=== PATIENT | female | born 1995 | race Caucasian/White ===

== ENCOUNTER 2020-06-07 09:24 | Emergency (ER) | payer OTHER ==
[~2020-06-07] VITALS: Ht 147.3 cm; Wt 93.0 kg
[2020-06-07] MEDS ORDERED: TRAZ1TAB14 PO (09:42)
[2020-06-07] MEDS ORDERED: BUSP30TA PO (09:42)
[2020-06-07] MEDS ORDERED: PROZ10CA7 PO (09:42)
--- NOTE | 2020-06-07 10:17 | REP ---
INDICATION: seizures and head injury w loc. COMPARISON: None. TECHNIQUE: Helical scanning is acquired. 5 mm axial images were reformatted. Coronal MPR images were generated. FINDINGS: Bone window settings demonstrate an intact bony calvarium. There is no evidence of skull fracture or incidental bony calvarial lesion. The visualized paranasal sinuses appear clear. No intraorbital abnormality is seen. On soft tissue window setting images; the lateral, third, and fourth ventricles are normal in size and position. Neely-white differentiation pattern is normal above and below the tentorium. There are is no evidence of intracranial hemorrhage. No mass, edema, infarction, or midline shift is seen. No extra-axial fluid collection is appreciated. IMPRESSION: Negative noncontrast head CT. <Electronically signed by Jasbir Chua > 06/07/20 1017
--- NOTE | 2020-06-07 10:31 | REP ---
INDICATION: left knee pain post seizure COMPARISON: None. TECHNIQUE: Five views left knee. FINDINGS: There is no evidence of acute fracture, dislocation, or intrinsic bone disease.Joint spaces are unremarkable. I do not see evidence of a significant joint effusion. IMPRESSION: No fracture or dislocation. <Electronically signed by Philip Neely > 06/07/20 1029
[2020-06-07 10:56] LABS: BASO % 0.6 % (0.0-1.0); EOS # 0.1 10^3/uL (0.0-0.5); EOS % 1.2 % (0.0-3.0); HEMATOCRIT 39.8 % (36.0-47.0); HEMOGLOBIN 12.3 g/dl (12.0-15.5); LYMPH # 1.4 10^3/uL (1.5-5.0); LYMPH % 26.3 % (24.0-44.0); MEAN CORPUSCULAR HEMOGLOBIN 26.5 pg (27.0-33.0); MEAN CORPUSCULAR HGB CONC 30.9 g/dl (32.0-36.5); MEAN CORPUSCULAR VOLUME 85.8 fl (80.0-96.0); MONO # 0.3 10^3/uL (0.0-0.8); MONO % 5.8 % (2.0-8.0); NEUTROPHILS # 3.4 10^3/uL (1.5-8.5); NEUTROPHILS % 65.1 % (36.0-66.0); PLATELET COUNT, AUTOMATED 213 10^3/uL (150-450); RED BLOOD COUNT 4.64 10^6/uL (4.00-5.40); WHITE BLOOD COUNT 5.2 10^3/uL (4.0-10.0)
--- OUTSIDE RECORDS SUMMARY | 2020-06-07 11:01 | CCD | Continuity of Care Document ---
Author Author Elif BLAKE D.O. Organization Unknown Address [address] [facility] [address] [place] [address] Phone [phone] Problems Active Problems Provider Date Headache Russell Blake D.O., FAALEONEL Onset: 05/2014 Syncope Russell Blake D.O., FAAFP Onset: 04/17 Note: DIZZYNES /BECERRIL Kidney stone Russell Blake D.O., FAAFP Onset: 07/16 Note: july 2019 stent lithotripsy Social History Type Date Description Comments Sex Unknown ETOH Use Denies alcohol use Tobacco Use Start: Unknown End: Unknown Patient is a former smoker Cigarettes- Quit 10/2011 Recreational Drug Use Denies Drug Use Smoking Status Reviewed: 05/03/20 Patient is a former smoker Ci garettes-Quit 10/2011 Allergies, Adverse Reactions, Alerts Active Allergies Reaction Severity Comments Date Toradol Urticaria 05/27/2014 Tramadol Urticaria 05/27/2014 Demerol Urticaria 05/27/2014 Dilaudid 06/04/2014 Ibuprofen 06/04/2014 Naproxen hives 06/05/2014 Inactive Allergies NKDA 07/15/2001 Medications Active Medications SIG Qnty Indications Ordering Provide r Date Aspercreme W/Lidocaine 4% Cream apply three times a day as needed to left knee 1units Russell Blake D.O., FAAFP 08/29/2019 Proair HFA 108(90Base) mcg/Act Aer osol 2 puffs every 8 hours as needed cough 8.500gm Russell barr D.O., FAAFP 02/12/2017 Buspirone HCL 15mg Tablets take one tablet by mouth three times a day Unknown Fluoxetine HCL 20mg Capsules 1 by mouth every day Unknown Trazodone HCL 100mg Tablets take one tablet by mouth at bedtime Unknown History Medications Contrave 8-90mg Tablets ER 12HR 1 by mouth po qd am x 1 week, then bid x 1 week, then two po am and 1 po pm x 1 week and then 2 po bid. 120tabs Russell Blake D.O., FAAFP 06/2019 - 12/24/2019 Medications Administered in Office Medication SIG Qnty Indications Ordering Provider Date Injection (SC)/(Im) Injection Eva Patel ANESTHESIOLOGY PHYSICIAN ASSISTANT 07/21/1998 Immunizations Description No Information Available Vital Signs Date Vital Result Comment 05/03/2020 9:05am BP Systolic 128 mmHg BP Diastolic 82 mmHg Body Temperature 98.0 F Heart Rate 86 /min Respiratory Rate 16 /min Height 58 inches 4'10" Weight 199.00 lb [place] Body Weight 100 lb BMI (Body Mass Index) 41.6 kg/m2 O2 % BldC Oximetry 97 % 01/30/2020 3:25pm BP Systolic 136 mmHg BP Diastolic 84 mmHg Body Temperature 98.5 F Heart Rate 90 /min Respiratory Rate 16 /min Height 58 inches 4'10" Weight 201.00 lb [place] Body Weight 100 lb BMI (Body Mass Index) 42.0 kg/m2 O2 % BldC Oximetry 95 % Results Test Acquired Date Facility Test Result H/L Range Note CBC W/Automated Diff 01/12/2020 [place] [address] [phone] CBC W/Automated Diff (SEE NOTE) 1 WBC 6.7 10^3/uL 4.2 - 11.0 RBC 4.32 10^6/uL 4.20 - 5.40 Hemoglobin 11.7 g/dL Low 12.0 - 16.0 Hematocrit 35.4 % Low 37.0 - 47.0 MCV 81.9 fL 81.0 - 101 MCH 27.1 pg 27.0 - 34.0 MCHC 33.1 g/dL 31.0 - 36.0 RDW 15.9 % High 11.5 - 14.5 Platelets 212 10^3/uL 150 - 450 MPV 10.2 fL 7.4 - 10.4 Neut 72.1 % 37.0 - 80.0 Lymph 22.0 % Low 25.0 - 40.0 [place] 4.6 % 3.0 - 8.0 Eos 0.7 % 0.0 - 7.0 Baso 0.3 % 0.0 - 2.5 %Ig 0.3 % High 0.0 - 0.0 %NRBC 0.0 % 0.0 - 0.0 #Neut 4.82 10^3/uL 2.00 - 6.90 #Lymph 1.47 10^3/uL 0.60 - 3.40 #[place] 0.31 10^3/uL 0.00 - 0.90 #Eos 0.05 10^3/uL 0.00 - 0.70 #Baso 0.02 10^3/uL 0.00 - 0.20 #Ig 0.02 10^3/uL 0.00 - 0.10 #NRBC 0.00 10^3/uL 0.00 - 0.00 Manual Diff NOT INDICATED RBC Morph NOT INDICATED HCG Serum Qual 01/12/2020 [place] [address] [phone] HCG Serum Qual NEGATIVE Normal: Negative HCG Serum QL [place] NEGATIVE Normal: Negative 2 Comprehensive Metabolic Panel 01/12/2020 [place] [address] [phone] Comprehensive Metabo (SEE NOTE) 3 Sodium 138 mEq/L 134 - 153 Potassium 3.6 mEq/L 3.6 - 5.0 Chloride 102 mEq/L 98 - 107 Co2 24 mEq/L 22 - 30 Glucose 138 mg/dL High 65 - 110 BUN 12 mg/dL 7 - 21 Creatinine 0.7 mg/dL 0.7 - 1.5 BUN/Creat 17 8 - 27 Total Protein 7.0 g/dL 6.3 - 8.2 Albumin 4.0 g/dL 3.9 - 5.0 Globulin 3.0 GM/DL 2.4 - 3.2 A/G Ratio 1.3 0.8 - 2.0 Calcium 9.1 mg/dL 8.4 - 10.2 Total Bili <0.7 mg/dL 0.2 - 1.3 Alkaline Phos 56 U/L 38 - 126 Sgot/Ast 16 U/L 5 - 40 SGPT/Alt 20 U/L 7 - 56 Anion Gap 12.0 mmol/L 8.0 - 16.0 Age 24 yrs Non-Aa GFR >60 mL/min Afr Amer GFR >60 mL/min 4 CBC With Differential/Platelet 12/16/2019 [facility] E WBC 6.5 x10E3/uL 3.4-10.8 RBC 4.69 x10E6/uL 3.77-5.28 Hemoglobin 12.5 g/dL 11.1-15.9 Hematocrit 37.1 % 34.0-46.6 MCV 79 fL 79-97 MCH 26.7 pg 26.6-33.0 MCHC 33.7 g/dL 31.5-35.7 RDW 15.8 % High 11.7-15.4 Platelets 250 x10E3/uL 150-450 Neutrophils 69 % Not Estab. Lymphs 25 % Not Estab. Monocytes 5 % Not Estab. Eos 1 % Not Estab. Basos 0 % Not Estab. Immature Cells TNP Neutrophils (Absolute) 4.5 x10E3/uL 1.4-7.0 Lymphs (Absolute) 1.6 x10E3/uL 0.7-3.1 Monocytes(Absolute) 0.3 x10E3/uL 0.1-0.9 Eos (Absolute) 0.0 x10E3/uL 0.0-0.4 Baso (Absolute) 0.0 x10E3/uL 0.0-0.2 Immature Granulocytes 0 % Not Estab. Immature Grans (Abs) 0.0 x10E3/uL 0.0-0.1 NRBC TNP Hematology Comments: TNP Basic Metabolic Panel (8) 12/16/2019 [facility] [place] Glucose 85 mg/dL 65-99 BUN 13 mg/dL 6-20 Creatinine 0.64 mg/dL 0.57-1.00 eGFR If NonAfricn Am 124 mL/min/1.73 >59 eGFR If Africn Am 142 mL/min/1.73 >59 BUN/Creatinine Ratio 20 9-23 Sodium 139 mmol/L 134-144 Potassium 3.9 mmol/L 3.5-5.2 Chloride 101 mmol/L 96-106 Carbon Dioxide, Total 23 mmol/L 20-29 Calcium 8.8 mg/dL 8.7-10.2 Laboratory test finding 12/16/2019 [facility] [place] TSH 2.810 uIU/mL 0.450-4.500 1 COMPLETE BLOOD COUNT 2 { KIT LOT # [id number] ) { KIT EXP DATE 01.26.21 ) { PROCEDURAL CONTROL VALID ) 3 COMPREHENSIVE METABOLIC PANE L 4 Male GFR Interprentation 20-49 yrs >60 mL/min Normal 50-59 yrs >56 mL/min Normal 60-69 yrs >49 mL/min Normal 70-79yrs >42 mL/min Normal 80 and above >35 mL/min Normal Female GFR Interpretation 20-39 yrs >60 mL/min Normal 40-49 yrs >58 mL/min Normal 50-59 yrs >51 mL/min Normal 60-69 yrs >45 mL/min Normal 70-79 yrs >39 mL/min Normal 80 and above >32 mL/min Normal Procedures Description No Information Available Medical Devices Description No Information Available Encounters Type Date Location Provider Dx Diagnosis Office Visit 01/30/2020 3:00p [facility] Catalina Polk, FAAFP E66.9 Obesity, unspecified Z68.41 Body mass index [BMI]40.0-44 .9, adult Office Visit 12/16/2019 2:20p [facility] Catalina Polk, FAAFP R63.5 Abnormal weight gain R51 Headache D64.9 Anemia, unspecified Assessments Date Code Description Provider 01/30/2020 E66.9 Obesity, unspecified Russell Blake D.O., FAAFP 01/30/2020 Z68.41 Body mass index [BMI]40.0-44.9, adult Russell Blake D.O., FAAFP 12/16/2019 R63.5 Abnormal weight gain Rsusell Blake D.O., FAAFP 12/16/2019 R51 Headache Russell Blake D.O., FAAFP 12/16/2019 D64.9 Anemia, unspecified Russell barr D.O., FAAFP Plan of Treatment No Information Available Functional Status Description No Information Available Mental Status Description No Information Available Referrals Refer to Reason for Referral Status Appt Date Josafat Godfrey M.D. please eval for bariatric surgery obesi ty [facility] Shaniqua Brooks. [id number] [place] [address] [phone] [facility] Nutrition please eval weight gain 42 BMI [facility] [address] [place] [address] [phone]
--- OUTSIDE RECORDS SUMMARY | 2020-06-07 11:04 | CCD ---
Author Author [facility] Organization [facility] Address Unknown Phone Unavailable Care Team Providers Care Amphibian Crewmember Name Role Phone Asuncion ESTES MD Unavailable Unavailable Asuncion ESTES MD Unavailable Unavailable Asuncion ESTES MD Unavailable Unavailable Asuncion ESTES MD Unavailable Unavailable Asuncion ESTES MD Unavailable Unavailable Asuncion ESTES MD Unavailable Unavailable Asuncion ESTES MD Unavailable Unavailable Asuncion ESTES MD Unavailable Unavailable Asuncion ESTES MD Unavailable Unavailable Asuncion ESTES MD Unavailable Unavailable Asuncion ESTES MD Unavailable Unavailable Asuncion ESTES MD Unavailable Unavailable Asuncion ESTES MD Unavailable Unavailable Fish, J Russell Unavailable Unavailable Fish, J Russell Unavailable Unavailable Fish, J Russell Unavailable Unavailable Fish, J Russell Unavailable Unavailable Fish, J Russell Unavailable Unavailable Fish, J Russell Unavailable Unavailable Fish, J Russell Unavailable Unavailable Fish, J Russell Unavailable Unavailable Fish, J Russell Unavailable Unavailable Fish, J Russell Unavailable Unavailable Fish, J Russell Unavailable Unavailable Fish, J Russell Unavailable Unavailable Fish, J Russell Unavailable Unavailable Fish, J Russell Unavailable Unavailable Fish, J Russell Unavailable Unavailable Fish, J Russell Unavailable Unavailable Fish, J Russell Unavailable Unavailable Fish, J Russell Unavailable Unavailable Fish, J Russell Unavailable Unavailable Fish, J Russell Unavailable Unavailable Fish, J Russell Unavailable Unavailable Fish, J Russell Unavailable Unavailable Fish, J Russell Unavailable Unavailable Fish, J Russell Unavailable Unavailable Fish, J Russell Unavailable Unavailable Fish, J Russell Unavailable Unavailable Fish, J Russell Unavailable Unavailable Fish, J Russell Unavailable Unavailable Fish, J Russell Unavailable Unavailable Fish, J Russell Unavailable Unavailable Fish, J Russell Unavailable Unavailable Fish, J Russell Unavailable Unavailable Fish, J Russell Unavailable Unavailable Fish, J Russell Unavailable Unavailable Fish, J Russell Unavailable Unavailable Fish, J Russell Unavailable Unavailable Fish, J Russell Unavailable Unavailable Fish, J Russell Unavailable Unavailable Fish, J Russell Unavailable Unavailable Fish, J Russell Unavailable Unavailable Fish, J Russell Unavailable Unavailable Fish, J Russell Unavailable Unavailable Fish, J Russell Unavailable Unavailable Fish, J Russell Unavailable Unavailable Fish, J Russell Unavailable Unavailable Fish, J Russell Unavailable Unavailable Fish, J Russell Unavailable Unavailable Fish, J Russell Unavailable Unavailable Fish, J Russell Unavailable Unavailable Fish, J Russell Unavailable Unavailable Fish, J Russell Unavailable Unavailable Fish, J Russell Unavailable Unavailable Fish, J Russell Unavailable Unavailable Fish, J Russell Unavailable Unavailable Fish, J Russell Unavailable Unavailable Fish, J Russell Unavailable Unavailable Fish, J Russell Unavailable Unavailable Fish, J Russell Unavailable Unavailable Fish, J Russell Unavailable Unavailable Fish, J Russell Unavailable Unavailable Fish, J Russell Unavailable Unavailable Fish, J Russell Unavailable Unavailable Fish, J Russell Unavailable Unavailable Fish, J Russell Unavailable Unavailable Fish, J Russell Unavailable Unavailable Fish, J Russell Unavailable Unavailable Fish, J Russell Unavailable Unavailable Fish, J Russell Unavailable Unavailable Fish, J Russell Unavailable Unavailable Fish, J Russell Unavailable Unavailable Fish, J Russell Unavailable Unavailable Fish, J Russell Unavailable Unavailable Fish, J Russell Unavailable Unavailable Fish, J Russell Unavailable Unavailable Fish, J Russell Unavailable Unavailable Fish, J Russell Unavailable Unavailable Fish, J Russell Unavailable Unavailable Fish, J Russell Unavailable Unavailable Fish, J Russell Unavailable Unavailable Fish, J Russell Unavailable Unavailable Fish, J Russell Unavailable Unavailable Fish, J Russell Unavailable Unavailable Fish, J Russell Unavailable Unavailable Fish, J Russell Unavailable Unavailable Fish, J Russell Unavailable Unavailable Yuli PEDRAZA Unavailable Unavailable ACE, F MONAE MD Unavailable Unavailable ACE, F MONAE MD Unavailable Unavailable ACE, F MONAE MD Unavailable Unavailable ACE, F MONAE MD Unavailable Unavailable ACE, F MONAE MD Unavailable Unavailable ACE, F MONAE MD Unavailable Unavailable ACE, F MONAE MD Unavailable Unavailable ACE, F MONAE MD Unavailable Unavailable ACE, F MONAE MD Unavailable Unavailable ACE, F MONAE MD Unavailable Unavailable ACE, F MONAE MD Unavailable Unavailable ACE, F MONAE MD Unavailable Unavailable ACE, F MONAE MD Unavailable Unavailable ACE, F MONAE MD Unavailable Unavailable ACE, F MONAE MD Unavailable Unavailable ACE, F MONAE MD Unavailable Unavailable ACE, F MONAE MD Unavailable Unavailable ACE, F MONAE MD Unavailable Unavailable ACE, F MONAE MD Unavailable Unavailable ACE, F MONAE MD Unavailable Unavailable ACE, F MONAE MD Unavailable Unavailable ACE, F MONAE MD Unavailable Unavailable ACE, F MONAE MD Unavailable Unavailable ACE, F MONAE MD Unavailable Unavailable ACE, F MONAE MD Unavailable Unavailable ACE, F MONAE MD Unavailable Unavailable ACE, F MONAE MD Unavailable Unavailable ACE, F MONAE MD Unavailable Unavailable Aniya STATON MD Unavailable Unavailable Aniya STATON MD Unavailable Unavailable Aniya STATON MD Unavailable Unavailable Aniya STATON MD Unavailable Unavailable Aniya STATON MD Unavailable Unavailable OBEN, T DAVE MD Unavailable Unavailable OBEN, T DAVE MD Unavailable Unavailable OBEN, T DAVE MD Unavailable Unavailable OBEN, T DAVE MD Unavailable Unavailable OBEN, T DAVE MD Unavailable Unavailable OBEN, T DAVE MD Unavailable Unavailable OBEN, T DAVE MD Unavailable Unavailable OBEN, T DAVE MD Unavailable Unavailable OBEN, T DAVE MD Unavailable Unavailable OBEN, T DAVE MD Unavailable Unavailable OBEN, T DAEV MD Unavailable Unavailable OBEN, T DAVE MD Unavailable Unavailable OBEN, T DAVE MD Unavailable Unavailable OBEN, T DAVE MD Unavailable Unavailable OBEN, T DAVE MD Unavailable Unavailable OBEN, T DAVE MD Unavailable Unavailable OBEN, T DAVE MD Unavailable Unavailable OBEN, T DAVE MD Unavailable Unavailable OBEN, T DAVE MD Unavailable Unavailable OBEN, T DAVE MD Unavailable Unavailable OBEN, T DAVE MD Unavailable Unavailable OBEN, T DAVE MD Unavailable Unavailable OBEN, T DAVE MD Unavailable Unavailable OBEN, T DAVE MD Unavailable Unavailable OBEN, T DAVE MD Unavailable Unavailable OBEN, T DAVE MD Unavailable Unavailable OBEN, T DAVE MD Unavailable Unavailable OBEN, T DAVE MD Unavailable Unavailable OBEN, T DAVE MD Unavailable Unavailable OBEN, T DAVE MD Unavailable Unavailable OBEN, T ADVE MD Unavailable Unavailable OBEN, T DAVE MD Unavailable Unavailable OBEN, T DAVE MD Unavailable Unavailable OBEN, T DAVE MD Unavailable Unavailable OBEN, T DAVE MD Unavailable Unavailable OBEN, T DAEV MD Unavailable Unavailable OBEN, T DAVE MD Unavailable Unavailable OBEN, T DAVE MD Unavailable Unavailable OBEN, T DAVE MD Unavailable Unavailable OBEN, T DAVE MD Unavailable Unavailable OBEN, T DAVE MD Unavailable Unavailable OBEN, T DAVE MD Unavailable Unavailable OBEN, T DAVE MD Unavailable Unavailable OBEN, T DAVE MD Unavailable Unavailable OBEN, T DAVE MD Unavailable Unavailable OBEN, T DAVE MD Unavailable Unavailable OBEN, T DAVE MD Unavailable Unavailable OBEN, T DAVE MD Unavailable Unavailable Liv Mendes-C Unavailable Unavailable Liv Mendes-C Unavailable Unavailable Liv Mendes-C Unavailable Unavailable Liv Mendes-C Unavailable Unavailable Liv Mendes-C Unavailable Unavailable Liv Mendes-C Unavailable Unavailable Liv Mendes-C Unavailable Unavailable Cinthya, J Andrew PA-C Unavailable Unavailable Liv Mendes PA-C Unavailable Unavailable CinthyaLiv fleming PA-C Unavailable Unavailable CinthyaLiv PA-C Unavailable Unavailable TURRIN, RUBY Unavailable Unavailable TURRIN, RUBY Unavailable Unavailable TURRIN, RUBY Unavailable Unavailable TURRIN, RUBY Unavailable Unavailable OBEN, T DAVE MD Unavailable Unavailable OBEN, T DAVE MD Unavailable Unavailable OBEN, T DAVE MD Unavailable Unavailable OBEN, T DAVE MD Unavailable Unavailable OBEN, T DAVE MD Unavailable Unavailable OBEN, T DAVE MD Unavailable Unavailable OBEN, T DAVE MD Unavailable Unavailable OBEN, T DAVE MD Unavailable Unavailable OBEN, T DAVE MD Unavailable Unavailable OBEN, T DAVE MD Unavailable Unavailable OBEN, T DAVE MD Unavailable Unavailable OBEN, T DAVE MD Unavailable Unavailable OBEN, T DAVE MD Unavailable Unavailable OBEN, T DAVE MD Unavailable Unavailable OBEN, T DAVE MD Unavailable Unavailable OBEN, T DAVE MD Unavailable Unavailable OBEN, T DAVE MD Unavailable Unavailable OBEN, T DAVE MD Unavailable Unavailable OBEN, T DAVE MD Unavailable Unavailable OBEN, T DAVE MD Unavailable Unavailable OBEN, T DAVE MD Unavailable Unavailable OBEN, T DAVE MD Unavailable Unavailable OBEN, T DAVE MD Unavailable Unavailable OBEN, T DAVE MD Unavailable Unavailable OBEN, T DAVE MD Unavailable Unavailable OBEN, T DAVE MD Unavailable Unavailable OBEN, T DAVE MD Unavailable Unavailable OBEN, T DAVE MD Unavailable Unavailable OBEN, T DAVE MD Unavailable Unavailable OBEN, T DAVE MD Unavailable Unavailable OBEN, T DAVE MD Unavailable Unavailable OBEN, T DAVE MD Unavailable Unavailable OBEN, T DAVE MD Unavailable Unavailable OBEN, T DAVE MD Unavailable Unavailable OBEN, T DAVE MD Unavailable Unavailable OBEN, T DAVE MD Unavailable Unavailable OBEN, T DAVE MD Unavailable Unavailable OBEN, T DAVE MD Unavailable Unavailable OBEN, T DAVE MD Unavailable Unavailable OBEN, T DAVE MD Unavailable Unavailable OBEN, T DAVE MD Unavailable Unavailable OBEN, T DAVE MD Unavailable Unavailable OBEN, T DAVE MD Unavailable Unavailable OBEN, T DAVE MD Unavailable Unavailable OBEN, T DAVE MD Unavailable Unavailable OBEN, T DAVE MD Unavailable Unavailable OBEN, T DAVE MD Unavailable Unavailable OBEN, T DAVE MD Unavailable Unavailable OBEN, T DAVE MD Unavailable Unavailable OBEN, T DAVE MD Unavailable Unavailable OBEN, T DAVE MD Unavailable Unavailable OBEN, T DAVE MD Unavailable Unavailable OBEN, T DAVE MD Unavailable Unavailable Tab, L Gabe CNM Unavailable Unavailable Tab, L Gabe CNM Unavailable Unavailable Tab, L Gabe CNM Unavailable Unavailable Tab, L Gabe CNM Unavailable Unavailable Tab, L Gabe CNM Unavailable Unavailable Tab, L Gabe CNM Unavailable Unavailable Tab, L Gabe CNM Unavailable Unavailable Tab, L Gabe CNM Unavailable Unavailable Tab, L Gabe CNM Unavailable Unavailable Tab, L Gabe CNM Unavailable Unavailable Tab, L Gabe CNM Unavailable Unavailable Tab, L Gabe CNM Unavailable Unavailable Tab, L Gabe CNM Unavailable Unavailable Tab, L Gabe CNM Unavailable Unavailable Fish, J Russell Unavailable Unavailable Fish, J Russell Unavailable Unavailable Fish, J Russell Unavailable Unavailable Fish, J Russell Unavailable Unavailable Fish, J Russell Unavailable Unavailable Fish, J Russell Unavailable Unavailable Fish, J Russell Unavailable Unavailable Fish, J Russell Unavailable Unavailable Fish, J Russell Unavailable Unavailable Fish, J Russell Unavailable Unavailable Fish, J Russell Unavailable Unavailable Fish, J Russell Unavailable Unavailable Fish, J Russell Unavailable Unavailable Fish, J Russell Unavailable Unavailable Fish, J Russell Unavailable Unavailable Fish, J Russell Unavailable Unavailable Fish, J Russell Unavailable Unavailable Fish, J Russell Unavailable Unavailable Fish, J Russell Unavailable Unavailable Fish, J Russell Unavailable Unavailable Fish, J Russell Unavailable Unavailable Fish, J Russell Unavailable Unavailable Fish, J Russell Unavailable Unavailable Fish, J Russell Unavailable Unavailable Fish, J Russell Unavailable Unavailable Fish, J Russell Unavailable Unavailable Fish, J Russell Unavailable Unavailable Fish, J Russell Unavailable Unavailable Fish, J Russell Unavailable Unavailable Fish, J Russell Unavailable Unavailable Fish, J Russell Unavailable Unavailable Fish, J Russell Unavailable Unavailable Fish, J Russell Unavailable Unavailable Fish, J Russell Unavailable Unavailable Fish, J Russell Unavailable Unavailable Fish, J Russell Unavailable Unavailable Fish, J Russell Unavailable Unavailable Fish, J Russell Unavailable Unavailable Fish, J Russell Unavailable Unavailable Fish, J Russell Unavailable Unavailable Fish, J Russell Unavailable Unavailable Fish, J Russell Unavailable Unavailable Fish, J Russell Unavailable Unavailable Fish, J Russell Unavailable Unavailable Fish, J Russell Unavailable Unavailable Fish, J Russell Unavailable Unavailable Fish, J Russell Unavailable Unavailable Fish, J Russell Unavailable Unavailable Fish, J Russell Unavailable Unavailable Fish, J Russell Unavailable Unavailable Fish, J Russell Unavailable Unavailable Fish, J Russell Unavailable Unavailable Fish, J Russell Unavailable Unavailable Fish, J Russell Unavailable Unavailable Fish, J Russell Unavailable Unavailable Fish, J Russell Unavailable Unavailable Fish, J Russell Unavailable Unavailable Fish, J Russell Unavailable Unavailable Fish, J Russell Unavailable Unavailable Fish, J Russell Unavailable Unavailable Fish, J Russell Unavailable Unavailable Fish, J Russell Unavailable Unavailable Fish, J Russell Unavailable Unavailable Fish, J Russell Unavailable Unavailable Fish, J Rusesll Unavailable Unavailable Fish, J Russell Unavailable Unavailable Fish, J Russell Unavailable Unavailable Fish, J Russell Unavailable Unavailable Fish, J Russell Unavailable Unavailable Fish, J Russell Unavailable Unavailable Fish, J Russell Unavailable Unavailable Fish, J Russell Unavailable Unavailable Fish, J Russell Unavailable Unavailable Fish, J Russell Unavailable Unavailable Fish, J Russell Unavailable Unavailable Fish, J Russell Unavailable Unavailable Fish, J Russell Unavailable Unavailable Fish, J Russell Unavailable Unavailable Fish, J Russell Unavailable Unavailable Fish, J Russell Unavailable Unavailable Fish, J Russell Unavailable Unavailable Fish, J Russell Unavailable Unavailable Fish, J Russell Unavailable Unavailable Fish, J Russell Unavailable Unavailable Fish, J Russell Unavailable Unavailable Yuli OCHOA MD Unavailable Unavailable Yuli OCHOA MD Unavailable Unavailable STEPHENYuli ORNELAS MD Unavailable Unavailable STEPHENYuli ORNELAS MD Unavailable Unavailable STEPHENYuli ORNELAS MD Unavailable Unavailable STEPHENYuli ORNELAS MD Unavailable Unavailable STEPHENYuli ORNELAS MD Unavailable Unavailable STEPHENYuli ORNELAS MD Unavailable Unavailable STEPHENYuli ORNELAS MD Unavailable Unavailable STEPHENYuli ORNELAS MD Unavailable Unavailable STEPHENYuli ORNELAS JUDITH MD Unavailable Unavailable STEPHENYuli ORNELAS MD Unavailable Unavailable STEPHENYuli ORNELAS JUDITH MD Unavailable Unavailable STEPHENYuli ORNELAS MD Unavailable Unavailable STEPHENYuli ORNELAS MD Unavailable Unavailable STEPHENYuli ORNELAS MD Unavailable Unavailable STEPHEN, Yuli URBINA MD Unavailable Unavailable STEPHEN, Yuli URBINA MD Unavailable Unavailable STEPHEN, Yuli URBINA MD Unavailable Unavailable STEPHEN, Yuli URBINA MD Unavailable Unavailable STEPHEN, Yuli URBINA MD Unavailable Unavailable STEPHEN, Yuli URBINA MD Unavailable Unavailable STEPHEN, Yuli URBINA MD Unavailable Unavailable COURTNEY, F CHAVO DO Unavailable Unavailable COURTNEY, F CHAVO DO Unavailable Unavailable COURTNEY, F CHAVO DO Unavailable Unavailable COURTNEY, F CHAVO DO Unavailable Unavailable COURTNEY, F CHAVO DO Unavailable Unavailable COURTNEY, F CHAVO DO Unavailable Unavailable COURTNEY, F CHAVO DO Unavailable Unavailable COURTNEY, F CHAVO DO Unavailable Unavailable COURTNEY, F CHAVO DO Unavailable Unavailable COURTNEY, F CHAVO DO Unavailable Unavailable COURTNEY, F CHAVO DO Unavailable Unavailable COURTNEY, F CHAVO DO Unavailable Unavailable COURTNEY, F CHAVO DO Unavailable Unavailable COURTNEY, F CHAVO DO Unavailable Unavailable COURTNEY, F CHAVO DO Unavailable Unavailable COURTNEY, F CHAVO DO Unavailable Unavailable COURTNEY, F CHAVO DO Unavailable Unavailable COURTNEY, F CHAVO DO Unavailable Unavailable COURTNEY, F CHAVO DO Unavailable Unavailable COURTNEY, F HCAVO DO Unavailable Unavailable COURTNEY, F CHAVO DO Unavailable Unavailable COURTNEY, F CHAVO DO Unavailable Unavailable COURTNEY, F CHAVO DO Unavailable Unavailable COURTNEY, F CHAVO DO Unavailable Unavailable COURTNEY, F CHAVO DO Unavailable Unavailable COURTNEY, F CHAVO DO Unavailable Unavailable COURTNEY, F CHAVO DO Unavailable Unavailable COURTNEY, F CHAVO DO Unavailable Unavailable COURTNEY, F CHAVO DO Unavailable Unavailable COURTNEY, F CHAVO DO Unavailable Unavailable COURTNEY, F CHAVO DO Unavailable Unavailable COURTNEY, F CHAVO DO Unavailable Unavailable LIZETTE THORNTON MD Unavailable Unavailable LIZETTE THORNTON MD Unavailable Unavailable LIZETTE THORNTON MD Unavailable Unavailable LIZETTE THORNTON MD Unavailable Unavailable LIZETTE THORNTON MD Unavailable Unavailable LIZETTE THORNTON MD Unavailable Unavailable LIZETTE THORNTON MD Unavailable Unavailable LIZETTE THORNTON MD Unavailable Unavailable LIZETTE THORNTON MD Unavailable Unavailable LIZETTE THORNTON MD Unavailable Unavailable LIZETTE THORNTON MD Unavailable Unavailable LIZETTE THORNTON MD Unavailable Unavailable LIZETTE THORNTON MD Unavailable Unavailable LIZETTE THORNTON MD Unavailable Unavailable LIZETTE THORNTON MD Unavailable Unavailable LIZETTE THORNTON MD Unavailable Unavailable LIZETTE THORNTON MD Unavailable Unavailable LIZETTE THORNTON MD Unavailable Unavailable LIZETTE THORNTON MD Unavailable Unavailable MARKWITH, LIZETTE MD Unavailable Unavailable MARKWITH, LIZETTE MD Unavailable Unavailable MARKWITH, LIZETTE MD Unavailable Unavailable MARKWITH, LIZETTE MD Unavailable Unavailable MARKWITH, LIZETTE MD Unavailable Unavailable MARKWITH, LIZETTE MD Unavailable Unavailable MARKWITH, LIZETET MD Unavailable Unavailable MARKWITH, LIZETTE MD Unavailable Unavailable MARKWITH, LIZETTE MD Unavailable Unavailable MARKWITH, LIZETTE MD Unavailable Unavailable MARKWITH, LIZETTE MD Unavailable Unavailable MARKWITH, LIZETTE MD Unavailable Unavailable MARKWITH, LIZETTE MD Unavailable Unavailable MARKWITH, LIZETTE MD Unavailable Unavailable VENERUS, J ISRAEL MD Unavailable Unavailable VENERUS, J ISRAEL MD Unavailable Unavailable VENERUS, J ISRAEL MD Unavailable Unavailable VENERUS, J ISRAEL MD Unavailable Unavailable VENERUS, J ISRAEL MD Unavailable Unavailable VENERUS, J ISRAEL MD Unavailable Unavailable VENERUS, J ISRAEL MD Unavailable Unavailable VENERUS, J ISRAEL MD Unavailable Unavailable VENERUS, J ISRAEL MD Unavailable Unavailable Re-disclosure Warning The records that you are about to access may contain information from federally-assisted alcohol or drug abuse programs. If such information is present, then the following federally mandated warning applies: This information has been disclosed to you from records protected by federal confidentiality rules (42 CFR part 2). The federal rules prohibit you from making any further disclosure of this information unless further disclosure is expressly permitted by the written consent of the person to whom it pertains or as otherwise permitted by 42 CFR part 2. A general authorization for the release of medical or other information is NOT sufficient for this purpose. The Federal rules restrict any use of the information to criminally investigate or prosecute any alcohol or drug abuse patient.The records that you are about to access may contain highly sensitive health information, the redisclosure of which is protected by Article 27-F of the [facility] Public Health law. If you continue you may have access to information: Regarding HIV / AIDS; Provided by facilities licensed or operated by the [facility] Office of Mental Health; or Provided by the [facility] Office for People With Developmental Disabilities. If such information is present, then the following [facility] mandated warning applies: This information has been disclosed to you from confidential records which are protected by state law. State law prohibits you from making any further disclosure of this information without the specific written consent of the person to whom it pertains, or as otherwise permitted by law. Any unauthorized further disclosure in violation of state law may result in a fine or assisted sentence or both. A general authorization for the release of medical or other information is NOT sufficient authorization for further disc losure. Allergies and Adverse Reactions Type Description Substance Reaction Status Data Source(s ) Food allergy mushrooms mushrooms NAUSEA; SWELLING; RASH SWELL ING; RASH NAUSEA [facility] BRANDNAME TORADOL TORADOL [facility] BRANDNAME MOTRIN MOTRIN RASH [facility] BRANDNAME DILAUDID DILAUDID [facility] BRANDNAME DERMAL WOUND CLEANSER DERMAL WOUND CLEANSER [facility] ENVIRONMENTAL LAVENDER OIL LAVENDER OIL RASH [facility] Drug allergy TRAMADOL TRAMADOL [facility] Drug allergy NAPROXEN NAPROXEN RASH [facility] Family History Family Member Name Family Member Gender Family Member Status Date o f Status Description Data Source(s) Unknown Male Problem [facility] ([facility]) Encounters Encounter Providers Location Date Indications Data Source(s ) [facility] Emergency Attender: ISRAEL NELSON MDConsultant: Russell [facility] 01/28/2020 08:48:00 PM EDT - 01/28/2020 10:07:00 PM EDT [facility] Patient discharged. Emergency Attender: RUBY LUNDBERGConsultant: Russell Fis h 01/12/2020 04:46:00 PM EDT - 01/12/2020 07:11:00 PM EDT [facility] Patient discharged. Outpatient Attender: Russell L[facility] [place] [facility] 12/16/2019 02:20:0 0 PM EDT [facility] ([facility] Emergency Attender: Adnrew TORRESCConsultant: Russelllan Packer 11/18/2019 11:16:00 AM EDT - 11/18/2019 01:02:00 PM EDT [facility] Patient discharged. Emergency Attender: JUDITH OCHOA MDConsultant: Russell Fis h 10/02/2019 10:10:00 AM EDT - 10/02/2019 01:58:00 PM EDT [facility] Patient discharged. Outpatient Attender: ESTUARDO ESTES MDConsultant: Russell Valenzuela h 10/01/2019 03:05:00 PM EDT - 10/01/2019 03:05:00 PM EDT [facility] Outpatient Attender: ESTUARDO ESTES MDConsultant: Russell Valenzuela h 10/01/2019 02:54:00 PM EDT - 10/01/2019 03:54:00 PM EDT [facility] Emergency Attender: Andrew TORRESCConsultant: Russell Fish 09/30/2019 10:59:00 AM EDT - 09/30/2019 03:32:00 PM EDT [facility] Patient discharged. Emergency Attender: ISRAEL NELSON MDConsultant: Russelllan jj 09/12/2019 10:02:00 AM EDT - 09/12/2019 12:30:00 PM EDT [facility] Patient discharged. Outpatient Attender: Russell Packer [place] [facility] 08/29/2019 10:45:0 0 AM EDT [facility] ([facility] Outpatient Attender: LIZETTE THORNTON MD Physical Therapy 09:00:00 AM EDT [facility] ([facility] Outpatient Attender: Russell Packer [place] [facility] 08/15/2019 01:15:0 0 PM EDT [facility] ([facility] Outpatient Attender: Russell Packer [place] [facility] 08/11/2019 01:15:0 0 PM EDT [facility] ([facility] Outpatient Attender: DAVE STATON MDConsultant: Russell Packer 08/05/2019 10:36:00 AM EDT - 08/05/2019 10:36:00 AM EDT [facility] OFFICE OUTPATIENT NEW 30 MINUTES Attender: LIZETTE THORNTON MD Ph ysical Therapy 08/04/2019 03:00:00 PM EDT [facility] ([facility] Emergency Attender: CHAVO PITT DOConsultant: Russell Valenzuela h 08/02/2019 07:59:00 PM EDT - 08/02/2019 10:25:00 PM EDT [facility] Patient discharged. Outpatient Attender: DAVE STATON MDConsultant: Russell Packer 08/01/2019 07:00:00 AM EDT - 08/01/2019 11:50:00 AM EDT [facility] Patient discharged. Outpatient Attender: DAVE STATON MDConsultant: Russell Packer 07/30/2019 10:59:00 AM EDT - 07/30/2019 11:59:00 AM EDT [facility] Outpatient Attender: DAVE STATON MD Family Practice 07/29/2019 02:00:0 0 PM EDT [facility] ([facility]) Outpatient Attender: DAVE STATON MDConsultant: Russell Packer 07/29/2019 01:55:00 PM EDT - 07/29/2019 01:55:00 PM EDT [facility] Outpatient Attender: Russell PackerReferrer: Russell PackerConsultant: Russell Packer 07/28/2019 12:46:00 PM EDT - 07/28/2019 12:56:00 PM EDT [facility] Outpatient Attender: Russell Packer [place] [facility] 07/28/2019 10:00:0 0 AM EDT [facility] ([facility] Emergency Attender: ISRAEL NELSON MDConsultant: Russell jj 2019 10:15:00 AM EDT - 2019 01:48:00 PM EDT [facility] Patient discharged. Outpatient 07/18/2019 05:08:00 AM EDT [facility] Emergency Attender: RUBY LUNDBERGConsultant: Russell sorto 07/18/2019 04:56:00 AM EDT - 07/18/2019 02:31:00 PM EDT [facility] Patient discharged. Outpatient Attender: MONAE GARIBAY MDConsultant: Russell barr 06/20/2019 02:48:00 PM EST - 06/20/2019 02:48:00 PM EST [facility] Outpatient Attender: MONAE GARIBAY MD Family Practice 09/2019 01:45:00 PM EST [facility] Out[facility] Attender: MONAE GARIBAY MDConsultant: Russell Chepe [facility] 06/02/2019 10:45:00 AM EST - 06/02/2019 05:28:00 PM [facility] Patient discharged. Outpatient Attender: MONAE GARIBAY MDConsultant: Russell Mo [facility] 05/28/2019 07:28:00 AM EST - 05/28/2019 08:28:00 AM [facility] Outpatient Attender: MONAE GARIBAY MDConsultant: Russell Mo [facility] 05/06/2019 01:07:00 PM EST - 05/06/2019 01:07:00 PM [facility] Outpatient Attender: MONAE GARIBAY MD Family Practice 04/17 12:00:00 PM EST [facility] ([facility]) Outpatient Attender: MONAE GARIBAY MDConsultant: Russell Mo [facility] 04/04/2019 01:51:00 PM EST - 04/04/2019 01:51:00 PM [facility] Emergency Attender: ISRAEL NELSON MDConsultant: Russell Jarrett 03/30/2019 05:37:00 PM EST - 03/30/2019 09:58:00 PM [facility] Patient discharged. Inpatient Attender: MORGAN PEDRAZAConsultant: Russelllan Packer 03/24/2019 08:09:00 AM EST - 03/27/2019 01:45:00 PM [facility] Patient discharged. Outpatient Attender: MONAE GARIBAY MDA ttender: Gabe Barth CNonsultant: Russell Latrell 03/07/2019 01:02:00 PM EST - 03/07/2019 01:02:00 PM [facility] Discharge cancelled. Disregard status an d discharged date. Medications Medication Brand Name Start Date Product Form Dose Route Admi nistrative Instructions Pharmacy Instructions Status Indications Reaction Description Data Source(s) 40 mg 05/20/2020 12:00:00 AM EST capsule 30 TAKE ONE CAPSULE BY MOUTH EVERY MORNING TAKE ONE CAPSULE BY MOUTH EVERY MORNING SOLD: 05/22/2020 [facility] 30 mg 05/20/2020 12:00:00 AM EST tablet 60 TAKE ONE TABLET BY MOUTH TWICE A DAY TAKE ONE TABLET BY MOUTH TWICE A DAY SOLD: 05/22/2020 [facility] Trazodone Hydrochloride 100 MG Oral Tablet TRAZODONE HCL 05/10/2020 12:00:00 AM EST tablet 45 TAKE ONE AND ONE-HALF TABLET S BY MOUTH AT BEDTIME TAKE ONE AND ONE-HALF TABLETS BY MOUTH AT BEDTIME SOLD: 05/18/2020 [facility] Trazodone Hydrochloride 100 MG Oral Tablet TRAZODONE HCL 04/11/2020 12:00:00 AM EST tablet 5 TAKE ONE AND ONE-HALF TABLET S BY MOUTH AT BEDTIME TAKE ONE AND ONE-HALF TABLETS BY MOUTH AT BEDTIME SOLD: 04/11/2020 [facility] 40 mg 04/06/2020 12:00:00 AM EST capsule 30 TAKE ONE CAPSULE BY MOUTH EVERY MORNING TAKE ONE CAPSULE BY MOUTH EVERY MORNING SOLD: 04/10/2020 [facility] Trazodone Hydrochloride 100 MG Oral Tablet TRAZODONE HCL 03/19/2020 12:00:00 AM EST tablet 45 TAKE 1 & 1/2 TABLETS BY MOUT H AT BEDTIME TAKE 1 & 1/2 TABLETS BY MOUTH AT BEDTIME SOLD: 03/19/2020 [facility] Trazodone Hydrochloride 100 MG Oral Tablet TRAZODONE HCL 03/19/2020 12:00:00 AM EST tablet 45 TAKE 1 & 1/2 TABLETS BY MOUT H AT BEDTIME TAKE 1 & 1/2 TABLETS BY MOUTH AT BEDTIME SOLD: 04/18/2020 [facility] 30 mg 02/16/2020 12:00:00 AM EST tablet 60 TAKE ONE TABLET BY MOUTH TWICE A DAY TAKE ONE TABLET BY MOUTH TWICE A DAY SOLD: 02/19/2020 [facility] 30 mg 02/16/2020 12:00:00 AM EST tablet 60 TAKE ONE TABLET BY MOUTH TWICE A DAY TAKE ONE TABLET BY MOUTH TWICE A DAY SOLD: 04/10/2020 [facility] Trazodone Hydrochloride 100 MG Oral Tablet TRAZODONE HCL 02/13/2020 12:00:00 AM EDT tablet 45 TAKE 1 & 1/2 TABLETS BY MOUT H AT BEDTIME TAKE 1 & 1/2 TABLETS BY MOUTH AT BEDTIME SOLD: 02/15/2020 [facility] 40 mg 01/24/2020 12:00:00 AM EDT capsule 30 TAKE ONE CAPSULE BY MOUTH EVERY MORNING TAKE ONE CAPSULE BY MOUTH EVERY MORNING SOLD: 01/25/2020 [facility] 30 mg 01/19/2020 12:00:00 AM EDT tablet 60 TAKE ONE TABLET BY MOUTH TWICE A DAY TAKE ONE TABLET BY MOUTH TWICE A DAY SOLD: 01/25/2020 [facility] 30 mg 01/19/2020 12:00:00 AM EDT tablet 60 TAKE ONE TABLET BY MOUTH TWICE A DAY TAKE ONE TABLET BY MOUTH TWICE A DAY SOLD: 03/17/2020 [facility] 40 mg 12/29/2019 12:00:00 AM EDT capsule 30 TAKE ONE CAPSULE BY MOUTH EVERY MORNING TAKE ONE CAPSULE BY MOUTH EVERY MORNING SOLD: 01/04/2020 [facility] 12 HR Bupropion Hydrochloride 90 MG / Na ltrexone hydrochloride 8 MG Extended Release Oral Tablet [Contrave] Contrave 12/18/2019 12:00:00 AM EDT ORAL completed [facility] ([facility] buspirone hydrochloride 15 MG Oral Tablet BUSPIRONE HCL 12/16/2019 12:00:00 AM EDT tablet 90 TAKE ONE TABLET BY MOUTH THR EE TIMES A DAY TAKE ONE TABLET BY MOUTH THREE TIMES A DAY SOLD: 01/16/2020 [facility] buspirone hydrochloride 15 MG Oral Tablet BUSPIRONE HCL 12/16/2019 12:00:00 AM EDT tablet 90 TAKE ONE TABLET BY MOUTH THR EE TIMES A DAY TAKE ONE TABLET BY MOUTH THREE TIMES A DAY SOLD: 12/18/2019 [facility] Trazodone Hydrochloride 100 MG Oral Tablet TRAZODONE HCL 12/15/2019 12:00:00 AM EDT tablet 45 TAKE ONE AND ONE-HALF TABLET S BY MOUTH AT BEDTIME TAKE ONE AND ONE-HALF TABLETS BY MOUTH AT BEDTIME SOLD: 01/16/2020 [facility] Trazodone Hydrochloride 100 MG Oral Tablet TRAZODONE HCL 12/15/2019 12:00:00 AM EDT tablet 45 TAKE ONE AND ONE-HALF TABLET S BY MOUTH AT BEDTIME TAKE ONE AND ONE-HALF TABLETS BY MOUTH AT BEDTIME SOLD: 12/18/2019 [facility] 5-325 mg 11/18/2019 12:00:00 AM EDT tablet 12 TAKE ONE TABLET BY MOUTH THREE TIMES A DAY MAXIMUM DAILY DOSE = 3 TABLETS TAKE ONE TABLET BY MOUTH THREE TIMES A DAY MAXIMUM DAILY DOSE = 3 TABLETS SOLD: 11/18/2019 [facility] 100 mg 10/22/2019 12:00:00 AM EDT capsule 90 TAKE ONE CAPSULE BY MOUTH EVERY 8 HOURS NEEDED TAKE ONE CAPSULE BY MOUTH EVERY 8 HOURS NEEDED SOLD : 10/28/2019 [facility] 100 mg 10/22/2019 12:00:00 AM EDT capsule 90 TAKE ONE CAPSULE BY MOUTH EVERY 8 HOURS NEEDED TAKE ONE CAPSULE BY MOUTH EVERY 8 HOURS NEEDED SOLD : 11/27/2019 [facility] Trazodone Hydrochloride 100 MG Oral Tablet TRAZODONE HCL 10/15/2019 12:00:00 AM EDT tablet 45 TAKE 1 AND 1/2 TABLETS BY MO UTH DAILY AT BEDTIME TAKE 1 AND 1/2 TABLETS BY MOUTH DAILY AT BEDTIME SOLD: 10/21/2019 [facility] Trazodone Hydrochloride 100 MG Oral Tablet TRAZODONE HCL 10/15/2019 12:00:00 AM EDT tablet 45 TAKE 1 AND 1/2 TABLETS BY MO UTH DAILY AT BEDTIME TAKE 1 AND 1/2 TABLETS BY MOUTH DAILY AT BEDTIME SOLD: 11/18/2019 [facility] buspirone hydrochloride 15 MG Oral Tablet BUSPIRONE HCL 10/09/2019 12:00:00 AM EDT tablet 90 TAKE ONE TABLET BY MOUTH THR EE TIMES A DAY TAKE ONE TABLET BY MOUTH THREE TIMES A DAY SOLD: 11/22/2019 [facility] buspirone hydrochloride 15 MG Oral Tablet BUSPIRONE HCL 10/09/2019 12:00:00 AM EDT tablet 90 TAKE ONE TABLET BY MOUTH THR EE TIMES A DAY TAKE ONE TABLET BY MOUTH THREE TIMES A DAY SOLD: 10/21/2019 [facility] 875-125 mg 09/30/2019 12:00:00 AM EDT tablet 10 TAKE ONE TABLET BY MOUTH TWICE A DAY FOR 5 DAYS TAKE ONE TABLET BY MOUTH TWICE A DAY FOR 5 DAYS SOLD: 09/30/2019 [facility] 5-325 mg 09/30/2019 12:00:00 AM EDT tablet 12 TAKE ONE TABLET BY MOUTH FOUR TIMES A DAY MAXIMUM DAILY DOSE = 4 TABLETS TAKE ONE TABLET BY MOUTH FOUR TIMES A DAY MAXIMUM DAILY DOSE = 4 TABLETS SOLD: 09/30/2019 [facility] 20 mg 09/23/2019 12:00:00 AM EDT capsule 60 TAKE TWO CAPSULES BY MOUTH EVERY MORNING TAKE TWO CAPSULES BY MOUTH EVERY MORNING SOLD: 11/27/2019 [facility] 20 mg 09/23/2019 12:00:00 AM EDT capsule 60 TAKE TWO CAPSULES BY MOUTH EVERY MORNING TAKE TWO CAPSULES BY MOUTH EVERY MORNING SOLD: 09/30/2019 [facility] 90 mcg/actuation 09/12/2019 12:00:00 AM EDT HFA aerosol inha ler 18 USE 2 PUFFS BY MOUTH EVERY 12 HOURS NEEDED FOR COUGH , WHEEZE, FOR SHORTNESS OF BREATH USE 2 PUFFS BY MOUTH EVERY 12 HOURS N EEDED FOR COUGH , WHEEZE, FOR SHORTNESS OF BREATH SOLD: 10/21/2019 [facility] 500 mg 09/12/2019 12:00:00 AM EDT tablet 40 TAKE ONE TABLET BY MOUTH EVERY 6 HOURS NEEDED FOR PAIN OR FEVER TAKE ONE TABLET BY MOUTH EVERY 6 HOURS A S NEEDED FOR PAIN OR FEVER SOLD: 09/12/2019 [facility] 100 mg 09/12/2019 12:00:00 AM EDT capsule 14 TAKE ONE CAPSULE BY MOUTH TWICE A DAY FOR UTI TAKE ONE CAPSULE BY MOUTH TWICE A DAY FOR UTI SOLD: 09/12/2019 [facility] 90 mcg/actuation 09/12/2019 12:00:00 AM EDT HFA aerosol inha ler 18 USE 2 PUFFS BY MOUTH EVERY 12 HOURS NEEDED FOR COUGH , WHEEZE, FOR SHORTNESS OF BREATH USE 2 PUFFS BY MOUTH EVERY 12 HOURS N EEDED FOR COUGH , WHEEZE, FOR SHORTNESS OF BREATH SOLD: 11/18/2019 [facility] 90 mcg/actuation 09/12/2019 12:00:00 AM EDT HFA aerosol inha ler 18 USE 2 PUFFS BY MOUTH EVERY 12 HOURS NEEDED FOR COUGH , WHEEZE, FOR SHORTNESS OF BREATH USE 2 PUFFS BY MOUTH EVERY 12 HOURS N EEDED FOR COUGH , WHEEZE, FOR SHORTNESS OF BREATH SOLD: 09/12/2019 [facility] 10 mg 08/29/2019 12:00:00 AM EDT tablet 10 TAKE ONE TABLET BY MOUTH EVERY DAY TAKE ONE TABLET BY MOUTH EVERY DAY SOLD: 08/29/2019 [facility] Prednisone 10 MG Oral Tablet Prednisone 08/29/2019 12:00:00 AM EDT ORAL completed [facility] ([facility] Lidocaine Hydrochloride 40 MG/ML Topical Cream Aspercreme W/ Lidocaine 08/29/2019 12:00:00 AM EDT active [facility] ([facility] Acetaminophen 300 MG / Codeine Phosphate 30 MG Oral Tablet [Tylenol with Codeine] Tylenol With Codeine #3 08/18/2019 12:00:00 AM EDT ORAL active [facility] ([facility] gabapentin 100 MG Oral Capsule Gabapentin 08/18/2019 12:00:00 AM EDT ORAL active [facility] ([facility] 100 mg 08/18/2019 12:00:00 AM EDT capsule 90 TAKE ONE CAPSULE BY MOUTH EVERY 8 HOURS NEEDED TAKE ONE CAPSULE BY MOUTH EVERY 8 HOURS NEEDED SOLD : 08/18/2019 [facility] 300-30 mg 08/18/2019 12:00:00 AM EDT tablet 10 TAKE ONE TABLET BY MOUTH EVERY DAY NEEDED FOR PAIN MAXIMUM DAILY DOSE = 1 TAKE ONE TABLET BY MOUTH EVERY DAY NEEDED FOR PAIN MAXIMUM DAILY DOSE = 1 SOLD: 08/18/2019 [facility] 100 mg 08/18/2019 12:00:00 AM EDT capsule 90 TAKE ONE CAPSULE BY MOUTH EVERY 8 HOURS NEEDED TAKE ONE CAPSULE BY MOUTH EVERY 8 HOURS NEEDED SOLD : 09/23/2019 [facility] Cephalexin 500 MG Oral Capsule [Keflex] Keflex 08/15/2019 12:00:0 0 AM EDT ORAL completed [facility] ([facility] 500 mg 08/15/2019 12:00:00 AM EDT capsule 30 TAKE ONE CAPSULE BY MOUTH THREE TIMES A DAY TAKE ONE CAPSULE BY MOUTH THREE TIMES A DAY SOLD: 08/15/2019 [facility] 20 mg 08/13/2019 12:00:00 AM EDT capsule 60 TAKE TWO CAPSULES BY MOUTH EVERY MORNING TAKE TWO CAPSULES BY MOUTH EVERY MORNING SOLD: 08/15/2019 [facility] Trazodone Hydrochloride 100 MG Oral Tablet TRAZODONE HCL 08/13/2019 12:00:00 AM EDT tablet 30 TAKE ONE TABLET BY MOUTH DAR RY EVENING TAKE ONE TABLET BY MOUTH EVERY EVENING SOLD: 09/12/2019 [facility] 20 mg 08/13/2019 12:00:00 AM EDT capsule 60 TAKE TWO CAPSULES BY MOUTH EVERY MORNING TAKE TWO CAPSULES BY MOUTH EVERY MORNING SOLD: 09/12/2019 [facility] Trazodone Hydrochloride 100 MG Oral Tablet TRAZODONE HCL 08/13/2019 12:00:00 AM EDT tablet 30 TAKE ONE TABLET BY MOUTH DAR RY EVENING TAKE ONE TABLET BY MOUTH EVERY EVENING SOLD: 08/15/2019 [facility] buspirone hydrochloride 15 MG Oral Tablet BUSPIRONE HCL 08/13/2019 12:00:00 AM EDT tablet 90 TAKE ONE TABLET BY MOUTH THR EE TIMES A DAY TAKE ONE TABLET BY MOUTH THREE TIMES A DAY SOLD: 09/12/2019 [facility] buspirone hydrochloride 15 MG Oral Tablet BUSPIRONE HCL 08/13/2019 12:00:00 AM EDT tablet 90 TAKE ONE TABLET BY MOUTH THR EE TIMES A DAY TAKE ONE TABLET BY MOUTH THREE TIMES A DAY SOLD: 08/15/2019 [facility] Acetaminophen 325 MG / Oxycodone Hydrochloride 5 MG Or al Tablet [Percocet] Percocet 08/06/2019 12:00:00 AM EDT ORAL active [facility] ([facility]) 500 mg 08/01/2019 12:00:00 AM EDT tablet 8 TAKE ONE TABLET BY MOUTH TWICE A DAY FOR 4 DAYS TAKE ONE TABLET BY MOUTH TWICE A DAY FOR 4 DAYS SOLD: 2019 [facility] 5-325 mg 08/01/2019 12:00:00 AM EDT tablet 20 TAKE ONE TABLET BY MOUTH EVERY 4 TO 6 HOURS NEEDED FOR POST OP PAIN MAXIMUM DAILY DOSE = 6 TAKE ONE TABLET BY MOUTH EVERY 4 TO 6 HOURS NEEDED FOR POST OP PAIN MAXIMUM DAILY DOSE = 6 SOLD: 08/01/2019 [facility] Ondansetron 4 MG Oral Tablet [Zofran] Zofran 08/01/2019 12:00:00 AM EDT ORAL completed [facility] ([facility]) 50 mg 07/29/2019 12:00:00 AM EDT tablet 30 TAKE ONE TABLET BY MOUTH AT BEDTIME TAKE ONE TABLET BY MOUTH AT BEDTIME SOLD: 07/29/2019 [facility] buspirone hydrochloride 15 MG Oral Tablet BUSPIRONE HCL 07/29/2019 12:00:00 AM EDT tablet 90 TAKE ONE TABLET BY MOUTH THR EE TIMES A DAY TAKE ONE TABLET BY MOUTH THREE TIMES A DAY SOLD: 07/29/2019 [facility] buspirone hydrochloride 15 MG Oral Tablet BUSPIRONE HCL 07/29/2019 12:00:00 AM EDT tablet 90 TAKE ONE TABLET BY MOUTH THR EE TIMES A DAY TAKE ONE TABLET BY MOUTH THREE TIMES A DAY SOLD: 08/29/2019 [facility] 0.4 mg 07/28/2019 12:00:00 AM EDT capsule 10 TAKE ONE CAPSULE BY MOUTH EVERY DAY TAKE ONE CAPSULE BY MOUTH EVERY DAY SOLD: 07/28/2019 [facility] Tamsulosin hydrochloride 0.4 MG Oral Capsule Tamsulosin HCL 07/28/2019 12:00:00 AM EDT ORAL active [facility] ([facility] 800-160 mg 2019 12:00:00 AM EDT tablet 14 TAKE ONE TABLET BY MOUTH TWICE A DAY TAKE ONE TABLET BY MOUTH TWICE A DAY SOLD: 2019 [facility] 5-325 mg 2019 12:00:00 AM EDT tablet 16 TAKE ONE TABLET BY MOUTH FOUR TIMES A DAY MAXIMUM DAILY DOSE = 4 TAKE ONE TABLET BY MOUTH FOUR TIMES A DA Y MAXIMUM DAILY DOSE = 4 SOLD: 2019 [facility] 20 mg 07/22/2019 12:00:00 AM EDT capsule 30 TAKE ONE CAPSULE BY MOUTH IN THE MORNING TAKE ONE CAPSULE BY MOUTH IN THE MORNING SOLD: 2019 [facility] 20 mg 07/22/2019 12:00:00 AM EDT capsule 30 TAKE ONE CAPSULE BY MOUTH IN THE MORNING TAKE ONE CAPSULE BY MOUTH IN THE MORNING SOLD: 08/29/2019 [facility] 500 mg 07/18/2019 12:00:00 AM EDT capsule 21 TAKE ONE CAPSULE BY MOUTH THREE TIMES A DAY DIRECTED TAKE ONE CAPSULE BY MOUTH THREE TIMES A DAY DIRECTED SOLD: 07/18/2019 [facility] 5-325 mg 07/18/2019 12:00:00 AM EDT tablet 12 TAKE ONE TABLET BY MOUTH FOUR TIMES A DAY NEEDED FOR PAIN. MAXIMUM DAILY DOSE = 4 TABLETS/DAY TAKE ONE TABLET BY MOUTH FOUR TIMES A DAY NEEDED FOR PAIN. MAXIMUM DAILY DOSE = 4 TABLETS/DAY SOLD: 07/18/2019 [facility] 0.4 mg 07/18/2019 12:00:00 AM EDT capsule 10 TAKE ONE CAPSULE BY MOUTH EVERY DAY DIRECTED TAKE ONE CAPSULE BY MOUTH EVERY DAY DIRECTED SOLD: 07/18/2019 [facility] buspirone hydrochloride 15 MG Oral Tablet BUSPIRONE HCL 06/18/2019 12:00:00 AM EST tablet 60 TAKE ONE TABLET BY MOUTH TWI CE A DAY TAKE ONE TABLET BY MOUTH TWICE A DAY SOLD: 06/19/2019 [facility] buspirone hydrochloride 15 MG Oral Tablet BUSPIRONE HCL 06/18/2019 12:00:00 AM EST tablet 60 TAKE ONE TABLET BY MOUTH TWI CE A DAY TAKE ONE TABLET BY MOUTH TWICE A DAY SOLD: 07/18/2019 [facility] 325 mg 06/03/2019 12:00:00 AM EST tablet 30 TAKE 2 TABLETS EVERY 4 TO 6 HOURS NEEDED TAKE 2 TABLETS EVERY 4 TO 6 HOURS NEEDED SOLD: 06/04/2019 [facility] 20 mg 05/14/2019 12:00:00 AM EST capsule 30 TAKE ONE CAPSULE BY MOUTH EVERY MORNING TAKE ONE CAPSULE BY MOUTH EVERY MORNING SOLD: 05/20/2019 [facility] buspirone hydrochloride 15 MG Oral Tablet BUSPIRONE HCL 05/14/2019 12:00:00 AM EST tablet 60 TAKE ONE TABLET BY MOUTH TWI CE A DAY TAKE ONE TABLET BY MOUTH TWICE A DAY SOLD: 05/20/2019 [facility] 20 mg 05/14/2019 12:00:00 AM EST capsule 30 TAKE ONE CAPSULE BY MOUTH EVERY MORNING TAKE ONE CAPSULE BY MOUTH EVERY MORNING SOLD: 06/19/2019 [facility] 325 mg (65 mg iron) 05/06/2019 12:00:00 AM EST tablet, delayed release (DR/EC) 30 TAKE ONE TABLET BY MOUTH TWICE A DAY TAKE ONE TA BLET BY MOUTH TWICE A DAY SOLD: 05/09/2019 [facility] 325 mg (65 mg iron) 05/06/2019 12:00:00 AM EST tablet, delayed release (DR/EC) 30 TAKE ONE TABLET BY MOUTH TWICE A DAY TAKE ONE TA BLET BY MOUTH TWICE A DAY SOLD: 06/19/2019 [facility] 325 mg (65 mg iron) 05/06/2019 12:00:00 AM EST tablet, delayed release (DR/EC) 30 TAKE ONE TABLET BY MOUTH TWICE A DAY TAKE ONE TA BLET BY MOUTH TWICE A DAY SOLD: 05/29/2019 [facility] 10 mg 04/22/2019 12:00:00 AM EST capsule 30 TAKE ONE CAPSULE BY MOUTH EVERY MORNING TAKE ONE CAPSULE BY MOUTH EVERY MORNING SOLD: 04/24/2019 [facility] 7.5 mg 04/22/2019 12:00:00 AM EST tablet 60 TAKE ONE TABLET BY MOUTH TWICE A DAY TAKE ONE TABLET BY MOUTH TWICE A DAY SOLD: 04/24/2019 [facility] Amoxicillin 875 MG Oral Tablet Amoxicillin 03/10/2019 12:00:00 AM EST ORAL completed [facility] ([facility] 325 mg (65 mg iron) 01/07/2019 12:00:00 AM EDT tablet, delayed release (DR/EC) 30 TAKE ONE TABLET BY MOUTH TWICE A DAY TAKE ONE TA BLET BY MOUTH TWICE A DAY SOLD: 04/24/2019 [facility] Ascorbic Acid 500 MG Oral Tablet Vitamin C 01/06/2019 12:00:00 AM EDT ORAL completed [facility] ([facility]) Insurance Providers Payer name Policy type / Coverage type Policy ID Covered green party ID Covered green party's relationship to bueno Policy Bueno Plan Information [id number] SP [id number] [facility] COMMUNTY PLAN [id number] 18 [id number] [facility] COMMUNITY PLAN XIX [id number] 18 [id number] [facility] COMMUNITY PLAN XIX [id number] 18 [id number] [facility] COMMUNITY PLAN XIX . 18 . BLUE CROSS BLUE SHIELD-O/P [id number] [facility] AMERICHOICE XIX O [id number] 18 [id number] [employer] BLUE SHIELD-CLINIC [id number] 19 [id number] BL[employer]OSS BLUE SHIELD-PHYSICIAN [id number] 19 [id number] BLUE [employer]OSS BLUE SHIELD -O/P VYS 18 VYS MEDICAID -I/P [id number] 18 [id number] BLUE [employer]OSS BLUE SHIELD -PHYSICIAN [id number] 19 [id number] BL[employer]OSS BLUE SHIELD -I/P [id number] 19 [id number] [employer] BCBS P [id number] C [id number] MEDICAID S [id number] [employer] [id number] [employer] [id number] MEDICAID -O/P RAD ONLY [id number] 18 [id number] BLUE [employer]OSS BLUE SHIELD -RECURRING [id number] MEDICAID -RECURRING [id number] BLUE [employer]OSS BLUE SHIELD -CLINIC [id number] BLUE [employer]OSS BLUE SHIELD-O/P [id number] 19 [id number] MEDICAID - CLINIC [id number] MEDICAID -PHYSICIAN [id number] MEDICAID -O/P EMERGENCY ROOM [id number] 18 [id number] MEDICAID -O/P [id number] 18 [id number] [place] PPO [id number] [id number] [employer] COMMUNITY PLAN [id number] [id number] SP [id number] [facility] [place] [id number] 10 [id number] Un Community Plan Medicaid [id number] Self [id number] Un Community Plan Medicaid [id number] Self [id number] [facility] Community Plan Medicaid [id number] Self [id number] [facility] Community Plan Medicaid [id number] Self [id number] [facility] COMMUNITY PLAN MC [id number] 18 [id number] [facility] Community Plan Medicaid [id number] Self [id number] [facility] Communty Plan Medicaid [id number] Self [id number] Uh Communty Plan Medicaid [id number] Self 10 [id number] Uh Communty Plan Medicaid [id number] Self [id number] Uh Communty Plan Medicaid [id number] Self 10 [id number] Uh Communty Plan Medicaid [id number] Self 10 [id number] UN AMERICHOICE XIX -HMO [id number] 18 [id number] [facility](MCAID) O [id number] S [id number] Uh Communty Plan Medicaid [id number] Self [id number] Community Plan - [facility] Commercial [id number] Self [id number] [facility] Comm Plan Medicaid F [id number] SELF [id number] Uh Communty Plan Medicaid [id number] Self [id number] UN COMMUNITY PLAN XIX -RECURRING [id number] 18 [id number] Uh Communty Plan Medicaid [id number] Self [id number] Uh Communty Plan Medicaid [id number] Self 10 [id number] Uh Communty Plan Medicaid [id number] Self [id number] Uh Communty Plan Medicaid [id number] Self [id number] U[facility] I [id number] Self [id number] [facility] I [id number] Self [id number] [facility] COMMUNITY PLAN XIX -I/P [id number] 18 [id number] [facility] PLAN XIX [id number] 18 [id number] Problems, Conditions, and Diagnoses Code Display Name Description Problem Type Effective Dates Data Source(s) [id number] Kidney stone Kidney stone Problem 08/11/2019 12:00:00 A M EDT [facility] ([facility] Note: july 2019 stent lithotripsy Y9[address] or not applicable Unspecified place or not applicable Diagnosis 01/28/2020 08:48:00 PM EDT [facility] [id number] Unspecified fall, initial encounter Unspecified fall, initial encounter Diagnosis 01/28/2020 08:48:00 PM EDT [facility] [id number] Sprain of other ligament of left ankle, initial encounter Sprain of other ligament of left ankle, initial encounter Diagnosis 2019 08:48:00 PM EDT [facility] [id number] Nicotine dependence, cigarettes, uncompl icated Nicotine dependence, cigarettes, uncomplicated Diagnosis 01/28/2020 08:48:00 PM EDT [facility] [id number] Unspecified asthma, uncomplicated Unspecified as thma, uncomplicated Diagnosis 01/28/2020 08:48:00 PM EDT [facility] [id number] Sprain of calcaneofibular ligament of le ft ankle, initial encounter Sprain of calcaneofibular ligament of left ankle, initial encounter Diagnosis 01/28/2020 08:48:00 PM EDT [facility] [id number] Unspecified injury of left ankle, initia l encounter Unspecified injury of left ankle, initial encounter Diagnosis 01/28/2020 08:48:00 PM EDT [facility] F411 Generalized anxiety disorder Generalized anxiety disor jyoti Diagnosis 01/12/2020 04:46:00 PM EDT [facility] 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 Diagnosis 01/12/2020 04:46:00 PM EDT [facility] [id number] Unspecified place in unspeci fied non-institutional (private) residence as the place of occurrence of the external cause Unspecified place in unspecified non-institutional (private) residence as the place of occurrence of the external cause Diagnosis 11/18/2019 11:16:00 AM [facility] [id number] Striking against or struck by other obje cts, initial encounter Striking against or struck by other objects, initial encounter Diagnosis 11/18/2019 11:16:00 AM [facility] [id number] Unspecified open wound of ri ght index finger with damage to nail, initial encounter Unspecified open wound of right index fi nger with damage to nail, initial encounter Diagnosis 11/18/2019 11:16:00 AM [facility] [id number] Unspecified superficial injury of right index finger, initial encounter Unspecified superficial injury of right index finger, initial encounter Diagnosis 11/18/2019 11:16:00 AM [facility] K5900 Constipation, unspecified Constipation, unspecified Di agnosis 10/02/2019 10:10:00 AM [facility] N390 Urinary tract infection, site not specif ied Urinary tract infection, site not specified Diagnosis 10/02/2019 10:10:00 AM [facility] R1031 Right lower quadrant pain Right lower quadrant pain Di agnosis 10/01/2019 03:05:00 PM [facility] R1011 Right upper quadrant pain Right upper quadrant pain Di agnosis 10/01/2019 02:54:00 PM [facility] [id number] Personal history of urinary (tract) infe ctions Personal history of urinary (tract) infections Diagnosis 09/30/2019 10:59:00 AM [facility] R0600 Dyspnea, unspecified Dyspnea, unspecified Diagnosis 09/12/2019 10:02:00 AM [facility] [id number] Episodic tension-type headache, not intr actable Episodic tension-type headache, not intractable Diagnosis 09/12/2019 10:02:00 AM [facility] [id number] Personal history of nicotine dependence Personal history of nicotine dependence Diagnosis 09/12/2019 10:02:00 AM [facility] [id number] Pain in left knee Pain in left knee Diagnosis 08/02/2019 07:59:00 PM [facility] [id number] Fall on same level from slip ping, tripping and stumbling without subsequent striking against object, initial encounter Fall on same level from slipping, tripping and stumbling without subsequent striking against object, initial encounter Diagnosis 08/02/2019 07:59:00 PM EDT [facility] N201 Calculus of ureter Calculus of ureter Diagnosis [facility] Calculus of kidney Calculus of kidney Diagnosis 0 12:46:00 PM EDT [facility] J309 Allergic rhinitis, unspecified Allergic rhinitis, unsp ecified Diagnosis 07/28/2019 12[facility]46:[facility] Dorsalgia, unspecified Dorsalgia, unspecified Diagnosi s 2019 10:15:00 AM [facility] R109 Unspecified abdominal pain Unspecified abdominal pain Diagnosis 07/18/2019 04:56:00 AM [facility] N23 Unspecified renal colic Unspecified renal colic Diagno sis 07/18/2019 04:56:00 AM [facility] N1330 Unspecified hydronephrosis Unspecified hydronephrosis Diagnosis 07/18/2019 04:56:00 AM [facility] [id number] Encounter for surgical after care following surgery on the genitourinary system Encounter for surgical aftercare followi ng surgery on the genitourinary system Diagnosis 06/20/2019 02:48:00 PM [facility] Z302 Encounter for sterilization Encounter for sterilizatio n Diagnosis 06/02/2019 10:45:00 AM [facility] Z392 Encounter for routine follow- up Encounter for routine follow-up Diagnosis 05/06/2019 01:07:00 PM [facility] [id number] Encounter for other preprocedural examin ation Encounter for other preprocedural examination Diagnosis 05/06/2019 01:07:00 PM [facility] Surgeries/Procedures Procedure Description Date Indications Data Source(s) MRI Lower Extremity Any Joint 08/12/2019 12:00:00 AM E DT [facility] ([facility] ) RADIOLOGIC EXAM KNEE COMPLETE 4/MORE VIEWS 08/04/2019 12:00:00 AM EDT [facility] ([facility]) Apply Splint Long Leg 08/04/2019 12:00:00 AM EDT [facility] ([facility]) Results ID Date Data Source [id number] 05/13/2020 12:00:00 AM EST [facility] Name Value Range Interpretation Code Description Data Seema rce(s) Supporting Document(s) SARS coronavirus 2 Ag NEGATIVE [facility] This lab was ordered by RJ SCOTT and reported by RJ SCOTT. ID Date Data Source [id number] 01/30/2020 10:04:00 AM EDT [facility] [address] [place] [address] PHONE: [phone] FAX: [phone] Name .................. : [place] ELIF Peck Acct Number.................. : [id number] ROOM. ................. : TR01 Number ................... : [id number] Stay type ............. : E/R Discharge Date......... ... : Admit Date ......... : 01/28/20 Admit Phys .................... : LESLIE JOHNSON Date of ....... : 1995 Family Phys ................... : LATRELL BENOIT Phone .................. : [phone] Age ................................ : 24 Film# .................. .:[id number] Sex ................................. : F Unsigned transcriptions are preliminary reports and do not represent a medical or legal document [place]LE COMPLETE [place] [id number] COMPLETE:01/28/20 20:48 [id number] Reason(s): Ankle Injury LEFT ANKLE X-RAY: 3-VIEWS HISTORY: Ankle injury. COMPARISON: None. FINDINGS: No fracture. No malalignment. The ankle mortise is symmetric. No syndesmotic widening. Normal subtalar joints. IMPRESSION: No acute findings. Electronically Reviewed and Signed By Juan Carmen MD , 01/30/20 10:04, [place] Transcribe Initials: BRENDA , Transcribe Date: 01/28/20 21:22, Dictation Date: Copy for: HARPER SINGH via fax Copy for: LATRELL MEZA via fax Copy for: EMERGENCY DEPT via modem Copy for: 710 MED REC DISCHARGED Page 1 of 1 Name Value Range Interpretation Code Description Data Seema rce(s) Supporting Document(s) ID Date Data Source [id number] 01/28/2020 08:48:00 PM EDT [facility] 1 OrderSheet [facility] Emergency Department [address] [place] [address] Phone #: ext- [phone] 01/28/2020 20:18 Patient: ELIF WOOD Sex: F : 1995 Age: 24yWEIGHT:90.7 kg (S) HEIGHT:58 inches (S) BMI:41.8ALLERGIES: Demerol, Dilaudid, Ibuprofen, Naproxen, Toradol, traMADol HClCHIEF COMPLAINT: Lt, ankleDIAGNOSIS: Sprain of jointLAB ORDERSOrder Description Priority Entered Acknowledged InitialedDIAGNOSTIC STUDY ORDERSOrder Description Priority Entered Acknowledged InitialedAnkle Complete STAT 20:48 01/28/2020 21:08 Michael,Left (Oxygen?(No)) Marvel Rodriguez R.N.; Marvel Nicole Per protocol; Chepe Arevalo P.A.-C Reason for Study: Ankle InjuryMEDICATION/IV/DRIP/FLUID ORDERSOrder Description Priority Entered Acknowledged InitialedGENERAL ORDERSOrder Description Priority Entered Acknowledged InitialedAce Wrap 21:39 01/28/2020 21:55 Chepe Rodriguez R.N., P.A.-C;Splint (Aircast) L 21:39 01/28/2020 21:55 Damari Rodriguez R.N., P.A.-C;Crutches 21:39 01/28/2020 21:55 Chepe Rodriguez R.N., P.A.-C;[Electronically signed by Marvel Rodriguez R.N. (22:07 01/28/2020)][Electronically signed by Chepe Arevalo P.A.-C (23:46 01/28/2020)][Electronically locked by Marvel Rodriguez R.N. (22:07 01/28/2020)] Name Value Range Interpretation Code Description Data Seema rce(s) Supporting Document(s) ID Date Data Source [id number] 01/28/2020 08:48:00 PM EDT [facility] 1 Medication Reconciliation Report [facility] Emergency Department [address] [place] [address] Phone #: ext- [phone] 01/28/2020 20:18 Patient: ELIF WOOD Sex: F : 1995 Age: 24yWeight: 90.7 kgHeight/Length: 58 in.BMI: 41.8ALLERGIES: Demerol, Dilaudid, Ibuprofen, Naproxen, Toradol, traMADol HClThe patient's Home Medications are listed below:THE FOLLOWING MEDICATIONS NEED TO BE RECONCILED: busPIRone HCl Oral 30 mg, 2x a day PROzac Oral 30 mg, daily traZODone HCl Or al 150 mg, daily, at bedtimeThe source(s) of the original Home Medication information:patientThe following Medications were given to the patient in the Emergency Department:None.The following Medications were prescribed to the patient:None. Name Value Range Interpretation Code Description Data Seema e(s) Supporting Document(s) ID Date Data Source [id number] 01/28/2020 08:48:00 PM EDT [facility] 1 Medication Administration Record [facility] Emergency Department [address] [place] [address] Phone #: ext- [phone] 01/28/2020 20:18 Patient: ELIF WOOD Sex: F : 1995 Age: 24yWeight: 90.7 kgHeight/Length: 58 inBMI: 41.8ALLERGIES: Naproxen, Ibuprofen, Dilaudid, Demerol, traMADol HCl, ToradolDate/Time Medication Administered Medication Ordered Name Value Range Interpretation Code Description Data [facility](s) Supporting Document(s) ID Date Data Source [id number] 01/28/2020 08:48:00 PM EDT [facility] 1 General Instructions [facility] Emergency Department [address] [place] [address] Phone #: ext- [phone] 01/28/2020 20:18 Patient: ELIF WOOD Sex: F : 1995 Age: 24ySprain of the anterior talo-fibular and calcaneofibular ligament of the left ankle.INSTRUCTIONSApply ice for 10 minutes three times a day for one weeks followed by dry heat 10 minutes three times a dayfor one weeks as needed. Don't apply ice directly to skin, don't use while asleep and don't use high settingon heating pad. Use crutches for one weeks. Wear air splint for one weeks. Wear elastic wrap asdirected for one weeks. No weight bearing left leg for one weeks. Do not work for three days.No dietary restrictions.(Recommend to utilize OTC Tylenol and Benadryl to control inflammation and pain management.Recommend to follow the instructions on the bottle and not to exceed.).Warnings: GENERAL WARNINGS: Return or contact your physician immediately if your conditionworsens or changes unexpectedly, if not improving as expected, or if other problems arise.Follow-up:Return to the emergency department as needed. Follow up with your healthcare provider in about twodays if not better. Call for an appointment.Understanding of the discharge instructions verbalized by patient. ADDITIONAL INFORMATIONAnkle Sprain (Adult) 2 General Instructions [facility] Emergency Department [address] [place] [address] Phone #: ext- [phone] 01/28/2020 20:18 Patient: ELIF WOOD Sex: F : 1995 Age: 24yAn ankle sprain is a stretching or tearing of the ligaments that hold the ankle joint together. There areno broken bones.An ankle sprain is a common injury for both children and adults. It happens when the ankle turns,twists, or rolls in an awkward way. This can be caused by a sports injury. Or it can happen from doingsomething as simple as stepping on an uneven surface.Ligaments are made of tough connective tissue. Normally, ligaments stretch a certain amount andthen go back to their normal place. A sprain happens when a ligament is forced to stretch more thanthe normal amount. A severe sprain can actually tear the ligaments. If you have a severe sprain, youmay have felt or heard something like a pop when you were injured.Ankle sprains are given a grade depending on whether they are mild, moderate, or se gilbert: Grade 1 sprain. A mild sprain with minor stretching and damage to the ligament. Grade 2 sprain. A moderate sprain where the ligament is partly torn. Grade 3 sprain. The most severe kind of sprain. The ligament is completely torn.Most sprains take about 4 to 6 weeks to heal. A severe sprain can take several months to recover.Your healthcare provider may order X-rays to be sure you don't have a fracture, or broken bone.The injured area will feel sore. Swelling and pain may make it hard to walk. You may need crutches ifwalking is painful. Or your provider may have you use a cast boot or air splint. This will depend on thegrade of ankle sprain that you have.Home care For a Grade 1 sprain, use RICE (rest, ice, compression, and elevation): 3 General Instructions [facility] Emergency Department [address] [place] [address] Phone #: ext- [phone] 01/28/2020 20:18 Patient: ELIF WOOD Sex: F : 1995 Age: 24y Rest your ankle. Don't walk on it. Ice should be used right away to help control swelling. Place an ice pack over the injured area for 20 minutes. Do this every 3 to 6 hours for the first 24 to 48 hours. Keep using ice packs to ease pain and swelling as needed. To make an ice pack, put ice cubes in a plastic bag that seals at the top. Wrap the bag in a clean, thin towel or cloth. Never put ice or an ice pack directly on the skin. The ice pack can be put right on the cast, bandage, or splint. As the ice melts, be careful that the cast, bandage, or splint doesn't get wet. If you have a boot, open it to apply an ice pack, unless told otherwise by your provider. Compression devices help to control swelling. They also keep the ankle from moving and support your injured ankle. These devices include dressings, bandages, and wraps. Elevate or raise your ankle above the level of your heart when sitting or lying down. This is very important for the first 48 hours. Follow the RICE guidelines for a Grade 2 sprain. This type of sprain will take longer to heal. Your provider may have you wear a splint, cast, or brace to keep your ankle from moving. If you have a Grade 3 sprain, you are at risk for long- term ankle instability. In rare cases, surgery may be needed. Your provider may have you wear a short leg cast or a walking boot for 2 to 3 weeks. After 48 hours, it may be helpful to apply heat for 20 minutes several times a day. You can do this with a heating pad or warm compress. Or you may want to go back and forth between using ice and heat. Never apply heat directly to the skin. Always wrap the heating pad or warm compress in a clean, thin towel or cloth. You may use qicx-btk-lhattfy pain medicine (NSAIDS or nonsteroidal anti-inflammatory drugs) to control pain, unless another pain medicine was prescribed. Talk with your provider before using these medicines if you have chronic liver or kidney disease, or have ever had a stomach ulcer or gastrointestinal bleeding. Follow any rehabilitation exercises your provider gives you. These can help you be more flexible and improve your balance and coordination. This is helpful in preventing long-term ankle problems.PreventionTo help prevent ankle sprains, it's important to have good strength, balance, and flexibility. Be sureto: Always warm up before you exercise or do something very active Be careful when walking or running on uneven or cracked surfaces 4 General Instructions [facility] Emergency Department [address] [place] [address] Phone #: ext- [phone] 01/28/2020 20:18 [facility]OD [id number] Sex: F : 1995 Age: 24y Wear shoes that are in good condition and fit well Listen to your body's signals to slow down when you are in pain or tiredFollow-up careAny X-rays you had today don't show any broken bones, breaks, or fractures. Sometimes fracturesdon't show up on the first X-ray. Bruises and sprains can sometimes hurt as much as a fracture.These injuries can take time to heal completely. If your symptoms don't get better or they get worse,talk with your healthcare provider. You may need a repeat X-ray.Follow up with your healthcare provider, or as advised. Check for any warning signs listed below.When to seek medical adviceCall your healthcare provider right away if any of these occur: Fever of 100.4 F (38 C) or higher, or as directed by your healthcare provider Chills The injury doesn't seem to be healing The swelling comes back The cast or splint has a bad smell The plaster cast or splint gets wet or soft The fiberglass cast or splint gets wet and does not dry for 24 hours The pain or swelling increases, or redness appears Your toes become cold, blue, numb, or tingly The skin is discolored (looks blue, purple, or rodriguez), has blisters, or is irritated You re-injure your ankle [id number] The happ[employer]!. [address] [place] [address]. All rights reserved. This information is not intended as asubstitute for professional medical care. Always follow your healthcare professional's instructions. You have been given the following additional information: Ankle Sprain (Adult) No weight bearing left leg for one weeks. Do not work for three days. 5 General Instructions [facility] Emergency Department [address] [place] [address] Phone #: ext- [phone] 01/28/2020 20:18 Patient: ELIF WOOD Sex: F : 1995 Age: 24y(Electronically signed by Chepe Arevalo P.A.-C 01/28/2020 23:46) Name Value Range Interpretation Code Description Data Seema rce(s) Supporting Document(s) ID Date Data Source [id number] 01/28/2020 08:48:00 PM EDT [facility] 1 Clinical Report - Nurses [facility] Emergency Department [address] [place] [address] Phone #: ext- [phone] 01/28/2020 20:18 Patient: ELIF WOOD Sex: F : 1995 Age: 24yTRIAGEArrived by private vehicle. Historian: patient. Accompanied by (Dropped off by brother).Triage time: 20:37 01/28/2020. Acuity: LEVEL 4.Chief Complaint: LEFT LOWER EXTREMITY PAIN. Location of symptoms- left ankle.Alert. No acute distress.An injury may have occurred. Occurred at work. Onset. (1.5 weeks ago). 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 Sepsis Screen negative. No suspected or confirmed signs ofinfection present. (20:41 01/28/2020). --20:44 01/28/20 Dania Lee R.N.20:37 01/28/20. BP: 110/84. MAP: 92. HR: 81. RR: 18. O2 saturation: 98% on room air. Temp: 98.1 F.Pain level now: 01/23. --20:44 01/28/20 Dania Lee R.N.Weight: 90.7 kg stated. Height/Length: 58 inches Per Patient. BMI: 41.8. --20:37 01/28/20 Dania Lee R.N.MedicationsbusPIRone HCl Oral 30 mg, 2x a day. --20:38 01/28/20 Dania Lee R.N. PROzac Oral 30 mg, daily. --20:39 01/28/20 Dania Lee R.N. traZODone HCl Oral 150 mg, daily at bedtime. --20:39 01/28/20 Dania Lee R.N.AllergiesToradol. --20:39 01/28/20 Dania Lee R.N.traMADol HCl. --20 :39 01/28/20 Dania Lee R.N.Demerol. --20:39 01/28/20 Dania Lee R.N.Dilaudid. --20:39 01/28/20 Dania Lee R.N.Ibuprofen. --20:39 01/28/20 Dania Lee R.N.Naproxen. --20:39 01/28/20 Dania Lee R.N.Medication/allergy information source: the patient. --20:44 01/28/20 Dania Lee R.N.HistoryPAST MEDICAL HX: Tetanus status: up-to-date. Immunizations: up-to-date. Last normal menstrualperiod- 01/09/2020. 2 Clinical Report - Nurses [facility] Emergency Department [address] [place] [address] Phone #: ext- [phone] 01/28/2020 20:18 Patient: ELIF WOOD Sex: F : 1995 Age: 24y SOCIAL HX: Current some days smoker (cigarette). No alcohol use or drug use. The patient was offered HIV testing but declined. Patient education was provided. The patient was offered hepatitis C testing but declined. Patient education was provided. ( COVID screen negative). The patient has not traveled outside the [place] Infectious disease exposure: No infectious disease exposure. Patient is not a known carrier of tuberculosis, hepatitis, HIV, MRSA or VRE. Patient is not a known carrier of CRE. SELF HARM ASSESSMENT: Self harm assessment was performed. The patient answered "no" to the question(s) "Do you have thoughts of harming or killing yourself?" and "Do you have a plan for harming or killing yourself?". ABUSE ASSESSMENT: Abuse assessment. The patient had positive responses to the question(s) "Do you feel safe in your home?". Abuse denied. No suspicion of abuse. No report of abuse. NUTRITIONAL RISK ASSESSMENT: The nutritional risk assessment revealed no deficiencies. FUNCTIONAL ASSESSMENT: Functional assessment: no impairments noted. LEARNING NEEDS ASSESSMENT: The learning needs assessment revealed no barriers. FALL RISK ASSESSMENT: Fall risk assessment completed. No risk factors identified. SKIN INTEGRITY ASSESSMENT: Skin integrity risk assessment completed. No skin integrity risk identified. --20:44 01/28/20 Dania Lee R.N. Interventions Identification band on patient. --20:44 01/28/20 Dania Lee R.N.PHYSICAL ASSESSMENTGENERAL / NEURO / PSYCH: Oriented X 4. Alert. Appears in no acute distress.EXTREMITIES: Limited ROM present. Extremity pulses are within normal limits. Neuro-vascular statusintact to the extremity. No lower extremity edema. Left ankle: tenderness, swelling and erythema.Limited ROM secondary to pain and swelling (diminished plantar flexion, dorsiflexion and inversion). (slight swelling/pain in left ankle. pt states this started after she had a sei).SKIN: Skin intact. Skin is warm and dry. --21:06 01/28/20 Marvel Rodriguez R.N.NURSING PROGRESS NOTES20:55 01/28/20. Patient transported to radiology by wheelchair. --21:07 01/28/20 Marvel Rodriguez R.N. Reassessment acuity: LEVEL 4. The patient reports no complaints, she is calm and resting quietly and she has had no adverse reaction. GENERAL / NEURO / PSYCH: Alert. Oriented X 4. RESPIRATORY: No respiratory distress. CVS: Capillary refill less than 2 seconds. 3 Clinical Report - Nurses [facility] Emergency Department [address] [place] [address] Phone #: ext- [phone] 01/28/2020 20:18 Patient: ELIF WOOD Sex: F : 1995 Age: 24y EXTREMITIES: Neuro-vascular status intact to the extremities. SKIN: Skin is warm and dry. Two patient identifiers checked. Call light placed in reach. Side rails up x 2. Bed placed in lowest position. Brakes of bed on. --21:56 01/28/20 Marvel Rodriguez R.N.DISPOSITION / DISCHARGE Condition at departure: improved. No learning barriers present. Discharge instructions provided and reviewed with the patient. Reviewed warnings. Reviewed medication(s). Treatments reviewed. Reviewed referrals. Patient verbalized understanding. Written instructions provided in Senegalese. The patient was discharged by the physician legislative assistant. She was discharged home. She left ambulatory and via private vehicle. Patient aimee ernst. Patient has no belongings. --21:58 01/28/20 Marvel Rodriguez R.N. 21:57 01/28/20. BP: 118/80. MAP: 92. HR: 81. RR: 16. O2 saturation: 98%. Temp: 98.1 F. Pain level now: 10/23. --21:58 01/28/20 Marvel Rodriguez R.N. Departure time: 21:58 01/28/2020. --21:58 01/28/20 Marvel Rodriguez R.N. 22:01 01/28/20. BP: 111/82. HR: 85. RR: 16. O2 saturation: 95%. Temp: 97.2 F. --22:02 01/28/20 Sadia Elias.Locked/Released at 01/28/2020 22:07 by Marvel Rodriguez R.N. Name Value Range Interpretation Code Description Data Seema rce(s) Supporting Document(s) ID Date Data Source [id number] 01/28/2020 08:48:00 PM EDT [facility] 1 Clinical Report - Physicians/Mid Levels [facility] Emergency Department [address] [place] [address] Phone #: ext- [phone] 01/28/2020 20:18 Patient: ELIF WOOD Sex: F : 1995 Age: 24y Time Seen: 21:21 01/28/2020; initial patient contact, initial documentation. Arrived- By private vehicle. Historian- patient.HISTORY OF PRESENT ILLNESS Chief Complaint: Injury to the left ankle. The injury happened about 1 1/2 weeks ago. Fell: Occurred at work. Patient is experiencing moderate pain. No injury to the head or neck or other injury. (Pt sts that she had a stress/pseudo seizure at work about 1.5 wks ago and has ahd pain in the L ankle since then. Progressively gotten worse and ahs been working whOLED-T consists standing. No other compalints.).REVIEW OF SYSTEMSThe patient complains of pain on weight bearing. She has had swelling. No tingling, weakness,numbness, suspected foreign body or skin laceration. All other systems reviewed and are negative.PAST HISTORYSee nurses notes. Problems: Gastroesophageal Reflux Disease. Gallstone(s). Depression. Kidney stones. Headache. GI Disease. Constipation. Acute Pain. Abdominal Pain. Asthma. Anxiety related Seizures. Tubal ligation. Anxiety Reaction. Tension-Type Headache. Seizure. Vaginal Bleeding. UTI - Urinary Tract Infection. Urinary Calculi. Nephrolithiasis. 2 Clinical Report - Physicians/[facility] Emergency Department [address] [place] [address] Phone #: ext- [phone] 01/28/2020 20:18 [id number] Sex: F : 1995 Age: 24y N ail Avulsion. Scoliosis. Renal Colic. Other Disease. Additional Surgeries: Carpal Tunnel Surgery. Dental Surgery. Dilatation Curettage. Right wrist surgery. Stent. Tubal Ligation. Medications: traZODone HCl Oral 150 mg, daily at bedtime. PROzac Oral 30 mg, daily. busPIRone HCl Oral 30 mg, 2x a day. Allergies: Demerol. Dilaudid. Ibuprofen. Naproxen. Toradol. traMADol HCl.SOCIAL HISTORYCurrent some days smoker. No alcohol use or drug use.ADDITIONAL NOTESThe nursing notes have been reviewed.PHYSICAL EXAMVital Signs: 01/28/2020 20:37 BP: 110/84. MAP: 92. HR: 81. RR: 18. O2 saturation: 98% on room air.Temp: 98.1 F. Pain level now: 01/23. Have been reviewed. Oxygen saturation normal.Appearance: Alert. Oriented X3. No acute distress.ENT: Voice normal.CVS: Pulses normal. Capillary refill normal. Strong peripheral pulses. Pulses: right dorsalis pedis 2+;left dorsalis pedis 2+; right posterior tibial 2+; left posterior tibial 2+.Respiratory: No respiratory distress. Unlabored respirations. Good chest mo vement.Skin: Skin warm and dry.Extremities: Left ankle: moderate tenderness and mild swelling localized to the lateral malleolus. LimitedROM secondary to pain. Small joint effusion present. Neurovascular intact distally. No erythema,laceration, abrasion, puncture wound or foreign body. No deformity or open wound communicating withjoint space. No foot injury. Foot and ankle exam otherwise negative. Extremities otherwise negative. 3 Clinical Report - Physicians/Mid Levels [facility] Emergency Department [address] [place] [address] Phone #: ext- [phone] 01/28/2020 20:18 Patient: ELIF WOOD Sex: F : 1995 Age: 24y Neuro, Vascular and Tendons: Sensation intact. Gait: Normal gait. Neuro: Awake. Alert. Mood/affect normal. Speech normal. No motor deficit. No sensory deficit. Reflexes normal. Reflex exam: right patellar 2+, left patellar 2+, right Achilles 2+ and left Achilles 2+. No Babinski present on the right or left. Psych: Cognition normal. Thought process and content normal. Insight and judgement normal.PROGRESS AND PROCEDURESCourse of Care: VSS, NAD, AOx3, interacting well and appropriately, no use of accessory muscle, able tospeak full sentences, stable, non-toxic looking. Enter room and pt lying peacefully in bed in NAD. Patient stable. Denies any new issues, concerns, or complaints. PE demos NV intact b/l LE. Had witnessed have normal gait. Noted TTP of the LM. Triage has placed order for imaigng. WIll review. Reviewed resutls. Will tx. Enter room and patient lying peacefully in bed in NAD. Patient stable. Denies any new issues, concerns, or complaints. Discussed results with pt. Discussed tx plan with pt. Discussed and counseled on stable condition. Discussed importance of a f/u with PCP. Discussed return to ER criteria. Answered their questions. Indicates and verbalizes that they understand, agree, and will comply with above. Denies any new questions or concerns. Patient has capacity to understand. Discharge decision based on the following: patient's condition is stable; patient's exam is stable; social support is adequate; transportation is available; follow-up is available. Discussed of OTC Motrin and Tylenol to control inflammation and pain management. Informed to follow directions on bottle that are appropriate for age and/or weight. Disposition: Discharged home in good and improved condition. Condition: good and stable.CLINICAL IMPRESSION Sprain of the anterior talo-fibular and calcaneofi bular ligament of the left ankle.INSTRUCTIONS Apply ice for 10 minutes three times a day for one weeks followed by dry heat 10 minutes three times a day 4 Clinical Report - Physicians/Mid Levels [facility] Emergency Department [address] [place] [address] Phone #: ext- [phone] 01/28/2020 20:18 Patient: ELIF WOOD Sex: F : 1995 Age: 24y for one weeks as needed. Don't apply ice directly to skin, don't use while asleep and don't use high setting on heating pad. Use crutches for one weeks. Wear air splint for one weeks. Wear elastic wrap as directed for one weeks. No weight bearing left leg for one weeks. Do not work for three days. No dietary restrictions. (Recommend to utilize OTC Tylenol and Benadryl to control inflammation and pain management. Recommend to follow the instructions on the bottle and not to exceed.). Warnings: GENERAL WARNINGS: Return or contact your physician immediately if your condition worsens or changes unexpectedly, if not improving as expected, or if other problems arise. Follow-up: Return to the emergency department as needed. Follow up with your healthcare provider in about two days if not better. Call for an appointment. Understanding of the discharge instructions verbalized by patient.(Electronically signed by Chepe Arevalo P.A.-C 01/28/2020 23:46) Name Value Range Interpretation Code Description Data Seema rce(s) Supporting Document(s) ID Date Data Source [id number] 01/13/2020 10:05:00 [place] [address] PHONE: [phone] FAX: [phone] Name .................. : ISRAEL Peck Acct Number.................. : [id number] ROOM. ................. : TR MR Number ................... : [id number] Stay type ............. : E/R Discharge Date......... ... : 01/12/20 Admit Date ....... .. : 01/12/20 Admit Phys .................... : TOÑO REARDON Date of ....... : 1995 Family Phys ................... : LATRELL BENOIT Phone .................. : [phone] Age ................................ : 24 Film# .................. .:[id number] Sex ................................. : F Unsigned transcriptions are preliminary reports and do not represent a medical or legal document CT CERV SPINE W/O CONTRAS [id number] COMPLETE:01/12/20 19:06 [facility] [address] Reason(s): Trauma/Injury CT OF THE CERVICAL SPINE WITHOUT CONTRAST: HISTORY: Trauma. COMPARISON: None. FINDINGS: No somatic malalignment. No fracture. Alignment of the cervical spine is normal. Disc spaces are normal. Posterior elements are normal. IMPRESSION: No acute injury. While performing the above CT examination, radiation dose reduction was accomplished utilizing automated exposure control, adjusting of the mA and kV based on the patient's body size and/or the use of imperative reconstructive techniques. CT dose: 236.5 mGycm Electronically Reviewed and Signed By Juan Carmen MD , 01/13/20 10:05, APM Transcribe Initials: BRENDA , Transcribe Date: 01/13/20 00:29, Dictation Date: Copy for: [facility] R[facility]SELL via fax Copy for: EMERGENCY DEPT via modem Copy for: 710 MED REC DISCHARGED Page 1 of 1 Name Value Range Interpretation Code Description Data Seema rce(s) Supporting Document(s) ID Date Data Source [id number] 01/13/2020 10:03:00 AM EDT [facility] [address] [place] [address] PHONE: [phone] FAX: [phone] Name .................. : ISRAEL Peck Acct Number.................. : [id number] ROOM. ................. : TR-02 Number ................... : [id number] Stay type ............. : E/R Discharge Date......... ... : 01/12/20 Admit Date .... ..... : 01/12/20 Admit Phys .................... : TOÑO REARDON Date of ....... : 1995 Family Phys ................... : LATRELL [employer] Phone .................. : [phone] Age ................................ : 24 Film# .................. .:[id number] Sex ................................. : F Unsigned transcriptions are preliminary reports and do not represent a medical or legal document CT HEAD W/O CONTRAST [id number] COMPLETE:01/12/20 19:06 [facility] [id number] Re ason(s): Head Injury CT OF THE HEAD WITHOUT CONTRAST: HISTORY: Head injury. COMPARISON: None. FINDINGS: No acute intracranial hemorrhage, midline shift, mass effect or abnormal extraocular fluid. Normal rodriguez-white differentiation. Patent basal cisterns. No hydrocephalus. No skull fracture. IMPRESSION: No acute intracranial abnormality. While performing the above CT examination, radiation dose reduction was accomplished utilizing automated exposure control, adjusting of the mA and kV based on the patient's body size and/or the use of imperative reconstructive techniques. CT dose: 767.1 mGycm Electronically Reviewed and Signed By Juan Carmen MD , 01/13/20 10:03, APMaikol Transcribe Initials: BRENDA , Transcribe Date: 01/13/20 00:27, Dictation Date: Copy for: LATRELL MEZA via fax Copy for: EMERGENCY DEPT via modem Copy for: 710 MED REC DISCHARGED Page 1 of 1 Name Value Range Interpretation Code Description Data Seema rce(s) Supporting Document(s) ID Date Data Source [id number] 01/12/2020 04:46:00 PM EDT [facility] 1 OrderSheet [facility] Emergency Department [address] [place] [address] Phone #: ext- [phone] 01/12/2020 16:46 Patient: ELIF WOOD Sex: F : 1995 Age: 24yWEIGHT:90.7 kg (S) HEIGHT:58 inches (S) BMI:41.8ALLERGIES: Demerol, Dilaudid, lavender, Mushroms, NSAIDs, Toradol, TramadolCHIEF COMPLAINT: seizure, [id number]: AnxietyLAB ORDERSOrder Description Priority Entered Acknowledged InitialedCB w Diff STAT 17:04 01/12/2020 17:09 Toño Jackson Riccardo Frank R.N. M.D.;CMP STAT 17:04 01/12/2020 17:09 Toño Jackson Riccardo Frank R.N. M.D.;HCG Serum Qual STAT 17:04 01/12/2020 17:09 Toño Jackson Riccardo Frank R.N. M.D.;DIAGNOSTIC STUDY ORDERSOrder Description Priority Entered Acknowledged InitialedCT Head W/O Cont STAT 17:04 01/12/2020 17:09 Manuel,(Oxygen?(No)) Ruby Lundberg R.N., M.D.; Reason for Study: Head InjuryCT Spine Cervical STAT 17:04 01/12/2020 17:09 Manuel,W/O Cont Ruby Lundberg R.N.(Oxygen?(No)) Gina; Reason for Study: Trauma/InjuryMEDICATION/IV/DRIP/FLUID ORDERSOrder Description Priority Entered Acknowledged InitialedAtivan IVP 2 mg 17:04 01/12/2020 17:32 Manuel(HIGH ALERT Ruby Lundberg R.N.MEDICATION) Gina;Ofirmev IV 1000 mg 18:00 01/12/2020 18:24 Manuel(NOW x1, Infuse Kam Jackson R.N.over 15 minutes) RSashaNSasha; Verbal order per; Ruby Lundberg M.D. 2 OrderSheet [facility] Emergency Department [address] [place] [address] Phone #: ext- [phone] 01/12/2020 16:46 Patient: ELIF WOOD Sex: F : 1995 Age: 24yGENERAL ORDERSOrder Description Priority Entered Acknowledged InitialedSaline Lock 17:04 020 17:09 Toño Jackson Riccardo Frank R.N. M.D.;[Electronically signed by Ruby Lundberg M.D. (19:23 01/12/2020)][Electronically signed by Kam Jackson R.N. (:01/12/2020)][Electronically locked by Kam Jackson R.N. (01/12/2020)] Name Value Range Interpretation Code Description Data Seema rce(s) Supporting Document(s) ID Date Data Source [id number] 01/12/2020 04:46:00 PM EDT [facility] 1 Medication Reconciliation Report [facility] Emergency Department [address] [place] [address] Phone #: ext- [phone] 01/12/2020 16:46 Patient: ELIF WOOD Sex: F : 1995 Age: 24yWeight: 90.7 kgHeight/Length: 58 in.BMI: 41.8ALLERGIES: Demerol, Dilaudid, lavender, Mushroms, NSAIDs, Toradol, TramadolThe patient's Home Medications are listed below:CONTINUE TAKING THE FOLLOWING MEDICATIONS: busPIRone HCl Oral 15 mg, 2x a day PROzac Oral 50, daily traZODone HCl Oral 50 mg, prn,at bedtimeThe source(s) of the original Home Medication information:Not obtained.The following Medications were given to the patient in the Emergency Department:Ativan [IVP] IVP 2 mg, administered: 01/12/2020 5:32:00 PMOFIRMEV IVPB bolus 0, then 1000 MG, administered: 01/12/2020 6:24:00 PMThe following Medications were prescribed to the patient:None. Name Value Range Interpretation Code Description Data Seema rce(s) Supporting Document(s) ID Date Data Source [id number] 01/12/2020 04:46:00 PM EDT [facility] 1 Medication Administration Record [facility] Emergency Department [address] [place] [address] Phone #: ext- [phone] 01/12/2020 16:46 Patient: ELIF WOOD Sex: F : 1995 Age: 24yWeight: 90.7 kgHeight/Length: 58 inBMI: 41.8ALLERGIES: Demerol, Dilaudid, lavender, Mushroms, NSAIDs, Toradol, Tramadol Date/Time Medication Administered Medication OrderedGiven ATIVAN [IVP] (LORAZEPAM) Ativan IVP 2 mg (HIGH ALERT17:32 01/12/2020 Dose: 2 mg IVP MEDICATION)Kam Jackson R.N. Site: #1 left handStart OFIRMEV * Ofirmev IV 1000 mg (NOW x1,18:24 01/12/2020 Dose: 1000 MG * IVPB Infuse over 15 minutes)Kam Jackson R.N.----Stop18:54 01/12/2020SoKam arnold R.N. Name Value Range Interpretation Code Description Data Seema rce(s) Supporting Document(s) ID Date Data Source [id number] 01/12/2020 04:46:00 PM EDT [facility] 1 General Instructions [facility] Emergency Department [address] [place] [address] Phone #: ext- [phone] 01/12/2020 16:46 Patient: ELIF WOOD Sex: F : 1995 Age: 24yAnxiety reaction with hyperventilation.Pseudo- seizure (stress related).INSTRUCTIONSReturn to work in two days.Do not smoke. No alcohol.Warnings: Further evaluation is necessary. It is very important to follow up with a healthcare provider.GENERAL WARNINGS: Return or contact your physician immediately if your condition worsens orchanges unexpectedly, if not improving as expected, or if other problems arise. Specifically return if pain,vomiting, bleeding, breathing difficulty or fever greater than 102 degrees F and not controlled byacetaminophen or ibuprofen worsens.Your Current Medications: Your current home medications have been reviewed.CONTINUE TAKING THE FOLLOWING MEDICATIONS:busPIRone HCl Oral : 15 mg 2x a day.PROzac Oral : 50 daily.traZODone HCl Oral : 50 mg, prn, at bedtime.Follow-up:Return to the emergency department as needed. Follow up with your healthcare provider in three dayseven if well. Call for an appointment. Reason for referral: evaluation and treatment. Summary of careprovided to patient and family via paper.Understanding of the discharge instructions verbalized by patient and family. Expected course of illness,discharge instructions, activity level, diet, follow-up appointment and risks and benefits of treatmentreviewed with patient and spouse and understanding verbalized. Agrees to plan of care. ADDITIONAL INFORMATIONAnxiety ReactionAnxiety is the feeling we all get when we think something bad might happen. It is a normal responseto stress and usually causes only a mild reaction. When anxiety becomes more severe, itcan interfere with daily life. In some cases, you may not even be aware of what it is you're anxiousabout. There may also be a genetic link or it may be a learned behavior in the home. 2 General Instructions [facility] Emergency Department [address] [place] [address] Phone #: ext- [phone] 01/12/2020 16:46 Patient: ELIF WOOD Sex: F : 1995 Age: 24yBoth psychological and physical triggers cause stress reaction. It's often a response to fear oremotional stress, real or imagined. This stress may come from home, family, work, or socialrelationships.During an anxiety reaction, you may feel: Helpless Nervous Depressed IrritableYour body may show signs of anxiety in many ways. You may experience: Dry mouth Shakiness Dizziness Weakness Trouble breathing Breathing fast (hyperventilating) Chest pressure Sweating Headache Nausea Diarrhea Tiredness Inability to sleep Sexual problemsHome care Try to locate the sources of stress in your life. They may not be obvious. These may include: o Daily hassles of life (such as traffic jams, missed appointments, or car troubles) o Major life changes, both good (new baby or job promotion) and bad (loss of job or loss 3 General Instructions [facility] Emergency Department [address] [place] [address] Phone #: ext- [phone] 01/12/2020 16:46 Patient: ELIF WOOD Sex: F : 1995 Age: 24y of loved one) o Overload: feeling that you have too many responsibilities and can't take care of all of them at once o Feeling helpless or feeling that your problems are beyond what you're able to solve Notice how your body reacts to stress. Learn to listen to your body signals. This will help you take action before the stress becomes severe. When you can, do something about the source of your stress. (Avoid hassles, limit the amount of change that happens in your life at one time and take a break when you feel overloaded). Unfortunately, many stressful situations can't be avoided. It is necessary to learn how to better manage stress. There are many proven methods that will reduce your anxiety. These include simple things like exercise, good nutrition, and adequate rest. Also, there are certain techniques that are helpful: o Relaxation o Breathing exercises o Visualization o Biofeedback o MeditationFor more information about this, consult your healthcare provider or go to a local bookstore jaymie the many books and tapes available on this subject.Follow-up careIf you feel that your anxiety is not responding to self-help measures, contact your healthcare provideror make an appointment with a counselor. You may need short-term psychological counseling andtemporary medicine to help you manage stress.Call [phone] if any of these happen: Trouble breathing Confusion Drowsiness or trouble wakening 4 General Instructions [facility] Emergency Department [address] [place] [address] Phone #: ext- [phone] 01/12/2020 16:46 Patient: ELIF WOOD Sex: F : 1995 Age: 24y Fainting or loss of consciousness Rapid heart rate Seizure New chest pain that becomes more severe, lasts longer, or spreads into your shoulder, arm, neck, jaw, or backWhen to seek medical adviceCall your healthcare provider right away if any of these happen: Your symptoms get worse Severe headache not relieved by rest and mild pain reliever [id number] [place] [address]. All rights reserved. This information is not intended as asubstitute for professional medical care. Always follow your healthcare darrell noguera's instructions.Panic AttackA panic attack is an extreme fear reaction that comes on for no clear reason. There is often a fearthat something terrible will happen or that you may . The attack may last a few minutes up to a fewhours. Between attacks, things will seem quite normal. This condition has a psychological cause andcan be treated with the help of a therapist or psychiatrist. Medicine can be very helpful for thisproblem.Panic attacks usually come on suddenly, reaches a peak within minutes, and includes at least 4 ofthese symptoms: Palpitations, pounding heart, or accelerated heart rate Sweating Chills or heat sensations Trembling or shaking Sensations of shortness of breath or smothering Feelings of choking Chest pain or discomfort Nausea or abdominal distress Feeling dizzy, unsteady, light-headed, or faint 5 General Instructions [facility] Emergency Department [address] [place] [address] Phone #: ext- [phone] 01/12/2020 16:46 Patient: ELIF WOOD Sex: F : 1995 Age: 24y Numbness or tingling sensations Fear of dying Fear of going crazy or of losing control Feelings of unreality, strangeness, or detachment from the environmentMany of these symptoms can be linked to physical problems, so it is sometimes necessary to rule outconditions like thyroid disorders, heart disease, gastrointestinal problems, and others. They can alsostart as physical symptoms, but psychologically we may react to them in a fearful way, worsening theway we react and feel.Home care Try to find the sources of stress in your life. They may not be obvious. These may include: o Daily hassles of life which pile up (traffic jams, missed appointments, car troubles). o Major life changes, both good (new baby, job promotion) and bad (loss of job, loss of loved one). o Feeling that you have too many responsibilities and can't take care of everything at once. o Helplessness: feeling like your problems are too much for you to handle. Notice how your body reacts to stress. Learn to listen to your body signals so that you can take action before the stress becomes severe. Try to be aware of what you were doing before the reaction started; this may give you clues to things that can trigger a reaction. It may be situations in your life, or what you were doing at the time. When possible, avoid or reduce the cause of stress. Avoid hassles, limit the amount of change that is happening in your life at one time or take a break when you feel overloaded. Unfortunately, you can't stay away from many stressful situations. So you need to learn how to manage stress better. Many proven methods will reduce your anxiety. These include simple things like exercise, good nutrition, and adequate rest. Also, there are certain techniques that are helpful: relaxation and breathing exercises, visualization, biofeedback, meditation, or simply taking time-out to clear your mind. For more information about this, ask your doctor or go to a local bookstore and review the many books and tapes available on this subject.Follow- up careFollow-up with your healthcare provider, or as advised. 6 General Instructions [facility] Emergency Department [address] [place] [address] Phone #: [phone] deh- [phone] 01/12/2020 16:46 Patient: ELIF WOOD Sex: F : 1995 Age: 24yCall 911Call 911 if you: Have suicidal thoughts, a suicide plan, and the means to carry out the plan Have serious thoughts of hurting someone else Have trouble breathing Are very confused Feel very drowsy or have trouble awakening Faint or lose consciousness Have new chest pain that becomes more severe, lasts longer, or spreads into your shoulder, arm, neck, jaw, or back Have a very rapid or irregular heartbeat Have a seizureWhen to seek medical adviceCall your healthcare provider right away if any of these occur: Worsening of your symptoms to the point of feeling [id number] Feeling that you may try to harm yourself or another Can't sleep or eat for 3 days in a row Increased pain with breathing Increasing feeling of weakness or dizziness Cough with dark colored sputum (phlegm) or blood Fever of 100.4F (38C) or higher, or as directed by your healthcare provider Swelling, pain, or redness in one leg Requests by family or friends for you to seek help for your symptoms [id number] [employer] [address] [place] [address], [place] [address]. All rights reserved. This information is not intended as asubstitute for professional medical care. Always follow your healthcare professional's instructions. You have been given the following additional information: Anxiety Reaction 7 General Instructions [facility] Emergency Department [address] [place] [address] Phone #: ext- [phone] 01/12/2020 16:46 Patient: ELIF WOOD Sex: F : 1995 Age: 24yPanic AttackReturn to work in two days.(Electronically signed by Richi Lundberg M.D. 01/12/2020 19:23) Name Value Range Interpretation Code Description Data Seema rce(s) Supporting Document(s) ID Date Data Source [id number] 01/12/2020 04:46:00 PM EDT [facility] 1 Clinical Report - Nurses [facility] Emergency Department [address] [place] [address] Phone #: ext- [phone] 01/12/2020 16:46 Patient: ELIF WOOD Sex: F : 1995 Age: 24yTRIAGEArrived by EMS. Historian: patient. Unaccompanied. ( coworkers told ems that pt was seizing for 2minutes described as tonic clonic, pt complains of left sided head pain).Acuity: LEVEL 3.Chief Complaint: SEIZURE (single episode).Alert. No acute distress.Location of injuries: head. This occurred today. Patient was last known well (16:00 01/12/2020). ( ptstates she has been under alot of stress lately).Treatment DECAL MAKER:None.SEPSIS SCREEN: SIRS Screen negative. Sepsis Screen negative. No suspected or confirmed signs ofinfection present. --16:52 01/12/20 Marnie Sabillon R.N.16:47 01/12/20. BP: 133/119. MAP: 123. HR: 83. RR: 18. O2 saturation: 95% on room air. Temp: 98.3 F(oral). Pain level now: 01/23. --16:52 01/12/20 Marnie Sabillon R.N.Weight: 90.7 kg stated. Height/Length: 58 inches Per Patient. BMI: 41.8. --16:47 01/12/20 Marnie Sabillon R.N.MedicationsbusPIRone HCl Oral 15 mg, 2x a day. PROzac Oral 50, daily. traZODone HCl Oral 50 mg, as needed, at bedtime. --16:49 01/12/20 Marnie Sabillon R.N.AllergiesDemerol.Dilaudid.lavender.Mushroms.NSAIDs.Toradol.Tramadol. --16:49 01/12/20 Marnie Sabillon R.N.PROBLEMS:Gastroesophageal Reflux Disease.Kidney stones.Headache.GI Disease. 2 Clinical Report - Nurses [facility] Emergency Department [address] [place] [address] Phone #: ext- [phone] 01/12/2020 16:46 [id number] Sex: F : 1995 Age: 24yAnxiety related Seizures.Anxiety Reaction.Tension-Type Headache.Seizure.Vaginal Bleeding.UTI - Urinary Tract Infection.Urinary Calculi.Nephrolithiasis.Nail Avulsion.Renal Colic. --16:50 01/12/20 Marnie Sabillon R.N.Gallstone(s).Constipation.Acute Pain.Abdominal Pain.Asthma.Depression.Tubal ligation. --18:36 01/12/20 Kam Jackson R.N.The following entry was modified by Marnie Sabillon R.N., 16:50 01/12/20coliosis. --1 6:49 01/12/20 Marnie Sabillon R.N.The following entry was modified by Kam Jackson R.N., 18:33 01/12/20coliosis. --18:33 9/28/20 Kam Jackson R.N..ADDITIONAL SURGERIES:Carpal Tunnel Surgery (Right).Dental Surgery.Dilatation Curettage.Right wrist surgery.Stent (Kidney).Tubal Ligation. --16:50 01/12/20 Marnie Sabillon R.N.HistoryPAST MEDICAL HX: Immunizations: up-to-date. Last normal menstrual period- now.SOCIAL HX: Light tobacco smoker- less than 1/2 a pack per day. Occasional alcohol use. History ofoccasional drug use: marijuana. She was offered HIV testing but declined and hepatitis C testing butdeclined. She has not traveled outside the [place]Infectious disease exposure: No infectious disease exposure. Patient is not a known carrier of tuberculosis,hepatitis, HIV, MRSA or VRE. Patient is not a known carrier of CRE.SELF HARM ASSESSMENT: Self harm assessment was performed. The patient answered "no" to thequestion(s) "Have you recently felt down, depressed, or hopeless?", "Do you have thoughts of harming orkilling yourself?", "Do you have a plan for harming or killing yourself?", "Have you recently had thoughtsabout harming or killing others?", "Do you have any dangerous items in your possession?", "Have younoticed less interest or pleasure in doing things?", "Are you here because you tried to hurt yourself?" and 3 Clinical Report - Nurses [facility] Emergency Department [address] [place] [address] Phone #: ext- [phone] 01/12/2020 16:46 [id number] Sex: F : 1995 Age: 24y "Have you ever tried to hurt yourself before today?". ABUSE ASSESSMENT: Abuse assessment. Abuse denied. No suspicion of abuse. No report of abuse. NUTRITIONAL RISK ASSESSMENT: The nutritional risk assessment revealed no deficiencies. FUNCTIONAL ASSESSMENT: Functional assessment: no impairments noted. LEARNING NEEDS ASSESSMENT: The learning needs assessment revealed no barriers. FALL RISK ASSESSMENT: Fall risk assessment completed. No risk factors identified. SKIN INTEGRITY ASSESSMENT: Skin integrity risk assessment completed. No skin integrity risk identified. --16:52 01/12/20 Marnie Sabillon R.N. Interventions Identification band on patient. To treatment room. --16:52 01/12/20 Marnie Sabillon R.N.PHYSICAL [id number]:[id number] 01/12/20. To room via stretcher.GENERAL / NEURO / PSYCH: Alert. Oriented X 4. Appears in no acute distress. Speech within normallimits. Patient appears well-nourished.HEENT: No facial asymmetry noted. Mucous membranes are pink.RESPIRATORY: Respirations not labored. Breath sounds within normal limits.CVS: Capillary refill less than 2 seconds.GI / : Abdomen soft and nontender. Bowel sounds within normal limits.SKIN: Skin intact. Skin is warm and dry. Normal skin turgor. --17:26 01/12/20 Kam Jackson R.N.NURSING PROGRESS NOTESPatient gowned. Patient identifiers checked. Call light placed in reach. Side rails up x 2. Bed placed inlowest position. Brakes of bed on. Patient ready for evaluation- ED physician and PA notified. --16: Marnie Sabillon R.N. 17:02 01/12/20. BP: 101/72. MAP: 81. HR: 102. RR: 16. O2 saturation: 96%. --17:02 01/12/20 Sherrill manager pharmaceuticalCorazon ER Tech1 17:27 01/12/2020 Three (3) unsuccessful IV access attempts including the right antecubital space and forearm and left forearm. Applied bandaid and bandage. --17:27 01/12/20 Kam Jackson R.N. 17:30 01/12/2020 Site #1 started via IV in the left hand with an 20g angiocath, with aseptic technique and good blood return; one attempt. --17:30 01/12/20 Marnie Sabillon R.N. 17:32 01/12/2020 Ativan (LORazepam) IVP 2 mg given over 2 minute(s) via site #1. Allergies verified and confirmed 5 rights. IV patency established. IV site checked: no pain, redness, or swelling. IV flushed 4 Clinical Report - Nurses [facility] Emergency Department [address] [place] [address] Phone #: ext- [phone] 01/12/2020 16:46 Patient: ELIF WOOD Sex: F : 1995 Age: 24y thoroughly pre- and post-medication administration. IVP given by RN. Information reviewed with patient including reason for taking this medication, signs of allergic reaction, precautions and sedative warning. Verbalizes understanding. --17:32 01/12/20 Kam Jackson R.N. 17:49 01/12/20. GENERAL / NEURO / PSYCH: No apparent seizure activity. --17:49 01/12/20 Kam Jackson R.N. 18:01 01/12/20. BP: 112/75. MAP: 87. HR: 91. RR: 16. O2 saturation: 95%. --18:01 01/12/20 [facility] 18:24 01/12/2020 OFIRMEV * IVPB 1000 MG --18:24 01/12/20 Kam Jackson R.N. 18:51 01/12/20. Reassurance given. Reassessment acuity: LEVEL 3. Reassessment after medication administered. No adverse reaction. Pain still present. Nausea gone now. She is calm and resting quietly and has had no adverse reaction. Overall patient status is the same- she states feels the same. GENERAL / NEURO / PSYCH: Alert. Oriented X 4. Patient appears calm and cooperative. No weakness or numbness. RESPIRATORY: No respiratory distress. SKIN: Skin is warm and dry. Two patient identifiers checked. Call light placed in reach. Side rails up x 2. Bed placed in lowest position. Brakes of bed on. --18:52 9/28/20 Kam Jackson R.N. 18:54 01/12/2020 OFIRMEV IVPB Discontinued: bag #1 completed. Total amount infused: 100 mL. --18:59 01/12/20 Kam Jackson R.N.DISPOSITION / DISCHARGE 19:05 01/12/2020 Site #1 removed upon discharge. Catheter intact. Bandage applied. --19:10 01/12/20 Kam Jackson R.N. 19:10 01/12/20. Departure time: 19:11 01/12/2020. Condition at departure: improved and stable. The goals identified in the patient's plan of care were met. Fall risk assessment completed. No risk factors identified. No learning barriers present. Reviewed warnings. Reviewed medication(s). Treatments reviewed. Reviewed referral to a primary care physician. Patient verbalized understanding. Written instructions provided in Senegalese. The patient was discharged by the physician. She was discharged home and accompanied by spouse. She left ambulatory and via private vehicle. Spouse driving. --19:11 01/12/20 Kam Jackson R.N. 19:03 01/12/20. BP: 98/54. MAP: 68. HR: 74. RR: 16. O2 saturation: 96%. Temp: 98.4 F. Pain level now: 0/10. --19:11 01/12/20 Kam Jackson R.N.Locked/Released at 01/12/2020 19:30 by Kam Jackson R.N. 5 Clinical Report - Nurses [facility] Emergency Department [address] [place] [address] Phone #: ext- [phone] 01/12/2020 16:46 Patient: ELIF WOOD Sex: F : 1995 Age: 24y Name Value Range Interpretation Code Description Data Seema rce(s) Supporting Document(s) ID Date Data Source [id number] 01/12/2020 04:46:00 PM EDT [facility] 1 Clinical Report - Physicians/Mid Levels [facility] Emergency Department [address] [place] [address] Phone #: ext- [phone] 01/12/2020 16:46 Patient: ELIF WOOD Sex: F : 1995 Age: 24y Time Seen: 16:54 01/12/2020; initial patient contact. Arrived- By ambulance. Historian- patient. Disposition decision: 19:00 01/12/2020.HISTORY OF PRESENT ILLNESS Chief Complaint: SINGLE SEIZURE. This occurred just prior to arrival. The patient has recovered. Seizure was witnessed. Had a single isolated seizure. Seizure activity was brief. Seizure activity lasted (2 minutes). The patient lost consciousness. Generalized motor activity observed. No focal motor activity, incontinence, apnea noted, confusion post-ictally or weakness post- ictally. No numbness post-ictally. Not obtunded post-ictally. Did not lose pulse. Post-ictally has had mild headache. No injuries noted. Did not recently change anticonvulsant medication or miss recent dose of anticonvulsant. Has not recently been ill. No recent sleep deprivation or alcohol recently. 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 Similar symptoms previously. Patient has had similar symptoms many times, frequently. Recent medical care: Not recently seen/assessed.REVIEW OF SYSTEMSNo fever, chest pain, palpitations, cough or difficulty breathing. No eye irritation, sore throat, abdominalpain, nausea or diarrhea. No black stools, difficulty with urination, skin rash, enlarged lymph nodes orbloody stools. No joint pain. All other systems reviewed and are negative.PAST HISTORYSee nurses notes. Problems: Depression. Gastroesophageal Reflux Disease. Kidney stones. Headache. GI Disease. Anxiety related Seizures. Anxiety Reaction. Tension-Type Headache. Seizure. Vaginal Bleeding. 2 Clinical Report - Physicians/Mid Levels [facility] Emergency Department [address] [place] [address] Phone #: ext- [phone] 01/12/2020 16:46 Patient: ELIF WOOD Sex: F : 1995 Age: 24y UTI - Urinary Tract Infection. Urinary Calculi. Nephrolithiasis. Nail Avulsion. Renal Colic. Additional Surgeries: Carpal Tunnel Surgery. Dental Surgery. Dilatation Curettage. Right wrist surgery. Stent. Tubal Ligation. Medications: busPIRone HCl Oral 15 mg, 2x a day. PROzac Oral 50, daily. traZODone HCl Oral 50 mg, as needed, at bedtime. Allergies: Demerol. Dilaudid. lavender. Mushroms. NSAIDs. Toradol. Tramadol.SOCIAL HISTORYLight tobacco smoker- less than 1/2 a pack per day. Occasional alcohol use. History of occasional druguse: marijuana.ADDITIONAL NOTESThe nursing notes have been reviewed with agreement regarding the chief complaint, HPI, ROS, PMH andpatient medications and allergies.PHYSICAL EXAMVital Signs: 01/12/2020 17:02 BP: 101/72. MAP: 81. HR: 102. RR: 16. O2 saturation: 96%.01/12/2020 16:47 BP: 133/119. MAP: 123. HR: 83. RR: 18. O2 saturation: 95% on room air. Temp: 98.3 F.Pain level now: 01/23. Have been reviewed. Oxygen saturation normal.Appearance: Alert. No acute distress. Anxious.Eyes: Pupils equal, round and reactive to light. No nystagmus. Extraocular movements normal.ENT: Normal ENT inspection. TM's normal. Moist mucous membranes. Pharynx normal.Neck: Normal inspection. Neck supple. (mild b/l paracervical pain, ROM nml).CVS: Normal heart rate and rhythm. Heart sounds normal. Pulses normal. 3 Clinical Report - Physicians/Mid Levels [facility] Emergency Department [address] [place] [address] Phone #: ext- [phone] 01/12/2020 16:46 Patient: ELIF WOOD Sex: F : 1995 Age: 24y Respiratory: No respiratory distress. Painless inspiration. Breath sounds normal. Abdomen: Soft and nontender. No organomegaly. Back: Normal inspection. Skin: Skin warm and dry. Normal skin color. No rash. Normal skin turgor. Extremities: Extremities exhibit normal ROM. No lower extremity edema. Neuro: Alert. Oriented X 3. Mood/affect normal. Speech normal. Cranial nerves normal (as tested). No cerebellar findings. No motor deficit. No sensory deficit. Reflexes normal.LABS, X-RAYS, AND EKGCT C-Spine: No acute findings. No fracture. The study was interpreted by the radiologist. Interpretationtime: 18:58 01/12/2020.CT Head: Normal study. No acute changes. Head CT performed without contrast. The study wasinterpreted by the radiologist. Interpretation time: 18:58 01/12/2020.Laboratory Tests: Laboratory tests have been ordered, with results reviewed and considered in themedical decision making process. CBC w Diff: (CHRIS: 01/12/2020 16:59) ( MsgRcvd 01/12/2020 17:14) Final results Test Result Flag Units (Reference) CBC W/AUTOMATED DIFF COMPLETE BLOOD COUNT WBC 6.7 10/uL (4.2 - 11.0) RBC 4.32 10/uL (4.20 - 5.40) HEMOGLOBIN 11.7 L g/dL (12.0 - 16.0) HEMATOCRIT 35.4 L % (37.0 - 47.0) MCV 81.9 fL (81.0 - 101) MCH 27.1 pg (27.0 - 34.0) MCHC 33.1 g/dL (31.0 - 36.0) RDW 15.9 H % (11.5 - 14.5) PLATELETS 212 10/uL (150 - 450) MPV 10.2 fL (7.4 - 10.4) NEUT 72.1 % (37.0 - 80.0) LYMPH 22.0 L % (25.0 - 40.0) MONO 4.6 % (3.0 - 8.0) EOS 0.7 % (0.0 - 7.0) BASO 0.3 % (0.0 - 2 .5) %IG 0.3 H % (0.0 - 0.0) %NRBC 0.0 % (0.0 - 0.0) #NEUT 4.82 10/uL (2.00 - 6.90) #LYMPH 1.47 10/uL (0.60 - 3.40) #MONO 0.31 10/uL (0.00 - 0.90) #EOS 0.05 10/uL (0.00 - 0.70) #BASO 0.02 10/uL (0.00 - 0.20) #IG 0.02 10/uL (0.00 - 0.10) #NRBC 0.00 10/uL (0.00 - 0.00) MANUAL DIFF NOT INDICATED RBC MORPH NOT INDICATED CMP: (CHRIS: 01/12/2020 16:59) ( MsgRcvd 01/12/2020 17:33) Final results Test Result Flag Units (Reference) COMPREHENSIVE METABOLIC PANEL COMPREHENSIVE METABOLIC PANEL SODIUM 138 mEq/L (134 - 153) POTASSIUM 3.6 mEq/L (3.6 - 5.0) 4 Clinical Report - Physicians/Mid Levels [facility] Emergency Department [address] [place] [address] Phone #: ext- [phone] 01/12/2020 16:46 Patient: ELIF WOOD MRN: [id number] Sex: F : 1995 Age: 24y CHLORIDE 102 mEq/L (98 - 107) CO2 24 MEQ/L (22 - 30) GLUCOSE 138 H MG/DL (65 - 110) BUN 12 MG/DL (7 - 21) CREATININE 0.7 MG/DL (0.7 - 1.5) BUN/CREAT 17 (8 - 27) TOTAL PROTEIN 7.0 G/DL (6.3 - 8.2) ALBUMIN 4.0 G/DL (3.9 - 5.0) GLOBULIN 3.0 GM/DL (2.4 - 3.2) A/G RATIO 1.3 (0.8 - 2.0) CALCIUM 9.1 MG/DL (8.4 - 10.2) TOTAL BILI <0.7 MG/DL (0.2 - 1.3) ALKALINE PHOS 56 U/L (38 - 126) SGOT/AST 16 U/L (5 - 40) SGPT/ALT 20 U/L (7 - 56) ANION GAP 12.0 mmol/L (8.0 - 16.0) AGE 24 yrs NON-AA GFR >60 mL/min AFR AMER GFR >60 mL/min Male GFR Interprentation 20-49 yrs >60 mL/min Normal 50-59 yrs >56 mL/min Normal 60-69 yrs >49 mL/min Normal 70-79yrs >42 mL/min Normal 80 and above >35 mL/min Normal Female GFR Interpretation 20-39 yrs >60 mL/min Normal 40-49 yrs >58 mL/min Normal 50-59 yrs >51 mL/min Normal 60-69 yrs >45 mL/min Normal 70-79 yrs >39 mL/min Normal 80 and above >32 mL/min Normal Beta-HCG, Qual Serum: (CHRIS: 01/12/2020 16:59) ( MsgRcvd 01/12/2020 17:25) Final results Test Result Flag Units (Reference) HCG SERUM QUAL NEGATIVE (NORMAL: NEGAT HCG SERUM QL REENTER NEGATIVE (NORMAL: NEGAT { KIT LOT # [id number] ){ KIT EXP DATE 01.26.21 ){ PROCEDURAL CONTROL VALID ).PROGRESS AND PROCEDURESCourse of Care: 18:59 09/28/20. workup all in and reviewed and nml; CT head w/o and CT C-spine w/oresults in and nml; pt sleeping comfortably; will d/c home w instructions, in ER and agrees. Patient counseled in person regarding the patient's stable condition, test results, diagnosis and need for follow-up. Patient agrees with plan of care. Disposition: Condition: good and stable. Discharge decision based on the following: patient's condition is stable; patient's condition is improved; patient is ambulatory; patient is active; patient's pain is controlled; patient's exam is improved; no abnormal test results; improving condition on multiple repeat evaluations; social support is good; transportation is available; follow-up is available; clinical impression is consistent with outpatient treatment.CLINICAL IMPRESSION Anxiety reaction with hyperventilation. 5 Clinical Report - Physicians/Mid Levels [facility] Emergency Department [address] [place] [address] Phone #: ext- [phone] 01/12/2020 16:46 Patient: ELIF WOOD Sex: F : 1995 Age: 24y Pseudo-seizure (stress related).INSTRUCTIONS Return to work in two days. Do not smoke. No alcohol. Warnings: Further evaluation is necessary. It is very important to follow up with a healthcare provider. GENERAL WARNINGS: Return or contact your physician immediately if your condition worsens or changes unexpectedly, if not improving as expected, or if other problems arise. Specifically return if pain, vomiting, bleeding, breathing difficulty or fever greater than 102 degrees F and not controlled by acetaminophen or ibuprofen worsens. Your Current Medications: Your current home medications have been reviewed. CONTINUE TAKING THE FOLLOWING MEDICATIONS: busPIRone HCl Oral : 15 mg 2x a day. PROzac Oral : 50 daily. traZODone HCl Oral : 50 mg, prn, at bedtime. Follow-up: Return to the emergency department as needed. Follow up with your healthcare provider in three days even if well. Call for an appointment. Reason for referral: evaluation and treatment. Summary of care provided to patient and family via paper. Understanding of the discharge instructions verbalized by patient and family. Expected course of illness, discharge instructions, activity level, diet, follow-up appointment and risks and benefits of treatment reviewed with patient and spouse and understanding verbalized. Agrees to plan of care.(Electronically signed by Ruby Lundberg M.D. 01/12/2020 19:23) Name Value Range Interpretation Code Description Data Seema rce(s) Supporting Document(s) ID Date Data Source [id number] 01/12/2020 04:59:00 PM EDT [facility] ([facility] Name Value Range Interpretation Code Description Data Seema rce(s) Supporting Document(s) Potassium 3.6 meq/L 3.6-5.0 [facility] Comprehensive Metabo Laboratory test result [facility] [place] [facility] COMPREHENSIVE METABOLIC PANEL Sodium 138 meq/L 134-153 [facility] Chloride 102 meq/L 98-107 [facility] Glucose 138 mg/dL 65-110 Above high normal [facility] [place] [place] [facility] Co2 24 meq/L 22-30 [facility] ([facility] BUN/Creat 17 8-27 [facility] Creatinine 0.7 mg/dL 0.7-1.5 [facility] ([facility] BUN 12 mg/dL 7-21 [facility] Albumin 4.0 g/dL 3.9-5.0 [facility] ([facility] Total Protein 7.0 g/dL 6.3-8.2 [facility] Globulin 3.0 GM/DL 2.4-3.2 [facility] ([facility] A/G Ratio 1.3 0.8-2.0 [facility] Calcium 9.1 mg/dL 8.4-10.2 [facility] ([facility] Total Bili Laboratory test result 0.2-1.3 ME [facility] ([facility] SGPT/Alt 20 U/L 7-56 [facility] ([facility] Sgot/Ast 16 U/L 5-40 [facility] ([facility] Alkaline Phos 56 U/L 38-126 [facility] ([facility] Anion Gap 12.0 mmol/L 8.0-16.0 [facility] Age 24 yrs [facility] ([facility] Non-Aa GFR Laboratory test result [facility] ([facility] Afr Amer GFR Laboratory test result [facility] ([facility] Male GFR Interprentation 20-49 yrs >60 mL/min Normal 50-59 yrs >56 mL/min Normal 60-69 yrs >49 mL/min Normal 70-79yrs >42 mL/min Normal 80 and above >35 mL/min Normal Female GFR Interpretation 20-39 yrs >60 mL/min Normal 40-49 yrs >58 mL/min Normal 50-59 yrs >51 mL/min Normal 60-69 yrs >45 mL/min Normal 70-79 yrs >39 mL/min Normal 80 and above >32 mL/min Normal ID Date Data Source [id number] 01/12/2020 04:59:00 PM EDT [facility] ([facility] Name Value Range Interpretation Code Description Data Seema rce(s) Supporting Document(s) HCG Serum QL Reenter Laboratory test result [facility] ([facility] { KIT LOT # [id number] ) { KIT EXP DATE 01.26.21 ) { PROCEDURAL CONTROL VALID ) HCG Serum Qual Laboratory test result [facility] ([facility] ID Date Data Source [id number] 01/12/2020 04:59:00 PM EDT [facility] ([facility] Name Value Range Interpretation Code Description Data Seema rce(s) Supporting Document(s) CBC W/Automated Diff Laboratory test result [facility] ([facility] COMPLETE BLOOD COUNT WBC 6.7 10^3/uL 4.2-11.0 [facility] RBC 4.32 10^6/uL 4.20-5.40 [facility] MCV 81.9 fL 81.0-101 [facility] Hemoglobin 11.7 g/dL 12.0-16.0 Below low normal [facility] ( [facility] Hematocrit 35.4 % 37.0-47.0 Below low normal [facility] ( [facility] MCHC 33.1 g/dL 31.0-36.0 [facility] RDW 15.9 % 11.5-14.5 Above high normal [facility] ([facility] MCH 27.1 pg 27.0-34.0 [facility] Platelets 212 10^3/uL 150-450 [facility] MPV 10.2 fL 7.4-10.4 [facility] Neut 72.1 % 37.0-80.0 [facility] Lymph 22.0 % 25.0-40.0 Below low normal [facility] ( [facility] Eos 0.7 % 0.0-7.0 [facility] Trinity 4.6 % 3.0-8.0 [facility] %NRBC 0.0 % 0.0-0.0 [facility] Baso 0.3 % 0.0-2.5 [facility] %Ig 0.3 % 0.0-0.0 Above high normal [facility] #Neut 4.82 10^3/uL 2.00-6.90 [facility] #Lymph 1.47 10^3/uL 0.60-3.40 [facility] ([facility] #Trinity 0.31 10^3/uL 0.00-0.90 [facility] ([facility] #Ig 0.02 10^3/uL 0.00-0.10 [facility] ([facility] #Baso 0.02 10^3/uL 0.00-0.20 [facility] ([facility] #Eos 0.05 10^3/uL 0.00-0.70 [facility] ([facility] Manual Diff Laboratory test result M LUISA ([facility] RBC Morph Laboratory test result ME [facility] ([facility] #NRBC 0.00 10^3/uL 0.00-0.00 [facility] ([facility] ID Date Data Source [id number] 01/12/2020 05:33:00 PM EDT [facility] Name Value Range Interpretation Code Description Data Seema rce(s) Supporting Document(s) COMPREHENSIVE METABOLIC PANEL [facility] COMPREHENSIVE METABOLIC PANEL Sodium [Moles/volume] in Serum or Plasma 138 mEq/L 134 - 153 [facility] Potassium [Moles/volume] in Serum or Plasma 3.6 mEq/L 3.6 - 5.0 [facility] Chloride [Moles/volume] in Serum or Plasma 102 mEq/L 98 - 107 [facility] Carbon dioxide, total [Moles/volume] in Serum or Plasma 24 MEQ/L 22 - 30 [facility] Glucose [Mass/volume] in Serum or Plasma 138 MG/DL 65 - 110 H [facility] BUN 12 MG/DL 7 - 21 [facility] Creatinine [Mass/volume] in Serum or Plasma 0.7 MG/DL 0.7 - 1.5 [facility] BUN/CREAT 17 8 - 27 [facility] Protein [Mass/volume] in Serum or Plasma 7.0 G/DL 6.3 - 8.2 [facility] Albumin [Mass/volume] in Serum or Plasma 4.0 G/DL 3.9 - 5.0 [facility] Globulin [Mass/volume] in Serum by calculation 3.0 GM/DL 2.4 - 3.2 [facility] A/G RATIO 1.3 0.8 - 2.0 [facility] Calcium [Mass/volume] in Serum or Plasma 9.1 MG/DL 8.4 - 10.2 [facility] Bilirubin.total [Mass/volume] in Serum or Plasma <0.7 MG/DL 0.2 - 1.3 [facility] Alkaline phosphatase [Enzymatic activity/volume] in Serum or Plasma 56 U/L 38 - 126 [facility] Aspartate aminotransferase [Enzymatic activity/volume] in Serum or Plasma 16 U/L 5 - 40 [facility] Alanine aminotransferase [Enzymatic activity/volume] in Seru m or Plasma 20 U/L 7 - 56 [facility] Anion gap 3 in Serum or Plasma 12.0 mmol/L 8.0 - 16.0 [facility] AGE 24 yrs [facility] al NON-AA GFR >60 mL/min [facility] ital AFR AMER GFR >60 mL/min [facility] spital Male GFR In terprentation 20-49 yrs >60 mL/min Normal 50-59 yrs >56 mL/min Normal 60-69 yrs >49 mL/min Normal 70-79yrs >42 mL/min Normal 80 and above >35 mL/min Normal Female GFR Interpretation 20-39 yrs >60 mL/min Normal 40-49 yrs >58 mL/min Normal 50-59 yrs >51 mL/min Normal 60-69 yrs >45 mL/min Normal 70-79 yrs >39 mL/min Normal 80 and above >32 mL/min Normal ID Date Data Source [id number] 01/12/2020 05:25:00 PM EDT [facility] Name Value Range Interpretation Code Description Data Seema rce(s) Supporting Document(s) HCG SERUM QUAL NEGATIVE NORMAL: NEGATIVE [facility] HCG SERUM QL REENTER NEGATIVE NORMAL: NEGATIVE [facility] { KIT LOT # [id number] ){ KIT EXP DATE 01.26.21 ){ PROCEDURAL CONTROL VALID ) ID Date Data Source [id number] 01/12/2020 05:14:00 PM EDT [facility] Name Value Range Interpretation Code Description Data Seema rce(s) Supporting Document(s) CBC W/AUTOMATED DIFF [facility] COMPLETE BLOOD COUNT Leukocytes [#/volume] in Blood by Automated count 6.7 10^3/uL 4.2 - 1 1.0 [facility] Erythrocytes [#/volume] in Blood by Automated count 4.32 10^6/uL 4. 20 - 5.40 [facility] Hemoglobin [Mass/volume] in Blood 11.7 g/dL 12.0 - 16.0 L [facility] Hematocrit [Volume Fraction] of Blood by Automated count 35.4 % 3 7.0 - 47.0 L [facility] Erythrocyte mean corpuscular volume [Entitic volume] by Auto mated count 81.9 fL 81.0 - 101 [facility] Erythrocyte mean corpuscular hemoglobin [Entitic mass] by Automated count 27.1 pg 27.0 - 34.0 [facility] Erythrocyte mean corpuscular hemoglobin concentration [Mass/volume] by Automated count 33.1 g/dL 31.0 - 36.0 [facility] Erythrocyte distribution width [Ratio] by Automated count 15.9 % 11.5 - 14.5 H [facility] Platelets [#/volume] in Blood by Automated count 212 10^3/uL 150 - 45 0 [facility] Platelet mean volume [Entitic volume] in Blood by Automated count 10.2 fL 7.4 - 10.4 [facility] Neutrophils/100 leukocytes in Blood by Automated count 72.1 % 37. 0 - 80.0 [facility] Lymphocytes/100 leukocytes in Blood by Manual count 22.0 % 25.0 - 40.0 L [facility] Monocytes/100 leukocytes in Blood by Automated count 4.6 % 3.0 - 8.0 [facility] Eosinophils/100 leukocytes in Blood by Automated count 0.7 % 0.0 - 7.0 [facility] Basophils/100 leukocytes in Blood by Automated count 0.3 % 0.0 - 2.5 [facility] %IG 0.3 % 0.0 - 0.0 H [facility] %NRBC 0.0 % 0.0 - 0.0 [facility] Neutrophils [#/volume] in Blood by Automated count 4.82 10^3/uL 2.00 - 6.90 [facility] Lymphocytes [#/volume] in Blood by Automated count 1.47 10^3/uL 0.60 - 3.40 [facility] Monocytes [#/volume] in Blood by Automated count 0.31 10^3/uL 0.00 - 0.90 [facility] Eosinophils [#/volume] in Blood by Automated count 0.05 10^3/uL 0.00 - 0.70 [facility] Basophils [#/volume] in Blood by Automated count 0.02 10^3/uL 0.00 - 0.20 [facility] #IG 0.02 10^3/uL 0.00 - 0.10 [facility] #NRBC 0.00 10^3/uL 0.00 - 0.00 [facility] MANUAL DIFF NOT INDICATED [facility] RBC MORPH NOT INDICATED [facility] ID Date Data Source [id number] 12/16/2019 03:13:00 PM EDT [facility] ([facility] Name Value Range Interpretation Code Description Data Seema rce(s) Supporting Document(s) Thyrotropin [Units/volume] in Serum or Plasma 2.810 uIU/mL 0.450-4.50 0 [facility] ([facility] ID Date Data Source [id number] 12/16/2019 03:13:00 PM EDT [facility] ([facility] Name Value Range Interpretation Code Description Data Seema rce(s) Supporting Document(s) Glucose [Mass/volume] in Serum or Plasma 85 mg/dL 65-99 [facility] BUN 13 mg/dL 6-20 [facility] ([facility] Creatinine [Mass/volume] in Serum or Plasma 0.64 mg/dL 0.57-1.00 [facility] ([facility] eGFR If NonAfricn Am 124 mL/min/1.73 [facility] ([facility] eGFR If Africn Am 142 mL/min/1.73 [facility] ([facility] Potassium [Moles/volume] in Serum or Plasma 3.9 mmol/L 3.5-5.2 [facility] ([facility] Sodium [Moles/volume] in Serum or Plasma 139 mmol/L 134-144 [facility] ([facility] Urea nitrogen/Creatinine [Mass Ratio] in Serum or Plasma 20 9 -23 [facility] ([facility] Calcium [Mass/volume] in Serum or Plasma 8.8 mg/dL 8.7-10.2 [facility] ([facility] Chloride [Moles/volume] in Serum or Plasma 101 mmol/L 96-106 [facility] ([facility] Carbon dioxide, total [Moles/volume] in Serum or Plasma 23 mmol/L 20 -29 [facility] ([facility] ID Date Data Source [id number] 12/16/2019 03:13:00 PM EDT [facility] ([facility] Name Value Range Interpretation Code Description Data Seema rce(s) Supporting Document(s) Leukocytes [#/volume] in Blood by Automated count 6.5 x10E3/uL 3.4-10 .8 [facility] ([facility] Erythrocytes [#/volume] in Blood by Automated count 4.69 x10E6/uL 3.7 7-5.28 [facility] ([facility] Erythrocyte mean corpuscular volume [Entitic volume] by Auto mated count 79 fL 79-97 [facility] Hematocrit [Volume Fraction] of Blood by Automated count 37.1 % 3 4.0-46.6 [facility] ([facility] Hemoglobin [Mass/volume] in Blood 12.5 g/dL 11.1-15.9 [facility] ([facility] Erythrocyte mean corpuscular hemoglobin [Entitic mass] by Automated count 26.7 pg 26.6-33.0 [facility] Erythrocyte mean corpuscular hemoglobin concentration [Mass/volume] by Automated count 33.7 g/dL 31.5-35.7 [facility] Erythrocyte distribution width [Ratio] by Automated count 15.8 % 11.7-15.4 Above high normal [facility] ([facility] ) Platelets [#/volume] in Blood by Automated count 250 x10E3/uL 150-450 [facility] Neutrophils 69 % [facility] Lymphs 25 % [facility] Monocytes/100 leukocytes in Blood by Automated count 5 % [facility] Eosinophils/100 leukocytes in Blood by Automated count 1 % [facility] ([facility] Basophils/100 leukocytes in Blood by Automated count 0 % [facility] ([facility] Immature cells [#/volume] in Blood Laboratory test result [facility] ([facility] Neutrophils [#/volume] in Blood by Automated count 4.5 x10E3/uL 1.4-7 .0 [facility] ([facility] Monocytes [#/volume] in Blood 0.3 x10E3/uL 0.1-0.9 [facility] ([facility] Lymphocytes [#/volume] in Blood 1.6 x10E3/uL 0.7-3.1 [facility] ([facility] Eosinophils [#/volume] in Blood by Automated count 0.0 x10E3/uL 0.0-0 .4 [facility] ([facility] Immature granulocytes/100 leukocytes in Blood by Automated count 0 % [facility] ([facility] Basophils [#/volume] in Blood by Automated count 0.0 x10E3/uL 0.0-0.2 [facility] ([facility] Immature granulocytes [#/volume] in Blood by Automated count 0.0 x10E3/uL 0.0-0.1 [facility] Nucleated erythrocytes/100 leukocytes [Ratio] in Blood by Automated count Laboratory test result [facility] ([facility] Morphology [Interpretation] in Blood Narrative Laboratory test result [facility] ID Date Data Source [id number] 11/19/2019 09:55:00 AM EDT [facility] [address] [place] [address] PHONE: [phone] FAX: [phone] Name .................. : ISRAEL Peck Acct Number.................. : [id number] ROOM. ................. : TR-06 MR Number ................... : [id number] Stay type ............. : E/R Discharge Date......... ... : 11/18/19 Admit Date ......... : 11/18/19 Admit Phys .................... : CINTHYA SPEEYD Date of ....... : 1995 Family Phys ................... : LATRELL BENOIT Phone .................. : [phone] Age ................................ : 24 Film# .................. .:[id number] Sex ................................. : F Unsigned transcriptions are preliminary reports and do not represent a medical or legal document [place] [id number] COMPLETE:11/18/19 12:20 KBO [id number] Reason(s): Pain RIGHT WRIST X-RAY: INDICATION: Pain. FINDINGS: No evidence for fractures, subluxation or adjacent soft tissue swelling is noted. IMPRESSION: Unremarkable right wrist. Examination dictated by JESSE Quintero. Examination was reviewed with Lizette Marte MD, radiologist at the time of this dictation. Electronically Reviewed and Signed By Lizette Marte MD , 11/19/19 09:55, AML Transcribe Initials: DZ , Transcribe Date: 11/19/19 04:42, Dictation Date: Copy for: HARPER SINGH via fax Copy for: CINTHYA Pekc via fax Copy for: LATRELL MEZA via fax Copy for: EMERGENCY DEPT via modem Copy for: 710 MED REC DISCHARGED Page 1 of 1 Name Value Range Interpretation Code Description Data Seema rce(s) Supporting Document(s) ID Date Data Source [id number] 11/19/2019 09:55:00 [place] [address] PHONE: [phone] FAX: [phone] Name .................. : ISRAEL Peck Acct Number.................. : [id number] ROOM. ................. : TR-06 MR Number ................... : [id number] Stay type ............. : E/R Discharge Date......... ... : 11/18/19 Admit Date ......... : 11/18/19 Admit Phys .................... : CINTHYA RUFF Date of ....... : 1995 Family Phys ................... : LATRELL BENOIT Phone .................. : [phone] Age ................................ : 24 Film# .................. .[id number] Sex ................................. : F Unsigned transcriptions are preliminary reports and do not represent a medical or legal document HAND COMPLETE-3 OR MORE VWS R [id number] COMPLETE:11/18/19 12:20 KBO [id number] Reason(s): Pain RIGHT HAND X-RAY: INDICATION: Pain. FINDINGS: No evidence of an acute fracture or dislocation is identified. Joint spaces are preserved and soft tissues appear unremarkable. IMPRESSION: Unremarkable right hand. Examination dictated by JESSE Quintero. Examination was reviewed with Lizette Marte MD, radiologist at the time of this dictation. Electronically Reviewed a nd Signed By Lizette Marte MD , 11/19/19 09:55, AML Transcribe Initials: DZ , Transcribe Date: 11/19/19 04:40, Dictation Date: Copy for: HARPER SINGH via fax Copy for: CINTHYA Peck via fax Copy for: LATRELL MEZA via fax Copy for: EMERGENCY DEPT via [facility] Copy for: 710 MED REC DISCHARGED Page 1 of 1 Name Value Range Interpretation Code Description Data Seema rce(s) Supporting Document(s) ID Date Data Source [id number] 11/18/2019 11:16:00 AM EDT [facility] 1 OrderSheet [facility] Emergency Department [address] [place] [address] Phone #: [phone]- [phone] 11/18/2019 11:00 Patient: ELIF WOOD Sex: F : 1995 Age: 24yWEIGHT:90.7 kg (S) HEIGHT:57 inches (S) BMI:43.3ALLERGIES: Demerol, Dilaudid, lavender, Mushroms, NSAIDs, Toradol, TramadolCHIEF COMPLAINT: Rt, index fingerDIAGNOSIS: Avulsion injury of fingernailLAB ORDERSOrder Description Priority Entered Acknowledged InitialedDIAGNOSTIC STUDY ORDERSOrder Description Priority Entered Acknowledged InitialedHand Complete STAT 11:52 11/18/2019 12:09 Emily Foreman RN(Oxygen?(No)) P.A.-C; Reason for Study: Pain, Trauma/Injur yWrist Complete STAT 11:52 11/18/2019 12:09 Emily Foreman RN(Oxygen?(No)) P.A.-C; Reason for Study: PainMEDICATION/IV/DRIP/FLUID ORDERSOrder Description Priority Entered Acknowledged InitialedTdap IM 0.5 mL 11:25 11/18/2019 11:30 Stephan Foreman RN; Ahsan RN Per protocol; Chepe Stearns-CNorco (7.5-325mg) 12:32 11/18/2019 12:43 TerryPO 1 tab (HIGH Chepe Foreman RNALERT P.A.-C;MEDICATION)GENERAL ORDERSOrder Description Priority Entered Acknowledged InitialedDress Wounds 12:32 11/18/2019 12:43 Stephan Foreman RN P.A.-C;[Electronically signed by Tayler Camacho R.N. (13:02 11/18/2019)] 2 OrderSheet [facility] Emergency Department [address] [place] [address] Phone #: ext- [phone] 11/18/2019 11:00 Patient: ELIF WOOD Sex: F : 1995 Age: 24y[Electronically signed by Chepe Arevalo P.A.-C (20:58 11/18/2019)][Electronically locked by Tayler Camacho R.N. (13:02 11/18/2019)] Name Value Range Interpretation Code Description Data Seema rce(s) Supporting Document(s) ID Date Data Source [id number] 11/18/2019 11:16:00 AM EDT [facility] 1 Medication Reconciliation Report [facility] Emergency Department [address] [place] [address] Phone #: ext- [phone] 11/18/2019 11:00 Patient: ELIF WOOD Sex: F : 1995 Age: 24yWeight: 90.7 kgHeight/Length: 57 in.BMI: 43.3ALLERGIES: Demerol, Dilaudid, lavender, Mushroms, NSAIDs, Toradol, TramadolThe patient's Home Medications are listed below:CONTINUE TAKING THE FOLLOWING MEDICATIONS: busPIRone HCl Oral 15 mg, 2x a day PROzac Oral 50, daily traZODone HCl Oral 50 mg, prn,at bedtimeThe source(s) of the original Home Medication information:patientThe following Medications were given to the patient in the Emergency Department:TDAP [IM] IM 0.5 mL, administered: 11/18/2019 11:30:00 AMNORCO (7.5-325MG) [PO] PO 1 tab, administered: 11/18/2019 12:38:00 PMThe following Medications were prescribed to the patient:Nehawka 5 mg-325 mg tablet Take 1 tablet three times a day for 4 days -- Dispense 12 tablet. Refills: 0.Substitution permitted.Pharmacy - [id number] [address] [place], [place] [id number]. . -- Chepe Arevalo P.A.-C Name Value Range Interpretation Code Description Data Seema rce(s) Supporting Document(s) ID Date Data Source [id number] 11/18/2019 11:16:00 AM EDT [facility] 1 Medication Administration Record [facility] Emergency Department [address] [place] [address] Phone #: ext- [phone] 11/18/2019 11:00 Patient: ELIF WOOD Sex: F : 1995 Age: 24yWeight: 90.7 kgHeight/Length: 57 inBMI: 43.3ALLERGIES: Mushroms, lavender, NSAIDs, Dilaudid, Demerol, Tramadol, Toradol Date/Time Medication Administered Medication OrderedGiven TDAP [IM] Tdap IM 0.5 mL11:30 11/18/2019 Dose: 0.5 mL Diamond Foreman RNGiven NORCO (7.5-325MG) [PO] Nehawka (7.5-325mg) PO 1 tab (HI GH12:38 11/18/2019 (ACETAMINOPHEN-HYDROCODONE) ALERT MEDICATION)Stephan Foreman RN Dose: 1 tab 5/325 mg Tablets PO Name Value Range Interpretation Code Description Data Seema rce(s) Supporting Document(s) ID Date Data Source [id number] 11/18/2019 11:16:00 AM EDT [facility] 1 General Instructions [facility] Emergency Department [address] [place] [address] Phone #: ext- [phone] 11/18/2019 11:00 Patient: ELIF WOOD Sex: F : 1995 Age: 24yComplete nail avulsion to right index finger.INSTRUCTIONSApply ice. Elevate affected areas above chest level. Protect wound and keep wound area clean. Limituse of your right hand for one weeks. Do not work for three days until better.No dietary restrictions.(Recommend to utilize OTC Motrin and Tylenol to control inflammation and pain management.Recommend to follow the instructions on the bottle and not to exceed.).Warnings: COMPLICATIONS: Complications from this condition are possible.INFECTION: Watch for signs of infection (increasing heat and redness, pus-like drainage, swelling, orincreased pain). Return or see your doctor if these signs occur.SEDATIVE MEDICATION: You were given sedative medication during your visit. Do not drive or operatedangerous machinery.CONTROLLED SUBSTANCE WARNINGS.GENERAL WARNINGS: Return or contact your physician immediately if your condition worsens orchanges unexpectedly, if not improving as expected, or if other problems arise.Your Current Medications: Your current home medications have been reviewed.CONTINUE TAKING THE FOLLOWING MEDICATIONS:busPIRone HCl Oral : 15 mg 2x a day.PROzac Oral : 50 daily.traZODone HCl Oral : 50 mg, prn, at bedtime.Prescription Medications:Nehawka 5 mg-325 mg tablet Take 1 tablet three times a day for 4 days -- Dispense 12 tablet. Refills: 0.Substitution permitted.Pharmacy - [facility] - [address] [facility] ; [place], [place] [phone]. .Follow-up:Return to the emergency department as needed. Follow up with your healthcare provider in about twodays if not better. Call for an appointment.Understanding of the discharge instructions verbalized by patient. 2 General Instructions [facility] Emergency Department [address] [place] [address] Phone #: ext- [phone] 11/18/2019 11:00 [id number] Sex: F : 1995 Age: 24y ADDITIONAL INFORMATIONDetached Fingernail or ToenailA detached nail is when the nail becomes from the area underneath it (the nail bed). Thisoften means losing all or part of the nail. An injury to your finger or toe is often the cause. It can alsobe caused by an infection around or under the nail.Sometimes there is a cut in the nail bed or a bone fracture under the nail. In most cases, the nail willgrow back from the area under the cuticle (the matrix). A fingernail takes about 4 to 6 months to growback. A toenail takes about 12 months to grow back. If the nail bed or matrix was damaged, the nailmay grow back with a rough or abnormal shape. In some cases the nail may not grow back at all.There may be damage or a cut to the nail bed. This may need to be repaired. Often this is done withstitches. If the nail is still in good condition, it might be cleaned and trimmed, then put back in place.This is done to help and protect the new nail as it grows back. It also prevents the nail bed fromdrying out.Home care Keep the injured part raised to reduce pain and swelling. This is important, especially in the first 48 hours. Apply an ice pack for up to 20 minutes. Do this every 3 to 6 hours during the first 24 to 48 hours. Keep using ice packs to ease pain and swelling as needed. To make an ice pack, put ice cubes in a plastic bag that seals at the top. Wrap the bag in a clean, thin towel or cloth. Never put ice or an ice pack directly on the skin. The ice pack can be put right on a wrap, cast, or splint. As the ice melts, be careful not to get any wrap, cast, or splint wet. 3 General Instructions [facility] Emergency Department [address] [place] [address] Phone #: ext- [phone] 11/18/2019 11:00 Patient: ELIF WOOD Sex: F : 1995 Age: 24y The nail bed is moist, soft, and sensitive. It needs to be protected from injury for the first 7 to 10 days until it dries out and becomes hard. Keep it covered with a nonstick dressing or a bandage without adhesive. When a dressing is placed on an exposed nail bed, it may stick and be hard to remove if left in place more than 24 hours. Unless you were told otherwise, change dressings every 24 hours. If needed, soak the dressing off while holding it under warm running water. Then lightly pat the wound dry. Apply a layer of antibiotic ointment before putting on the new dressing or bandage. This will help keep it from sticking. Use a nonstick dressing with the antibiotic ointment under the outer dressing. If an X-ray showed that you have a fracture, it will take about 4 weeks for this to heal. The injured part should be protected with a splint or tape while it is healing. If you were given antibiotics to prevent infection, take them as directed until they are all gone.Medicine You can take bhia-awr-shwvqks medicine for pain, unless you were given a different pain medicine to use. Talk with your provider before using these medicines if you have chronic liver or kidney disease. Also talk with your provider if you ever had a stomach ulcer or GI bleeding, or are taking blood thinner medicines. If you were given antibiotics, take them until they are done. It is important to finish the antibiotics even if the wound looks better. This is to make sure the infection has cleared.Follow-up careFollow up with your healthcare provider, or as advised. If X-rays were taken, you will be told of anynew findings that may affect your care.When to seek medical adviceCall your healthcare provider right away if any of these occur: Pain or swelling increases Redness around the nail Pus (creamy white or yellow fluid) draining from the nail Fever of 100.4F (38C) or higher, or as directed by your provider [phone] [employer] [address] [place] [address], [place] [address]. All rights reserved. This information is not intended as asubstitute for professional medical care. Always follow your healthcare professional's instructions. 4 General Instructions [facility] Emergency Department [address] [place] [address] Phone #: ext- [phone] 11/18/2019 11:00 Patient: ELIF WOOD Sex: F : 1995 Age: 24yNail Removal (Finger/Toe Nail Plate)Sometimes a toenail or fingernail must be removed because of injury or infection. Your nail has beenremoved. It will take a few weeks for the nail to start to grow back. It will take about 3 months for afingernail to fully grow back. A toenail will take about 6 months.Home careThe following guidelines will help you care for yourself at home: Keep the injured part raised to help with pain and swelling. This is very important during the first 48 hours. Apply an ice pack for 20 minutes every 3 to 6 hours during the first 24 to 48 hours. Keep using ice packs for swelling and pain relief as needed. To make an ice pack, put ice cubes in a plastic bag that seals at the top. Wrap the bag in a clean, thin towel or cloth. Never put ice or an ice pack directly on the skin. As the ice melts, be careful not to get any wrap, splint, or cast wet. You can use uilc-ocf-mmssahn medicine to control pain, unless another medicine was prescribed. Note: If you have chronic liver or kidney disease or ever had a stomach ulcer or GI bleeding, talk with your provider before using these medicines. Don't use ibuprofen in children under 6 months of age. The nail bed (the tissue under the nail) is moist, soft, and sensitive. Protect the nail bed for the first 7 to 10 days until it dries out and becomes hard. Keep it covered with a dressing or adhesive bandage until that time. Bandages tend to stick to a newly exposed nail bed. They can be hard to remove if left in 5 General Instructions [facility] Emergency Department [address] [place] [address] Phone #: ext- [phone] 11/18/2019 11:00 Patient: ELIF WOOD Sex: F : 1995 Age: 24y place more than 24 hours. So change dressings every 24 hours, unless you were told otherwise. If needed, soak the dressing off while holding your finger or toe under warm running water. If you were given antibiotics to treat or prevent infection, take them as directed until they are all gone.Follow-up careFollow up with your healthcare provider, or as advised. If X-rays were taken, you will be told of anynew findings that may affect your care.When to seek medical adviceCall your healthcare provider right away if any of the following occur: Pain or swelling gets worse after 24 hours Redness around the nail, or fluid draining from your finger or toe Any red streaking develops Fever of 100.4F (38C) or higher, or as directed by your provider [phone] [employer] [address] [place] [address]. All rights reserved. This information is not intended as asubstitute for professional medical care. Always follow your healthcare professional's instructions. You have been given the following additional information: Detached Fingernail or Toenail Nail Removal (Finger/Toe Nail Plate) Limit use of your right hand for one weeks. Do not work for three days until better.(Electronically signed by Chepe Arevalo P.A.-C 11/18/2019 20:58) Name Value Range Interpretation Code Description Data Seema rce(s) Supporting Document(s) ID Date Data Source [id number] 11/18/2019 11:16:00 AM EDT [facility] 1 Clinical Report - Nurses [facility] Emergency Department [address] [place] [address] Phone #: ext- [phone] 11/18/2019 11:00 Patient: ELIF WOOD Sex: F : 1995 Age: 24yTRIAGEArrived by private vehicle. Historian not patient.Acuity: LEVEL 5.Chief Complaint: INJURY TO RIGHT HAND.Alert. No acute distress.Occurred at home. Occurred 10:45 11/18/2019. ( patient had her right pointer finger caught in herkitchen chair, resulting in distal aspect of finger nail to be torn off. small amt of bleeding on arrival. painshooting up her finger into her right hand.). The patient has had numbness. No neck pain or weakness.Treatment DECAL MAKER:Ap plied bandage. --11:11/18/19 Tayler Camacho R.N.11:03 11/18/19. BP: 140/80. MAP: 100. HR: 77. RR: 16. O2 saturation: 99%. Temp: 97.5 F. Pain levelnow: 01/23. --11:11/18/19 Tayler Camacho R.N.Weight: 90.7 kg stated. Height/Length: 57 inches Per Patient. BMI: 43.3. --11:11/18/19 Tayler Camacho R.N.MedicationsbusPIRone HCl Oral 15 mg, 2x a day. --11:11/18/19 Tayler Camacho R.N. PROzac Oral 50, daily. --11:11/18/19 Tayler Camacho R.N. traZODone HCl Oral 50 mg, as needed, at bedtime. --11:11/18/19 Tayler Camacho R.N.AllergiesToradol. --11:11/18/19 Tayler Camacho R.N.Tramadol. --11:11/18/19 Tayler Camacho R.N.Demerol. --11:11/18/19 Tayler Camacho R.N.Dilaudid. --11:11/18/19 Tayler Camacho R.N.NSAIDs. --11:11/18/19 Tayler Camacho R.N.lavender. --11:11/18/19 Tayler Camacho R.N.Mushroms. --11:11/18/19 Tayler Camacho R.N.PROBLEMS:Tubal ligation.Scoliosis.Nephrolithiasis. --11:11/18/19 Tayler Camacho R.N.Medication/allergy information source: the patient. --11:11/18/19 Tayler Camacho R.N. 2 Clinical Report - Nurses [facility] Emergency Department [address] [place] [address] Phone #: ext- [phone] 11/18/2019 11:00 Patient: ELIF WOOD Sex: F : 1995 Age: 24y ADDITIONAL SURGERIES: Dilatation Curettage. Right wrist surgery. --11:11/18/19 Tayler Camacho R.N. History SOCIAL HX: Current some days smoker. No alcohol use or drug use. The patient was offered HIV testing but declined and hepatitis C testing but declined. The patient has not traveled outside the [place] Infectious disease exposure: No infectious disease exposure. The patient was not exposed to C-diff, MRSA, VRE or CRE. SELF HARM ASSESSMENT: Self harm assessment was performed. The patient answered "no" to the question(s) "Have you recently felt down, depressed, or hopeless?", "Do you have thoughts of harming or killing yo urself?", "Do you have a plan for harming or killing yourself?", "Have you recently had thoughts about harming or killing others?", "Do you have any dangerous items in your possession?", "Have you noticed less interest or pleasure in doing things?", "Are you here because you tried to hurt yourself?" and "Have you ever tried to hurt yourself before today?". ABUSE ASSESSMENT: No report of abuse. NUTRITIONAL RISK ASSESSMENT: The nutritional risk assessment revealed no deficiencies. FUNCTIONAL ASSESSMENT: Functional assessment: no impairments noted. LEARNING NEEDS ASSESSMENT: The learning needs assessment revealed no barriers. FALL RISK ASSESSMENT: Fall risk assessment completed. No risk factors identified. SKIN INTEGRITY ASSESSMENT: Skin integrity risk assessment completed. No skin integrity risk identified. --11:11/18/19 Tayler Camacho R.N. PAST MEDICAL HX: Tetanus status: unknown. --11:11/18/19 Stephan Foreman RN.PHYSICAL XDYGTWBNIE12:11/18/19. Ambulatory to room.GENERAL / NEURO / PSYCH: Oriented X 4. Alert. Appears in no acute distress. Appears in pain.EXTREMITIES: Extremity pulses are within normal limits. Extremities exhibit normal ROM. Left hand:(avulsion lateral finger nail right index).SKIN: Skin is warm and dry. --11:11/18/19 Stephan Foreman RN.NURSING PROGRESS NOTESTwo patient identifiers checked. Call light placed in reach. Bed placed in lowest position. Brakes of bedon. Patient ready for evaluation- PA notified. --11:11/18/19 Stephan Foreman RN Wound cleansed with sterile saline and Betadine (1800). --11:11/18/19 Stephan Foreman RN 3 Clinical Report - Nurses [facility] Emergency Department [address] [place] [address] Phone #: ext- [phone] 11/18/2019 11:00 Patient: ELIF WOOD Sex: F : 1995 Age: 24y 11:30 11/18/2019 TDAP IM 0.5 mL given(Lot#: [id number], expiration date: 10/11/2021, Handkerchief Folder: [employer]). Given in the right deltoid. Allergies verified and confirmed 5 rights. Information reviewed with patient. --11:30 11/18/19 Stephan Foreman RN Patient transported to radiology by wheelchair with donor technician. (1205). --12:10 11/18/19 Stephan Foreman RN Correction --12:11 11/18/19 Stephan Foreman RN Patient walked to radiology with donor technician. (1205). Patient walked back from radiology with donor technician. (1212). --12:12 11/18/19 Stephan Foreman RN 12:38 11/18/2019 NORCO (7.5-325MG) (Acetaminophen-HYDROcodone) PO 5/325 mg Tablets 1 tab given. Allergies verified and confirmed 5 rights. Information reviewed with patient including sedative warning. --12:43 11/18/19 Stephan Foreman RN Left hand: applied bulky dressing consisting of xeroform and 4x4 gauze, following the application of antibiotic ointment (bacitracin). Secured with zaki. (7663). --12:44 11/18/19 Stephan Foreman RN.DISPOSITION / DISCHARGE 12:44 11/18/19. BP: 132/79. MAP: 96. HR: 75. RR: 18. O2 saturation: 99%. Pain level now: 11/23. --12:44 11/18/19 Stephan Foreman RN No learning barriers present. Discharge instructions provided and reviewed with the patient. Reviewed medication(s). Prescription(s) sent electronically to pharmacy. Reviewed wound care, skin care, ice and elevation instructions. Reviewed referral to a primary care physician. Activity restrictions (minimal use of injured extremity) reviewed. Work note given (x 3 days out of work). Patient verbalized understanding. Written instructions provided in Senegalese. --13:11/18/19 Tayler Camacho R.N. Departure time: 13:01 11/18/2019. --13:11/18/19 Tayler Camacho R.N.Locked/Released at 11/18/2019 13:02 by Tayler Camacho R.N. Name Value Range Interpretation Code Description Data Seema e(s) Supporting Document(s) ID Date Data Source [id number] 11/18/2019 11:16:00 AM EDT [facility] 1 Clinical Report - Physicians/Mid Levels [facility] Emergency Department [address] [place] [address] Phone #: ext- [phone] 11/18/2019 11:00 Patient: ELIF WOOD Sex: F : 1995 Age: 24y Time Seen: 11:50 11/18/2019; initial patient contact, initial documentation. Arrived- By private vehicle. Historian- patient.HISTORY OF PRESENT ILLNESS Chief Complaint: Injury to the right index finger. The injury happened just prior to arrival. Occurred at home. The patient sustained a direct blow and crush injury. Patient is experiencing moderate pain. No injury to the head or neck or other injury. ( patient had her right pointer finger caught in her kitchen chair, resulting in distal aspect of finger nail to be torn off. small amt of bleeding on arrival. pain shooting up her finger into her right hand.). The patient has had numbness. No neck pain or weakness.).REVIEW OF SYSTEMSThe patient has had weakness. No swelling, tingling, numbness or foreign body. All other systemsreviewed and are negative.PAST HISTORYSee nurses notes. The patient's dominant hand is the right. Tetanus immunization status is up-to-date.SOCIAL HISTORYCurrent every day smoker. No alcohol use or drug use.ADDITIONAL NOTESThe nursing notes have been reviewed.PHYSICAL EXAMVital Signs: Have been reviewed. Oxygen saturation normal.Appearance: Alert. Oriented X3. No acute distress.CVS: Normal heart rate and rhythm. No JVD present. Pulses normal. Capillary refill normal. Strongperipheral pulses. Heart sounds normal. Pulses: right radial 2+; left radial 2+.Respiratory: Chest normal on inspection. No respiratory distress. Unlabored respirations. Lungs clear.Good chest movement. Breath sounds normal and equal.Skin: Skin warm and dry.Extremities: Tip of right index finger: moderate tenderness and laceration, which involves the nail bed; nailcompletely avulsed. No erythema or swelling. No tip amputation of the right index finger or exposed boneon the right index finger. Extremities otherwise negative.Neuro, Vascular and Tendons: Sensation intact.Neuro: Awake. Alert. Mood/affect normal. Speech normal. No motor deficit. No sensory deficit.Psych: Cognition normal. Thought process and content normal. Insight and judgement normal. 2 Clinical Report - Physicians/Mid Levels [facility] Emergency Department [address] [place] [address] Phone #: ext- [phone] 11/18/2019 11:00 Patient: ELFI WOOD Sex: F : 1995 Age: 24yLABS, X-RAYS, AND EKGRt Wrist X-ray: (Kristie sauceda Mike - 11/18/2019 12:17:26 Madi combs). The X-rays were interpreted by the radiologist.Rt Hand X-ray: (Kristie sauceda Mike - 11/18/2019 12:17:16 Madi combs). The X-rays were interpreted by the radiologist.PROGRESS AND PROCEDURESDigital Nerve Block - Finger: Time-out completed immediately before the procedure. Digital nerve blockperformed on the right index finger. Web space approach utilized. Landmarks identified. Skin prepped.Total volume of 2 mL 1% Lidocaine infiltrated via multiple punctures using a 27-gauge needle. Patientcooperative during procedure. No complications encountered. Excellent anesthesia achieved. Course of Care: VSS, NAD, AOx3, interacting well and appropriately, no use of accessory muscle, able to speak full sentences, stable, non-toxic looking. Enter room and pt lying peacefully in bed in NAD. Patient stable. Denies any new issues, concerns, or complaints. IVANNA BOCANEGRA intact b/l UE. Noted injury to nail. partial nail missing; no active bleeding. Will digit block to provide immediate relieve. WIll image for furhter eval. Pending results. Reviewed imaging. Discussed results with pt. Discussed tx plan with pt. Discussed and counseled on stable condition. Discussed importance of a f/u with PCP. Discussed return to ER criteria. Answered their questions. Indicates and verbalizes that they understand, agree, and will comply with above. Denies any new questions or concerns. Patient has capacity to understand. Discharge decision based on the following: patient's condition is stable; patient's exam is stable; social support is adequate; transportation is available; follow-up is available. Discussed of OTC Motrin and Tylenol to control inflammation and pain management. Informed to follow directions on bottle that are appropriate for age and/or weight. Disposition: Discharged home in good and improved condition. Condition: good and stable.CLINICAL IMPRESSION Complete nail avulsion to right index finger. 3 Clinical Report - Physicians/Mid Levels [facility] Emergency Department [address] [place] [address] Phone #: ext- [phone] 11/18/2019 11:00 Patient: ELIF WOOD Sex: F : 1995 Age: 24yINSTRUCTIONS Apply ice. Elevate affected areas above chest level. Protect wound and keep wound area clean. Limit use of your right hand for one weeks. Do not work for three days until better. No dietary restrictions. (Recommend to utilize OTC Motrin and Tylenol to control inflammation and pain management. Recommend to follow the instructions on the b ottle and not to exceed.). Warnings: COMPLICATIONS: Complications from this condition are possible. INFECTION: Watch for signs of infection (increasing heat and redness, pus-like drainage, swelling, or increased pain). Return or see your doctor if these signs occur. SEDATIVE MEDICATION: You were given sedative medication during your visit. Do not drive or operate dangerous machinery. CONTROLLED SUBSTANCE WARNINGS. GENERAL WARNINGS: Return or contact your physician immediately if your condition worsens or changes unexpectedly, if not improving as expected, or if other problems arise. Your Current Medications: Your current home medications have been reviewed. CONTINUE TAKING THE FOLLOWING MEDICATIONS: busPIRone HCl Oral : 15 mg 2x a day. PROzac Oral : 50 daily. traZODone HCl Oral : 50 mg, prn, at bedtime. Prescription Medications: [place] 5 mg-325 mg tablet Take 1 tablet three times a day for 4 days -- Dispense 12 tablet. Refills: 0. Substitution permitted. Pharmacy - [facility] - [address] [facility] ; [place], [place] [id number]. . Follow-up: Return to the emergency department as needed. Follow up with your healthcare provider in about two days if not better. Call for an appointment. Understanding of the discharge instructions verbalized by patient.(Electronically signed by Chepe Arevalo P.A.-C 11/18/2019 20:58) Name Value Range Interpretation Code Description Data Seema rce(s) Supporting Document(s) ID Date Data Source [id number] 10/06/2019 01:38:00 PM EDT [facility] [address] [place] [id number] PHONE: [phone] FAX: [phone] Name .................. : ROSALINA Peck Acct Number.................. : [id number] ROOM. ................. : TR-06 Number ................... : [id number] Stay type ............. : E/R Discharge Date......... ... : 10/02/19 Admit Date ......... : 10/02/19 Admit Phys .................... : STEPHENNORM Date of ....... : 1995 Family Phys ................... : LATRELL BENOIT Phone .................. : [phone] Age ................................ : 24 Film# .................. .:[id number] Sex ................................. : F Unsigned transcriptions are preliminary reports and do not represent a medical or legal document CT ABD & PELV W/ORAL/IV CONTR [id number] COMPLETE:10/02/19 12:21 [place] [id number] Reason(s): Abdominal Pain CT SCAN OF THE ABDOMEN & PELVIS WITH CONTRAST, 10/02/19: FINDINGS: Imaging was performed following intravenous contrast administration. A small amount of oral contrast was also ingested prior to imaging. There is mild fatty infiltration of the liver. Hepatic mass or biliary dilatation is not seen. The spleen, pancreas, gallbladder, adrenal glands, and kidneys are unremarkable. Uterus, adnexa, and urinary bladder are also unremarkable. There is no acute bowel pathology, abscess formation, ascites, pneumoperitoneum, or adenopathy. There is no acute osseous abnormality. IMPRESSION: Mild fatty infiltration of the liver. Hepatic mass or biliary dilatation is not appreciated. Otherwise, unremarkable CT abdomen and pelvis. The appendix was not visualized, however direct or indirect evidence of appendicitis is not appreciated. While performing the above CT examination, radiation dose reduction was accomplished utilizing automated exposure control, adjusting of the mA and kV based on the patient's body size and/or the use of imperative reconstructive techniques. CT dose 1202.4 mGycm. Contrast agent in mL: 75 mL Isovue 370 Method of administration: Intravenous Page 1 of [address] [place] [address] PHONE: [phone] FAX: [phone] Name .................. : ROSALINA Peck Acct Number.................. : [id number] ROOM. ................. : TR- 06 MR Number ................... : [id number] Stay type ............. : E/R Discharge Date......... ... : 10/02/19 Admit Date ......... : 10/02/19 Admit Phys .................... : COONEYNORM Date of ....... : 1995 Family Phys ................... : LATRELL BENOIT Phone .................. : [phone] Age ................................ : 24 Film# .................. .:[id number] Sex ................................. : F Unsigned transcriptions are preliminary reports and do not represent a medical or legal document CT ABD & PELV W/ORAL/IV CONTR [id number] COMPLETE:10/02/19 12:21 [place] [id number] Reason(s): Abdominal Pain Electronically Reviewed and Signed By Servando Khalil MD , 10/06/19 13:38, KGG Transcribe Initials: SSR, Transcribe Date: 10/02/19 14:17, Dictation Date: Copy for: LATRELL MEZA via fax Copy for: EMERGENCY DEPT via modem Copy for: 710 MED REC DISCHARGED Page 2 of 2 Name Value Range Interpretation Code Description Data Seema e(s) Supporting Document(s) ID Date Data Source [id number] 10/02/2019 10:10:00 AM EDT [facility] 1 OrderSheet [facility] Emergency Department [address] [place] [address] Phone #: ext- [phone] 10/02/2019 10:02 Patient: ELIF ROMANO Sex: F : 1995 Age: 24yWEIGHT:85.7 kg HEIGHT:58 inches BMI:39.5ALLERGIES: Demerol, Dilaudid, Ibuprofen, Lavendar, Mushrooms, Naproxen, Toradol, TramadolCHIEF COMPLAINT: abdominal painDIAGNOSIS: Acute pain, Constipation, Urinary tract infectious diseaseLAB ORDERSOrder Description Priority Entered Acknowledged InitialedCBC w Diff STAT 10:10/02/2019 10:15 Judith Amador MD; Ahsan RNCMP STAT 10:10/02/2019 10:15 Judith Amador MD; Ahsan FISHERUrinalysis (Clean STAT 10:10/02/2019 11:25 Judith Thrasher MD; Ahsan RNLactic Acid STAT 10:10/02/2019 10:15 Judith Amador MD; Ahsan FISHERLipase STAT 10:10/02/2019 10:15 Judith Amador MD; Ahsan FISHERHCG Serum Qual STAT 10:10/02/2019 10:15 Judith Amador MD; Ahsan FISHERDIAGNOSTIC STUDY ORDERSOrder Description Priority Entered Acknowledged InitialedCT ABD PEL STAT 10:10/02/2019 10:15 StephanW/Oral/IV Contrast Judith Ochoa MD; Ahsan RN(Oxygen?(No))(IV?(Yes)) Reason for Study: Abdominal PainMEDICATION/IV/DRIP/FLUID ORDERSOrder Description Priority Entered Acknowledged InitialedIV NS 1000 mL 10:10 10/02/2019 10:47 TerryBolus : Bolus 1000 Judith Ochoa MD; Ahsan FISHERmL (X1)Acetaminophen IV 10:10 10/02/2019 10:48 [id number] mg (NOW x1, Judith Ochoa MD; Ahsan RNInfuse over 15minutes)Zofran IVP 4 mg 10:48 10/02/2019 10:52 Stephan 2 OrderSheet [facility] Emergency Department [address] [place] [address] Phone #: ext- [phone] 10/02/2019 10:02 Patient: ELIF ROMANO Sex: F : 1995 Age: 24y Stephan Foreman RN; Ahsan RN Verbal order per; Judith Ochoa MDZofran IVP 4 mg 11:06 10/02/2019 11:09 Judith Amador MD; Ahsan IFSHERKeflex PO 500 mg 13:33 10/02/2019 13:47 Stephan(NOW x1) Judith Ochoa MD; Ahsan RNMagnesium Citrate 13:33 10/02/2019 13:48 TerryPO 300 mL (NOW Judith Ochoa MD; Ahsan RNx1)GENERAL ORDERSOrder Description Priority Entered Acknowledged Initialed[Electronically signed by Stephan Foreman RN (16:10 10/02/2019)][Electronically signed by Judith Ochoa MD (21:35 10/04/2019)][Electronically locked by Stephan Foreman RN (16:10 10/02/19)] Name Value Range Interpretation Code Description Data Seema rce(s) Supporting Document(s) ID Date Data Source [id number] 10/02/2019 10:10:00 AM EDT [facility] 1 Medication Reconciliation Report [facility] Emergency Department [address] [place] [address] Phone #: ext- [phone] 10/02/2019 10:02 Patient: ELIF ROMANO Sex: F : 1995 Age: 24yWeight: 85.7 kgHeight/Length: 58 in.BMI: 39.5ALLERGIES: Demerol, Dilaudid, Ibuprofen, Lavendar, Mushrooms, Naproxen, Toradol, TramadolThe patient's Home Medications are listed below:CONTINUE TAKING THE FOLLOWING MEDICATIONS: Acetaminophen Oral (325 mg) 2 capsules, last dose: 0800, prn busPIRone HCl Oral (10 mg) 1 tablet, 2x a day PROzac Oral (20 mg) 1 capsule, daily traZODone HCl Oral (150 mg) 1 tablet, dailyThe source(s) of the original Home Medication information:Not obtained.The following Medications were given to the patient in the Emergency Department:normal saline IV Fluids bolus 0, then 1000 cc bolus, administered: 10/02/2019 10:42:00 AMtylenol IVPB bolus 0, then 1000 mg, administered: 10/02/2019 10:43:00 AMZofran [IVP] IVP 4 mg, administered: 10/02/2019 10:52:00 AMZofran [IVP] IVP 4 mg, administered: 10/02/2019 11:09:00 AMKeflex [PO] PO 500 mg, administered: 10/02/2019 1:47:00 PMMagnesium Citrate [PO] PO 300 mL, administered: 10/02/2019 1:48:00 PMThe following Medications were prescribed to the patient:Keflex 500 mg: take 1 capsule orally every 8 hours for 7 days. No refill. Substitution is permissible. --Judith Ochoa MD 2 Medication Reconciliation Report [facility] Emergency Department [address] [place] [address] Phone #: ext- [phone] 10/02/2019 10:02 Patient: ELIF ROMANO Sex: F : 1995 Age: 24yZofran (orally disintegrating tablets) 4 mg: take 1-2 orally every 8 hours. Dispense twenty (20). No refill.Substitution is permissible. -- Judith Ochoa MD Name Value Range Interpretation Code Description Data Seema rce(s) Supporting Document(s) ID Date Data Source [id number] 10/02/2019 10:10:00 AM EDT [facility] 1 Medication Administration Record [facility] Emergency Department [address] [place] [address] Phone #: ext- [phone] 10/02/2019 10:02 Patient: ELIF ROMANO Sex: F : 1995 Age: 24yWeight: 85.7 kgHeight/Length: 58 inBMI: 39.5ALLERGIES: Demerol, Dilaudid, Ibuprofen, Lavendar, Mushrooms, Naproxen, Toradol, Tramadol Date/Time Medication Administered Medication OrderedStart normal saline * IV NS 1000 mL Bolus : Bolus 563515:42 10/02/2019 Dose: 1000 cc bolus * IV Fluids mL (X1)Stephan Foreman RN----Stop12:03 10/02/2019TerAbdulkadir Abbasi tylenol * Acetaminophen IV 1000 mg (NOW10:43 10/02/2019 Dose: 1000 mg * IVPB x1, Infuse over 15 minutes)Stephan garcia RN----Stop11:00 10/02/2019Terdee Foreman RNGiven ZOFRAN [IVP] (ONDANSETRON HCL) Zofran IVP 4 mg10:52 10/02/2019 Dose: 4 mg See Foreman RN Site: #1 left upper armGiven ZOFRAN [IVP] (ONDANSETRON HCL) Zofran IVP 4 mg11:09 10/02/2019 Dose: 4 mg IVMaximiliano Foreman RN Site: #1 left upper armGiven KEFLEX [PO] (CEPHALEXIN Keflex PO 500 mg (NOW x1)13:47 10/02/2019 MONOHYDRATE)Stephan Foreman RN Dose: 500 mg Capsules POGiven MAGNESIUM CITRATE [PO] Magnesium Citrate PO 300 mL13:48 10/02/2019 Dose: 300 mL Solution/Elixir PO (NOW x1)Stephan Foreman RN Name Value Range Interpretation Code Description Data Seema rce(s) Supporting Document(s) ID Date Data Source [id number] 10/02/2019 10:10:00 AM EDT [facility] 1 General Instructions [facility] Emergency Department [address] [place] [address] Phone #: ext- [phone] 10/02/2019 10:02 Patient: ELIF ROMANO Sex: F : 1995 Age: 24yAcute nontraumatic pain.ConstipationAcute urinary tract infection.INSTRUCTIONSNo strenuous activity.Drink plenty of fluids.(eat plenty of fruits and vegetables. Please follow up with your doctor tomorrow. You may need anoutpatient endoscopy and/or colonoscopy if your pain persists. you will need a referral to a GI doctor fromyour primary care physician. Take the keflex for your bladder infection. take tylenol or motrin for pain.take the zofran for nausea.).Warnings: Further evaluation is necessary.GENERAL WARNINGS: Return or contact your physician immediately if your condition worsens orchanges unexpectedly, if not improving as expected, or if other problems arise.Your Current Medications: Your current home medications have been reviewed.CONTINUE TAKING THE FOLLOWING MEDICATIONS:Acetaminophen Oral : Capsule 325 mg, 2 capsules, Last: 0800, prn.busPIRone HCl Oral : Tablet 10 mg, 1 tablet 2x a day.PROzac Oral : Capsule 20 mg, 1 capsule daily.traZODone HCl Oral : Tablet 150 mg, 1 tablet daily.Prescription Medications:Keflex 500 mg: take 1 capsule orally every 8 hours for 7 days. No refill. Substitution is permissible.Zofran (orally disintegrating tablets) 4 mg: take 1-2 orally every 8 hours. Dispense twenty (20). No refill.Substitution is permissible.Follow-up:Follow up with your healthcare provider tomorrow even if well. Call for an appointment. Reason for referral:evaluation. Summary of care provided to patient via paper.Understanding of the discharge instructions verbalized by patient. 2 General Instructions [facility] Emergency Department [address] [place] [address] Phone #: ext- [phone] 10/02/2019 10:02 Patient: ELIF ROMANO Sex: F : 1995 Age: 24y ADDITIONAL INFORMATIONAcute Pain, Uncertain CausePain can be caused by many conditions that range from very minor to very serious. In some cases,though, pain comes and goes with no apparent cause.We were not able to find the exact cause for your pain. At this time there is no sign of any seriousillness causing your pain. More tests may be needed to determine the cause. In many cases, pain likethis goes away by itself.Home careTake any medicines as prescribed. If another medicine was not prescribed for pain, you can take uhdvsx-nsi-ardcltj pain medicine such as ibuprofen or acetaminophen. Use these as directed on thelabel.Follow-up careFollow up with your healthcare provider or our staff as directed.When to seek medical adviceCall your healthcare provider for any of the following: Pain changes in pattern Pain doesn't lessen or gets worse New symptoms appear Fever of 100.4F (38C) or higher, or as directed by your healthcare provider [id number] [employer] [address] [place] [address], [place] [address]. All rights reserved. This information is not intended as asubstitute for professional medical care. Always follow your healthcare professional's instructions.Constipation (Adult)Constipation means that you have bowel movements that are less frequent than usual. Stools oftenbecome very hard and difficult to pass.Constipation is very common. At some point in life, it affects almost everyone. Since everyone'sbowel habits are different, what is constipation to one person may not be to another. Your healthcareprovider may do tests to diagnose constipation. It depends on what he or she finds when evaluatingyou. 3 General Instructions [facility] Emergency Department [address] [place] [address] Phone #: ext- [phone] 10/02/2019 10:02 Patient: ELIF ROMANO Sex: F : 1995 Age: 24ySymptoms of constipation include: Abdominal pain Bloating Vomiting Painful bowel movements Itching, swelling, bleeding, or pain around the anusCausesConstipation can have many causes. These include: Diet low in fiber Too much dairy Not drinking enough liquids Lack of exercise or physical activity (especially true for older adults) Changes in lifestyle or daily routine, including , aging, work, and travel Frequent use or misuse of laxatives Ignoring the urge to have a bowel movement or delaying it until later Medicines, such as certain prescription pain medicines, iron supplements, antacids, certain antidepressants, and calcium supplements Di seases like irritable bowel syndrome, bowel obstructions, stroke, diabetes, thyroid disease, Parkinson disease, hemorrhoids, and colon cancerComplications 4 General Instructions [facility] Emergency Department [address] [place] [address] Phone #: ext- [phone] 10/02/2019 10:02 [facility]: [id number] Sex: F : 1995 Age: 24yPotential complications of constipation can include: Hemorrhoids Rectal bleeding from hemorrhoids or anal fissures (skin tears) Hernias Dependency on laxatives Chronic constipation Fecal impaction, a severe form of constipation in which a large amount of hard stool is in your rectum that you can't pass Bowel obstruction or perforationHome careAll treatment should be done after talking with your healthcare provider. This is especially true if youhave another medical problems, are taking prescription medicines, or are an older adult. Treatmentmost often involves lifestyle changes. You may also need medicines. Your healthcare provider will tellyou which will work best for you. Follow the advice below to help avoid this problem in the future.Lifestyle changesThese lifestyle changes can help prevent constipation: Diet. Eat a high-fiber diet, with fresh fruit and vegetables, and reduce dairy intake, meats, and processed foods Fluids. It's important to get enough fluids each day. Drink plenty of water when you eat more fiber. If you are on diet that limits the amount of fluid you can have, talk about this with your healthcare provider. Regular exercise. Check with your healthcare provider first.MedicinesTake any medicines as directed. Some laxatives are safe to use only every now and then. Others canbe taken on a regular basis. While laxatives don't cause bowel dependence, they are treating thesymptoms. So your constipation may return if you don't make other changes. Talk with yourhealthcare provider or pharmacist if you have questions.Prescription pain medicines can cause constipation. If you are taking this kind of medicine, ask yourhealthcare provider if you should also take a stool softener. 5 General Instructions [facility] Emergency Department [address] [place] [address] Phone #: ext- [phone] 10/02/2019 10:02 Patient: ELIF ROMANO Sex: F : 1995 Age: 24yMedicines you may take to treat constipation include: Fiber supplements Stool softeners Laxatives Enemas Rectal suppositoriesFollow-up careFollow up with your healthcare provider if symptoms don't get better in the next few days. You mayneed to have more tests or see a specialist.Call [phone] if any of these occur: Trouble breathing Stiff, rigid abdomen that is severely painful to touch Confusion Fainting or loss of consciousness Rapid heart rate Chest painWhen to seek medical adviceCall your healthcare provider right away if any of these occur: Fever of 100.4F (38C) or higher, or as directed by your healthcare provider Failure to resume normal bowel movements Pain in your abdomen or back gets worse Nausea or vomiting Swelling in your abdomen Blood in the stool Black, tarry stool 6 General Instructions [facility] Emergency Department [address] [place] [address] Phone #: ext- [phone] 10/02/2019 10:02 Patient: ELIF ROMANO Sex: F : 1995 Age: 24y Involuntary weight loss Weakness [phone] The [employer]!. [address] [place] [id number]. All rights reserved. This information is not intended as asubstitute for professional medical care. Always follow your healthcare professional's instructions.Bladder Infection, Female (Adult)Urine is normally doesn't have any bacteria in it. But bacteria can get into the urinary tract from theskin around the rectum. Or they can travel in the blood from elsewhere in the body. Once they are inyour urinary tract, they can cause infection in the urethra (urethritis), the bladder (cystitis), or thekidneys (pyelonephritis).The most common place for an infection is in the bladder. This is called a bladder infection. This isone of the most common infections in women. Most bladder infections are easily treated. They arenot serious unless the infection spreads to the kidney.The phrases "bladder infection," "UTI," and "cystitis" are often used to describe the same thing. Butthey are not always the same. Cystitis is an inflammation of the bladder. The most common cause ofcystitis is an infection.SymptomsThe infection causes inflammation in the urethra and bladder. This causes many of the symptoms.The most common symptoms of a bladder infection are: 7 General Instructions [facility] Emergency Department [address] [place] [address] Phone #: ext- [phone] 10/02/2019 10:02 Patient: ELIF ROMANO Sex: F : 1995 Age: 24y Pain or burning when urinating Having to urinate more often than usual Urgent need to urinate Only a small amount of urine comes out Blood in urine Abdominal discomfort. This is usually in the lower abdomen above the pubic bone. Cloudy urine Strong- or bad-smelling urine Unable to urinate (urinary retention) Unable to hold urine in (urinary incontinence) Fever Loss of appetite Confusion (in older adults)CausesBladder infections are not contagious. You can't get one from someone else, from a toilet seat, orfrom sharing a bath.The most common cause of bladder infections is bacteria from the bowels. The bacteria get onto theskin around the opening of the urethra. From there, they can get into the urine and travel up to thebladder, causing inflammation and infection. This usually happens because of: Wiping improperly after urinating. Always wipe from front to back. Bowel incontinence Procedures such as having a catheter inserted Older age Not emptying your bladder. This can allow bacteria a chance to grow in your urine. Dehydration Constipation 8 General Instructions [facility] Emergency Department [address] [place] [address] Phone #: ext- [phone] 10/02/2019 10:02 Patient: [id number] Sex: F : 1995 Age: 24y Sex Use of a diaphragm for controlTreatmentBladder infections are diagnosed by a urine test. They are treated with antibiotics and usually clear u pquickly without complications. Treatment helps prevent a more serious kidney infection.MedicinesMedicines can help in the treatment of a bladder infection: Take antibiotics until they are used up, even if you feel better. It is important to finish them to make sure the infection has cleared. You can use acetaminophen or ibuprofen for pain, fever, or discomfort, unless another medicine was prescribed. If you have chronic liver or kidney disease, talk with your healthcare provider before using these medicines. Also talk with your provider if you've ever had a stomach ulcer or gastrointestinal bleeding, or are taking blood-thinner medicines. If you are given phenazopydridine to reduce burning with urination, it will cause your urine to become a bright orange color. This can stain clothing.Care and preventionThese self-care steps can help prevent future infections: Drink plenty of fluids to prevent dehydration and flush out your bladder. Do this unless you must restrict fluids for other health reasons, or your doctor told you not to. Proper cleaning after going to the bathroom is important. Wipe from front to back after using the toilet to prevent the spread of bacteria. Urinate more often. Don't try to hold urine in for a long time. Wear loose-fitting clothes and cotton underwear. Avoid tight-fitting pants. Improve your diet and prevent constipation. Eat more fresh fruit and vegetables, and fiber, and less junk and fatty foods. Avoid sex until your symptoms are gone. Avoid caffeine, alcohol, and spicy foods. These can irritate your bladder. Urinate right after intercourse to flush out your bladder. If you use control pills and have frequent bladder infections, discuss it with your doctor. 9 General Instructions [facility] Emergency Department [address] [place] [address] Phone #: [phone]- [phone] 10/02/2019 10:02 Patient: ELIF ROMANO Sex: F : 1995 Age: 24yFollow-up careCall your healthcare provider if all symptoms are not gone after 3 days of treatment. This is especiallyimportant if you have repeat infections.If a culture was done, you will be told if your treatment needs to be changed. If directed, you cancall to find out the results.If X-rays were done, you will be told if the results will affect your treatment.Call 911Call 911 if any of the following occur: Trouble breathing Hard to wake up or confusion Fainting or loss of consciousness Rapid heart rateWhen to seek medical adviceCall your healthcare provider right away if any of these occur: Fever of 100.4F (38.0C) or higher, or as directed by your healthcare provider Symptoms are not better by the third day of treatment Back or belly (abdominal) pain that gets worse Repeated vomiting, or unable to keep medicine down Weakness or dizziness Vaginal discharge Pain, redness, or swelling in the outer vaginal area (labia) [id number] [employer]!. [address] [place] [address]. All rights reserved. This information is not intended as asubstitute for professional medical care. Always follow your healthcare professional's instructions.Cephalexin tablets or capsulesWhat is this medicine?CEPHALEXIN (sef a DINORAH in) is a cephalosporin antibiotic. It is used to treat certain kinds of bacterialinfections It will not work for colds, flu, or other viral infections. 10 General Instructions [facility] Emergency Department [address] [place] [address] Phone #: ext- [phone] 10/02/2019 10:02 Patient: ELIF ROMANO Sex: F : 1995 Age: 24yHow should I use this medicine?Take this medicine by mouth with a full glass of water. Follow the directions on the prescription label.This medicine can be taken with or without food. Take your medicine at regular intervals. Do not takeyour medicine more often than directed. Take all of your medicine as directed even if you think youare better. Do not skip doses or stop your medicine early.Talk to your county surveyor regarding the use of this medicine in children. While this drug may beprescribed for selected conditions, precautions do apply.What side effects may I notice from receiving this medicine?Side effects that you should report to your doctor or health critical care educator as soon as possible: allergic reactions like skin rash, itching or hives, swelling of the face, lips, or tongue breathing problems pain or trouble passing urine redness, blistering, peeling or loosening of the skin, including inside the mouth severe or watery diarrhea unusually weak or tired yellowing of the eyes, skinSide effects that usually do not require medical attention (report to your doctor or health careprofessional if they continue or are bothersome): gas or heartburn genital or anal irritation headache joint or muscle pain nausea, vomitingWhat may interact with this medicine? probenecid some other antibioticsWhat if I miss a dose? 11 General Instructions [facility] Emergency Department [address] [place] [address] Phone #: ext- [phone] 10/02/2019 10:02 Patient: ELIF ROMANO Sex: Chepe : 1995 Age: 24yIf you miss a dose, take it as soon as you can. If it is almost time for your next dose, take only thatdose. Do not take double or extra doses. There should be at least 4 to 6 hours between doses.Where should I keep my medicine?Keep out of the reach of children.Store at room temperature between 59 and 86 degrees F (15 and 30 degrees C). Throw away anyunused medicine after the expiration date.What should I tell my health care provider before I take this medicine?They need to know if you have any of these conditions: kidney disease stomach or intestine problems, especially colitis an unusual or allergic reaction to cephalexin, other cephalosporins, penicillins, other antibiotics, medicines, foods, dyes or preservatives or trying to get breast-feedingWhat should I watch for while using this medicine?Tell your doctor or health critical care educator if your symptoms do not begin to improve in a few days.Do not treat diarrhea with over the counter products. Contact your doctor if you have diarrhea thatlasts more than 2 days or if it is severe and watery.If you have diabetes, you may get a false-positive result for sugar in your urine. Check with yourdoctor or health critical care educator.NOTE:This sheet is a summary. It may not cover all possible information. If you have questions about this medicine, talk to your doctor, pharmacist, orhealth care provider. Copyright 2019 ElsevierOndansetron oral dissolving tabletWhat is this medicine?ONDANSETRON (on ALETA se divya) is used to treat nausea and vomiting caused by chemotherapy. Itis also used to prevent or treat nausea and vomiting after surgery. 12 General Instructions [facility] Emergency Department [address] [place] [address] Phone #: ext- [phone] 10/02/2019 10:02 Patient: ELIF ROMANO Sex: F : 1995 Age: 24yHow should I use this medicine?These tablets are made to dissolve in the mouth. Do not try to push the tablet through the foilbacking. With dry hands, peel away the foil backing and gently remove the tablet. Place the tablet inthe mouth and allow it to dissolve, then swallow. While you may take these tablets with water, it is notnecessary to do so.Talk to your county surveyor regarding the use of this medicine in children. Special care may be needed.What side effects may I notice from receiving this medicine?Side effects that you should report to your doctor or health critical care educator as soon as possible: allergic reactions like skin rash, itching or hives, swelling of the face, lips, or tongue breathing problems confusion dizziness fast or irregular heartbeat feeling faint or lightheaded, falls fever and chills loss of balance or coordination seizures sweating swelling of the hands and feet tightness in the chest tremors unusually weak or tiredSide effects that usually do not require medical attention (report to your doctor or health careprofessional if they continue or are bothersome): constipation or diarrhea headacheWhat may interact with this medicine? 13 General Instructions [facility] Emergency Department [address] [place] [address] Phone #: ext- [phone] 10/02/2019 10:02 Patient: ELIF ROMANO Sex: F : 1995 Age: 24yDo not take this medicine with any of the following medications: apomorphine certain medicines for fungal infections like fluconazole, itraconazole, ketoconazole, posaconazole, voriconazole cisapride dofetilide dronedarone pimozide thioridazine ziprasidoneThis medicine may also interact with the following medications: carbamazepine certain medicines for depression, anxiety, or psychotic disturbances fentanyl linezolid MAOIs like Carbex, Eldepryl, Marplan, Nardil, and Parnate methylene blue (injected into a vein) other medicines that prolong the QT interval (cause an abnormal heart rhythm) phenytoin rifampicin tramadolWhat if I miss a dose?If you miss a dose, take it as soon as you can. If it is almost time for your next dose, take only thatdose. Do not take double or extra doses.Where should I keep my medicine?Keep out of the reach of children. 14 General Instructions [facility] Emergency Department [address] [place] [address] Phone #: ext- [phone] 10/02/2019 10:02 Patient: ELIF ROMANO Sex: F : 1995 Age: 24yStore between 2 and 30 degrees C (36 and 86 degrees F). Throw away any unused medicine afterthe expiration date.What should I tell my health care provider before I take this medicine?They need to know if you have any of these conditions: heart disease history of irregular heartbeat liver disease low levels of magnesium or potassium in the blood an unusual or allergic reaction to ondansetron, granisetron, other medicines, foods, dyes, or preservatives or trying to get breast-feedingWhat should I watch for while using this medicine?Check with your doctor or health critical care educator as soon as you can if you have any sign of anallergic reaction.NOTE:This sheet is a summary. It may not cover all possible information. If you have questions about this medicine, talk to your doctor, pharmacist, orhealth care provider. Copyright 2019 Elsevier You have been given the following additional information: Pain, Acute, Uncertain Cause Constipation (Adult) Bladder Infection, Female (Adult) Cephalexin tablets or capsules Ondansetron oral dissolving tablet No strenuous activity. 15 General Instructions [facility] Emergency Department [address] [place] [address] Phone #: ext- [phone] 10/02/2019 10:02 Patient: ELIF ROMANO Sex: F : 1995 Age: 24y(Electronically signed by Judith Ochoa MD 10/04/2019 21:35) Name Value Range Interpretation Code Description Data Seema rce(s) Supporting Document(s) ID Date Data Source [id number] 10/02/2019 10:10:00 AM EDT [facility] 1 Clinical Report - Nurses [facility] Emergency Department [address] [place] [address] Phone #: ext- [phone] 10/02/2019 10:02 Patient: ELIF ROMANO Sex: F : 1995 Age: 24yTRIAGEArrived by private vehicle. Historian: patient. ( pt has been having RLQ pain since sunday, n/v sincesatday constipation present starting today, LBM yesterday. pt has been seen r/t this pain. pt here forrepaeat scans and pain control. pt took oxycodone this am 0400 with no relief.).Triage time: 10:05 10/02/2019. Acuity: LEVEL 3.Chief Complaint: ABDOMINAL PAIN, NAUSEA and VOMITING.Alert.Onset. (1 weeks). 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 --10:11 10/02/19 Corazon Cochran R.N.10:05 10/02/19. BP: 110/68. HR: 85. RR: 18. O2 saturation: 99%. Temp: 98.8 F. Pain level now 01/23.--10:11 10/02/19 Corazon Cochran R.N.Weight: 85.7 kg. Height/Length: 58 inches. BMI: 39.5. --10:10/02/19 Corazon Cochran R.N.MedicationsAcetaminophen Oral (Capsule 325 mg) 2 capsules, as needed, last dose 0800. busPIRone HCl Oral (Tablet 10 mg) 1 tablet, 2x a day. PROzac Oral (Capsule 20 mg) 1 capsule, daily. traZODone HCl Oral (Tablet 150 mg) 1 tablet, daily. --10:11 10/02/19 Corazon Cochran R.N.AllergiesDemerol.(hives)Dilaudid.(hives)Ibuprofen.(hives)Lavendar.Mushrooms. Naproxen.(hives)Toradol.(hives)Tramadol.(hives) --10:11 10/02/19 Corazon Cochran R.N.HistoryPAST MEDICAL HX: Immunizations: up-to-date. Denies current .SURGERY HX: Dental surgery. Tubal ligation.SOCIAL HX: Never smoker. History of occasional drug use: marijuana. (recently, yesterday). No alcoholuse. No recent travel. No known contact with a sick individual. She was offered HIV testing but 2 Clinical Report - Nurses [facility] Emergency Department [address] [place] [address] Phone #: ext- [phone] 10/02/2019 10:02 Patient: ELIF ROMANO Sex: F : 1995 Age: 24y declined (recently). She has not traveled outside the [place] Infectious disease exposure: No infectious disease exposure. The patient was not exposed to Coronavirus. Patient is not a known carrier of tuberculosis, hepatitis, HIV, MRSA or VRE. Patient is not a known carrier of CRE. SELF HARM ASSESSMENT: Self harm assessment was performed. The patient answered "no" to the question(s) "Have you recently felt down, depressed, or hopeless?", "Do you have thoughts of harming or killing yourself?", "Do you have a plan for harming or killing yourself?&q uot;, "Have you recently had thoughts about harming or killing others?", "Do you have any dangerous items in your possession?", "Have you noticed less interest or pleasure in doing things?", "Are you here because you tried to hurt yourself?" and "Have you ever tried to hurt yourself before today?". ABUSE ASSESSMENT: Abuse assessment. Abuse denied. No suspicion of abuse. No report of abuse. NUTRITIONAL RISK ASSESSMENT: The nutritional risk assessment revealed no deficiencies. FUNCTIONAL ASSESSMENT: Functional assessment: no impairments noted. LEARNING NEEDS ASSESSMENT: The learning needs assessment revealed no barriers. FALL RISK ASSESSMENT: Fall risk assessment completed. No risk factors identified. SKIN INTEGRITY ASSESSMENT: Skin integrity risk assessment completed. No skin integrity risk identified. --10:11 10/02/19 Corazon Cochran R.N. Interventions Identification band on patient. To treatment room. --10:11 10/02/19 Corazon Cochran R.N.PHYSICAL [id number] 10/02/19. Ambulatory to room.GENERAL / NEURO / PSYCH: Alert. Oriented X 4.RESPIRATORY: Respirations not labored. Breath sounds within normal limits.CVS: Capillary refill less than 2 seconds.GI / : Abdomen soft and nontender. Bowel sounds within normal limits.SKIN: Skin is warm and dry. --10:32 10/02/19 Stephan Foreman RN.NURSING PROGRESS NOTESThree patient identifiers checked. Bed placed in lowest position. Brakes of bed on. --10:11 10/02/19Corazon Cochran R.N. 10:22 10/02/2019 One (1) unsuccessful IV access attempt including the left antecubital space. --10:32 10/02/19 Stephan Foreman RN 10:22 10/02/19. Patient gowned. Two patient identifiers checked. Call light placed in reach. Bed 3 Clinical Report - Nurses [facility] Emergency Department [address] [place] [address] Phone #: ext- [phone] 10/02/2019 10:02 Patient: ELIF ROMANO Sex: F : 1995 Age: 24yplaced in lowest position. Brakes of bed on. Patient ready for evaluation- ED physician notified. --10: Stephan Foreman, RN10:42 10/02/2019 normal saline * IV Fluids 1000 cc bolus --10:47 10/02/19 Stephan Foreman RN10:43 10/02/2019 tylenol * IVPB 1000 mg --10:48 10/02/19 Stephan Foreman, RN10:43 10/02/2019 Site #1 started via IV in the left upper arm with an 20g angiocath; one attempt. [place] flushed with 10 mL saline. --10:48 10/02/19 Stephan Foreman, RN10:52 10/02/2019 Zofran (Ondansetron HCl) IVP 4 mg given over 30 second(s) via site #1. Allergiesverified and confirmed 5 rights. IV patency established. IV site checked: no pain, redness, or swelling. IVflushed thoroughly pre- and post- medication administration. IVP given by RN. Information reviewed withpatient. - -10:52 10/02/19 Stephan Foreman RNChecked patient name and birthdate. Blood samples drawn by tech. (1030). Warming measures: blanketapplied (1045). --10:52 10/02/19 Stephan Foreman RN11:00 10/02/2019 Tylenol IVPB Discontinued: bag #1 infused. Total amount infused: 100 mL. IV patencyestablished. IV site checked: no pain, redness, or swelling. IV flushed thoroughly. --11:26 10/02/19 PHILLIP Martinez11:04 10/02/2019 Zofran IVP Response: symptoms have gotten worse. The patient feels worse. EDphysician notified. --11:10/02/19 Stephan Foreman RN11:09 10/02/2019 Zofran (Ondansetron HCl) IVP 4 mg given over 30 second(s) via site #1. Allergiesverified and confirmed 5 rights. IV patency established. IV site checked: no pain, redness, or swelling. IVflushed thoroughly pre- and post-medication administration. IVP given by RN. Information reviewed withpatient. --11:10/02/19 Stephan Foreman RN11:10 10/02/19. ( 1100 pt vomited about 400 cc gastrographin M D notified). --11:10/02/19 PHILLIP MartinezChecked patient name and birthdate: patient confirmed. Clean catch urine collected; sample sent to lab forurinalysis. Specimen labeled in the presence of the patient ([id number]). --11:26 10/02/19 [address]atient transported to CT by wheelchair with donor technician. ([id number]). --12:10/02/19 Stephan Foreman RN12:10/02/2019 Normal saline IV Fluids Discontinued: bag #1 infused. Total amount infused: 990 mL. IVpatency established. IV site checked: no pain, redness, or swelling. IV flushed thoroughly. --12:10/02/19Stephan Foreman RN11:10/02/19. BP: 102/63. MAP: 76. HR: 80. O2 saturation: 100% on room air. --12:10/02/19 PHILLIP Martinez 4 Clinical Report - Nurses [facility] Emergency Department [address] [place] [address] Phone #: ext- [phone] 10/02/2019 10:02 Patient: ELIF ROMANO Sex: F : 1995 Age: 24y 12:00 10/02/19. BP: 99/64. MAP: 75. HR: 67. O2 saturation: 94% on room air. --12:10/02/19 Stephan Foreman RN Patient returned from CT by wheelchair with donor technician. (1225). ( 1230 pt c/o abd pain getting worse M D notified). --12:35 10/02/19 Stephan Foreman RN ( Pt OOB amb to bathroom to void with no difficulty). --13:02 10/02/19 Stephan Foreman RN Correction --13:03 10/02/19 Stephan Foreman RN ( 1252 pt OOB ambulated to BR to void with no difficulty). --13:03 10/02/19 Stephan Foreman RN 13:16 10/02/19. BP: 110/74. HR: 64. RR: 18. O2 saturation: 96%. --13:17 10/02/19 [place] manager [employer], [facility] Tech1 13:47 10/02/2019 Keflex (Cephalexin Monohydrate) PO Capsules 500 mg given. Allergies verified and confirmed 5 rights. Information reviewed with patient. --13:47 10/02/19 Stephan Foreman RN 13:48 10/02/2019 Magnesium Citrate PO Solution/Elixir 300 mL given. Allergies verified and confirmed 5 rights. Information reviewed with patient. --13:48 10/02/19 Stephan Foreman RN. Intake Output Emesis output: 400 mL. --11:09 10/02/19 Stephan Foreman RN.DISPOSITION / DISCHARGE 13:27 10/02/19. BP: 110/74. MAP: 86. HR: 64. RR: 18. O2 saturation: 94% on room air. Pain level now: 09/23. --13:28 10/02/19 Stephan Foreman RN 11:35 10/02/2019 Zofran IVP Response: symptoms have improved the patient feels better. ED physician notified. --16:10 10/02/19 Stephan Foreman RN 13:48 10/02/2019 Site #1 removed upon discharge. Catheter intact. Bandaid applied. --13:58 10/02/19 Stephan Foreman RN 13:58 10/02/19. Departure time: 13:58 10/02/2019. Condition at departure: improved. No learning barriers present. Discharge instructions provided and reviewed with the patient. Reviewed medication(s) side effects, precautions, dosing and course information. Prescription(s) given to the patient. Treatments reviewed (increase fluids and fiber). Reviewed referrals. Provided to follow-up provider. Patient verbalized understanding. Written instructions provided in Senegalese. The patient was discharged by the physician. She was discharged home. She left ambulatory and via private vehicle. --13:58 10/02/19 Stephan Foreman RN. 5 Clinical Report - Nurses [facility] Emergency Department [address] [place] [address] Phone #: [phone]- [phone] 10/02/2019 10:02 Patient: ELIF ROMANO Sex: F : 1995 Age: 24yLocked/Released at 10/02/2019 16:10 by Stephan Foreman RN Name Value Range Interpretation Code Description Data Seema rce(s) Supporting Document(s) ID Date Data Source [id number] 10/02/2019 10:10:00 AM EDT [facility] 1 Clinical Report - Physicians/Mid Levels [facility] Emergency Department [address] [place] [address] Phone #: ext- [phone] 10/02/2019 10:02 Patient: ELIF ROMANO Sex: F : 1995 Age: 24y Arrived- By private vehicle. Historian- patient. Disposition decision: 13:38 10/02/2019.HISTORY OF PRESENT ILLNESS Chief Complaint: ABDOMINAL PAIN. This started just prior to arrival and is still present. It is described as "pain" and it is described as located in the right lower quadrant. The patient has had nausea. No loss of appetite, vomiting or diarrhea. (Pt presents to the ED for evaluation of her lower abdominal pain. she was seen in the ED 2 days ago for the same pain. She had a pelvic US and CT abd/pelvis which showed no acute findings as per pt. pt states she also had a pelvic exam. Prior to pt arriving, Dr. Garcia called. He states he saw pt. she is persistently complaining of decreased po intake and nausea. he would like for pt to come to the ED for re- evaluation and a repeat CT abd/pelvis with po and iv contrast.). Similar symptom s previously. Patient has had similar symptoms several times. Recent medical care: The patient was seen recently at this facility.REVIEW OF SYSTEMSNo constipation, black stools, hematemesis, difficulty with urination or pain with urination. No urinaryfrequency, bloody stools, fever, headache or sore throat. No blurred vision, chest pain, difficulty breathing,cough or joint pain. No skin rash or back pain.PAST HISTORYSee nurses notes. Problems: Asthma. Depression. Gastroesophageal Reflux Disease. Headache. Tension-Type Headache. Seizure. Scoliosis. Additional Surgeries: Carpal Tunnel Surgery. Dental Surgery. Stent. Tubal Ligation. 2 Clinical Report - Physicians/Mid Levels [facility] Emergency Department [address] [place] [address] Phone #: ext- [phone] 10/02/2019 10:02 Patient: ELIF ROMANO Sex: F : 1995 Age: 24y Medications: Acetaminophen Oral (Capsule 325 mg) 2 capsules, as needed, last dose 0800. busPIRone HCl Oral (Tablet 10 mg) 1 tablet, 2x a day. PROzac Oral (Capsule 20 mg) 1 capsule, daily. traZODone HCl Oral (Tablet 150 mg) 1 tablet, daily. Allergies: Demerol.(hives) Dilaudid.(hives) Ibuprofen.(hives) Lavendar. Mushrooms. Naproxen.(hives) Toradol.(hives) Tramadol.(hives).SOCIAL HISTORYNo drug use.ADDITIONAL NOTESThe nursing notes have been reviewed.PHYSICAL EXAMVital Signs: 10/02/2019 13:27 BP: 110/74. MAP: 86. HR: 64. RR: 18. O2 saturation: 94% on room air.Pain level now: 610.10/02/2019 13:16 BP: 110/74. MAP: 86. HR: 64. RR: 18. O2 saturation: 9 6%.10/02/2019 12:00 BP: 99/64. MAP: 75. HR: 67. O2 saturation: 94% on room air.10/02/2019 11:00 BP: 102/63. MAP: 76. HR: 80. O2 saturation: 100% on room air.10/02/2019 10:05 BP: 110/68. MAP: 82. HR: 85. RR: 18. O2 saturation: 99%. Temp: 98.8 F. Have beenreviewed and appear to be correct. Blood pressure normal. Mean arterial pressure- normal.Respiratory rate normal. Temperature normal. Oxygen saturation normal.Appearance: Alert. Oriented X3. No acute distress.Eyes: Pupils equal, round and reactive to light. Eyes normal inspection.ENT: Ears normal. Nose normal. Pharynx normal.Neck: Normal inspection. Neck supple.CVS: Normal heart rate and rhythm. Heart sounds normal. Pulses normal.Respiratory: No respiratory distress. Painless inspiration. Breath sounds normal. Chest nontender.Abdomen: Soft. Moderate tenderness in the right lower quadrant. Bowel sounds normal.Back: Normal inspection. No CVA tenderness.Skin: Skin warm and dry. Normal skin color. Normal skin turgor.Extremities: Extremities exhibit n ormal ROM. No lower extremity edema.Neuro: Oriented X 3. No motor deficit. No sensory deficit.LABS, X-RAYS, AND EKGLaboratory Tests: 3 Clinical Report - Physicians/Mid Levels [facility] Emergency Department [address] [place] [address] Phone #: ext- [phone] 10/02/2019 10:02 [id number] Sex: F : 1995 Age: 24yCBC w Diff: (CHRIS: 10/02/2019 10:21) ( [facility] 10/02/2019 10:33) Final results Test Result Flag Units (Reference) CBC W/AUTOMATED DIFF COMPLETE BLOOD COUNT WBC 4.4 10/uL (4.2 - 11.0) RBC 4.53 10/uL (4.20 - 5.40) HEMOGLOBIN 11.2 L g/dL (12.0 - 16.0) HEMATOCRIT 36.3 L % (37.0 - 47.0) MCV 80.1 L fL (81.0 - 101) MCH 24.7 L pg (27.0 - 34.0) MCHC 30.9 L g/dL (31.0 - 36.0) RDW 17.8 H % (11.5 - 14.5) PLATELETS 220 10/uL (150 - 450) MPV 10.0 fL (7.4 - 10.4) NEUT 57.4 % (37.0 - 80.0) LYMPH 34.0 % (25.0 - 40.0) MONO 6.8 % (3.0 - 8.0) EOS 1.1 % (0.0 - 7.0) BASO 0.5 % (0.0 - 2.5) %IG 0.2 H % (0.0 - 0.0) %NRBC 0.0 % (0.0 - 0.0) #NEUT 2.53 10/uL (2.00 - 6.90) #LYMPH 1.50 10/uL (0.60 - 3.40) #MONO 0.30 10/uL (0.00 - 0.90) #EOS 0.05 10/uL (0.00 - 0.70) #BASO 0.02 10/uL (0.00 - 0.20) #IG 0.01 10/uL (0.00 - 0.10) #NRBC 0.00 10/uL (0.00 - 0.00) MANUAL DIFF NOT INDICATED RBC MORPH NOT INDICATEDCMP: (CHRIS: 10/02/2019 10:21) ( MsgRcvd 10/02/2019 10:52) Final results Test Result Flag Units (Reference) COMPREHENSIVE METABOLIC PANEL COMPREHENSIVE METABOLIC PANEL SODIUM 138 mEq/L (134 - 153) POTASSIUM 4.0 mEq/L (3.6 - 5.0) CHLORIDE 105 mEq/L (98 - 107) CO2 22 MEQ/L (22 - 30) GLUCOSE 106 MG/DL (65 - 110) BUN 14 MG/DL (7 - 21) CREATININE 0.8 MG/DL (0.7 - 1.5) BUN/CREAT 18 (8 - 27) TOTAL PROTEIN 6.9 G/DL (6.3 - 8.2) ALBUMIN 4.1 G/DL (3.9 - 5.0) GLOBULIN 2.8 GM/DL (2.4 - 3.2) A/G RATIO 1.5 (0.8 - 2.0) CALCIUM 8.5 MG/DL (8.4 - 10.2) TOTAL BILI <0.7 MG/DL (0.2 - 1.3) ALKALINE PHOS 58 U/L (38 - 126) SGOT/AST 15 U/L (5 - 40) SGPT/ALT 20 U/L (7 - 56) ANION GAP 11.0 mmol/L (8.0 - 16.0) AGE 24 yrs NON-AA GFR >60 mL/min AFR AMER GFR >60 mL/min Male GFR Interprentation 20-49 yrs >60 mL/min Cuxnvn61-84 yrs >56 mL/min Normal 60-69 yrs >49 mL/min Normal 70-79yrs 4 Clinical Report - Physicians/Mid Levels [facility] Emergency Department [address] [place] [address] Phone #: ext- [phone] 10/02/2019 10:02 Patient: ELIF ROMANO Sex: F : 1995 Age: 24y >42 mL/min Normal 80 and above >35 mL/min Normal Female GFR Interpretation 20-39 yrs >60 mL/min Normal 40-49 yrs >58 mL/min Normal 50-59 yrs >51 mL/min Normal 60-69 yrs >45 mL/min Normal 70-79 yrs >39 mL/min Normal 80 and above >32 mL/min Normal Urinalysis: (CHRIS: 10/02/2019 11:23) ( [facility] 10/02/2019 12:02) Final results Test Result Flag Units (Reference) URINALYSIS URINALYSIS SOURCE R COLOR yellow (NORMAL: Yello CLARITY clear (NORMAL: Clear SPEC GRAVITY 1.005 (1.001 - 1.030 pH 6.5 (5 - 9) GLUCOSE NORM (NORMAL: Negat BILIRUBIN NEG (NORMAL: Negat KETONE NEG (NORMAL: Negat PROTEIN NEG (NORMAL: Negat NITRITE NEG (NORMAL: Negat BLOOD NEG (NORMAL: Negat LEUK EST 500 A (NORMAL: Negat UROBILINOGEN NOR (less than 1.0 MICROSCOPIC See Below WBC 3 - 5 (NORMAL: NONE EPITHELIAL FEW (NORMAL: NONE BACTERIA Trace (NORMAL: NONE Lactic Acid: (CHRIS: 10/02/2019 10:21) ( [facility] 10/02/2019 10:51) Final results Test Result Flag Units (Reference) LACTIC ACID 1.3 MMOL/L (0.2 - 2.2) Lipase: (CHRIS: 10/02/2019 10:21) ( [facility] 10/02/2019 10:53) Final results Test Result Flag Units (Reference) LIPASE 19 U/L (13 - 60) Beta-HCG, Qual Serum: (CHRIS: 10/02/2019 10:21) ( [facility] 10/02/2019 11:02) Final results Test Result Flag Units (Reference) HCG SERUM QUAL NEGATIVE (NORMAL: NEGAT HCG SERUM QL REENTER NEGATIVE (NORMAL: NEGAT { KIT LOT # [id number] ){ KIT EXP DATE [id number] ){ PROCEDURAL CONTROL VALID ) CT ABD PEL W/Oral/IV Contrast: (CHRIS: 10/02/2019 10:10) ( MsgRcvd 10/02/2019 12:21) In Progress CT ABD Reason(s): Abdominal Pain TRANSPORTATION: WC IV? IV?(Yes) O2? Oxygen?(No) Ro.PROGRESS AND PROCEDURES 5 Clinical Report - Physicians/Mid Levels [facility] Emergency Department [address] [place] [address] Phone #: ext- [phone] 10/02/2019 10:02 Patient: ELIF ROMANO Sex: F : 1995 Age: 24y Course of Care: pt is a 24 year old female who presents for evaluation of her abdominal pain. she was seen in the ED. Had labs and a CT of her abd/pelvis which showed no acute findings but it did not show the appendix. Pt was seen in Dr. Garcia's office. he did not feel she had a surgical abdomen, however, pt kept saying she cannot keep anything down and she is having persistent pain. Dr. Abdul requested we reCT her abd/pelvis with po and iv contrast. the ct done 2 days ago was done without po contrast. labs reviewed no significant findings. CT did not show any acute findings. Dr. Garcia evaluated pt. he felt that there were no acute surgical issues. I discharged pt encouraging her to f/u with pcp and GI. pt voiced understanding of discharge instructions. Patient/family counseled. Disposition: Discharged. Condition: good and stable.CLINICAL IMPRESSION Acute nontraumatic pain. Constipation Acute urinary tract infection.INSTRUCTIONS No strenuous activity. Drink plenty of fluids. (eat plenty of fruits and vegetables. Please follow up with your doctor tomorrow. You may need an outpatient endoscopy and/or colonoscopy if your pain persists. you will need a referral to a GI doctor from your primary care physician. Take the keflex for your bladder infection. take tylenol or motrin for pain. take the zofran for nausea.). Warnings: Further evaluation is necessary. GENERAL WARNINGS: Return or contact your physician immediately if your condition worsens or changes unexpectedly, if not improving as expected, or if other problems arise. Your Current Medications: Your current home medications have been reviewed. CONTINUE TAKING THE FOLLOWING MEDICATIONS: Acetaminophen Oral : Capsule 325 mg, 2 capsules, Last: 0800, prn. busPIRone HCl Oral : Tablet 10 mg, 1 tablet 2x a day. PROzac Oral : Capsule 20 mg, 1 capsule daily. traZODone HCl Oral : Tablet 150 mg, 1 tablet daily. Prescription Medications: Keflex 500 mg: take 1 capsule orally every 8 hours for 7 days. No refill. Substitution is permissible. 6 Clinical Report - Physicians/Mid Levels [facility] Emergency Department [address] [place] [address] Phone #: ext- [phone] 10/02/2019 10:02 Patient: ELIF ROMANO Sex: F : 1995 Age: 24y Zofran (orally disintegrating tablets) 4 mg: take 1-2 orally every 8 hours. Dispense twenty (20). No refill. Substitution is permissible. Follow-up: Follow up with your healthcare provider tomorrow even if well. Call for an appointment. Reason for referral: evaluation. Summary of care provided to patient via paper. Understanding of the discharge instructions verbalized by patient.(Electronically signed by Judith Ochoa MD 10/04/2019 21:35) Name Value Range Interpretation Code Description Data Seema e(s) Supporting Document(s) ID Date Data Source [id number] 10/02/2019 11:23:00 AM EDT [facility] ([facility] Name Value Range Interpretation Code Description Data Seema [facility](s) Supporting Document(s) Source Laboratory test result [facility] ([facility] SOURCE: Clean Catch Urinalysis Laboratory test result ME D[facility] ([facility] SOURCE: Clean Catch Color Laboratory test result [facility] ([facility] SOURCE: Clean Catch Clarity Laboratory test result [facility] ([facility] SOURCE: Clean Catch Spec Trona 1.005 1.001-1.030 [facility] ([facility] SOURCE: Clean Catch pH 6.5 5-9 [facility] ([facility] SOURCE: Clean Catch Glucose Laboratory test result [facility] ([facility] SOURCE: Clean Catch Bilirubin Laboratory test result ME DENT ([facility] SOURCE: Clean Catch Protein Laboratory test result [facility] ([facility] SOURCE: Clean Catch Nitrite Laboratory test result [facility] ([facility] SOURCE: Clean Catch Ketone Laboratory test result [facility] ([facility] SOURCE: Clean Catch Leuk Est 500 Abnormal (applies to non-numeric res ults) [facility] ([facility] SOURCE: Clean Catch Blood Laboratory test result [facility] ([facility] SOURCE: Clean Catch Urobilinogen Laboratory test result [facility] ([facility] SOURCE: Clean Catch WBC Laboratory test result [facility] ([facility] SOURCE: Clean Catch Microscopic Laboratory test result M EDENT ([facility] SOURCE: Clean Catch Bacteria Laboratory test result [facility] ([facility] SOURCE: Clean Catch Epithelial Laboratory test result ME D[facility] ([facility] SOURCE: Clean Catch ID Date Data Source [id number] 10/02/2019 11:23:00 AM EDT [facility] ([facility] Name Value Range Interpretation Code Description Data Seema rce(s) Supporting Document(s) Culture Urine Laboratory test result [facility] ([facility] SOURCE: Clean Catch ID Date Data Source [id number] 10/06/2019 06:26:00 AM EDT [facility] Name Value Range Interpretation Code Description Data Seema rce(s) Supporting Document(s) CULTURE URINE [facility] _CULTURE URINE_$$[id number]$$[id number]$$[id number]$$[id number]$$[id number]$$[id number]$$[id number]$$[id number]$$[id number]$$ [id number]$$[id number]$$[id number]$$[id number]$$[id number]$$[id number]$$[id number]$$[id number]$$[id number]$$[id number]$$ [id number]$$[id number]$$[id number]$$[id number]$$[id number]$$[id number]$$[id number]$$[id number] -- Continued on next page --Patient: ROSALINA Peck Order: [id number] Page 2Culture: CULTURE URINE Status: Final ==== -- Continued on next page --Patient: ROSALINA Peck Order: [id number] Page 2Culture: CULTURE URINE Status: Prelim =====$$[id number]$$[id number] DATE/TIME: 10/05/2019 11:05Culture: CULTURE URINE Status: FinalUrine Culture,Comprehensive: P1No growth in 36 - 48 hours. Previous result entered on 10/04/2019 05:06 ET Specimen has been received and testing has been initiated.P1 Test performed by: [facility] Matt DE LA CRUZ #: [id number] [address] [place] [address] [id number] [facility] [id number] Director : Carlitos Velazquez MD NPI #:Skull Grinder : 10/04/19.0641.XMT.SENT REF 10/06/19.0626.XMT.SENT REF 10/06/19.0626. .to LATRELL BENOIT via fax ID Date Data Source [id number] 10/02/2019 12:02:00 PM EDT [facility] Name Value Range Interpretation Code Description Data Seema rce(s) Supporting Document(s) [facility] SOURCE R [facility] COLOR yellow NORMAL: Yellow [facility] CLARITY clear NORMAL: Clear [facility] Specific gravity of Urine by Test strip 1.005 1.001 - 1.030 [facility] pH 6.5 5 - 9 [facility] Glucose [Mass/volume] in Urine by Test strip NORM NORMAL: Negat [facility] Bilirubin.total [Presence] in Urine by Test strip NEG NORMAL: Negative [facility] Ketones [Presence] in Urine by Test strip NEG NORMAL: Negative [facility] Protein [Mass/volume] in Urine by Test strip NEG NORMAL: Negat [facility] Nitrite [Presence] in Urine by Test strip NEG NORMAL: Negative [facility] BLOOD NEG NORMAL: Negative [facility] Leukocyte esterase [Presence] in Urine by Test strip 500 JUDITH L: Negative A [facility] Urobilinogen [Mass/volume] in Urine by Test strip NOR less diane n 1.0 mg/dL [facility] MICROSCOPIC See Below [facility] ital WBC 3 - 5 NORMAL: NONE SEEN [facility] EPITHELIAL FEW NORMAL: NONE SEEN [facility] Bacteria [Presence] in Urine sediment by Light microscopy Tr amber NORMAL: NONE SEEN [facility] ID Date Data Source [id number] 10/02/2019 10:21:00 AM EDT [facility] ([facility] Name Value Range Interpretation Code Description Data Seema rce(s) Supporting Document(s) CBC W/Automated Diff Laboratory test result [facility] ([facility] COMPLETE BLOOD COUNT WBC 4.4 10^3/uL 4.2-11.0 [facility] Hematocrit 36.3 % 37.0-47.0 Below low normal [facility] ( [facility] Hemoglobin 11.2 g/dL 12.0-16.0 Below low normal [facility] ( [facility] RBC 4.53 10^6/uL 4.20-5.40 [facility] ([facility] RDW 17.8 % 11.5-14.5 Above high normal [facility] ([facility] MCV 80.1 fL 81.0-101 Below low normal [facility] ( [facility] MCHC 30.9 g/dL 31.0-36.0 Below low normal [facility] ( [facility] MCH 24.7 pg 27.0-34.0 Below low normal [facility] ( [facility] Platelets 220 10^3/uL 150-450 [facility] Neut 57.4 % 37.0-80.0 [facility] ([facility] MPV 10.0 fL 7.4-10.4 [facility] ([facility] Lymph 34.0 % 25.0-40.0 [facility] Trinity 6.8 % 3.0-8.0 [facility] ([facility] Eos 1.1 % 0.0-7.0 [facility] ([facility] %Ig 0.2 % 0.0-0.0 Above high normal [facility] ([facility] Baso 0.5 % 0.0-2.5 [facility] %NRBC 0.0 % 0.0-0.0 [facility] #Neut 2.53 10^3/uL 2.00-6.90 [facility] #Trinity 0.30 10^3/uL 0.00-0.90 [facility] #Lymph 1.50 10^3/uL 0.60-3.40 [facility] #Baso 0.02 10^3/uL 0.00-0.20 [facility] #Eos 0.05 10^3/uL 0.00-0.70 [facility] #Ig 0.01 10^3/uL 0.00-0.10 [facility] #NRBC 0.00 10^3/uL 0.00-0.00 [facility] Manual Diff Laboratory test result M [facility] ([facility] RBC Morph Laboratory test result [facility] [place] [place] [facility] ID Date Data Source [id number] 10/02/2019 10:21:00 AM EDT [facility] Name Value Range Interpretation Code Description Data Seema rce(s) Supporting Document(s) Lactate [Mass/volume] in Serum or Plasma 1.3 mmol/L 0.2-2.2 [facility] ([facility] ID Date Data Source [id number] 10/02/2019 10:21:00 AM EDT [facility] ([facility] Name Value Range Interpretation Code Description Data Seema rce(s) Supporting Document(s) Comprehensive [employer] Laboratory test result [facility] ([facility] COMPREHENSIVE METABOLIC PANEL Potassium 4.0 meq/L 3.6-5.0 [facility] Sodium 138 meq/L 134-153 [facility] Glucose 106 mg/dL 65-110 [facility] Co2 22 meq/L 22-30 [facility] Chloride 105 meq/L 98-107 [facility] Creatinine 0.8 mg/dL 0.7-1.5 [facility] ([facility] BUN 14 mg/dL 7-21 [facility] BUN/Creat 18 8-27 [facility] Albumin 4.1 g/dL 3.9-5.0 [facility] ([facility] Total Protein 6.9 g/dL 6.3-8.2 [facility] Globulin 2.8 GM/DL 2.4-3.2 [facility] ([facility] Calcium 8.5 mg/dL 8.4-10.2 [facility] ([facility] Alkaline Phos 58 U/L 38-126 [facility] Total Bili Laboratory test result 0.2-1.3 DC [facility] ([facility] A/G Ratio 1.5 0.8-2.0 [facility] SGPT/Alt 20 U/L 7-56 [facility] Anion Gap 11.0 mmol/L 8.0-16.0 [facility] Sgot/Ast 15 U/L 5-40 [facility] Age 24 yrs [facility] Non-Aa GFR Laboratory test result [facility] ([facility] Afr Amer GFR Laboratory test result [facility] ([facility] [place] [place] [facility] Male GFR Interprentation 20-49 yrs >60 mL/min Normal 50-59 yrs >56 mL/min Normal 60-69 yrs >49 mL/min Normal 70-79yrs >42 mL/min Normal 80 and above >35 mL/min Normal Female GFR Interpretation 20-39 yrs >60 mL/min Normal 40-49 yrs >58 mL/min Normal 50-59 yrs >51 mL/min Normal 60-69 yrs >45 mL/min Normal 70-79 yrs >39 mL/min Normal 80 and above >32 mL/min Normal ID Date Data Source [id number] 10/02/2019 10:21:00 AM EDT [facility] ([facility] Name Value Range Interpretation Code Description Data Seema rce(s) Supporting Document(s) Lipoprotein lipase [Enzymatic activity/volume] in Serum or Plasm a 19 U/L 13-60 [facility] ([facility] ) ID Date Data Source [id number] 10/02/2019 10:21:00 AM EDT [facility] ([facility] Name Value Range Interpretation Code Description Data Seema rce(s) Supporting Document(s) HCG Serum Qual Laboratory test result [facility] ([facility] HCG Serum QL [facility]enter Laboratory test result [facility] ([facility] { KIT LOT # [id number] ) { KIT EXP DATE 198026 ) { PROCEDURAL CONTROL VALID ) ID Date Data Source [id number] 10/02/2019 10:33:00 AM EDT [facility] Name Value Range Interpretation Code Description Data Seema rce(s) Supporting Document(s) CBC W/AUTOMATED DIFF [facility] COMPLETE BLOOD COUNT Leukocytes [#/volume] in Blood by Automated count 4.4 10^3/uL 4.2 - 1 1.0 [facility] Erythrocytes [#/volume] in Blood by Automated count 4.53 10^6/uL 4. 20 - 5.40 [facility] Hemoglobin [Mass/volume] in Blood 11.2 g/dL 12.0 - 16.0 L [facility] Hematocrit [Volume Fraction] of Blood by Automated count 36.3 % 3 7.0 - 47.0 L [facility] Erythrocyte mean corpuscular volume [Entitic volume] by Auto mated count 80.1 fL 81.0 - 101 L [facility] Erythrocyte mean corpuscular hemoglobin [Entitic mass] by Automated count 24.7 pg 27.0 - 34.0 L [facility] Erythrocyte mean corpuscular hemoglobin concentration [Mass/volume] by Automated count 30.9 g/dL 31.0 - 36.0 L [facility] Erythrocyte distribution width [Ratio] by Automated count 17.8 % 11.5 - 14.5 H [facility] Platelets [#/volume] in Blood by Automated count 220 10^3/uL 150 - 45 0 [facility] Platelet mean volume [Entitic volume] in Blood by Automated count 10.0 fL 7.4 - 10.4 [facility] Neutrophils/100 leukocytes in Blood by Automated count 57.4 % 37. 0 - 80.0 [facility] Lymphocytes/100 leukocytes in Blood by Manual count 34.0 % 25.0 - 40.0 [facility] Monocytes/100 leukocytes in Blood by Automated count 6.8 % 3.0 - 8.0 [facility] Eosinophils/100 leukocytes in Blood by Automated count 1.1 % 0.0 - 7.0 [facility] Basophils/100 leukocytes in Blood by Automated count 0.5 % 0.0 - 2.5 [facility] %IG 0.2 % 0.0 - 0.0 H [facility] %NRBC 0.0 % 0.0 - 0.0 [facility] al Neutrophils [#/volume] in Blood by Automated count 2.53 10^3/uL 2.00 - 6.90 [facility] Lymphocytes [#/volume] in Blood by Automated count 1.50 10^3/uL 0.60 - 3.40 [facility] Monocytes [#/volume] in Blood by Automated count 0.30 10^3/uL 0.00 - 0.90 [facility] Eosinophils [#/volume] in Blood by Automated count 0.05 10^3/uL 0.00 - 0.70 [facility] Basophils [#/volume] in Blood by Automated count 0.02 10^3/uL 0.00 - 0.20 [facility] #IG 0.01 10^3/uL 0.00 - 0.10 [facility] #NRBC 0.00 10^3/uL 0.00 - 0.00 [facility] MANUAL DIFF NOT INDICATED [facility] RBC MORPH NOT INDICATED [facility] ID Date Data Source [id number] 10/02/2019 10:50:00 AM EDT [facility] Name Value Range Interpretation Code Description Data Seema rce(s) Supporting Document(s) Lactate [Moles/volume] in Serum or Plasma 1.3 MMOL/L 0.2 - 2.2 [facility] ID Date Data Source [id number] 10/02/2019 10:52:00 AM EDT [facility] Name Value Range Interpretation Code Description Data Seema rce(s) Supporting Document(s) COMPREHENSIVE METABOLIC PANEL [facility] COMPREHENSIVE METABOLIC PANEL Sodium [Moles/volume] in Serum or Plasma 138 mEq/L 134 - 153 [facility] Potassium [Moles/volume] in Serum or Plasma 4.0 mEq/L 3.6 - 5.0 [facility] Chloride [Moles/volume] in Serum or Plasma 105 mEq/L 98 - 107 [facility] Carbon dioxide, total [Moles/volume] in Serum or Plasma 22 MEQ/L 22 - 30 [facility] Glucose [Mass/volume] in Serum or Plasma 106 MG/DL 65 - 110 [facility] BUN 14 MG/DL 7 - 21 [facility] Creatinine [Mass/volume] in Serum or Plasma 0.8 MG/DL 0.7 - 1.5 [facility] BUN/CREAT 18 8 - 27 [facility] al Protein [Mass/volume] in Serum or Plasma 6.9 G/DL 6.3 - 8.2 [facility] Albumin [Mass/volume] in Serum or Plasma 4.1 G/DL 3.9 - 5.0 [facility] Globulin [Mass/volume] in Serum by calculation 2.8 GM/DL 2.4 - 3.2 [facility] A/G RATIO 1.5 0.8 - 2.0 [facility] Calcium [Mass/volume] in Serum or Plasma 8.5 MG/DL 8.4 - 10.2 [facility] Bilirubin.total [Mass/volume] in Serum or Plasma <0.7 MG/DL 0.2 - 1.3 [facility] Alkaline phosphatase [Enzymatic activity/volume] in Serum or Plasma 58 U/L 38 - 126 [facility] Aspartate aminotransferase [Enzymatic activity/volume] in Serum or Plasma 15 U/L 5 - 40 [facility] Alanine aminotransferase [Enzymatic activity/volume] in Seru m or Plasma 20 U/L 7 - 56 [facility] Anion gap 3 in Serum or Plasma 11.0 mmol/L 8.0 - 16.0 [facility] AGE 24 yrs [facility] NON-AA GFR >60 mL/min [facility] ital AFR AMER GFR >60 mL/min [facility] Male GFR In terprentation 20-49 yrs >60 mL/min Normal 50-59 yrs >56 mL/min Normal 60-69 yrs >49 mL/min Normal 70-79yrs >42 mL/min Normal 80 and above >35 mL/min Normal Female GFR Interpretation 20-39 yrs >60 mL/min Normal 40-49 yrs >58 mL/min Normal 50-59 yrs >51 mL/min Normal 60-69 yrs >45 mL/min Normal 70-79 yrs >39 mL/min Normal 80 and above >32 mL/min Normal ID Date Data Source [id number] 10/02/2019 10:52:00 AM EDT [facility] Name Value Range Interpretation Code Description Data Seema rce(s) Supporting Document(s) Lipase [Enzymatic activity/volume] in Serum or Plasma 19 U/L 13 - 60 [facility] ID Date Data Source [id number] 10/02/2019 11:00:00 AM EDT [facility] Name Value Range Interpretation Code Description Data Seema rce(s) Supporting Document(s) HCG SERUM QUAL NEGATIVE NORMAL: NEGATIVE [facility] HCG SERUM QL REENTER NEGATIVE NORMAL: NEGATIVE [facility] { KIT LOT # [id number] ){ KIT EXP DATE 695984 ){ PROCEDURAL CONTROL VALID ) ID Date Data Source [id number] 09/30/2019 10:59:00 AM [facility] 1 OrderSheet [facility] Emergency Department [address] [place] [address] Phone #: ext- [phone] 09/30/2019 10:56 Patient: ELIF ROMANO Sex: F : 1995 Age: 24yWEIGHT:87.3 kg (S) HEIGHT:58 inches (S) BMI:40.2ALLERGIES: Demerol, Dilaudid, Ibuprofen, Lavendar, Mushrooms, Naproxen, Toradol, TramadolCHIEF COMPLAINT: abdominal painDIAGNOSIS: Abdominal painLAB ORDERSOrder Description Priority Entered Acknowledged InitialedCBC w Diff STAT 11:42 09/30/2019 11:44 Magdaleno Ronquillo RN P.A.-C;CMP STAT 11:42 09/30/2019 11:44 Magdaleno Ronquillo RN P.A.-C;Lipase STAT 11:42 09/30/2019 11:44 Magdaleno Ronquillo RN P.A.-C;Urinalysis (Clean STAT 11:42 09/30/2019 12:35 MagdalenoCatch) Chepe Ronquillo RN P.A.-C;HCG Serum Qual STAT 11:42 09/30/2019 11:44 Magdaleno Ronquillo RN P.A.-C;Lactic Acid STAT 13:04 09/30/2019 13:31 Magdaleno Ronquillo RN P.A.-C;DIAGNOSTIC STUDY ORDERSOrder Description Priority Entered Acknowledged InitialedUS Liver STAT 11:42 09/30/2019 11:44 Magdaleno(Oxygen?(No)) Chepe Ronquillo RN P.A.-C; Reason for Study: RUQ PainCT Abd PEL W/ IV STAT 12:41 09/30/2019 12:42 MagdalenoContrast Only Chepe Ronquillo RN(Oxygen?(No)) P.A.-C;(IV?(Yes)) Reason for Study: abd pain; RUQ/RLQ painUS Pelvis STAT 13:31 09/30/2019 13:33 Magdaleno 2 OrderSheet [facility] Emergency Department [address] [place] [address] Phone #: ext- [phone] 09/30/2019 10:56 Patient: ELIF ROMANO Sex: F : 1995 Age: 24y(Oxygen?(No)) Chepe Ronquillo RN P.A.-C; Reason for Study: Trace fluid noted on CT. ? ovarian cyst. Dr. Lassiter discussedMEDICATION/IV/DRIP/FLUID ORDERSOrder Description Priority Entered Acknowledged InitialedNS IV : Bolus 500 11:42 09/30/2019 12:37 Evelin, then 100 mL/hr Chepe Ronquillo RN P.A.-C;Zofran IVP 4 mg 11:42 09/30/2019 12:38 Magdaleno Ronquillo RN P.A.-C;Benadryl IVP 25 mg 11:42 09/30/2019 12:38 Magdaleno Ronquillo RN P.A.-C;Morphine IVP 4 mg 12:42 09/30/2019 12:44 Magdaleno(HIGH ALERT Chepe Ronquillo RNMEDICATION) P.A.-C;GENERAL ORDERSOrder Description Priority Entered Acknowledged InitialedNPO 11:42 09/30/2019 11:44 Magdaleno Ronquillo RN P.A.-C;Saline Lock 11:09/30/2019 12:35 Magdaleno Ronquillo RN P.A.- C;[Electronically signed by Magdaleno Ronquillo RN (15:32 09/30/2019)][Electronically s igned by Chepe Arevalo P.A.-C (15:48 10/01/2019)][Electronically locked by Magdaleno Ronquillo RN (15:32 09/30/2019)] Name Value Range Interpretation Code Description Data Seema rce(s) Supporting Document(s) ID Date Data Source [id number] 09/30/2019 10:59:00 AM EDT [facility] 1 Medication Reconciliation Report [facility] Emergency Department [address] [place] [address] Phone #: ext- [phone] 09/30/2019 10:56 Patient: ELIF ROMANO Sex: F : 1995 Age: 24yWeight: 87.3 kgHeight/Length: 58 in.BMI: 40.2ALLERGIES: Demerol, Dilaudid, Ibuprofen, Lavendar, Mushrooms, Naproxen, Toradol, TramadolThe patient's Home Medications are listed below:THE FOLLOWING MEDICATIONS NEED TO BE RECONCILED: Acetaminophen Oral (325 mg) 2 capsules, la st dose: 0800, prn busPIRone HCl Oral (10 mg) 1 tablet, 2x a day PROzac Oral (20 mg) 1 capsule, daily traZODone HCl Oral (150 mg) 1 tablet, dailyThe source(s) of the original Home Medication information:Not obtained.The following Medications were given to the patient in the Emergency Department:NS [IV] IV Fluids bolus 500 mL over 20 minute(s), then 100 mL/hr, administered: 09/30/2019 12:37:00 PMZofran [IVP] IVP 4 mg, administered: 09/30/2019 12:38:00 PMBenadryl [IVP] IVP 25 mg, administered: 09/30/2019 12:38:00 PMMorphine [IVP] IVP 4 mg, administered: 09/30/2019 12:44:00 PMThe following Medications were prescribed to the patient:Percocet 5 mg-325 mg tablet Take 1 tablet four times a day for 3 days -- Dispense 12 tablet. Refills: 0.Substitution permitted.Pharmacy - [facility] [address] [place] [address] [id number]. .Augmentin 875 mg-125 mg tablet Take 1 tablet twice a day for 5 days -- Dispense 10 tablet. Refills: 0. 2 Medication Reconciliation Report [facility] Emergency Department [address] [place] [address] Phone #: ext- [phone] 09/30/2019 10:56 [id number] Sex: F : 1995 Age: 24ySubstitution permitted.Pharmacy - [facility] [address] [place], [place] [id number]. . -- Chepe Arevalo P.A.-C Name Value Range Interpretation Code Description Data Seema rce(s) Supporting Document(s) ID Date Data Source [id number] 09/30/2019 10:59:00 AM EDT [facility] 1 Medication Administration Record [facility] Emergency Department [address] [place] [address] Phone #: ext- [phone] 09/30/2019 10:56 Patient: ELIF ROMANO Sex: F : 1995 Age: 24yWeight: 87.3 kgHeight/Length: 58 inBMI: 40.2ALLERGIES: Demerol, Dilaudid, Ibuprofen, Lavendar, Mushrooms, Naproxen, Toradol, Tramadol Date/Time Medication Administered Medication OrderedStart NS [IV] NS IV : Bolus 500 mL, then [id number] 09/30/2019 Dose: IV Fluids mL/hrPeter PHILLIP Ronquillo Rate: 100 mL/hr over 5 hour(s)---- Bolus: 500 mL over 20 minute(s)Stop Dispensed: 1000 mL bag15:26 09/30/2019 Site: #1 right upper Giancarlo Ronquillo RNGiven ZOFRAN [IVP] (ONDA NSETRON HCL) Zofran IVP 4 mg12:38 09/30/2019 Dose: 4 mg IVPPdomingo Ronquillo RN Site: #1 right upper armGiven BENADRYL [IVP] (DIPHENHYDRAMINE Benadryl IVP 25 mg12:38 09/30/2019 HCL)Magdaleno Ronquillo RN Dose: 25 mg IVP Site: #1 right upper armGiven MORPHINE [IVP] Morphine IVP 4 mg (HIGH ALERT12:44 09/30/2019 Dose: 4 mg IVP MEDICATION)Magdaleno Ronquillo RN Site: #1 right upper arm Name Value Range Interpretation Code Description Data Seema rce(s) Supporting Document(s) ID Date Data Source [id number] 09/30/2019 10:59:00 AM EDT [facility] 1 General Instructions [facility] Emergency Department [address] [place] [address] Phone #: ext- [phone] 09/30/2019 10:56 Patient: ELIF ROMANO Sex: F : 1995 Age: 24yAcute right upper quadrant and right lower quadrant abdominal pain of unknown cause.INSTRUCTIONSTake Tylenol (Acetaminophen) or Motrin (Ibuprofen) as needed for fever control. Take medicationaccording to label instructions.Drink plenty of fluids. No dietary restrictions.Warnings: Further evaluation is necessary.SEDATIVE MEDICATION: You were given sedative medication during your visit. Do not drive or operatedangerous machinery.CONTROLLED SUBSTANCE WARNINGS.GENERAL WARNINGS: Return or contact your physician immediately if your condition worsens orchanges unexpectedly, if not improving as expected, or if other problems arise.Prescription monitor program consulted by me. Prescription does not exceed state maximum supply ofmedicationsPrescription Medications:Percocet 5 mg-325 mg tablet Take 1 tablet four times a day for 3 days -- Dispense 12 tablet. Refills: 0.Substitution permitted.[facility] - [facility] [address] [phone]. .Augmentin 875 mg-125 mg tablet Take 1 tablet twice a day for 5 days -- Dispense 10 tablet. Refills: 0.Substitution permitted.[facility] [address] [place], [place] [phone]. .Follow-up:Return to the emergency department as needed. Follow up with your healthcare provider in about twodays if not better. Call for an appointment.Understanding of the discharge instructions verbalized by patient. ADDITIONAL INFORMATION 2 General Instructions [facility] Emergency Department [address] [place] [address] Phone #: ext- [phone] 09/30/2019 10:56 Patient: ELIF ROMANO Sex: F : 1995 Age: 24yUnknown Causes of Abdominal Pain (Female)The exact cause of your belly (abdominal) pain is not clear. This does not mean that this is somethingto worry about. Everyone likes to know the exact cause of the problem. But sometimes with bellypain, there is no clear-cut cause, and this could be a good thing. The good news is that yoursymptoms can be treated, and you will feel better.Your condition does not seem serious now. But sometimes the signs of a serious proble m may takemore time to appear. For this reason, it is important for you to watch for any new symptoms,problems, or worsening of your condition.Over the next few days, the abdominal pain may come and go. Or it may be constant. Other commonsymptoms can include nausea and vomiting. Sometimes it can be difficult to tell if you feel nauseous.You may just feel bad and not connect that feeling to nausea. Constipation, diarrhea, and a fever maygo along with the pain.The pain may continue even if treated correctly over the following days. Depending on how things go,sometimes the cause can become clear and may need more or different treatment. Additionalevaluations, medicines, or tests may also be needed.Home care 3 General Instructions [facility] Emergency Department [address] [place], [place] [address] Phone #: ext- [phone] 09/30/2019 10:56 Patient: ELIF ROMANO Sex: Chepe : 1995 Age: 24yYour healthcare provider may prescribe medicine for pain, symptoms, or an infection. Follow thehealthcare provider's instructions for taking these medicines.General care Rest as much as you can until your next exam. No strenuous activities. Try to find positions that ease discomfort. A small pillow placed on the abdomen may help relieve pain. Something warm on your abdomen (such as a heating pad) may help, but be careful not to burn yourself.Diet Don't force yourself to eat, especially if having cramps, vomiting, or diarrhea. Water is important so you don't get dehydrated. Soup may also be good. Sports drinks may also help, especially if they are not too acidic. Don't drink sugary drinks as this can make things worse. Take liquids in small amounts. Don't guzzle them. Caffeine sometimes makes the pain and cramping worse. Don't take dairy products if you have vomiting or diarrhea. Don't eat large amounts at a time. Wait a few minutes between bites. Eat a diet low in fiber (called a low-residue diet). Foods allowed include refined breads, white rice, fruit and vegetable juices without pulp, tender meats. These foods will pass more easily through the intestine. Don't have whole-grain foods, whole fruits and vegetables, meats, seeds and nuts, fried or fatty foods, dairy, alcohol and spicy foods until your symptoms go away.Follow-up careFollow up with your healthcare provider, or as advised, if your pain does not begin to improve in thenext 24 hours.Call [phone] if any of these occur: Trouble breathing Confusion Fainting or loss of consciousness 4 General Instructions [facility] Emergency Department [address] [place] [address] Phone #: ext- [phone] 09/30/2019 10:56 Patient: ELIF ROMANO Sex: Chepe : 1995 Age: 24y Rapid heart rate SeizureWhen to seek medical adviceCall your healthcare provider right away if any of these occur: Pain gets worse or moves to the right lower abdomen New or worsening vomiting or diarrhea Swelling of the abdomen Unable to pass stool for more than 3 days Fever of 100.4F (38C) or higher, or as directed by your healthcare provider. Blood in vomit or bowel movements (dark red or black color) Yellow color of eyes and skin (jaundice) Weakness, dizziness Chest, arm, back, neck, or jaw pain Unexpected vaginal bleeding or missed period Can't keep down liquids or water and you are getting dehydrated [id number] [employer] [address] [place] [address]. All rights reserved. This information is not intended as asubstitute for professional medical care. Always follow your healthcare professional's instructions. You have been given the following additional information: Abdominal Pain, Unknown Cause, (Female)(Electronically signed by Chepe Arevalo P.A.-C 10/01/2019 15:48) Name Value Range Interpretation Code Description Data Seema rce(s) Supporting Document(s) ID Date Data Source [id number] 09/30/2019 10:59:00 AM EDT [facility] 1 Clinical Report - Nurses [facility] Emergency Department [address] [place] [address] Phone #: [phone] [phone]- [phone] 09/30/2019 10:56 Patient: ELIF ROMANO Sex: F : 1995 Age: 24yTRIAGEArrived by private vehicle. Historian: patient.Triage time: 10:57 09/30/2019. Acuity: LEVEL 3.Chief Complaint: ABDOMINAL PAIN, NAUSEA and VOMITING.10:57 09/30/19. Alert. No acute distress.Onset. (began 10/05 intermittent, last night became constant). She has had vomiting (after eating 1 hourago). The vomiting has occurred twice and has been blood-tinged.Treatment DECAL MAKER:Took Tylenol. (last dose 2 tabs 0800).SEPSIS SCREEN: SIRS Screen negative. Sepsis Screen negative. No suspected or confirmed signs ofinfection present. --11:03 09/30/19 Gala Ruiz RN10:57 09/30/19. BP: 107/69. MAP: 81. HR: 69. RR: 18. O2 saturation: 100%. Temp: 98.5 F. Pain levelnow: 10/10. Describes the quality as throbbing. It has been constant. Pain level at maximum: 10/10. It isdescribed as radiating to the right upper abdomen. It is worsened by activities and eating. --11:03 09/30/19Gala Ruiz RN( CORRECTION: Pain started Sunday). --11:08 09/30/19 Gala Ruiz RN.Weight: 87.3 kg stated. Height/Length: 58 inches Per Patient. BMI: 40.2. --10:57 09/30/19 PHILLIP Larkin.MedicationsAcetaminophen Oral (Capsule 325 mg) 2 capsules, as needed, last dose 0800. --10:58 09/30/19 PHILLIP Larkin busPIRone HCl Oral (Tablet 10 mg) 1 tablet, 2x a day. PROzac Oral (Capsule 20 mg) 1 capsule, daily. traZODone HCl Oral (Tablet 150 mg) 1 tablet, daily. --11:04 09/30/19 Gala Ruiz RN.AllergiesDemerol.(hives)Dilaudid.(hives)Ibuprofen.(hives)Lavendar.Mushrooms.N aproxen.(hives)Toradol.(hives) 2 Clinical Report - Nurses [facility] Emergency Department [address] [place] [address], [place] [address] Phone #: ext- [phone] 09/30/2019 10:56 Patient: ELIF ROMANO [facility]#: [id number] Sex: F : 1995 Age: 24yTramadol.(hives) --11:04 09/30/19 Gala Ruiz RN.PROBLEMS:Anxiety related Seizures.Gallstone(s).Depression.Gastroesophageal Reflux Disease.Asthma.Tension-Type Headache.Seizure.Nephrolithiasis.Scoliosis.Renal Colic. --11:09/30/19 Gala Ruiz RNThe following entry was modified by Gala Ruiz RN, 11:06 09/30/19Anxiety Reaction. --11:05 09/30/19 Gala Ruiz RN.ADDITIONAL SURGERIES:Carpal Tunnel Surgery (Right).Dental Surgery.Dilatation Curettage.Stent (Kidney).Tubal Ligation. --11:06 09/30/19 Jesús Ruiz RN.Cqtzuod58:57 09/30/19.PAST MEDICAL HX: Last normal menstrual period- September 02. Has had a tubal ligation.SOCIAL HX: Never smoker. History of occasional drug use: marijuana. No alcohol use. No recenttravel. No known contact with a sick individual. She was offered HIV testing but declined and hepatitis Ctesting but declined. She has not traveled outside the [place]Infectious disease exposure: No infectious disease exposure. (Denies travel, denies contact with PUI, onquarantine or symptoms of COVID-19). Patient is not a known carrier of tuberculosis, hepatitis, HIV, MRSAor VRE. Patient is not a known carrier of CRE.SELF HARM ASSESSMENT: Self harm assessment was performed. The patient answered "no" to thequestion(s) "Do you have thoughts of harming or killing yourself?" and "Have you recently had thoughtsabout harming or killing others?".ABUSE ASSESSMENT: Abuse assessment. The patient had positive responses to the question(s) "Do youfeel safe in your home?" (yes). No report of abuse.NUTRITIONAL RISK ASSESSMENT: The nutritional risk assessment revealed no deficiencies. 3 Clinical Report - Nurses [facility] Emergency Department [address] [place] [address] Phone #: ext- [phone] 09/30/2019 10:56 Patient: ELIF ROMANO Sex: F : 1995 Age: 24y FUNCTIONAL ASSESSMENT: Functional assessment: no impairments noted. LEARNING NEEDS ASSESSMENT: The learning needs assessment revealed no barriers. FALL RISK ASSESSMENT: Fall risk assessment completed. No risk factors identified. SKIN INTEGRITY ASSESSMENT: Skin integrity risk assessment completed. No skin integrity risk identified. --11:03 09/30/19 Gala Ruiz RN.PHYSICAL ASSESSMENTAmbulatory to room.GENERAL / NEURO / PSYCH: Alert. Oriented X 4. Appears in pain.HEENT: Mucous membranes are pink.RESPIRATORY: Respirations not labored. Breath sounds within normal limits.CVS: Normal sinus rhythm noted. Capillary refill less than 2 seconds.GI / : The patient has had nausea. Emesis noted. Abdomen soft. Abdominal tenderness in the rightupper quadrant and periumbilical area. Bowel sounds within normal limits.SKIN: Skin is warm and dry. --11:11 09/30/19 Magdaleno Ronquillo RN.NURSING PROGRESS NOTES11:03 09/30/19. Patient gowned. Two patient identifiers checked. Call light placed in reach. Side railsup. Bed placed in lowest position. Brakes of bed on. Patient ready for evaluation- PA notified. --11: Gala Ruiz RN ( IV attempt unsuccessful a 2). --11:23 09/30/19 Magdaleno Ronquillo RN 12:30 09/30/2019 Site #1 started via IV in the right upper arm with an 22g angiocath, with aseptic technique and good blood return; two attempts. Saline lock flushed with 10 mL saline. --12:34 09/30/19 Dania Lee R.N. 12:37 09/30/2019 Started bag #1 1000 mL IV Fluids NS; bolus of 500 mL over 20 minute(s) then at 100 mL/hr over 5 hour(s) via site #1 via IV pump. Allergies verified and confirmed 5 rights. IV patency established. IV site checked: no pain, redness, or swelling. IV flushed thoroughly pre- and post-medication administration. Information reviewed with patient including reason for taking this medication. Verbalizes understanding. --12:37 09/30/19 Magdaleno Ronquillo RN 12:38 09/30/2019 Zofran (Ondansetron HCl) IVP 4 mg given over 2 minute(s) via site #1. Allergies verified and confirmed 5 rights. IV patency established. IV site checked: no pain, redness, or swelling. IV flushed thoroughly pre- and post-medication administration. IVP given by RN. Information reviewed with patient including reason for taking this medication. Verbalizes understanding. --12:38 09/30/19 Magdaleno Ronquillo RN 12:38 09/30/2019 Benadryl (diphenhydrAMINE HCl) IVP 25 mg given over 1 minute(s) via site #1. Allergies verified and confirmed 5 rights. IV patency established. IV site checked: no pain, redness, or swelling. IV flushed thoroughly pre- and post- medication administration. IVP given by RN. Information reviewed with 4 Clinical Report - Nurses [facility] Emergency Department [address] [place] [address] Phone #: ext- [phone] 09/30/2019 10:56 Patient: ELIF ROMANO Sex: F : 1995 Age: 24y patient including reason for taking this medication and sedative warning. Verbalizes understanding. --12:38 09/30/19 Magdaleno Ronquillo RN 12:44 09/30/2019 Morphine IVP 4 mg given over 3 minute(s) via site #1. Allergies verified and confirmed 5 rights. IV patency established. IV site checked: no pain, redness, or swelling. IV flushed thoroughly pre- and post-medication administration. IVP given by RN. Information reviewed with patient including reason for taking this medication and sedative warning. Verbalizes understanding. --12:44 09/30/19 Magdaleno Ronquillo RN Patient transported to [place] by wheelchair with donor technician. --12:47 09/30/19 Magdaleno Ronquillo RN Patient returned from CT by wheelchair with donor technician. --12:59 09/30/19 Magdaleno Ronuqillo RN 13:29 09/30/19. BP: 114/72. MAP: 86. HR: 60. RR: 16. O2 saturation: 100%. Pain level now: 11/23. --13:29 09/30/19 Magdaleno Ronquillo RN ( pt awake and texting on her phone, continues to voice abdominal pain along with nausea). --13:29 09/30/19 Magdaleno Ronquillo RN 15:26 09/30/2019 IV Fluids NS via IV site #1 Discontinued: STOPPED upon discharge. Total amount infused: 900 mL. IV patency established. IV site checked: no pain, redness, or swelling. IV flushed thoroughly. --15:31 09/30/19 Magdaleno Ronquillo RN 15:31 09/30/2019 Site #1 removed upon discharge. Catheter intact. Manual pressure and bandage applied. --15:31 09/30/19 Magdaleno Ronquillo RN.DISPOSITION / DISCHARGE Condition at departure: improved and stable. Discharge instructions provided and reviewed with the patient. Reviewed medication(s). Prescription(s) sent electronically to pharmacy. Patient verbalized understanding. Written instructions provided in Senegalese. The patient was discharged by the physician legislative assistant. She was discharged home and accompanied by social work instructor. She left ambulatory and via private vehicle. Loading Rack Supervisor driving. --15:32 09/30/19 Magdaleno Ronquillo RN 15:31 09/30/19. BP: 104/68. MAP: 80. HR: 67. RR: 16. O2 saturation: 100%. Pain level now: 11/23. --15:32 09/30/19 Magdaleno Ronquillo RN.Locked/Released at 09/30/2019 15:32 by Magdaleno Ronquillo RN Name Value Range Interpretation Code Description Data Seema rce(s) Supporting Document(s) ID Date Data Source [id number] 09/30/2019 10:59:00 AM EDT [facility] 1 Clinical Report - Physicians/Mid Levels [facility] Emergency Department [address] [place] [address] Phone #: ext- [phone] 09/30/2019 10:56 Patient: ELIF ROMANO Sex: F : 1995 Age: 24y Time Seen: 11:29 09/30/2019; initial patient contact, initial documentation. Arrived- By private vehicle. Historian- patient.HISTORY OF PRESENT ILLNESS Chief Complaint: ABDOMINAL PAIN. This started 4 day ago and is still present and worsening. It is described as sharp and stabbing and it is described as located in the right upper quadrant, right abdomen and right lower quadrant and radiating (periumbilicus). Not located in right flank. Modifying factors. Not relieved by anything. The patient has had nausea and loss of appetite. She has had vomiting (has been vomiting onset 4 days ago). No diarrhea. (24 y/o female presents today for RUQ abdominal pain onset 4 days ago. Pt reports pain also includes RLQ and has been worsening to involve periumbilical area. Pt describes pain began as intermittent, but since yesterday has worsened to be constant, and states the pain began as "sharp" but is now throbbing. Associated sx include nausea , emesis (sts single blood tinged emesis today none since) and constipation, but BM today.). Recent medical care: Not recently seen/assessed.REVIEW OF SYSTEMSHas had a tubal ligation. She has had constipation but not had weight loss. No black stools, difficultywith urination, pain with urination, urinary frequency or bloody stools. No fever, sore throat, blurred vision,chest pain or difficulty breathing. No cough, joint pain, skin rash, chills or back pain. She has hadhematemesis (today). It has occurred only once and has contained blood flecks. Last bowel movement-today. She has had a mild frontal headache (yesterday).PAST HISTORYSee nurses notes. Has had multiple episodes of urinary calculi. See old chart. Gallstones. Problems: GI Disease. Acute Pain. Anxiety Reaction. Headache. Urinary Calculi. Vaginal Bleeding. UTI - Urinary Tract Infection. Kidney stones. Other Disease. Anxiety related Seizures. Gallstone(s). Depression. 2 Clinical Report - Physicians/Mid Levels [facility] Emergency Department [address] [place] [address] Phone #: ext- [phone] 09/30/2019 10:56 [facility]: [id number] Sex: F : 1995 Age: 24y Gastroesophageal Reflux Disease. Asthma. Tension-Type Headache. Seizure. Nephrolithiasis. Scoliosis. Renal Colic. Additional Surgeries: Carpal Tunnel Surgery. Dental Surgery. Dilatation Curettage. Stent. Tubal Ligation. Medications: busPIRone HCl Oral (Tablet 10 mg) 1 tablet, 2x a day. PROzac Oral (Capsule 20 mg) 1 capsule, daily. traZODone HCl Oral (Tablet 150 mg) 1 tablet, daily. Acetaminophen Oral (Capsule 325 mg) 2 capsules, as needed, last dose 0800. Allergies: Demerol.(hives) Dilaudid.(hives) Ibuprofen.(hives) Lavendar. Mushrooms. Naproxen.(hives) Toradol.(hives) Tramadol.(hives).SOCIAL HISTORYNever smoker. Occasional alcohol use. (wedding over the past weekend). History of drug use:marijuana.ADDITIONAL NOTESThe nursing notes have been reviewed.PHYSICAL EXAMVital Signs: 09/30/2019 10:57 BP: 107/69. MAP: 81. HR: 69. RR: 18. O2 saturation: 100%. Temp: 98.5 F.Pain level now: 10/10. Have been reviewed. Oxygen saturation normal.Appearance: Alert. Oriented X3. No acute distress.Eyes: Eyelids everted for examination. Conjunctivae and sclerae appear normal to inspection. Corneasappear normal to inspection. Pupils equal, round and reactive to light. EOMs intact. Periorbital areasappear normal to inspection. Anterior chambers clear. 3 Clinical Report - Physicians/Mid Levels [facility] Emergency Department [address] [place] [address] Phone #: ext- [phone] 09/30/2019 10:56 Patient: ELIF ROMANO Sex: F : 1995 Age: 24y ENT: Airway intact. TM's normal. Ears normal. Nose normal. Nares normal. Pharynx normal. Moist mucous membranes. Uvula midline. Voice normal. Neck: Normal inspection. Neck supple. CVS: Normal heart rate and rhythm. No JVD present. Pulses normal. Capillary refill normal. Strong peripheral pulses. Heart sounds normal. Pulses: right radial 2+; left radial 2+; right dorsalis pedis 2+; left dorsalis pedis 2+; right posterior tibial 2+; left posterior tibial 2+. Respiratory: Chest normal on inspection. No respiratory distress. Unlabored respirations. Lungs clear. Good chest movement. Breath sounds normal and equal. Chest nontender. Abdomen: Soft. Mild tenderness in the right upper quadrant, right side of the abdomen and right lower quadrant. Positive Ruiz's sign. No obturator sign present. Bowel sounds normal. No organomegaly. No mass. Mildly obese. No rebound tenderness or guarding. Back: Normal inspection. No CVA tenderness. Skin: Skin warm and dry. Normal skin color. Normal skin turgor. Extremities: Extremities exhibit normal ROM. No lower extremity edema. Neuro: Awake. Alert. Mood/affect normal. Speech normal. No motor deficit. No sensory deficit. Psych: Cognition normal. Thought process and content normal. Insight and judgement normal.LABS, X-RAYS, AND EKGCT Abdomen - Pelvis: Stephanie bennett Michael - 09/30/2019 1:26:00 PMTrace free fluid in the cul-de-sac with some trace free fluid also noted in the right lower quadrant. Theappendix is not visualized. No focal inflammatory process seen. Consider pelvic ultrasound to see if theremay be a recently ruptured ovarian cyst. The study was interpreted by the radiologist and discussed withthe radiologist.Abdominal Sonogram: (Ismael robertson Terence - 09/30/2019 12:37:45 PMFatty infiltration of liver. Otherwise unremarkable right upper quadrant ultrasound. Gallbladderunremarkable. CBD within normal limits =4 mm.).Pelvic Sonogram: Ismael robertson Terence - 09/30/2019 2:08:09 PMTrace amount of free fluid in cul-de-sac likely physiologic. Otherwise unremarkable transabdominal pelvicultrasound. The study was interpreted by the radiologist.Laboratory Tests: CBC w Diff: (CHRIS: 09/30/2019 11:48) ( MsgRcvd 09/30/2019 11:58) Final results Test Result Flag Units (Reference) CBC W/AUTOMATED DIFF COMPLETE BLOOD COUNT WBC 4.3 10/uL (4.2 - 11.0) RBC 4.49 10/uL (4.20 - 5.40) HEMOGLOBIN 11.3 L g/dL (12.0 - 16.0) HEMATOCRIT 36.0 L % (37.0 - 47.0) MCV 80.2 L fL (81.0 - 101) MCH 25.2 L pg (27.0 - 34.0) MCHC 31.4 g/dL (31.0 - 36.0) RDW 17.9 H % (11.5 - 14.5) PLATELETS 198 10/uL (150 - 450) MPV 10.0 fL (7.4 - 10.4) NEUT 58.1 % (37.0 - 80.0) LYMPH 34.4 % (25.0 - 40.0) MONO 6.1 % (3.0 - 8.0) EOS 0.7 % (0.0 - 7.0) 4 Clinical Report - Physicians/Mid Levels [facility] Emergency Department [address] [place] [address] Phone #: ext- [phone] 09/30/2019 10:56 Patient: [id number] Sex: F : 1995 Age: 24y BASO 0.5 % (0.0 - 2.5) %IG 0.2 H % (0.0 - 0.0) %NRBC 0.0 % (0.0 - 0.0) #NEUT 2.48 10/uL (2.00 - 6.90) #LYMPH 1.47 10/uL (0.60 - 3.40) #MONO 0.26 10/uL (0.00 - 0.90) #EOS 0.03 10/uL (0.00 - 0.70) #BASO 0.02 10/uL (0.00 - 0.20) #IG 0.01 10/uL (0.00 - 0.10) #NRBC 0.00 10/uL (0.00 - 0.00) MANUAL DIFF NOT INDICATED RBC MORPH NOT INDICATEDCMP: (CHRIS: 09/30/2019 11:48) ( MsgRcvd 09/30/2019 12:18) Final results Test Result Flag Units (Reference) COMPREHENSIVE METABOLIC PANEL COMPREHENSIVE METABOLIC PANEL SODIUM 137 mEq/L (134 - 153) POTASSIUM 3.9 mEq/L (3.6 - 5.0) CHLORIDE 103 mEq/L (98 - 107) CO2 24 MEQ/L (22 - 30) GLUCOSE 102 MG/DL (65 - 110) BUN 13 MG/DL (7 - 21) CREATININE 0.7 MG/DL (0.7 - 1.5) BUN/CREAT 19 (8 - 27) TOTAL PROTEIN 7.0 G/DL (6.3 - 8.2) ALBUMIN 4.1 G/DL (3.9 - 5.0) GLOBULIN 2.9 GM/DL (2.4 - 3.2) A/G RATIO 1.4 (0.8 - 2.0) CALCIUM 8.9 MG/DL (8.4 - 10.2) TOTAL BILI <0.7 MG/DL (0.2 - 1.3) ALKALINE PHOS 59 U/L (38 - 126) SGOT/AST 16 U/L (5 - 40) SGPT/ALT 18 U/L (7 - 56) ANION GAP 10.0 mmol/L (8.0 - 16.0) AGE 24 yrs NON-AA GFR >60 mL/min AFR AMER GFR >60 mL/min Male GFR Interprentation 20-49 yrs >60 mL/min [id number] yrs >56 mL/min Normal 60-69 yrs >49 mL/min Normal 70-79yrs>42 mL/min Normal 80 and above >35 mL/min Normal Female GFRInterpretation 20-39 yrs >60 mL/min Normal 40-49 yrs >58 mL/minNormal 50-59 yrs >51 mL/min Normal 60-69 yrs >45 mL/min Isuusb70-59 yrs >39 mL/min Normal 80 and above >32 mL/min NormalLipase: (CHRIS: 09/30/2019 11:48) ( [facility] 09/30/2019 12:18) Final results Test Result Flag Units (Reference) LIPASE 19 U/L (13 - 60)Urinalysis: (CHRIS: 09/30/2019 12:35) ( [facility] 09/30/2019 12:44) Final results Test Result Flag Units (Reference) URINALYSIS URINALYSIS SOURCE R COLOR yellow (NORMAL: Yello CLARITY clear (NORMAL: Clear 5 Clinical Report - Physicians/Mid Levels [facility] Emergency Department [address] [place] [address] Phone #: ext- [phone] 09/30/2019 10:56 Patient: ELIF ROMANO Sex: F : 1995 Age: 24y SPEC GRAVITY 1.005 (1.001 - 1.030 pH 7 (5 - 9) GLUCOSE NORM (NORMAL: Negat BILIRUBIN NEG (NORMAL: Negat KETONE NEG (NORMAL: Negat PROTEIN NEG (NORMAL: Negat NITRITE NEG (NORMAL: Negat BLOOD NEG (NORMAL: Negat LEUK EST NEG (NORMAL: Negat UROBILINOGEN NOR (less than 1.0 MICROSCOPIC Not Indicate Beta-HCG, Qual Serum: (CHRIS: 09/30/2019 11:48) ( [facility] 09/30/2019 12:17) Final results Test Result Flag Units (Reference) HCG SERUM QUAL NEGATIVE (NORMAL: NEGAT HCG SERUM QL REENTER NEGATIVE (NORMAL: NEGAT { KIT LOT # [id number] ){ KIT EXP DATE 01.26.21 ){ PROCEDURAL CONTROL VALID ) US Liver: (CHRIS: 09/30/2019 11:42) ( [facility] 09/30/2019 12:25) In Progress US HEPATIC Reason(s): RUQ Pain TRANSPORTATION: WC IV? O2? Oxygen?(No) Room: ED : Will sign waiver.PROGRESS AND PROCEDURESCourse of Care: VSS, NAD, AOx3, interacting well and appropriately, no use of accessory muscle, able tospeak full sentences, stable, non-toxic looking. Enter room and pt lying peacefully in bed in NAD. Patient stable. Denies any new issues, concerns, or complaints. PE demos NV intact b/l UE and LE. Pt c/o N/V since Sunday with TTP of the RUQ. Pt has hx of GB stones. Noted TTP of hte RUQ; (+) [place]. Also noted TTP of the R and RLQ. Will obtina labs and imaging for furhte reval. May need further eval 13:01 09/30/19. Reviewed labs and reviewed US result; no identifed patho. Will order futher imaging. Pendig results. Pt lying peacefully in bed in NAD. Pt infomred of requested imaging and indicated she understood and agreed. Orders placed. Reviewed results and discussed with radiologsits. Recommends pelvic US for further eval. Enter room and patient lying peacefully in bed in NAD. Patient stable. Denies any new issues, concerns, or complaints. Pt sts she understands, agrees, and will comply. 15:13 09/30/19. Reviewed resutls. Discussed with surgeon (dr. estes). he enters and evals pt. Does 6 Clinical Report - Physicians/Mid Levels [facility] Emergency Department [address] [place] [address] Phone #: ext- [phone] 09/30/2019 10:56 Patient: ELIF ROMANO Sex: F : 1995 Age: 24y not feel, appy, but does recommend pain meds and abx (percocet and augmentin x 5days) and close f/u with return to ER if worsens. WIll comply. REviewed results. Enter room and patient lying peacefully in bed in NAD. Patient stable. Denies any new issues, concerns, or complaints. Discussed results with pt. Discussed tx plan with pt. Discussed and counseled on stable condition. Discussed importance of a f/u with PCP. Discussed return to ER criteria. Answered their questions. Indicates and verbalizes that they understand, agree, and will comply with above. Denies any new questions or concerns. Patient has capacity to understand. Discharge decision based on the following: patient's condition is stable; patient's exam is stable; social support is adequate; transportation is available; follow-up is available. Discussed of OTC Motrin and Tylenol to control inflammation and pain management. Informed to follow directions on bottle that are appropriate for age and/or weight. General surgery called for consult. Disposition: Discharged. Condition: good and stable.CLINICAL IMPRESSION Acute right upper quadrant and right lower quadrant abdominal pain of unknown cause.INSTRUCTIONS Take Tylenol (Acetaminophen) or Motrin (Ibuprofen) as needed for fever control. Take medication according to label instructions. Drink plenty of fluids. No dietary restrictions. Warnings: Further evaluation is necessary. SEDATIVE MEDICATION: You were given sedative medication during your visit. Do not drive or operate dangerous machinery. CONTROLLED SUBSTANCE WARNINGS. GENERAL WARNINGS: Return or contact your physician immediately if your condition worsens or changes unexpectedly, if not improving as expected, or if other problems arise. Prescription monitor program consulted by me. Prescription does not exceed state maximum supply of 7 Clinical Report - Physicians/Mid Levels [facility] Emergency Department [address] [place] [address] Phone #: ext- [phone] 09/30/2019 10:56 Patient: ELIF ROMANO Sex: F : 1995 Age: 24y medications Prescription Medications: Percocet 5 mg-325 mg tablet Take 1 tablet four times a day for 3 days -- Dispense 12 tablet. Refills: 0. Substitution permitted. [facility] [address] [id number]. . Augmentin 875 mg-125 mg tablet Take 1 tablet twice a day for 5 days -- Dispense 10 tablet. Refills: 0. Substitution permitted. [facility] [address] [id number]. . Follow-up: Return to the emergency department as needed. Follow up with your healthcare provider in about two days if not better. Call for an appointment. Understanding of the discharge instructions verbalized by patient.(Electronically signed by Chepe Arevalo P.A.-C 10/01/2019 15:48) Name Value Range Interpretation Code Description Data [facility] Districte(s) Supporting Document(s) ID Date Data Source [id number] 10/01/2019 02:58:00 PM EDT [facility] ([facility] Name Value Range Interpretation Code Description Data Seema e(s) Supporting Document(s) CBC W/Automated Diff Laboratory test result [facility] COMPLETE BLOOD COUNT WBC 6.5 10^3/uL 4.2-11.0 [facility] ([facility] RBC 4.55 10^6/uL 4.20-5.40 [facility] ([facility] Hemoglobin 11.5 g/dL 12.0-16.0 Below low normal [facility] ( [facility] Hematocrit 36.8 % 37.0-47.0 Below low normal [facility] ( [facility] MCH 25.3 pg 27.0-34.0 Below low normal [facility] ( [facility] MCV 80.9 fL 81.0-101 Below low normal [facility] ( [facility] MCHC 31.3 g/dL 31.0-36.0 [facility] RDW 18.2 % 11.5-14.5 Above high normal [facility] ([facility] Platelets 229 10^3/uL 150-450 [facility] MPV 10.1 fL 7.4-10.4 [facility] Lymph 34.5 % 25.0-40.0 [facility] Trinity 6.3 % 3.0-8.0 [facility] ([facility] Neut 57.9 % 37.0-80.0 [facility] ([facility] %Ig 0.2 % 0.0-0.0 Above high normal [facility] Baso 0.3 % 0.0-2.5 [facility] ([facility] Eos 0.8 % 0.0-7.0 [facility] ([facility] %NRBC 0.0 % 0.0-0.0 [facility] ([facility] #Trinity 0.41 10^3/uL 0.00-0.90 [facility] #Lymph 2.24 10^3/uL 0.60-3.40 [facility] ([facility] #Neut 3.77 10^3/uL 2.00-6.90 [facility] ([facility] #Eos 0.05 10^3/uL 0.00-0.70 [facility] ([facility] #Baso 0.02 10^3/uL 0.00-0.20 [facility] ([facility] Manual Diff Laboratory test result [facility] ([facility] #NRBC 0.00 10^3/uL 0.00-0.00 [facility] ([facility] RBC Morph Laboratory test result [facility] ([facility] #Ig 0.01 10^3/uL 0.00-0.10 [facility] ([facility] ID Date Data Source [id number] 10/01/2019 03:27:00 PM EDT [facility] Name Value Range Interpretation Code Description Data Seema rce(s) Supporting Document(s) CBC W/AUTOMATED DIFF [facility] COMPLETE BLOOD COUNT Leukocytes [#/volume] in Blood by Automated count 6.5 10^3/uL 4.2 - 1 1.0 [facility] Erythrocytes [#/volume] in Blood by Automated count 4.55 10^6/uL 4. 20 - 5.40 [facility] Hemoglobin [Mass/volume] in Blood 11.5 g/dL 12.0 - 16.0 L [facility] Hematocrit [Volume Fraction] of Blood by Automated count 36.8 % 3 7.0 - 47.0 L [facility] Erythrocyte mean corpuscular volume [Entitic volume] by Auto mated count 80.9 fL 81.0 - 101 L [facility] Erythrocyte mean corpuscular hemoglobin [Entitic mass] by Automated count 25.3 pg 27.0 - 34.0 L [facility] Erythrocyte mean corpuscular hemoglobin concentration [Mass/volume] by Automated count 31.3 g/dL 31.0 - 36.0 [facility] Erythrocyte distribution width [Ratio] by Automated count 18.2 % 11.5 - 14.5 H [facility] Platelets [#/volume] in Blood by Automated count 229 10^3/uL 150 - 45 0 [facility] Platelet mean volume [Entitic volume] in Blood by Automated count 10.1 fL 7.4 - 10.4 [facility] Neutrophils/100 leukocytes in Blood by Automated count 57.9 % 37. 0 - 80.0 [facility] Lymphocytes/100 leukocytes in Blood by Manual count 34.5 % 25.0 - 40.0 [facility] Monocytes/100 leukocytes in Blood by Automated count 6.3 % 3.0 - 8.0 [facility] Eosinophils/100 leukocytes in Blood by Automated count 0.8 % 0.0 - 7.0 [facility] Basophils/100 leukocytes in Blood by Automated count 0.3 % 0.0 - 2.5 [facility] %IG 0.2 % 0.0 - 0.0 [facility] %NRBC 0.0 % 0.0 - 0.0 [facility] al Neutrophils [#/volume] in Blood by Automated count 3.77 10^3/uL 2.00 - 6.90 [facility] Lymphocytes [#/volume] in Blood by Automated count 2.24 10^3/uL 0.60 - 3.40 [facility] Monocytes [#/volume] in Blood by Automated count 0.41 10^3/uL 0.00 - 0.90 [facility] Eosinophils [#/volume] in Blood by Automated count 0.05 10^3/uL 0.00 - 0.70 [facility] Basophils [#/volume] in Blood by Automated count 0.02 10^3/uL 0.00 - 0.20 [facility] #IG 0.01 10^3/uL 0.00 - 0.10 [facility] #NRBC 0.00 10^3/uL 0.00 - 0.00 [facility] MANUAL DIFF NOT INDICATED [facility] RBC MORPH NOT INDICATED [facility] sp[facility] ID Date Data Source [id number] 10/01/2019 10:47:00 AM EDT [facility] [address] [place] [address] PHONE: [phone] FAX: [phone] Name .................. : ROSALINA Peck Acct Number.................. : [id number] ROOM. ................. : [address] Number ................... : [id number] Stay type ............. : E/R Discharge Date......... ... : 09/30/19 Admit Date ......... : 09/30/19 Admit Phys .................... : CINTHYA SPEEDY Date of ....... : 1995 Family Phys ................... : LATRELL BENOIT Phone .................. : [phone] Age ................................ : 24 Film# .................. .:[id number] Sex ................................. : F Unsigned transcriptions are preliminary reports and do not represent a medical or legal document PELVIC [id number] COMPLETE:09/30/19 14:05 KNB [id number] Reason(s): Trace fluid noted on CT. ? ovarian cyst. Dr. Lassiter discussed PELVIC ULTRASOUND: COMPARISON: Ultrasound from 03/30/[address] scan from 09/30/19. FINDINGS: Transabdominal imaging of the pelvis was performed. The uterus measures 9.5 cm x 3.4 cm x 5.8 cm. The uterus has a normal-appearing echotexture without focal lesion. The endometrial thickness is within normal limits, measuring 0.8 cm without focal defect. The visualized portion of the urinary bladder appears unremarkable. A small amount of free fluid is seen in the cul-de- sac that corresponds with the CT. There was no free fluid seen at the cul-de-sac on the prior ultrasound. The left ovary measures 2.4 cm x 2.1 cm x 2.8 cm and the right ovary measures 3.6 cm x 2.5 cm x 2.4 cm. Normal arterial blood flow is demonstrated at bilateral ovaries without torsion. IMPRESSION: Trace amount of free fluid in the cul-de-sac, likely physiologic. Otherwise, unremarkable transabdominal pelvic ultrasound. Electronically Reviewed and Signed By Mejia Guevara MD , 10/01/19 10:47, TDS Transcribe Initials: DZ , Transcribe Date: 10/01/19 00:11, Dictation Date: Copy for: HARPER SINGH via fax Copy for: CINTHYA Peck via fax Copy for: LATRELL MEZA via fax Copy for: EMERGENCY DEPT via modem Copy for: 710 MED REC DISCHARGED Page 1 of 1 Name Value Range Interpretation Code Description Data Seema rce(s) Supporting Document(s) ID Date Data Source [id number] 10/01/2019 10:46:00 [place] [address] PHONE: [phone] FAX: [phone] Name .................. : ROSALINA Peck Acct Number.................. : [id number] ROOM. ................. : TR-06 MR Number ................... : [id number] Stay type ............. : E/R Discharge Date......... ... : 09/30/19 Admit Date ......... : 09/30/19 Admit Phys .................... : CINTHYA SPEEDY Date of ....... : 1995 Family Phys ................... : LATRELL BENOIT Phone .................. : [phone] Age ................................ : 24 Film# .................. .:[id number] Sex ................................. : F Unsigned transcriptions are preliminary reports and do not represent a medical or legal document HEPATIC [id number] COMPLETE:09/30/19 12:24 KNB [id number] Reason(s): RUQ Pain HEPATIC ULTRASOUND: FINDINGS: There is moderate diffuse increased echogenicity within the liver from fatty infiltration. No focal hepatic lesion is depicted. There is no biliary ductal dilatation. The common bile duct is within normal limits in size, measuring 0.2 cm. The gallbladder has no calculi, wall thickening or pericholecystic fluid. The gallbladder wall thickness is within no rmal limits, measuring 0.3 cm. The right kidney measures about 11 cm and appears unremarkable. The pancreas is not well visualized due to bowel gas shadowing. IMPRESSION: Fatty infiltration of the liver. The pancreas is not well visualized due to bowel gas shadowing. Otherwise, unremarkable right upper quadrant ultrasound. Electronically Reviewed and Signed By Mejia Guevara MD , 10/01/19 10:46, TDS Transcribe Initials: BRENDA , Transcribe Date: 10/01/19 00:00, Dictation Date: Copy for: HARPER SINGH via fax Copy for: CINTHYA Peck via fax Copy for: LATRELL MEZA via fax Copy for: EMERGENCY DEPT via modem Copy for: 710 MED REC DISCHARGED Page 1 of 1 Name Value Range Interpretation Code Description Data Seema rce(s) Supporting Document(s) ID Date Data Source [id number] 10/01/2019 10:33:00 AM EDT [facility] [address] [place] [address] PHONE: [phone] FAX: [phone] Name .................. : ROSALINA Peck Acct Number.................. : [id number] ROOM. ................. : TR-06 MR Number ................... : [id number] Stay type ............. : E/R Discharge Date......... ... : Admit Date ......... : 09/30/19 Admit Phys .................... : CINTHYA SPEEDY Date of ....... : 1995 Family Phys ................... : LATRELL BENOIT Phone .................. : [phone] Age ................................ : 24 Film# .................. .:[id number] Sex ................................. : F Unsigned transcriptions are preliminary reports and do not represent a medical or legal document CT ABD & PELVIS W/ IV ONLY [id number] COMPLETE:09/30/19 13:19 RLB [id number] Reason(s): abd pain; RUQ/RLQ pain CT OF THE ABDOMEN AND PELVIS WITH CONTRAST ENHANCEMENT: FINDINGS: The lung base is clear. The liver, spleen and adrenals appear normal. The kidneys appear normal. The pancreas appears normal. There is some trace free fluid in the right lower quadrant and in the cul-de-sac. Consider pelvic ultrasound to see if there could be a recently ruptured ovarian cyst. The appendix is not visualized. The bowel loops are otherwise normal. No signs of any bladder pathology. No abdominal wall defects. IMPRESSION: Some trace fluid identified in the right lower quadrant and in the cul-de-sac. Consider pelvic ultrasound for further evaluation. Results were phoned to the emergency room. While performing the above CT examination, radiation dose reduction was accomplished utilizing automated exposure control, adjusting of the mA and kV based on the patient's body size and/or the use of imperative reconstructive techniques. CT dose: 1003.4 mGycm Contrast agent in mL: 75 Isovue 370 Method of administr ation: Intravenous Electronically Reviewed and Signed By Page 1 of 2 [place] [address] PHONE: [phone] FAX: [phone] Name .................. : ROSALINA HUDDLESTON Liv Acct Number.................. : [id number] ROOM. ................. : TR-06 MR Number ................... : [id number] Stay type ............. : E/R Discharge Date......... ... : Admit Date ......... : 09/30/19 Admit Phys .................... : CINTHYA SPEEDY Date of ....... : 1995 Family Phys ................... : LATRELL BENOIT Phone .................. : [phone] Age ................................ : 24 Film# .................. .:[id number] Sex ................................. : F Unsigned transcriptions are preliminary reports and do not represent a medical or legal document CT ABD & PELVIS W/ IV ONLY [id number] COMPLETE:09/30/19 13:19 RLB [id number] Reason(s): abd pain; RUQ/RLQ pain LINDA RIVERA MD , 10/01/19 10:33, GMM Transcribe Initials: DZ , Transcribe Date: 09/30/19 15:32, Dictation Date: Copy for: HARPER SINGH via fax Copy for: CINTHYA Peck via fax Copy for: LATRELL MEZA via fax Copy for: EMERGENCY DEPT via modem Copy for: 710 MED REC DISCHARGED Page 2 of 2 Name Value Range Interpretation Code Description Data Seema rce(s) Supporting Document(s) ID Date Data Source [id number] 09/30/2019 01:24:00 PM EDT [facility] ([facility] Name Value Range Interpretation Code Description Data Seema rce(s) Supporting Document(s) Lactate [Mass/volume] in Serum or Plasma 2.0 mmol/L 0.2-2.2 [facility] ID Date Data Source [id number] 09/30/2019 01:38:00 PM EDT [facility] Name Value Range Interpretation Code Description Data Seema rce(s) Supporting Document(s) Lactate [Moles/volume] in Serum or Plasma 2.0 MMOL/L 0.2 - 2.2 [facility] ID Date Data Source [id number] 09/30/2019 01:24:00 PM EDT [facility] ([facility]) Name Value Range Interpretation Code Description Data Seema rce(s) Supporting Document(s) Lactate [Mass/volume] in Serum or Plasma 2.0 mmol/L 0.2-2.2 [facility] ([facility]) ID Date Data Source [id number] 09/30/2019 12:35:00 PM EDT [facility] ([facility] Name Value Range Interpretation Code Description Data Seema rce(s) Supporting Document(s) Urinalysis Laboratory test result [facility] URINALYSIS Source Laboratory test result [facility] ([facility] Color Laboratory test result [facility] ([facility] Clarity Laboratory test result [facility] ([facility] Spec [place] 1.005 1.001-1.030 [facility] ([facility] pH 7 5-9 [facility] ([facility] Glucose Laboratory test result [facility] ([facility] Bilirubin Laboratory [facility] result [facility] ([facility] Ketone Laboratory test result [facility] ([facility] Protein Laboratory test result [facility] ([facility] Nitrite Laboratory test result [facility] ([facility] Blood Laboratory test result [facility] ([facility] Leuk Est Laboratory test result [facility] ([facility] Urobilinogen Laboratory test result [facility] ([facility] Microscopic Laboratory test result [facility] ([facility] ID Date Data Source [id number] 09/30/2019 12:44:00 PM EDT [facility] Name Value Range Interpretation Code Description Data Seema rce(s) Supporting Document(s) URINALYSIS [facility] URINALYSIS SOURCE R [facility] COLOR yellow NORMAL: Yellow [facility] CLARITY clear NORMAL: Clear [facility] Specific gravity of Urine by Test strip 1.005 1.001 - 1.030 [facility] pH 7 5 - 9 [facility] Glucose [Mass/volume] in Urine by Test strip NORM NORMAL: Negat alma [facility] Bilirubin.total [Presence] in Urine by Test strip NEG NORMAL: Negative [facility] Ketones [Presence] in Urine by Test strip NEG NORMAL: Negative [facility] Protein [Mass/volume] in Urine by Test strip NEG NORMAL: Negat [facility] Nitrite [Presence] in Urine by Test strip NEG NORMAL: Negative [facility] BLOOD NEG NORMAL: Negative [facility] Leukocyte esterase [Presence] in Urine by Test strip NEG JUDITH L: Negative [facility] Urobilinogen [Mass/volume] in Urine by Test strip NOR less diane n 1.0 mg/dL [facility] MICROSCOPIC Not Indicate [facility] ID Date Data Source [id number] 09/30/2019 12:35:00 PM EDT [facility] ([facility]) Name Value Range Interpretation Code Description Data Seema rce(s) Supporting Document(s) Urinalysis Laboratory test result [facility] ([facility]) SOURCE: Clean Catch Source Laboratory test result [facility] ([facility]) SOURCE: Clean Catch Clarity Laboratory test result [facility] ([facility]) SOURCE: Clean Catch Spec [place] 1.005 1.001-1.030 [facility] ([facility]) SOURCE: Clean Catch Color Laboratory test result [facility] ([facility]) SOURCE: Clean Catch Glucose Laboratory test result [facility] ([facility]) SOURCE: Clean Catch pH 7 5-9 [facility] ([facility]) SOURCE: Clean Catch Protein Laboratory test result [facility] ([facility]) SOURCE: Clean Catch Bilirubin Laboratory test result [facility] ([facility]) SOURCE: Clean Catch Ketone Laboratory test result [facility] ([facility]) SOURCE: Clean Catch Nitrite Laboratory test result [facility] ([facility]) SOURCE: Clean Catch Blood Laboratory test result [facility] ([facility]) SOURCE: Clean Catch Urobilinogen Laboratory test result [facility] ([facility]) SOURCE: Clean Catch Leuk Est Laboratory test result [facility] ([facility]) SOURCE: Clean Catch Microscopic Laboratory test result M [facility] ([facility]) SOURCE: Clean Catch ID Date Data Source [id number] 09/30/2019 11:48:00 AM EDT [facility] ([facility] Name Value Range Interpretation Code Description Data Seema rce(s) Supporting Document(s) CBC W/Automated Diff Laboratory test result [facility] ([facility] COMPLETE BLOOD COUNT RBC 4.49 10^6/uL 4.20-5.40 [facility] Hemoglobin 11.3 g/dL 12.0-16.0 Below low normal [facility] ( [facility] WBC 4.3 10^3/uL 4.2-11.0 [facility] Hematocrit 36.0 % 37.0-47.0 Below low normal [facility] ( [facility] MCHC 31.4 g/dL 31.0-36.0 [facility] MCV 80.2 fL 81.0-101 Below low normal [facility] ( [facility] MCH 25.2 pg 27.0-34.0 Below low normal [facility] ( [facility] Platelets 198 10^3/uL 150-450 [facility] RDW 17.9 % 11.5-14.5 Above high normal [facility] ([facility] MPV 10.0 fL 7.4-10.4 [facility] Neut 58.1 % 37.0-80.0 [facility] Trinity 6.1 % 3.0-8.0 [facility] Lymph 34.4 % 25.0-40.0 [facility] Eos 0.7 % 0.0-7.0 [facility] Baso 0.5 % 0.0-2.5 [facility] %NRBC 0.0 % 0.0-0.0 [facility] %Ig 0.2 % 0.0-0.0 Above high normal [facility] #Trinity 0.26 10^3/uL 0.00-0.90 [facility] #Lymph 1.47 10^3/uL 0.60-3.40 [facility] #Neut 2.48 10^3/uL 2.00-6.90 [facility] #Eos 0.03 10^3/uL 0.00-0.70 [facility] #Ig 0.01 10^3/uL 0.00-0.10 [facility] ([facility] #NRBC 0.00 10^3/uL 0.00-0.00 [facility] #Baso 0.02 10^3/uL 0.00-0.20 [facility] Manual Diff Laboratory test result [facility] ([facility] RBC Morph Laboratory test result [facility] ([facility] ID Date Data Source [id number] 09/30/2019 11:48:00 AM EDT [facility] ([facility] Name Value Range Interpretation Code Description Data Seema rce(s) Supporting Document(s) HCG Serum QL Reenter Laboratory test result [facility] ([facility] { KIT LOT # [id number] ) { KIT EXP DATE 01.26.21 ) { PROCEDURAL CONTROL VALID ) HCG Serum Qual Laboratory test result [facility] ([facility] ID Date Data Source [id number] 09/30/2019 11:48:00 AM EDT [facility] ([facility] Name Value Range Interpretation Code Description Data Seema rce(s) Supporting Document(s) Comprehensive Metabo Laboratory test result [facility] ([facility] COMPREHENSIVE METABOLIC PANEL Sodium 137 meq/L 134-153 [facility] Potassium 3.9 meq/L 3.6-5.0 [facility] Co2 24 meq/L 22-30 [facility] Glucose 102 mg/dL 65-110 [facility] Chloride 103 meq/L 98-107 [facility] BUN 13 mg/dL 7-21 [facility] Creatinine 0.7 mg/dL 0.7-1.5 [facility] ([facility] BUN/Creat 19 8-27 [facility] ([facility] Globulin 2.9 GM/DL 2.4-3.2 [facility] A/G Ratio 1.4 0.8-2.0 [facility] Albumin 4.1 g/dL 3.9-5.0 [facility] Total Protein 7.0 g/dL 6.3-8.2 [facility] ([facility] Alkaline Phos 59 U/L 38-126 [facility] ([facility] Total Bili Laboratory test result 0.2-1.3 [facility] ([facility] Calcium 8.9 mg/dL 8.4-10.2 [facility] Anion Gap 10.0 mmol/L 8.0-16.0 [facility] ([facility] SGPT/Alt 18 U/L 7-56 [facility] Sgot/Ast 16 U/L 5-40 [facility] ([facility] Age 24 yrs [facility] Afr Amer GFR Laboratory test result [facility] ([facility] Male GFR Interprentation 20-49 yrs >60 mL/min Normal 50-59 yrs >56 mL/min Normal 60-69 yrs >49 mL/min Normal 70-79yrs >42 mL/min Normal 80 and above >35 mL/min Normal Female GFR Interpretation 20-39 yrs >60 mL/min Normal 40-49 yrs >58 mL/min Normal 50-59 yrs >51 mL/min Normal 60-69 yrs >45 mL/min Normal 70-79 yrs >39 mL/min Normal 80 and above >32 mL/min Normal Non-Aa GFR Laboratory test result ME [facility] ([facility] ID Date Data Source [id number] 09/30/2019 11:48:00 AM EDT [facility] Name Value Range Interpretation Code Description Data Seema rce(s) Supporting Document(s) Lipoprotein lipase [Enzymatic activity/volume] in Serum or Plasm a 19 U/L 13-60 [facility] ([facility] ) ID Date Data Source [id number] 09/30/2019 11:58:00 AM EDT [facility] Name Value Range Interpretation Code Description Data Seema rce(s) Supporting Document(s) CBC W/AUTOMATED DIFF [facility] COMPLETE BLOOD COUNT Leukocytes [#/volume] in Blood by Automated count 4.3 10^3/uL 4.2 - 1 1.0 [facility] Erythrocytes [#/volume] in Blood by Automated count 4.49 10^6/uL 4. 20 - 5.40 [facility] Hemoglobin [Mass/volume] in Blood 11.3 g/dL 12.0 - 16.0 L [facility] Hematocrit [Volume Fraction] of Blood by Automated count 36.0 % 3 7.0 - 47.0 L [facility] Erythrocyte mean corpuscular volume [Entitic volume] by Auto mated count 80.2 fL 81.0 - 101 L [facility] Erythrocyte mean corpuscular hemoglobin [Entitic mass] by Automated count 25.2 pg 27.0 - 34.0 L [facility] Erythrocyte mean corpuscular hemoglobin concentration [Mass/volume] by Automated count 31.4 g/dL 31.0 - 36.0 [facility] Erythrocyte distribution width [Ratio] by Automated count 17.9 % 11.5 - 14.5 H [facility] Platelets [#/volume] in Blood by Automated count 198 10^3/uL 150 - 45 0 [facility] Platelet mean volume [Entitic volume] in Blood by Automated count 10.0 fL 7.4 - 10.4 [facility] Neutrophils/100 leukocytes in Blood by Automated count 58.1 % 37. 0 - 80.0 [facility] Lymphocytes/100 leukocytes in Blood by Manual count 34.4 % 25.0 - 40.0 [facility] Monocytes/100 leukocytes in Blood by Automated count 6.1 % 3.0 - 8.0 [facility] Eosinophils/100 leukocytes in Blood by Automated count 0.7 % 0.0 - 7.0 [facility] Basophils/100 leukocytes in Blood by Automated count 0.5 % 0.0 - 2.5 [facility] %IG 0.2 % 0.0 - 0.0 [facility] %NRBC 0.0 % 0.0 - 0.0 [facility] al Neutrophils [#/volume] in Blood by Automated count 2.48 10^3/uL 2.00 - 6.90 [facility] Lymphocytes [#/volume] in Blood by Automated count 1.47 10^3/uL 0.60 - 3.40 [facility] Monocytes [#/volume] in Blood by Automated count 0.26 10^3/uL 0.00 - 0.90 [facility] Eosinophils [#/volume] in Blood by Automated count 0.03 10^3/uL 0.00 - 0.70 [facility] Basophils [#/volume] in Blood by Automated count 0.02 10^3/uL 0.00 - 0.20 [facility] #IG 0.01 10^3/uL 0.00 - 0.10 [facility] #NRBC 0.00 10^3/uL 0.00 - 0.00 [facility] MANUAL DIFF NOT INDICATED [facility] RBC MORPH NOT INDICATED [facility] sp[facility] ID Date Data Source [id number] 09/30/2019 12:16:00 PM EDT [facility] Name Value Range Interpretation Code Description Data Seema rce(s) Supporting Document(s) HCG SERUM QUAL NEGATIVE NORMAL: NEGATIVE [facility] HCG SERUM QL REENTER NEGATIVE NORMAL: NEGATIVE [facility] { KIT LOT # [id number] ){ KIT EXP DATE 01.26.21 ){ PROCEDURAL CONTROL VALID ) ID Date Data Source [id number] 09/30/2019 12:18:00 PM EDT [facility] Name Value Range Interpretation Code Description Data Seema rce(s) Supporting Document(s) COMPREHENSIVE METABOLIC PANEL [facility] COMPREHENSIVE METABOLIC PANEL Sodium [Moles/volume] in Serum or Plasma 137 mEq/L 134 - 153 [facility] Potassium [Moles/volume] in Serum or Plasma 3.9 mEq/L 3.6 - 5.0 [facility] Chloride [Moles/volume] in Serum or Plasma 103 mEq/L 98 - 107 [facility] Carbon dioxide, total [Moles/volume] in Serum or Plasma 24 MEQ/L 22 - 30 [facility] Glucose [Mass/volume] in Serum or Plasma 102 MG/DL 65 - 110 [facility] BUN 13 MG/DL 7 - 21 [facility] Creatinine [Mass/volume] in Serum or Plasma 0.7 MG/DL 0.7 - 1.5 [facility] BUN/CREAT 19 8 - 27 [facility] al Protein [Mass/volume] in Serum or Plasma 7.0 G/DL 6.3 - 8.2 [facility] Albumin [Mass/volume] in Serum or Plasma 4.1 G/DL 3.9 - 5.0 [facility] Globulin [Mass/volume] in Serum by calculation 2.9 GM/DL 2.4 - 3.2 [facility] A/G RATIO 1.4 0.8 - 2.0 [facility] Calcium [Mass/volume] in Serum or Plasma 8.9 MG/DL 8.4 - 10.2 [facility] Bilirubin.total [Mass/volume] in Serum or Plasma <0.7 MG/DL 0.2 - 1.3 [facility] Alkaline phosphatase [Enzymatic activity/volume] in Serum or Plasma 59 U/L 38 - 126 [facility] Aspartate aminotransferase [Enzymatic activity/volume] in Serum or Plasma 16 U/L 5 - 40 [facility] Alanine aminotransferase [Enzymatic activity/volume] in Seru m or Plasma 18 U/L 7 - 56 [facility] Anion gap 3 in Serum or Plasma 10.0 mmol/L 8.0 - 16.0 [facility] AGE 24 yrs [facility] NON-AA GFR >60 mL/min [facility] AFR AMER GFR >60 mL/min [facility] Male GFR In terprentation 20-49 yrs >60 mL/min Normal 50-59 yrs >56 mL/min Normal 60-69 yrs >49 mL/min Normal 70-79yrs >42 mL/min Normal 80 and above >35 mL/min Normal Female GFR Interpretation 20-39 yrs >60 mL/min Normal 40-49 yrs >58 mL/min Normal 50-59 yrs >51 mL/min Normal 60-69 yrs >45 mL/min Normal 70-79 yrs >39 mL/min Normal 80 and above >32 mL/min Normal ID Date Data Source [id number] 09/30/2019 12:18:00 PM EDT [facility] Name Value Range Interpretation Code Description Data Seema rce(s) Supporting Document(s) Lipase [Enzymatic activity/volume] in Serum or Plasma 19 U/L 13 - 60 [facility] ID Date Data Source [id number] 09/30/2019 11:48:00 AM EDT [facility] ([facility]) Name Value Range Interpretation Code Description Data Seema rce(s) Supporting Document(s) CBC W/Automated Diff Laboratory test result [facility] ([facility]) COMPLETE BLOOD COUNT WBC 4.3 10^3/uL 4.2-11.0 [facility] ([facility]) RBC 4.49 10^6/uL 4.20-5.40 [facility] ([facility]) Hematocrit 36.0 % 37.0-47.0 Below low normal [facility] ( [facility]) MCV 80.2 fL 81.0-101 Below low normal [facility] ([facility]) Hemoglobin 11.3 g/dL 12.0-16.0 Below low normal [facility] ( [facility]) MCH 25.2 pg 27.0-34.0 Below low normal [facility] ( [facility]) MCHC 31.4 g/dL 31.0-36.0 [facility] ([facility]) Platelets 198 10^3/uL 150-450 [facility] ([facility]) RDW 17.9 % 11.5-14.5 Above high normal [facility] ([facility]) MPV 10.0 fL 7.4-10.4 [facility] ([facility]) Lymph 34.4 % 25.0-40.0 [facility] ([facility]) Trinity 6.1 % 3.0-8.0 [facility] ([facility]) Neut 58.1 % 37.0-80.0 [facility] ([facility]) Eos 0.7 % 0.0-7.0 [facility] ([facility]) Baso 0.5 % 0.0-2.5 [facility] ([facility]) %Ig 0.2 % 0.0-0.0 Above high normal [facility] ([facility]) #Lymph 1.47 10^3/uL 0.60-3.40 [facility] ([facility]) #Neut 2.48 10^3/uL 2.00-6.90 [facility] ([facility]) %NRBC 0.0 % 0.0-0.0 [facility] ([facility]) #Baso 0.02 10^3/uL 0.00-0.20 [facility] ([facility]) #Trinity 0.26 10^3/uL 0.00-0.90 [facility] ([facility]) #Eos 0.03 10^3/uL 0.00-0.70 [facility] ([facility]) #Ig 0.01 10^3/uL 0.00-0.10 [facility] ([facility]) #NRBC 0.00 10^3/uL 0.00-0.00 [facility] ([facility]) Manual Diff Laboratory test result M [facility] ([facility]) RBC Morph Laboratory test result [facility] ([facility]) ID Date Data Source [id number] 09/30/2019 11:48:00 AM EDT [facility] ([facility]) Name Value Range Interpretation Code Description Data Seema rce(s) Supporting Document(s) HCG Serum QL Reenter Laboratory test result [facility] ([facility]) { KIT LOT # [id number] ) { KIT EXP DATE 01.26.21 ) { PROCEDURAL CONTROL VALID ) HCG Serum Qual Laboratory test result [facility] ([facility]) ID Date Data Source [id number] 09/30/2019 11:48:00 AM EDT [facility] ([facility]) Name Value Range Interpretation Code Description Data Seema rce(s) Supporting Document(s) Sodium 137 meq/L 134-153 [facility] ([facility]) Comprehensive Metabo Laboratory test result [facility] ([facility]) COMPREHENSIVE METABOLIC PANEL Potassium 3.9 meq/L 3.6-5.0 [facility] ([facility]) Co2 24 meq/L 22-30 [facility] ([facility]) Chloride 103 meq/L 98-107 [facility] ([facility]) Creatinine 0.7 mg/dL 0.7-1.5 [facility] ([facility]) BUN 13 mg/dL 7-21 [facility] ([facility]) Glucose 102 mg/dL 65-110 [facility] ([facility]) Albumin 4.1 g/dL 3.9-5.0 [facility] ([facility]) Total Protein 7.0 g/dL 6.3-8.2 [facility] ([facility]) BUN/Creat 19 8-27 [facility] ([facility]) A/G Ratio 1.4 0.8-2.0 [facility] ([facility]) Globulin 2.9 GM/DL 2.4-3.2 [facility] ([facility]) Calcium 8.9 mg/dL 8.4-10.2 [facility] ([facility]) Total Bili Laboratory test result 0.2-1.3 [facility] ([facility]) Sgot/Ast 16 U/L 5-40 [facility] ([facility]) Alkaline Phos 59 U/L 38-126 [facility] ([facility]) SGPT/Alt 18 U/L 7-56 [facility] ([facility]) Anion Gap 10.0 mmol/L 8.0-16.0 [facility] ([facility]) Age 24 yrs [facility] ([facility]) Afr Amer GFR Laboratory test result [facility] ([facility]) Male GFR Interprentation 20-49 yrs >60 mL/min Normal 50-59 yrs >56 mL/min Normal 60-69 yrs >49 mL/min Normal 70-79yrs >42 mL/min Normal 80 and above >35 mL/min Normal Female GFR Interpretation 20-39 yrs >60 mL/min Normal 40-49 yrs >58 mL/min Normal 50-59 yrs >51 mL/min Normal 60-69 yrs >45 mL/min Normal 70-79 yrs >39 mL/min Normal 80 and above >32 mL/min Normal Non-Aa GFR Laboratory test result [facility] ([facility]) ID Date Data Source [id number] 09/30/2019 11:48:00 AM EDT [facility] ([facility]) Name Value Range Interpretation Code Description Data Seema rce(s) Supporting Document(s) Lipase [Enzymatic activity/volume] in Serum or Plasma 19 U/L 13-6 0 [facility] ([facility]) ID Date Data Source [id number] 09/12/2019 10:02:00 AM EDT [facility] 1 OrderSheet [facility] Emergency Department [address] [place] [address] Phone #: ext- [phone] 09/12/2019 10:02 Patient: ELIF ROMANO Sex: F : 1995 Age: 24yWEIGHT:83.9 kg (S) HEIGHT:58 inches (S) BMI:38.7ALLERGIES: Demerol, Dilaudid, Ibuprofen, Lavendar, Mushrooms, Naproxen, Toradol, TramadolCHIEF COMPLAINT: dyspnea, wheezing, hx of asthmaDIAGNOSIS: Asthma, Urinary tract infectious disease, HeadacheLAB ORDERSOrder Description Priority Entered Acknowledged InitialedCMP STAT 10:09/12/2019 10:25 Israel Jackson R.N. Physician;CBC w Diff STAT 10:09/12/2019 10:25 Israel Jackson R.N. Physician;Beta-HCG, Qual STAT 10:09/12/2019 10:25 Manuel,Serum Israel Humphrey R.N. Physician;Lactic Acid STAT 10:09/12/2019 10:25 Israel Jackson R.N. Physician;Urinalysis (Clean STAT 10:09/12/2019 10:49 Manuel,Catch) Israel Humphrey R.N. Physician;Urine Drug Screen STAT 10:09/12/2019 10:49 Israel Jackson R.N. Physician;D- Dimer STAT 10:09/12/2019 10:25 Israel Jackson R.N. Physician;DIAGNOSTIC STUDY ORDERSOrder Description Priority Entered Acknowledged InitialedCT Head W/O Cont STAT 10:09/12/2019 10:25 Manuel,(Oxygen?(No)) Israel Humphrey R.N. Physician; Reason for Study: Altered Mental Status, Head InjuryMEDICATION/IV/DRIP/FLUID ORDERSOrder Description Priority Entered Acknowledged Initialed 2 OrderSheet [facility] Emergency Department [address] [place] [address] Phone #: ext- [phone] 09/12/2019 10:02 Patient: ELIF ROMANO Sex: F : 1995 Age: 24yDuoNeb Neb Tx 3 10:18 09/12/2019 10:43 Erica Cochran (NOW) Israel Chandra R.N. Physician;SOLU-Medrol IVP 10:18 09/12/2019 10:43 Dimas125 mg Israel Chandra R.N. Physician;Acetaminophen PO 10:41 09/12/2019 10:42 Marnie Sabillon1000 mg (NOW) Marnie Sabillon R.N.; R.N. Verbal order per; Israel Nelson PhysicianIbuprofen 800 mg 12:20 09/12/2019 Cancelled: Physician Order 12:20 BrymavisPO X1 dose: 800 Israel Nelson Physicianmg (NOW x1) Physician;GENERAL ORDERSOrder Description Priority Entered Acknowledged InitialedCardiac Monitor 10:18 09/12/2019 10:23 Aristides(continuous) Israel Nelson manager pharmaceutical, Physician; Sonya ER [id number] 10:18 09/12/2019 10:23 Aristides Nelson manager pharmaceutical, Physician; Sonya ER [id number] Lock 10:18 09/12/2019 10:41 Marnie Sabillon R.N. Physician;Pulse oximeter 10:18 09/12/2019 10:41 Marnie Sabillon(Continuous) Israel Nelson R.N. Physician;[Electronically signed by Corazon Cochran R.N. (12:30 09/12/2019)][Electronically signed by Israel Nelson (08:39 09/14/2019)][Electronically locked by Corazon Cochran R.N. (12:30 09/12/2019)] Name Value Range Interpretation Code Description Data Seema rce(s) Supporting Document(s) ID Date Data Source [id number] 09/12/2019 10:02:00 AM EDT [facility] 1 Medication Reconciliation Report [facility] Emergency Department [address] [place] [address] Phone #: ext- [phone] 09/12/2019 10:02 Patient: ELIF ROMANO Sex: F : 1995 Age: 24yWeight: 83.9 kgHeight/Length: 58 in.BMI: 38.7ALLERGIES: Demerol, Dilaudid, Ibuprofen, Lavendar, Mushrooms, Naproxen, Toradol, TramadolThe patient's Home Medications are listed below:THE FOLLOWING MEDICATIONS NEED TO BE RECONCILED: busPIRone HCl Oral Oxycodone PROzac Ora l traZODone HCl OralThe source(s) of the original Home Medication information:patientThe following Medications were given to the patient in the Emergency Department:Acetaminophen [PO] PO 1000 mg, administered: 09/12/2019 10:42:00 AMSolu-Medrol [IVP] IVP 125 mg, administered: 09/12/2019 10:38:00 AMDuoneb [Neb Tx] Neb TX 1 unit dose, administered: 09/12/2019 10:33:00 AMThe following Medications were prescribed to the patient:Macrobid 100 mg capsule Take 1 capsule twice a day for 7 days -- for UTI. Dispense 14 capsule. Refills:0. Substitution permitted.[facility] [address] [place] [address] [phone]. FaxNumber: .acetaminophen 500 mg tablet Take 1 tablet every six hours as needed for 10 days -- for pain or fever.Dispense 40 tablet. Refills: 0. Substitution permitted.[facility] #[facility] - [address] [place] [address] [phone]. Phone: [phone] Medication Reconciliation Report [facility] Emergency Department [address] [place] [address] Phone #: ext- [phone] 09/12/2019 10:02 Patient: ELIF ROMANO Sex: F : 1995 Age: [id number] .albuterol sulfate HFA 90 mcg/actuation aerosol inhaler Inhale 2 puff every twelve hours as needed for 7days -- for cough / wheezes / SOB. Dispense 1 inhaler. Refills: 2. Substitution permitted.Pharmacy - [facility] - [address] [facility] ; [place], [place] [phone]. . -- Israel Nelson, Physician Name Value Range Interpretation Code Description Data Seema rce(s) Supporting Document(s) ID Date Data Source [id number] 09/12/2019 10:02:00 AM EDT [facility] 1 Medication Administration Record [facility] Emergency Department [address] [place] [address] Phone #: ext- [phone] 09/12/2019 10:02 Patient: ELIF ROMANO Sex: F : 1995 Age: 24yWeight: 83.9 kgHeight/Length: 58 inBMI: 38.7ALLERGIES: Demerol, Dilaudid, Ibuprofen, Lavendar, Mushrooms, Naproxen, Toradol, Tramadol Date/Time Medication Administered Medication OrderedGiven DUONEB [NEB TX] DuoNeb Neb Tx 3 mL (NOW)10:33 09/12/2019 Dose: 1 unit dose Nebulizer Neb TXCorazon Cochran RSashaNSashaGiven SOLU -MEDROL [IVP] SOLU-Medrol IVP 125 mg10:38 09/12/2019 (METHYLPREDNISOLONE SODIUMCorazon Cochran RSashaNSasha SUCC) Dose: 125 mg IVP Site: #1 right wristGiven ACETAMINOPHEN [PO] Acetaminophen PO 1000 mg10:42 09/12/2019 Dose: 1000 mg Tablets PO (NOW)Marnie Sabillon R.N. Name Value Range Interpretation Code Description Data Seema e(s) Supporting Document(s) ID Date Data Source [id number] 09/12/2019 10:02:00 AM EDT [facility] 1 General Instructions [facility] Emergency Department [address] [place] [address] Phone #: ext- [phone] 09/12/2019 10:02 Patient: ELIF ROMANO Sex: F : 1995 Age: 24yEpisodic, poorly controlled tension and post traumatic headache. No status migrainosus. No migraineheadache.Mild persistent asthma with an acute exacerbation (Completely resolved.). No status asthmaticus.Acute urinary tract infection with cystitis. No hematuria. Not associated with indwelling catheter orobstruction.INSTRUCTIONSAlternate Tylenol (Acetaminophen) or Motrin (Ibuprofen) for fever control. Take according to labelinstructions. Do not work today.Warnings: Further evaluation is necessary.GENERAL WARNINGS: Return or contact your physician immediately if your condition worsens orchanges unexpectedly, if not improving as expected, or if other problems arise.Prescription Medications:Macrobid 100 mg capsule Take 1 capsule twice a day for 7 days -- for UTI. Dispense 14 capsule. Refills:0. Substitution permitted.[facility] [address] [phone]. .acetaminophen 500 mg tablet Take 1 tablet every six hours as needed for 10 days -- for pain or fever.Dispense 40 tablet. Refills: 0. Substitution permitted.[facility] [address] [phone]. .albuterol sulfate HFA 90 mcg/actuation aerosol inhaler Inhale 2 puff every twelve hours as needed for 7days -- for cough / wheezes / SOB. Dispense 1 inhaler. Refills: 2. Substitution permitted.Pharmacy - [facility] - [address] [facility] ; [place], [place] [phone]. .Follow-up:Follow up with your doctor in three days even if well. Call for an appointment. Reason for referral:evaluation, treatment and Resolved asthma attack / UTI / Headache.Understanding of the discharge instructions verbalized by patient. 2 General Instructions [facility] Emergency Department [address] [place] [address] Phone #: ext- [phone] 09/12/2019 10:02 Patient: ELIF ROMANO Sex: F : 1995 Age: 24y ADDITIONAL INFORMATIONAsthma (Adult)Asthma is a disease where the medium and small air passages within the lung go into spasm andrestrict the flow of air. Inflammation and swelling of the airways cause further blockage. During anacute asthma attack, these factors cause trouble breathing, wheezing, cough and chest tightness.An asthma attack can be triggered by many things. Common triggers include infections such as thecommon cold, bronchitis, and pneumonia. Irritants such as smoke or pollutants in the air, very coldair, emotional upset, and exercise can also trigger an attack. In many adults with asthma, allergiesto dust, mold, pollen and animal dander can cause an asthma attack. Skipping doses of daily asthmamedicine can also bring on an asthma attack.Asthma can be con trolled using the proper medicines prescribed by your healthcare provider andavoiding exposure to known triggers including allergens and irritants.Home care 3 General Instructions [facility] Emergency Department [address] [place] [address] Phone #: ext- [phone] 09/12/2019 10:02 Patient: ELIF ROMANO Sex: F : 1995 Age: 24y Take prescribed medicine exactly at the times advised. If you need medicine such as from a hand held inhaler or aerosol breathing machine more than every 4 hours, contact your healthcare provider or seek immediate medical attention. If prescribed an antibiotic or prednisone, take all of the medicine as prescribed, even if you are feeling better after a few days. Don't smoke. Avoid being exposed to the smoke of others. Some people with asthma have worsening of their symptoms when they take aspirin and non-steroidal or fever-reducing medicines like ibuprofen and naproxen. Talk to your healthcare provider if you think this may apply to you.Follow-up careFollow up with your healthcare provider, or as advised. Always bring all of your current medicines toany appointments with your healthcare provider. Also bring a complete list of medicines even thosenot taken for asthma. If you don't already have one, talk to your healthcare provider about developingyour own "Asthma Action Plan."A pneumococcal (pneumonia) vaccine and yearly flu shot (every fall) are recommended. Ask yourdoctor about this.When to seek medical adviceCall your healthcare provider right away if any of these occur: Increased wheezing or shortness of breath Need to use your inhalers more often than usual without relief Fever of 100.4F (38C) or higher, or as directed by your healthcare provider Coughing up lots of dark-colored or bloody sputum (mucus) Chest pain with each breath If you use a peak flow meter as part of an Asthma Action Plan, and you are still in the yellow zone (50% to 80%) 15 minutes after using inhaler medicine.Call [phone] if any of the following occur Trouble walking or talking because of shortness of breath If you use a peak flow meter as part of an Asthma Action Plan and you are still in the red zone (less than 50%) 15 minutes after using inhaler medicine 4 General Instructions [facility] Emergency Department [address] [place] [address] Phone #: ext- [phone] 09/12/2019 10:02 Patient: ELIF ROMANO Sex: F : 1995 Age: 24y Lips or fingernails turning rodriguez or blue [phone] [place] [address]. All rights reserved. This information is not intended as asubstitute for professional medical care. Always follow your healthcare professional's instructions.Viral or Bacterial Bronchitis with Wheezing (Adult)Bronchitis is an infection of the air passages. It often occurs during a cold and is usually caused by avirus. Symptoms include cough with mucus (phlegm) and low-grade fever. This illness is contagiousduring the first few days and is spread through the air by coughing and sneezing, or by direct contact(touching the sick person and then touching your own eyes, nose, or mouth).If there is a lot of inflammation, air flow is restricted. The air passages may also go into spasm,especially if you have asthma. This causes wheezing and difficulty breathing even in people who donot have asthma. 5 General Instructions [facility] Emergency Department [address] [place] [address] Phone #: ext- [phone] 09/12/2019 10:02 Patient: ELIF ROMANO Sex: F : 1995 Age: 24yBronchitis usually lasts 7 to 14 days. The wheezing should improve with treatment during the firstweek. An inhaler is often prescribed to relax the air passages and stop wheezing. Antibiotics will beprescribed if your doctor thinks there is also a secondary bacterial infection.Home care If symptoms are severe, rest at home for the first 2 to 3 days. When you go back to your usual activities, don't let yourself get too tired. Dont s'moke. Also avoid being exposed to secondhand smoke. You may use zmhh-pwl-dbxfwpi medicine to control fever or pain, unless another medicine was prescribed. Note: If you have chronic liver or kidney disease or have ever had a stomach ulcer or gastrointestinal bleeding, talk with your healthcare provider before using these medicines. Also talk to your provider if you are taking medicine to prevent blood clots.) Aspirin should never be given to anyone younger than 18 years of age who is ill with a viral infection or fever. It may cause severe liver or brain damage. Your appetite may be poor, so a light diet is fine. Stay well hydrated by drinking 6 to 8 glasses of fluids per day (such as water, soft drinks, sports drinks, juices, tea, or soup). Extra fluids will help loosen secretions in the nose and lungs. Jqwx-ntv-tzesoqb cough, cold, and sore-throat medicines will not shorten the length of the illness, but they may be helpful to reduce symptoms. (Note: Don't use decongestants if you have high blood pressure.) If you were given an inhaler, use it exactly as directed. If you need to use it more often than prescribed, your condition may be worsening. If this happens, contact your healthcare provider. If prescribed, finish all antibiotic medicine, even if you are feeling better after only a few days.Follow-up careFollow up with your healthcare provider, or as advised. If you had an X-ray or ECG(electrocardiogram), a specialist will review it. You will be notified of any new findings that may affectyour care.If you are age 65 or older, or if you have a chronic lung disease or condition that affects your immunesystem, or you smoke, ask your healthcare provider about getting a pneumococcal vaccine and ayearly flu shot (influenza vaccine).When to seek medical adviceCall your healthcare provider right away if any of these occur: 6 General Instructions [facility] Emergency Department [address] [place] [address] Phone #: ext- [phone] 09/12/2019 10:02 Patient: ELIF ROMANO Sex: F : 1995 Age: 24y Fever of 100.4F (38C) or higher, or as directed by your healthcare provider Coughing up increasing amounts of colored sputum Weakness, drowsiness, headache, facial pain, ear pain, or a stiff neckCall 911Call 911 if any of these occur. Coughing up blood Worsening weakness, drowsiness, headache, or stiff neck Increased wheezing not helped with medication, shortness of breath, or pain with breathing [phone] [employer] [address] [place] [address]. All rights reserved. This information is not intended as asubstitute for professional medical care. Always follow your healthcare professional's instructions.Headache, UnspecifiedA number of things can cause headaches. The cause of your headache isn't clear. But it doesn'tseem to be a sign of any serious illness.You could have a tension headache or a migraine headache.Stress can cause a tension headache. This can happen if you tense the muscles of your shoulders,neck, and scalp without knowing it. If this stress lasts long enough, you may develop a tension 7 General Instructions [facility] Emergency Department [address] [place] [address] Phone #: ext- [phone] 09/12/2019 10:02 Patient: ELIF ROMANO Sex: F : 1995 Age: 24yheadache.It is not clear why migraines occur, but certain things called" triggers" can raise the risk of having amigraine attack. Migraine triggers may include emotional stress or depression, or by hormonechanges during the menstrual cycle. Other triggers include control pills and other medicines,alcohol or caffeine, foods with tyramine (such as aged cheese, wine), eyestrain, weather changes,missed meals, and lack of sleep or oversleeping.Other causes of headache include: Viral illness with high fever Head injury with concussion Sinus, ear, or throat infection Dental pain and jaw joint (TMJ) painMore serious but less common causes of headache include stroke, brain hemorrhage, brain tumor,meningitis, and encephalitis.Home careFollow these tips when taking care of yourself at home: Don't drive yourself home if you were given pain medicine for your headache. Instead, have someone else drive you home. Try to sleep when you get home. You should feel much better when you wake up. Apply heat to the back of your neck to ease a neck muscle spasm. Take care of a migraine headache by putting an ice pack on your forehead or at the base of your skull. If you have nausea or vomiting, eat a light diet until your headache eases. If you have a migraine headache, use sunglasses when in the daylight or around bright indoor lighting until your symptoms get better. Bright glaring light can make this type of headache worse.Follow-up careFollow up with your healthcare provider, or as advised. Talk with your provider if you have frequentheadaches. He or she can help figure out a treatment plan. By knowing the earliest signs ofheadache, and starting treatment right away, you may be able to stop the pain yourself.When to seek medical ad viceCall your healthcare provider right away if any of these occur: 8 General Instructions [facility] Emergency Department [address] [place] [address] Phone #: [phone] wpp- [phone] 09/12/2019 10:02 Patient: ELIF ROMANO Sex: F : 1995 Age: 24y Your head pain suddenly gets worse after sexual intercourse or strenuous activity Your head pain doesn't get better within 24 hours You aren't able to keep liquids down (repeated vomiting) Fever of 100.4F (38C) or higher, or as directed by your healthcare provider Stiff neck Extreme drowsiness, confusion, or fainting Dizziness or dizziness with spinning sensation (vertigo) Weakness in an arm or leg or one side of your face You have trouble talking or seeing [id number] [employer] [address] [place] [address]. All rights reserved. This information is not intended as asubstitute for professional medical care. Always follow your healthcare professional's instructions.Bladder Infection, Female (Adult)Urine is normally doesn't have any bacteria in it. But bacteria can get into the urinary tract from theskin around the rectum. Or they can travel in the blood from elsewhere in the body. Once they are inyour urinary tract, they can cause infection in the urethra (urethritis), the bladder (cystitis), or thekidneys (pyelonephritis). 9 General Instructions [facility] Emergency Department [address] [place] [address] Phone #: ext- [phone] 09/12/2019 10:02 Patient: ELIF ROMANO Sex: F : 1995 Age: 24yThe most common place for an infection is in the bladder. This is called a bladder infection. This isone of the most common infections in women. Most bladder infections are easily treated. They arenot serious unless the infection spreads to the kidney.The phrases "bladder infection," "UTI," and "cystitis" are often used to describe the same thing. Butthey are not always the same. Cystitis is an inflammation of the bladder. The most common cause ofcystitis is an infection.SymptomsThe infection causes inflammation in the urethra and bladder. This causes many of the symptoms.The most common symptoms of a bladder infection are: Pain or burning when urinating Having to urinate more often than usual Urgent need to urinate Only a small amount of urine comes out Blood in urine Abdominal discomfort. This is usually in the lower abdomen above the pubic bone. Cloudy urine Strong- or bad-smelling urine Unable to urinate (urinary retention) Unable to hold urine in (urinary incontinence) Fever Loss of appetite Confusion (in older adults)CausesBladder infections are not contagious. You can't get one from someone else, from a toilet seat, orfrom sharing a bath.The most common cause of bladder infections is bacteria from the bowels. The bacteria get onto theskin around the opening of the urethra. From there, they can get into the urine and travel up to thebladder, causing inflammation and infection. This usually happens because of: Wiping improperly after urinating. Always wipe from front to back. 10 General Instructions [facility] Emergency Department [address] [place] [address] Phone #: ext- [phone] 09/12/2019 10:02 Patient: ELIF ROMANO Sex: F : 1995 Age: 24y Bowel incontinence Procedures such as having a catheter inserted Older age Not emptying your bladder. This can allow bacteria a chance to grow in your urine. Dehydration Constipation Sex Use of a diaphragm for controlTreatmentBladder infections are diagnosed by a urine test. They are treated with antibiotics and usually clear upquickly without complications. Treatment helps prevent a more serious kidney infection.MedicinesMedicines can help in the treatment of a bladder infection: Take antibiotics until they are used up, even if you feel better. It is important to finish them to make sure the infection has cleared. You can use acetaminophen or ibuprofen for pain, fever, or discomfort, unless another medicine was prescribed. If you have chronic liver or kidney disease, talk with your healthcare provider before using these medicines. Also talk with your provider if you've ever had a stomach ulcer or gastrointestinal bleeding, or are taking blood-thinner medicines. If you are given phenazopydridine to reduce burning with urination, it will cause your urine to become a bright orange color. This can stain clothing.Care and preventionThese self-care steps can help prevent future infections: Drink plenty of fluids to prevent dehydration and flush out your bladder. Do this unless you must restrict f luids for other health reasons, or your doctor told you not to. Proper cleaning after going to the bathroom is important. Wipe from front to back after using the toilet to prevent the spread of bacteria. 11 [facility] Instructions [facility] [facility] [address] [place] [address] Phone #: ext- [phone] 09/12/2019 10:02 Patient: ELIF ROMANO Sex: F : 1995 Age: 24y Urinate more often. Don't try to hold urine in for a long time. Wear loose- fitting clothes and cotton underwear. Avoid tight-fitting pants. Improve your diet and prevent constipation. Eat more fresh fruit and vegetables, and fiber, and less junk and fatty foods. Avoid sex until your symptoms are gone. Avoid caffeine, alcohol, and spicy foods. These can irritate your bladder. Urinate right after intercourse to flush out your bladder. If you use c ontrol pills and have frequent bladder infections, discuss it with your doctor.Follow-up careCall your healthcare provider if all symptoms are not gone after 3 days of treatment. This is especiallyimportant if you have repeat infections.If a culture was done, you will be told if your treatment needs to be changed. If directed, you cancall to find out the results.If X-rays were done, you will be told if the results will affect your treatment.Call [phone] if any of the following occur: Trouble breathing Hard to wake up or confusion Fainting or loss of consciousness Rapid heart rateWhen to seek medical adviceCall your healthcare provider right away if any of these occur: Fever of 100.4F (38.0C) or higher, or as directed by your healthcare provider Symptoms are not better by the third day of treatment Back or belly (abdominal) pain that gets worse Repeated vomiting, or unable to keep medicine down Weakness or dizziness 12 General Instructions [facility] Emergency Department [address] [place] [address] Phone #: ext- [phone] 09/12/2019 10:02 Patient: ELIF ROMANO Sex: F : 1995 Age: 24y Vaginal discharge Pain, redness, or swelling in the outer vaginal area (labia) [id number] [place] [address]. All rights reserved. This information is not intended as asubstitute for professional medical care. Always follow your healthcare professional's instructions. You have been given the following additional information: Asthma, Acute (Adult) Bronchitis with Wheezing (Adult) Headache, Unspecified Bladder Infection, Female (Adult) Do not work today.(Electronically signed by Israel Nelson, Physician 09/14/2019 08:39) Name Value Range Interpretation Code Description Data Seema rce(s) Supporting Document(s) ID Date Data Source [id number] 09/12/2019 10:02:00 AM EDT [facility] 1 Clinical Report - Nurses [facility] Emergency Department [address] [place] [address] Phone #: ext- [phone] 09/12/2019 10:02 Patient: ELIF ROMANO Sex: F : 1995 Age: 24yTRIAGEArrived by EMS. Historian: patient.Triage time: 10:04 09/12/2019. Acuity: LEVEL 3.Chief Complaint: "ASTHMA ATTACK" and ("SEIZURES").Alert. No acute distress.This started today. Onset. (30 MINUTES AGO). 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 EMS states pt had some left upperwheezing. Pt couldn't find inhaler in her van, and looking for it was the last thing she remembers. Ptstates she has a history of anxiety induced seizures. EMS states pt fell and hit the back of her head and istender here. Pt was able to respond to EMS during this seizure episode. Pt denies incontinence. 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 Sepsis Screen negative. No suspected or confirmed signs ofinfection present. (10:09 09/12/2019). --10:09 09/12/19 Dania Lee R.N.10:04 09/12/19. BP: 130/80. MAP: 96. HR: 72. RR: 18. O2 saturation: 96% on room air. Temp: 98.3 F.Pain level now: 11/23. --10:09 09/12/19 Dania Lee R.N.Weight: 83.9 kg stated. Height/Length: 58 inches Per Patient. BMI: 38.7. --10:03 09/12/19 Dania Lee R.N.MedicationsbusPIRone HCl Oral. Oxycodone. PROzac Oral. traZODone HCl Oral. --10:06 09/12/19 Dania Lee R.N. AllergiesDemerol.Dilaudid.Ibuprofen.Lavendar.Mushrooms.Naproxen.Toradol.Tramadol . --10:06 09/12/19 Dania Lee R.N. 2 Clinical Report - Nurses [facility] Emergency Department [address] [place] [address] Phone #: ext- [phone] 09/12/2019 10:02 --------- [id number] Sex: F : 1995 Age: 24yPROBLEMS:Gastroesophageal Reflux Disease.Gallstone(s).Kidney stones.GI Disease.Depression.Acute Pain.Anxiety related siezures.Anxiety Reaction.Urinary Calculi.Tension-Type Headache.Vaginal Bleeding.UTI - Urinary Tract Infection.Seizure.Nephrolithiasis.Scoliosis.Renal Colic. --10:07 09/12/19 Dania Lee R.N.Medication/allergy information source: the patient. --10:09 09/12/19 Dania Lee R.N.ADDITIONAL SURGERIES:Carpal Tunnel Surgery (Right).Dental Surgery.Dilatation Curettage.Stent (Kidney).Tubal Ligation. --10:09/12/19 Dania Lee R.N.HistoryPAST MEDICAL HX: Immunizations: up-to-date. Last normal menstrual period was 1 week ago.SOCIAL HX: Former smoker, end date 2012. No alcohol use or drug use. She was offered HIV testingbut declined. Patient education was provided. She was offered hepatitis C testing but declined. Patienteducation was provided. ( COVID screen negative). She has not traveled outside the [place]Infectious disease exposure: No infectious disease exposure. Patient is not a known carrier of tuberculosis,hepatitis, HIV, MRSA or VRE. Patient is not a known carrier of CRE.SELF HARM ASSESSMENT: Self harm assessment was performed. The patient answered "no" to thequestion(s) "Do you have thoughts of harming or killing yourself?" and "Do you have a plan for harming orkilling yourself?".ABUSE ASSESSMENT: Abuse assessment. The patient had positive responses to the question(s) "Do youfeel safe in your home?". Abuse denied. No suspicion of abuse. No report of abuse.NUTRITIONAL RISK ASSESSMENT: The nutritional risk assessment revealed no deficiencies. 3 Clinical Report - Nurses [facility] Emergency Department [address] [place] [address] Phone #: ext- [phone] 09/12/2019 10:02 Patient: ELIF ROMANO [facility]#: [id number] Sex: F : 1995 Age: 24y FUNCTIONAL ASSESSMENT: Functional assessment: no impairments noted. LEARNING NEEDS ASSESSMENT: The learning needs assessment revealed no barriers. FALL RISK ASSESSMENT: Fall risk assessment completed. No risk factors identified. SKIN INTEGRITY ASSESSMENT: Skin integrity risk assessment completed. No skin integrity risk identified. --10:09 09/12/19 Dania Lee R.N. Interventions Identification band on patient. --10:09/12/19 Dania Lee R.N.PHYSICAL [id number] 09/12/19. To room via stretcher. ( after breathing tx).GENERAL / NEURO / PSYCH: Alert. Oriented X 4. Appears in no acute distress.HEENT: Mucous membranes are pink.RESPIRATORY: No respiratory distress. Respirations not labored. Chest nontender. Breath soundswithin normal limits.CVS: Capillary refill less than 2 seconds.GI / : Abdomen soft and nontender. Bowel sounds within normal limits.SKIN: Skin is warm and dry. Normal skin turgor. --10:46 09/12/19 Kam Jackson R.N.NURSING PROGRESS NOTESEKG time: (late entry - 10:08 09/12/2019). EKG was ordered, performed by a tech and shown to the EDphysician and PA. --10:09 09/12/19 Dania Lee R.N. quality assurance monitor final, NIBP monitor and pulse oximeter placed on patient; surveillance monitor- Lead II; monitor alarms on; monitor strip added to paper chart. Patient gowned. Reassurance given. Three patient identifiers checked. Call light placed in reach. Side rails up x 2. Bed placed in lowest position. Brakes of bed on. Patient ready for evaluation- ED physician and PA notified. --10:09 09/12/19 Dania Lee R.N. 10:10 09/12/2019 Site #1 started via IV in the right wrist with an 20g angiocath, with aseptic technique and good blood return; one attempt. Saline lock flushed with 10 mL saline (Placed by Corazon FISHER). --10:10 09/12/19 Dania Lee R.N. 10:33 09/12/2019 Duoneb Neb [place] Nebulizer 1 unit dose given. Given by the nurse. Allergies verified and confirmed 5 rights. Information reviewed with patient. Verbalizes understanding. --10:43 09/12/19 Corazon Cochran R.N. 10:38 09/12/2019 Solu-Medrol (methylPREDNISolone Sodium Succ) IVP 125 mg given over 3 minute(s) via site #1. Allergies verified and confirmed 5 rights. IV patency established. IV site checked: no pain, redness, or swelling. IV flushed thor oughly pre- and post-medication administration. Information reviewed 4 Clinical Report - Nurses [facility] Emergency Department [address] [place] [address] Phone #: ext- [phone] 09/12/2019 10:02 Patient: ELIF ROMANO Sex: F : 1995 Age: 24y with patient. Verbalizes understanding. --10:43 09/12/19 Corazon Cochran R.N. 10:42 09/12/2019 Acetaminophen PO Tablets 1000 mg given. Allergies verified and confirmed 5 rights. Information reviewed with patient including reason for taking this medication, signs of allergic reaction and precautions. Verbalizes understanding. --10:42 09/12/19 Marnie Sabillon R.N. 11:16 09/12/19. Reassurance given. Reassessment acuity: LEVEL 3. Reassessment after medication administered. No adverse reaction. Respiratory distress gone now. She is calm, resting quietly and sleeping. RESPIRATORY: No respiratory distress. CVS: Normal sinus rhythm noted. SKIN: Skin is warm and dry. Skin color within normal limits. Two patient identifiers checked. Call light placed in reach. Side rails up x 2. Bed placed in lowest position. Brakes of bed on. --11:16 09/12/19 Kam Jackson R.N. 11:33 09/12/19. Patient transported to CT by wheelchair with donor technician. --11:33 09/12/19 Kam Jackson R.N. 11:43 09/12/19. Patient returned from CT by wheelchair with donor technician. --11:43 09/12/19 Kam Jackson R.N. 12:07 09/12/19. BP: 124/75. MAP: 91. HR: 74. RR: 17. O2 saturation: 100%. --12:08 09/12/19 [facility] manager pharmaceutical, Sonya Tech1.DISPOSITION / DISCHARGE No learning barriers present. Discharge instructions provided and reviewed with the patient. Reviewed medication(s). The patient was discharged home. She left ambulatory and via private vehicle. Spouse driving. --12:29 09/12/19 Corazon Cochran R.N. 12:30 09/12/19. BP: 116/72. HR: 78. RR: 16. O2 saturation: 100%. Temp: 98.0 F. Pain level now 0/10. --12:30 09/12/19 Corazon Cochran R.N.Locked/Released at 09/12/2019 12:30 by Corazon Cochran R.N. Name Value Range Interpretation Code Description Data Seema rce(s) Supporting Document(s) ID Date Data Source [id number] 09/12/2019 10:02:00 AM EDT [facility] 1 Clinical Report - Physicians/Mid Levels [facility] Emergency Department [address] [place] [address] Phone #: ext- [phone] 09/12/2019 10:02 Patient: ELIF ROMANO Sex: F : 1995 Age: 24y Time Seen: 10:03 09/12/2019. Arrived- By private vehicle. Historian- patient and EMS personnel. Disposition decision: 12:10 09/12/2019.HISTORY OF PRESENT ILLNESS Chief Complaint: DYSPNEA, WHEEZING and HISTORY OF ASTHMA. This started today and is still present and worsening. It was abrupt in onset. The dyspnea is described as moderate. No cough, sputum production, orthopnea or chest pain or discomfort. (Pt. remembers she was looking for her inhaler for an asthma attack before she passed out at her car in the parking lot at her work.). Asthma triggers: unknown. Takes asthma medications (inhaled albuterol) Similar symptoms previously. Patient has had similar symptoms occasionally. Recent medical care: Not recently seen/assessed.REVIEW OF SYSTEMSNo sore throat, nasal discharge, sinus drainage, fever or chills. No muscle aches, palpitations, calf pain,nausea or abdominal pain. No diarrhea, black stools, difficulty with urination, excessive urination or skinrash. No enlarged lymph nodes, pedal edema, vomiting, bloody stools or joint pain. Denies currentpregnancy. The patient has had a moderate global headache.PAST HISTORYPast history not negative. See nurses notes. GI disease. Other disease. GERDGallstonesKidney stonesHeadachesDepression / AnxietyAcute and chronic painAnxiety-related seizures (Pseudoseizures)Vaginal bleedingUTIsScoliosisRenal colic. Surgeries: Dilatation and Curettage. Dental surgery. Tubal ligation. (R carpal tunnel Renal stent).SOCIAL HISTORY 2 Clinical Report - Physicians/Mid Levels [facility] Emergency Department [address] [place] [address] Phone #: ext- [phone] 09/12/2019 10:02 Patient: ELIF ROMANO Sex: F : 1995 Age: 24y Former smoker. No alcohol use or drug use. No recent travel.ADDITIONAL NOTESThe nursing notes have been reviewed with agreement regarding the chief complaint, HPI, ROS, PMH andpatient medications and allergies.PHYSICAL EXAMVital Signs: 09/12/2019 12:07 BP: 124/75. MAP: 91. HR: 74. RR: 17. O2 saturation: 100%.09/12/2019 10:04 BP: 130/80. MAP: 96. HR: 72. RR: 18. O2 saturation: 96% on room air. Temp: 98.3 F.Pain level now: 11/23. Have been reviewed and appear to be correct. Blood pressure normal. Heart ratenormal. Respiratory rate normal. Temperature normal. Oxygen saturation normal.Appearance: Alert. Anxious. Appears to be in pain. Patient in mild distress. In distress. (Headacheonly.).Eyes: Pupils equal, round and reactive to light. Eyes normal inspection.ENT: Nose normal. Pharynx normal. Uvula midline.Neck: Normal inspection. Neck supple.CVS: Normal heart rate and rhythm. Heart sounds normal. Pulses normal.Respiratory: No respiratory distress. Painless inspiration. Breath sounds normal.Abdomen: Soft and nontender. No organomegaly.Back: Normal inspection.Skin: Skin warm and dry. Normal skin color. No rash. Normal skin turgor.Extremities: Extremities exhibit normal ROM. No lower extremity edema.Neuro: Oriented X 3. No motor deficit. No sensory deficit.LABS, X-RAYS, AND EKGCT Head: No acute disease.Laboratory Tests: Laboratory tests have been ordered, with results reviewed and considered in themedical decision making process. EKG: (CHRIS: 09/12/2019 10:18) ( MsgRcvd 09/13/2019 13:55) Final results Test Result Flag Units (Reference) EKG [facility] [address] [place] [address] -- -- RESPIRATORY CARE REPORT -- ---------NAME------- NUMBER SEX AGE ADMIT DISC. XRAY# F/C TYPE ROSALINA Peck [id number] F 24 09/12/19 09/12/19 [id number] E/R DATE OF : 1995 M/R# [id number] #: [id number] TR-08 LOCATION: EMERGENCY DEPT [facility] [address] COMPLETE:09/12/19 10:55 [facility] [address] PHYSICIAN: LESLIE JOHNSON CMP: (CHRIS: 09/12/2019 10:36) ( MsgRcvd 09/12/2019 11:32) Final results Test Result Flag Units (Reference) COMPREHENSIVE METABOLIC PANEL 3 Clinical Report - Physicians/Mid Levels [facility] Emergency Department [address] [place] [address] Phone #: ext- [phone] 09/12/2019 10:02 Patient: ELIF ROMANO Sex: F : 1995 Age: 24y COMPREHENSIVE METABOLIC PANEL SODIUM 140 mEq/L (134 - 153) POTASSIUM 4.2 mEq/L (3.6 - 5.0) CHLORIDE 103 mEq/L (98 - 107) CO2 24 MEQ/L (22 - 30) GLUCOSE 96 MG/DL (65 - 110) BUN 13 MG/DL (7 - 21) CREATININE 0.8 MG/DL (0.7 - 1.5) BUN/CREAT 16 (8 - 27) TOTAL PROTEIN 6.9 G/DL (6.3 - 8.2) ALBUMIN 4.4 G/DL (3.9 - 5.0) GLOBULIN 2.5 GM/DL (2.4 - 3.2) A/G RATIO 1.8 (0.8 - 2.0) CALCIUM 9.6 MG/DL (8.4 - 10.2) TOTAL BILI <0.7 MG/DL (0.2 - 1.3) ALKALINE PHOS 66 U/L (38 - 126) SGOT/AST 16 U/L (5 - 40) SGPT/ALT 18 U/L (7 - 56) ANION GAP 13.0 mmol/L (8.0 - 16.0) AGE 24 yrs NON-AA GFR >60 mL/min AFR AMER GFR >60 mL/min Male GFR Interprentation 20-49 yrs >60 mL/min Fsmbyl17-29 yrs >56 mL/min Normal 60-69 yrs >49 mL/min Normal 70-79yrs>42 mL/min Normal 80 and above >35 mL/min Normal Female GFRInterpretation 20-39 yrs >60 mL/min Normal 40-49 yrs >58 mL/minNormal 50-59 yrs >51 mL/min Normal 60-69 yrs >45 mL/min Rqcgqw05- 79 yrs >39 mL/min Normal 80 and above >32 mL/min NormalCBC w Diff: (CHRIS: 09/12/2019 10:36) ( MsgRcvd 09/12/2019 11:09) Final results Test Result Flag Units (Reference) CBC W/AUTOMATED DIFF COMPLETE BLOOD COUNT WBC 6.5 10/uL (4.2 - 11.0) RBC 4.60 10/uL (4.20 - 5.40) HEMOGLOBIN 11.3 L g/dL (12.0 - 16.0) HEMATOCRIT 36.0 L % (37.0 - 47.0) MCV 78.3 L fL (81.0 - 101) MCH 24.6 L pg (27.0 - 34.0) MCHC 31.4 g/dL (31.0 - 36.0) RDW 18.0 H % (11.5 - 14.5) PLATELETS 225 10/uL (150 - 450) MPV 10.6 H fL (7.4 - 10.4) NEUT 70.3 % (37.0 - 80.0) LYMPH 22.1 L % (25.0 - 40.0) MONO 6.0 % (3.0 - 8.0) EOS 0.8 % (0.0 - 7.0) BASO 0.3 % (0.0 - 2.5) %IG 0.5 H % (0.0 - 0.0) %NRBC 0.0 % (0.0 - 0.0) #NEUT 4.59 10/uL (2.00 - 6.90) #LYMPH 1.44 10/uL (0.60 - 3.40) #MONO 0.39 10/uL (0.00 - 0.90) #EOS 0.05 10/uL (0.00 - 0.70) #BASO 0.02 10/uL (0.00 - 0.20) #IG 0.03 10/uL (0.00 - 0.10) #NRBC 0.00 10/uL (0.00 - 0.00) MANUAL DIFF NOT INDICATED 4 Clinical Report - Physicians/Mid Levels [facility] Emergency Department [address] [place] [address] Phone #: ext- [phone] 09/12/2019 10:02 Patient: ELIF ROMANO Sex: F : 1995 Age: 24y RBC MORPH NOT INDICATEDBeta-HCG, Qual Serum: (CHRIS: 09/12/2019 10:36) ( [facility] 09/12/2019 11:23) Final results Test Result Flag Units (Reference) HCG SERUM QUAL NEGATIVE (NORMAL: NEGAT HCG SERUM QL REENTER NEGATIVE (NORMAL: NEGAT { KIT LOT # [id number] ){ KIT EXP DATE01.26.21 ){ PROCEDURAL CONTROL VALID)Lactic Acid: (CHRIS: 09/12/2019 10:37) ( [facility] 09/12/2019 11:05) Final results Test Result Flag Units (Reference) LACTIC ACID 2.2 MMOL/L (0.2 - 2.2)Urinalysis: (CHRIS: 09/12/2019 10:50) ( NegRcvd 09/12/2019 11:20) Final results Test Result Flag Units (Reference) URINALYSIS URINALYSIS SOURCE R COLOR yellow (NORMAL: Yello CLARITY clear (NORMAL: Clear SPEC GRAVITY 1.005 (1.001 - 1.030 pH 7 (5 - 9) GLUCOSE NORM (NORMAL: Negat BILIRUBIN NEG (NORMAL: Negat KETONE NEG (NORMAL: Negat PROTEIN NEG (NORMAL: Negat NITRITE NEG (NORMAL: Negat BLOOD NEG (NORMAL: Negat LEUK EST 100 A (NORMAL: Negat UROBILINOGEN NOR (less than 1.0 MICROSCOPIC See Below WBC 3 - 5 (NORMAL: NONE EPITHELIAL FEW (NORMAL: NONE BACTERIA 1+ SMALL (NORMAL: NONEDrug Screen-Urine: (CHRIS: 09/12/2019 10:50) ( MsgRcvd 09/12/2019 11:10) Final results Test Result Flag Units (Reference) DRUG SCREEN URINE URINE DRUG SCREEN AMPHETAMINES NEGATIVE (NORMAL: NEGAT BARBITURATES NEGATIVE (NORMAL: NEGAT BENZO NEGATIVE (NORMAL: NEGAT COCAINE NEGATIVE (NORMAL: NEGAT THC NEGATIVE (NORMAL: NEGAT OPIATES NEGATIVE (NORMAL: NEGAT PCP NEGATIVE (NORMAL: NEGAT \\BLDo\\URINE DRUG SCREEN INTERPRETATION\\BLDx\\ THE CUTOFFF LEVELS FORDETECTION ARE FOLLOWS: AMPHETAMINES 1000 ng/mlBARBITUARATES 200 ng/ml BENZODIAZEPINES 100 ng/mlTHC 50 ng/ml PHENCYCLIDINE 25 ng/mlOPIATES 300 ng/ml COCAINE 300 ng/mlALL POSITIVES ARE CONSIDERED PRESUMPTIVE POSITIVE CONFIRMATION [facility]. 5 Clinical Report - Physicians/Mid Levels [facility] Emergency Department [address] [place] [address] Phone #: ext- [phone] 09/12/2019 10:02 Patient: ELIF ROMANO Sex: F : 1995 Age: 24yD-Dimer: (CHRIS: 09/12/2019 10:36) ( MsgRcvd 09/12/2019 11:20) Final results Test Result Flag Units (Reference) D-DIMER QUANT 0.54 H ug/mL (0.27 - 0.50)CT Head W/O Cont: (CHRIS: 09/12/2019 10:17) ( MsgRcvd 09/12/2019 15:09) Final results Exam CT HEAD W/[place] [address] PHONE: [phone] FAX: [phone] Name .................. : ROSALINA Peck Acct Number.................. : [id number] ROOM. ................. : TR-08 Number ................... : [id number] Stay type ............. : E/R Discharge Date......... ... : 09/12/19 Admit Date ......... : 09/12/19 Admit Phys .................... : LESLIE JOHNSON Date of ....... : 1995 Family Phys ................... : LATRELL ANGUIANOeZelleron Phone .................. : [phone] Age ................................ : 24 Film# .................. .:[id number] Sex ................................. : F Unsigned transcriptions are preliminary reports and do not represent a medical or legal document CT HEAD W/O CONTRAST [id number] COMPLETE:09/12/19 11:43 [facility] [address] Reason(s): Altered Mental Status Head Injury CT SCAN OF THE HEAD WITHOUT CONTRAST ENHANCEMENT, 09/12/19: INDICATION: Altered mental status. FINDINGS: The ventricular system is normal. No evidence for parenchymal loss is noted. No evidence for masses or mass effects are identified. No evidence for subdural, epidural, or subarachnoid hemorrhage is noted. The bones and soft tissues also appear normal. IMPRESSION: Unremarkable CT scan of the head without intravenous contrast. While performing the above CT examination, radiation dose reduction was accomplished utilizing automated exposure control, adjusting of the mA and kV based on the patient's body size and/or the use of imperative reconstructive techniques. CT dose 765.1 mGycm. Electronically Reviewed and Signed By LINDA RIVERA MD , 09/12/19 15:09, [facility] Transcribe Initials: DEV, Transcribe Date: 09/12/19 14:39, Dictation Date: Copy for: LATRELL MEZA via fax 6 Clinical Report - Physicians/Mid Levels [facility] Emergency Department [address] [place] [address] Phone #: ext- [phone] 09/12/2019 10:02 Patient: ELIF ROMANO Sex: F : 1995 Age: 24y Copy for: EMERGENCY DEPT via [facility] [address] [place] [address] PHONE: [phone] FAX: [phone] Name .................. : ROSALINA Peck Acct Number.................. : [id number] ROOM. ................. : TR-08 MR Number ................... : [id number] Stay type ............. : E/R Discharge Date......... ... : 09/12/19 Admit Date ......... : 09/12/19 Admit Phys .................... : LESLIE JOHNSON Date of ....... : 1995 Family Phys ................... : LATRELL BENOIT Phone .................. : [phone] Age ................................ : 24 Film# .................. .:[id number] Sex ................................. : F Unsigned transcriptions are preliminary reports and do not represent a medical or legal document CT HEAD W/O CONTRAST [id number] COMPLETE:09/12/19 11:43 [facility] [address] Reason(s): Altered Mental Status Head Injury Copy for: [address] [place] [address] REC DISCHARGED Page 2 of 2.PROGRESS AND PROCEDURESCourse of Care: 12:Sep 12 2019. Patient is stable. Symptoms much better. :Sep [address] head unremarkable. Remainder of labs unremarkable except presence of UTI on UA and mild elevation of D-dimer. Pt. has no SOB, no wheezing and no chest pain. Other than mild headache, respiratory symptoms resolved. Pt. does not have true seizures (only pseudoseizures d/t anxiety). Will discharge home. Critical care performed (125 minutes). Time is exclusive of separately billable procedures. Time includes: direct patient care, patient reassessment, interpretation of data (laboratory data, pulse oximetry and chest xrays), review of patient's medical records and documentation of patient care- see progress notes. Procedures included in critical care time: peripheral IV placement and phlebotomy- see progress notes. Disposition: Discharged home in good and improved condition (12:10 Sep 12 2019). Condition: good.CLINICAL IMPRESSION Episodic, poorly controlled tension and post traumatic headache. No status migrainosus. No migraine headache. 7 Clinical Report - Physicians/Mid Levels [facility] Emergency Department [address] [place] [address] Phone #: ext- [phone] 09/12/2019 10:02 Patient: ELIF ROMANO Sex: F : 1995 Age: 24y Mild persistent asthma with an acute exacerbation (Completely resolved.). No status asthmaticus. Acute urinary tract infection with cystitis. No hematuria. Not associated with indwelling catheter or obstruction.INSTRUCTIONS Alternate Tylenol (Acetaminophen) or Motrin (Ibuprofen) for fever control. Take according to label instructions. Do not work today. Warnings: Further evaluation is necessary. GENERAL WARNINGS: Return or contact your physician immediately if your condition worsens or changes unexpectedly, if not improving as expected, or if other problems arise. Prescription Medications: Macrobid 100 mg capsule Take 1 capsule twice a day for 7 days -- for UTI. Dispense 14 capsule. Refills: 0. Substitution permitted. [facility] [address] [place] [address] [id number]. . acetaminophen 500 mg tablet Take 1 tablet every six hours as needed for 10 days -- for pain or fever. Dispense 40 tablet. Refills: 0. Substitution permitted. [facility] [address] [id number]. . albuterol sulfate HFA 90 mcg/actuation aerosol inhaler Inhale 2 puff every twelve hours as needed for 7 days -- for cough / wheezes / SOB. Dispense 1 inhaler. Refills: 2. Substitution permitted. Pharmacy - [id number] - [id number] [facility] ; [place], [place] [id number]. . Follow-up: Follow up with your doctor in three days even if well. Call for an appointment. Reason for referral: evaluation, treatment and Resolved asthma attack / UTI / Headache. Understanding of the discharge instructions verbalized by patient.(Electronically signed by Israel Nelson, Physician 09/14/2019 08:39) 8Clinical Report - Physicians/Mid Levels [facility] Emergency Department [address] [place] [address] Phone #: [phone] 09/12/2019 10:02 Patient: ELIF ROMANO Sex: F : 1995 Age: 24y Name Value Range Interpretation Code Description Data Seema rce(s) Supporting Document(s) ID Date Data Source [id number] 09/13/2019 01:55:00 [place] [address] RESPIRATORY CARE REPORT ==== ---------NAME------- NUMBER SEX AGE ADMIT DISC. XRAY# F/C BERNADETTE Peck [id number] F 24 09/12/19 09/12/19 [id number] [id number] E/R DATE OF : 1995 M/R# [id number] PH#: [phone] TR-08 LOCATION: EMERGENCY DEPT EKG 14925 COMP LETE:09/12/19 10:55 [facility] [address] PHYSICIAN: LESLIE JOHNSON Name Value Range Interpretation Code Description Data Seema rce(s) Supporting Document(s) ID Date Data Source [id number] 09/12/2019 03:09:00 PM EDT [facility] [address] [place] [address] PHONE: [phone] FAX: [phone] Name .................. : ROSALINA Peck Acct Number.................. : [id number] ROOM. ................. : TR-08 Number ................... : [id number] Stay type ............. : E/R Discharge Date......... ... : 09/12/19 Admit Date ......... : 09/12/19 Admit Phys .................... : LESLIE JOHNSON Date of ....... : 1995 Family Phys ................... : LATRELL BENOIT Phone .................. : [phone] Age ................................ : 24 Film# .................. .:[id number] Sex ................................. : F Unsigned transcriptions are preliminary reports and do not represent a medical or legal document CT HEAD W/O CONTRAST [id number] COMPLETE:09/12/19 11:43 [facility] [address] Reason(s): Altered Mental Status CT SCAN OF THE HEAD WITHOUT CONTRAST ENHANCEMENT, 09/12/19: INDICATION: Altered mental status. FINDINGS: The ventricular system is normal. No evidence for parenchymal loss is noted. No evidence for masses or mass effects are identified. No evidence for subdural, epidural, or subarachnoid hemorrhage is noted. The bones and soft tissues also appear normal. IMPRESSION: Unremarkable CT scan of the head without intravenous contrast. While performing the above CT examination, radiation dose reduction was accomplished utilizing automated exposure control, adjusting of the mA and kV based on the patient's body size and/or the use of imperative reconstructive techniques. CT dose 765.1 mGycm. Electronically Reviewed and Signed By LINDA RIVERA MD , 09/12/19 15:09, [facility] Transcribe Initials: DEV, Transcribe Date: 09/12/19 14:39, Dictation Date: Copy for: LATRELL MEZA via fax Copy for: EMERGENCY DEPT via [email or web address] [address] [place] [address] PHONE: [phone] FAX: [phone] Name .................. : ROSALINA Peck Acct Number.................. : [id number] ROOM. ................. : TR-08 Number ................... : [id number] Stay type ............. : E/R Discharge Date......... ... : 09/12/19 Admit Date ......... : 09/12/19 Admit Phys .................... : LESLIE JOHNSON Date of ....... : 1995 Family Phys ................... : LATRELL BENOIT Phone .................. : [phone] Age ................................ : 24 Film# .................. .:[id number] Sex ................................. : F Unsigned transcriptions are preliminary reports and do not represent a medical or legal document CT HEAD W/O CONTRAST [id number] COMPLETE:09/12/19 11:43 [facility] [id number] Reason(s): Altered Mental Status Copy for: 710 MED REC DISCHARGED Page 2 of 2 Name Value Range Interpretation Code Description Data Seema rce(s) Supporting Document(s) ID Date Data Source [id number] 09/12/2019 10:50:00 AM EDT [facility] ([facility] Name Value Range Interpretation Code Description Data Seema rce(s) Supporting Document(s) Culture Urine Laboratory test [facility] _CULTURE URINE_ ^$[id number] ^^[id number] $$[id number] ^^633357 $$944253 $$356859 $$014502 $$728344 $$652198 $$491270 $$911826 $$046932 $$417641 $$760067 $$461488 $$229607 $$582335 $$583207 $$861901 $$338678 $$853403 $$206309 $$956415 $$667984 $$388871 $$808239 $$139820 ^^340663 $$681302 $$917879 $$628005 -- Continued on next page -- Patient: ROSALINA Peck Order: [id number] Page 2 Culture: CULTURE URINE Status: Final -- Continued on next page -- Patient: ROSALINA Peck Order: [id number] Page 2 Culture: CULTURE URINE Status: Prelim $$[id number] $$[id number] REPORTED DATE/TIME: 09/16/2019 13:06 Culture: CULTURE URINE Status: Final Urine Culture,Comprehensive: P1 Mixed urogenital mikala 50,000-100,000 colony forming units per mL Previous result entered on 09/14/2019 13:48 ET Microbiological testing to rule out the presence of possible pathogens is in progress. P1 Test performed by: [facility] #: [id number] [address] [place] [address] [id number] [facility] [address] Trust Administrative Assistant : Carlitos Velazquez MD NPI #: Skull Grinder : 09/15/19.0646.XMT.SENT REF 09/16/19.1317.XMT.SENT REF ID Date Data Source [id number] 09/12/2019 10:50:00 AM EDT [facility] Name Value Range Interpretation Code Description Data Seema rce(s) Supporting Document(s) Urinalysis Laboratory test result [facility] ([facility] URINALYSIS Spec [place] 1.005 1.001-1.030 [facility] ([facility] Color Laboratory test result [facility] ([facility] Source Laboratory test result [facility] ([facility] Clarity Laboratory test result [facility] Bilirubin Laboratory test result [facility] pH 7 5-9 [facility] ([facility] Glucose Laboratory test result [facility] ([facility] Ketone Laboratory test result [facility] ([facility] Protein Laboratory test result [facility] ([facility] Nitrite Laboratory test result [facility] ([facility] Microscopic Laboratory test result [facility] ([facility] Leuk Est 100 Abnormal (applies to non-numeric res ults) [facility] ([facility] Urobilinogen Laboratory test result [facility] ([facility] Blood Laboratory test result [facility] ([facility] Epithelial Laboratory test result [facility] ([facility] WBC Laboratory test result [facility] ([facility] Bacteria Laboratory test result [facility] ([facility] ID Date Data Source [id number] 09/12/2019 10:50:00 AM EDT [facility] ([facility] Name Value Range Interpretation Code Description Data Seema rce(s) Supporting Document(s) Barbiturates Laboratory test result [facility] ([facility] Amphetamines Laboratory test result [facility] ([facility] Drug Screen Urine Laboratory test result [facility] ([facility] URINE DRUG SCREEN Cocaine Laboratory test result [facility] ([facility] THC Laboratory test result [facility] ([facility] Benzo Laboratory test result [facility] ([facility] PCP Laboratory test result [facility] ([facility] \\BLDo\\URINE DRUG SCREEN INTERPRETATION\\B LDx\\ THE CUTOFFF LEVELS FOR DETECTION ARE FOLLOWS: AMPHETAMINES 1000 ng/ml BARBITUARATES 200 ng/ml BENZODIAZEPINES 100 ng/ml THC 50 ng/ml PHENCYCLIDINE 25 ng/ml OPIATES 300 ng/ml COCAINE 300 ng/ml ALL POSITIVES ARE CONSIDERED PRESUMPTIVE POSITIVE CONFIRMATION WILL BE PERFORMED AT PHYSICIAN REQUEST. Opiates Laboratory test result [facility] ([facility] ID Date Data Source [id number] 09/16/2019 01:17:00 PM EDT [facility] Name Value Range Interpretation Code Description Data Seema rce(s) Supporting Document(s) CULTURE URINE [facility] _CULTURE URINE_$$[id number]$$[id number]$$[id number]$$[id number]$$874046$$721948$$540278$$471512$$838034$$ 500308$$755871$$704982$$096293$$962708$$541787$$984581$$564415$$773897$$669838$$ 604835$$891802$$639082$$266818$$452102$$334510$$394396$$177261 -- Continued on next page --Patient: ROSALINA Peck Order: [id number] Page 2Culture: CULTURE URINE Status: Final ==== -- Continued on next page --Patient: ROSALINA Peck Order: [id number] Page 2Culture: CULTURE URINE Status: Prelim =====$$[id number]$$[id number] DATE/TIME: 09/16/2019 13:06Culture: CULTURE URINE Status: FinalUrine Culture,Comprehensive: [id number] urogenital flora50,000-100,000 colony forming units per mL Previous result entered on 09/14/2019 13:48 ET Microbiological testing to rule out the presence of possible pathogensis in progress.P1 Test performed by: [facility] #: [id number] [address] [place] [address] [id number] [facility] [id number] Director : Carlitos Velazquez MD NPI #:Skull Grinder : 09/15/19.0646.XMT.SENT REF 09/16/19.1317.XMT.SENT REF ID Date Data Source [id number] 09/12/2019 11:09:00 AM EDT [facility] Name Value Range Interpretation Code Description Data Seema rce(s) Supporting Document(s) DRUG SCREEN URINE [facility] URINE DRUG SCREEN Amphetamine [Presence] in Urine by Screen method NEGATIVE NORMAL: N EGATIVE [facility] BARBITURATES NEGATIVE NORMAL: NEGATIVE [facility] BENZO NEGATIVE NORMAL: NEGATIVE [facility] COCAINE NEGATIVE NORMAL: NEGATIVE [facility] Tetrahydrocannabinol [Presence] in Urine NEGATIVE NORMAL: NEGATIVE [facility] OPIATES NEGATIVE NORMAL: NEGATIVE [facility] Phencyclidine [Presence] in Urine by Screen method NEGATIVE NOR MAL: NEGATIVE [facility] \\BLDo\\URINE DRUG SCR EEN INTERPRETATION\\BLDx\\ THE CUTOFFF LEVELS FOR DETECTION ARE FOLLOWS: AMPHETAMINES 1000 ng/ml BARBITUARATES 200 ng/ml BENZODIAZEPINES 100 ng/ml THC 50 ng/ml PHENCYCLIDINE 25 ng/ml OPIATES 300 ng/ml COCAINE 300 ng/ml ALL POSITIVES ARE CONSIDERED PRESUMPTIVE POSITIVE CONFIRMATION WILL BE PERFORMED AT PHYSICIAN REQUEST. ID Date Data Source [id number] 09/12/2019 11:20:00 AM EDT [facility] Name Value Range Interpretation Code Description Data Seema rce(s) Supporting Document(s) [facility] COL[facility] yellow NORMAL: Yellow [facility] CLARITY clear NORMAL: Clear [facility] Specific gravity of Urine by Test strip 1.005 1.001 - 1.030 [facility] pH 7 5 - 9 [facility] al Glucose [Mass/volume] in Urine by Test strip NORM NORMAL: Negat alma [facility] Bilirubin.total [Presence] in Urine by Test strip NEG NORMAL: Negative [facility] Ketones [Presence] in Urine by Test strip NEG NORMAL: Negative [facility] Protein [Mass/volume] in Urine by Test strip NEG NORMAL: Negat alma [facility] Nitrite [Presence] in Urine by Test strip NEG NORMAL: Negative [facility] BLOOD NEG NORMAL: Negative [facility] Leukocyte esterase [Presence] in Urine by Test strip 100 JUDITH L: Negative A [facility] Urobilinogen [Mass/volume] in Urine by Test strip NOR less diane n 1.0 mg/dL [facility] MICROSCOPIC See Below [facility] ital WBC 3 - 5 NORMAL: NONE SEEN [facility] EPITHELIAL FEW NORMAL: NONE SEEN [facility] Bacteria [Presence] in Urine sediment by Light microscopy 1+ SMALL NORMAL: NONE SEEN [facility] ID Date Data Source [id number] 09/12/2019 10:37:00 AM EDT [facility] ([facility] Name Value Range Interpretation Code Description Data Seema rce(s) Supporting Document(s) Lactate [Mass/volume] in Serum or Plasma 2.2 mmol/L 0.2-2.2 [facility] ([facility] ID Date Data Source [id number] 09/12/2019 11:05:00 AM EDT [facility] Name Value Range Interpretation Code Description Data Seema rce(s) Supporting Document(s) Lactate [Moles/volume] in Serum or Plasma 2.2 MMOL/L 0.2 - 2.2 [facility] ID Date Data Source [id number] 09/12/2019 10:36:00 AM EDT [facility] ([facility] Name Value Range Interpretation Code Description Data Seema rce(s) Supporting Document(s) Comprehensive [facility] Laboratory test result [facility] ([facility] COMPREHENSIVE METABOLIC PANEL Potassium 4.2 meq/L 3.6-5.0 [facility] ([facility] Sodium 140 meq/L 134-153 [facility] Chloride 103 meq/L 98-107 [facility] Co2 24 meq/L 22-30 [facility] Creatinine 0.8 mg/dL 0.7-1.5 [facility] ([facility] Glucose 96 mg/dL 65-110 [facility] BUN 13 mg/dL 7-21 [facility] BUN/Creat 16 8-27 [facility] ([facility] Albumin 4.4 g/dL 3.9-5.0 [facility] ([facility] Globulin 2.5 GM/DL 2.4-3.2 [facility] ([facility] Total Protein 6.9 g/dL 6.3-8.2 [facility] ([facility] Total Bili Laboratory test result 0.2-1.3 [facility] ([facility] Calcium 9.6 mg/dL 8.4-10.2 [facility] ([facility] A/G Ratio 1.8 0.8-2.0 [facility] Alkaline Phos 66 U/L 38-126 [facility] SGPT/Alt 18 U/L 7-56 [facility] Sgot/Ast 16 U/L 5-40 [facility] Anion Gap 13.0 mmol/L 8.0-16.0 [facility] Non-Aa GFR Laboratory test result [facility] ([facility] Afr Amer GFR Laboratory test result [facility] ([facility] Male GFR Interprentation 20-49 yrs >60 mL/min Normal 50-59 yrs >56 mL/min Normal 60-69 yrs >49 mL/min Normal 70-79yrs >42 mL/min Normal 80 and above >35 mL/min Normal Female GFR Interpretation 20-39 yrs >60 mL/min Normal 40-49 yrs >58 mL/min Normal 50-59 yrs >51 mL/min Normal 60-69 yrs >45 mL/min Normal 70-79 yrs >39 mL/min Normal 80 and above >32 mL/min Normal Age 24 yrs [facility] ([facility] ID Date Data Source [id number] 09/12/2019 10:36:00 AM EDT [facility] ([facility] Name Value Range Interpretation Code Description Data Seema rce(s) Supporting Document(s) HCG Serum Qual Laboratory test result [facility] ([facility] HCG Serum QL [facility] Laboratory test result [facility] ([facility] { KIT LOT # [id number] ) { KIT EXP DATE 01.26.21 ) { PROCEDURAL CONTROL VALID ) ID Date Data Source [id number] 09/12/2019 10:36:00 AM EDT [facility] ([facility] Name Value Range Interpretation Code Description Data Seema rce(s) Supporting Document(s) Fibrin D-dimer [Presence] in Platelet poor plasma 0.54 ug/mL 0.27-0.50 Above high normal [facility] ([facility] ) ID Date Data Source [id number] 09/12/2019 10:36:00 AM EDT [facility] ([facility] Name Value Range Interpretation Code Description Data Seema rce(s) Supporting Document(s) CBC W/Automated Diff Laboratory test result [facility] ([facility] COMPLETE BLOOD COUNT WBC 6.5 10^3/uL 4.2-11.0 [facility] ([facility] Hematocrit 36.0 % 37.0-47.0 Below low normal [facility] ( [facility] Hemoglobin 11.3 g/dL 12.0-16.0 Below low normal [facility] ( [facility] RBC 4.60 10^6/uL 4.20-5.40 [facility] ([facility] RDW 18.0 % 11.5-14.5 Above high normal [facility] ([facility] MCHC 31.4 g/dL 31.0-36.0 [facility] ([facility] MCH 24.6 pg 27.0-34.0 Below low normal [facility] ( [facility] MCV 78.3 fL 81.0-101 Below low normal [facility] ( [facility] Neut 70.3 % 37.0-80.0 [facility] MPV 10.6 fL 7.4-10.4 Above high normal [facility] ([facility] Platelets 225 10^3/uL 150-450 [facility] Lymph 22.1 % 25.0-40.0 Below low normal [facility] ( [facility] Eos 0.8 % 0.0-7.0 [facility] Trinity 6.0 % 3.0-8.0 [facility] %NRBC 0.0 % 0.0-0.0 [facility] #Neut 4.59 10^3/uL 2.00-6.90 [facility] %Ig 0.5 % 0.0-0.0 Above high normal [facility] ([facility] Baso 0.3 % 0.0-2.5 [facility] #Trinity 0.39 10^3/uL 0.00-0.90 [facility] #Eos 0.05 10^3/uL 0.00-0.70 [facility] #Lymph 1.44 10^3/uL 0.60-3.40 [facility] #NRBC 0.00 10^3/uL 0.00-0.00 [facility] #Ig 0.03 10^3/uL 0.00-0.10 [facility] #Baso 0.02 10^3/uL 0.00-0.20 [facility] RBC Morph Laboratory test result [facility] ([facility] Manual Diff Laboratory test result Maik[facility] ([facility] ID Date Data Source [id number] 09/12/2019 11:08:00 AM EDT [facility] Name Value Range Interpretation Code Description Data Seema rce(s) Supporting Document(s) CBC W/AUTOMATED DIFF [facility] COMPLETE BLOOD COUNT Leukocytes [#/volume] in Blood by Automated count 6.5 10^3/uL 4.2 - 1 1.0 [facility] Erythrocytes [#/volume] in Blood by Automated count 4.60 10^6/uL 4. 20 - 5.40 [facility] Hemoglobin [Mass/volume] in Blood 11.3 g/dL 12.0 - 16.0 L [facility] Hematocrit [Volume Fraction] of Blood by Automated count 36.0 % 3 7.0 - 47.0 L [facility] Erythrocyte mean corpuscular volume [Entitic volume] by Auto mated count 78.3 fL 81.0 - 101 L [facility] Erythrocyte mean corpuscular hemoglobin [Entitic mass] by Automated count 24.6 pg 27.0 - 34.0 L [facility] Erythrocyte mean corpuscular hemoglobin concentration [Mass/volume] by Automated count 31.4 g/dL 31.0 - 36.0 [facility] Erythrocyte distribution width [Ratio] by Automated count 18.0 % 11.5 - 14.5 H [facility] Platelets [#/volume] in Blood by Automated count 225 10^3/uL 150 - 45 0 [facility] Platelet mean volume [Entitic volume] in Blood by Automated count 10.6 fL 7.4 - 10.4 H [facility] Neutrophils/100 leukocytes in Blood by Automated count 70.3 % 37. 0 - 80.0 [facility] Lymphocytes/100 leukocytes in Blood by Manual count 22.1 % 25.0 - 40.0 L [facility] Monocytes/100 leukocytes in Blood by Automated count 6.0 % 3.0 - 8.0 [facility] Eosinophils/100 leukocytes in Blood by Automated count 0.8 % 0.0 - 7.0 [facility] Basophils/100 leukocytes in Blood by Automated count 0.3 % 0.0 - 2.5 [facility] %IG 0.5 % 0.0 - 0.0 [facility] %NRBC 0.0 % 0.0 - 0.0 [facility] al Neutrophils [#/volume] in Blood by Automated count 4.59 10^3/uL 2.00 - 6.90 [facility] Lymphocytes [#/volume] in Blood by Automated count 1.44 10^3/uL 0.60 - 3.40 [facility] Monocytes [#/volume] in Blood by Automated count 0.39 10^3/uL 0.00 - 0.90 [facility] Eosinophils [#/volume] in Blood by Automated count 0.05 10^3/uL 0.00 - 0.70 [facility] Basophils [#/volume] in Blood by Automated count 0.02 10^3/uL 0.00 - 0.20 [facility] #IG 0.03 10^3/uL 0.00 - 0.10 [facility] #NRBC 0.00 10^3/uL 0.00 - 0.00 [facility] MANUAL DIFF NOT INDICATED [facility] RBC MORPH NOT INDICATED [facility] ID Date Data Source [id number] 09/12/2019 11:19:00 AM EDT [facility] Name Value Range Interpretation Code Description Data Seema rce(s) Supporting Document(s) Fibrin D-dimer FEU [Mass/volume] in Platelet poor plasma 0.54 ug /mL 0.27 - 0.50 H [facility] ID Date Data Source [id number] 09/12/2019 11:22:00 AM EDT [facility] Name Value Range Interpretation Code Description Data Seema rce(s) Supporting Document(s) HCG SERUM QUAL NEGATIVE NORMAL: NEGATIVE [facility] HCG SERUM QL REENTER NEGATIVE NORMAL: NEGATIVE [facility] { KIT LOT # [id number] ){ KIT EXP DATE 01.26.21 ){ PROCEDURAL CONTROL VALID ) ID Date Data Source [id number] 09/12/2019 11:32:00 AM EDT [facility] Name Value Range Interpretation Code Description Data Seema rce(s) Supporting Document(s) COMPREHENSIVE METABOLIC PANEL [facility] COMPREHENSIVE METABOLIC PANEL Sodium [Moles/volume] in Serum or Plasma 140 mEq/L 134 - 153 [facility] Potassium [Moles/volume] in Serum or Plasma 4.2 mEq/L 3.6 - 5.0 [facility] Chloride [Moles/volume] in Serum or Plasma 103 mEq/L 98 - 107 [facility] Carbon dioxide, total [Moles/volume] in Serum or Plasma 24 MEQ/L 22 - 30 [facility] Glucose [Mass/volume] in Serum or Plasma 96 MG/DL 65 - 110 [facility] BUN 13 MG/DL 7 - 21 [facility] Creatinine [Mass/volume] in Serum or Plasma 0.8 MG/DL 0.7 - 1.5 [facility] BUN/CREAT 16 8 - 27 [facility] Protein [Mass/volume] in Serum or Plasma 6.9 G/DL 6.3 - 8.2 [facility] Albumin [Mass/volume] in Serum or Plasma 4.4 G/DL 3.9 - 5.0 [facility] Globulin [Mass/volume] in Serum by calculation 2.5 GM/DL 2.4 - 3.2 [facility] A/G RATIO 1.8 0.8 - 2.0 [facility] Calcium [Mass/volume] in Serum or Plasma 9.6 MG/DL 8.4 - 10.2 [facility] Bilirubin.total [Mass/volume] in Serum or Plasma <0.7 MG/DL 0.2 - 1.3 [facility] Alkaline phosphatase [Enzymatic activity/volume] in Serum or Plasma 66 U/L 38 - 126 [facility] Aspartate aminotransferase [Enzymatic activity/volume] in Serum or Plasma 16 U/L 5 - 40 [facility] Alanine aminotransferase [Enzymatic activity/volume] in Seru m or Plasma 18 U/L 7 - 56 [facility] Anion gap 3 in Serum or Plasma 13.0 mmol/L 8.0 - 16.0 [facility] AGE 24 yrs [facility] al NON-AA GFR >60 mL/min [facility] ital AFR AMER GFR >60 mL/min [facility] Ho spital Male GFR In terprentation 20-49 yrs >60 mL/min Normal 50-59 yrs >56 mL/min Normal 60-69 yrs >49 mL/min Normal 70-79yrs >42 mL/min Normal 80 and above >35 mL/min Normal Female GFR Interpretation 20-39 yrs >60 mL/min Normal 40-49 yrs >58 mL/min Normal 50-59 yrs >51 mL/min Normal 60-69 yrs >45 mL/min Normal 70-79 yrs >39 mL/min Normal 80 and above >32 mL/min Normal ID Date Data Source [id number] 08/01/2019 01:06:00 [place] [address] OPERATIVE SUMMARYNAME: ROSALINA Peck DATE OF : 1995ATTENDING PHYS: DAVE STATON MD DATE: 08/01/19 MR#: [id number] PROCEDURE: 08/01/2019PREOPERATIVE DIAGNOSIS:Right distal ureteral calculus.POST-OPERATIVE DIAGNOSIS:Right distal ureteral calculus.PROCEDURE PERFORMED: 1. Right ureteroscopy. 2. Laser lithotripsy. 3. Right ureteral stent placement.ATTENDING SURGEON: Dr. Dave Staton.PHYSICIAN PIN INSERTER REGULATOR: JESSE Truong.ANESTHESIA: General with LMA.ANESTHESIOLOGIST: Mio Hi CRNA.ESTIMATED BLOOD LOSS: Minimal.COMPLICATIONS: None.DRAINS: 6 x 22 double-J ureteral stent.DISPOSITION: To the Ambulatory Surgical Unit.CONDITION: Stable.INTRAOPERTATIVE FINDINGS:O bstructing 6 mm calculus in the distal right ureter.INDICATIONS FOR THE PROCEDURE:Ms. Elif Romano is a 24-year-old lady previously seen and evaluated with a right ureteral calculus.She had had medical expulsive therapy tried unsuccessfully, and after counseling, she had opted forureteroscopy with laser lithotripsy and stent placement. [address] [place] [address] OPERATIVE SUMMARYNAME: ROSALINA Peck DATE OF : 1995ATTENDING PHYS: DAVE STATON MD DATE: 08/01/19 MR#: [id number] OF PROCEDURE:After a detailed informed consent was obtained from the patient, she was wheeled into theoperating room and installed on the operating table in the supine position. General anesthesia withendotracheal intubation was then administered, and she was placed in the lithotomy position. Theperineal and vaginal areas were then cleaned, prepped, and draped in the usual sterile fashion. Afterthe proper time out procedures were carried out, cystourethroscopy was performed and the rightureteral orifice was visualized and cannulated with an angiographic catheter. Right retrogradepyelography revealed the presence of a calculus in the distal right ureter with severe obstruction. A0.038 GlideWire was then used to bypass the calculus into the upper collecting system. Semi-rigidureteroscopy was then performed, advancing the ureteroscope to the level of the calculus. Thecalculus was then broken up using the 200 micro-laser fiber. The calculus was broken down tosmall pieces, and the pieces extracted with the help of an extractor basket. We were able to bypassthis level where there was a significant amount of inflammation noted. The rest of the ureter did notshow any abnormalities. The decision was then made to proceed with a stent placement. A 6 x 22double-J ureteral stent was then placed over the guidewire and advanced under fluoroscopyguidance until the proximal aspect was in the renal pelvis. The stent was then maintained inposition by the pusher while the guidewire was removed, forming proximal and distal curls in therenal pelvis and urinary bladder, respectively. The bladder was then emptied, and at this point, withthe operation now completed, the anesthesia was reversed. The patient was transferred onto [facility] and subsequently transferred to the recovery room in stable condition. The operation waswell tolerated and there were no complications. Patient will be seen in 3-4 days for ureteral stentremoval.Copies of this report to Dr. Russell Packer.DD: DAVE STATON MD 08/01/19 10:02DT: DEV 08/01/19 12:53DS: DAVE STATON MD 08/08/19 16:15 2 Name Value Range Interpretation Code Description Data Seema rce(s) Supporting Document(s) ID Date Data Source [id number] 08/04/2019 04:55:00 PM EDT [facility] [address] [place] [address] PHONE: [phone] FAX: [phone] Name .................. : ROSALINA Peck Acct Number.................. : [id number] ROOM. ................. : Number ................... : [id number] Stay type ............. : O/P Discharge Date......... ... : 07/30/19 Admit Date .... ..... : 07/30/19 Admit Phys .................... : OBENFELIX Date of ....... : 1995 Family Phys ................... : LATRELL BENOIT Phone .................. : [phone] Age ................................ : 24 Film# .................. .:[id number] Sex ................................. : F Unsigned transcriptions are preliminary reports and do not represent a medical or legal document ABDOMEN 1 VIEW [id number] COMPLETE:07/30/19 18:02 [facility] [id number] (REASON FOR ABDOMEN Abdominal pain. ABDOMINAL X-RAY: SINGLE VIEW COMPARISON: None available. FINDINGS: Mild chronic fecal retention is seen. Calcification is seen in the right hemipelvis which may be due to distal ureteral calculus or phlebolith. Additional evidence of renal stone disease is not identified. There is no acute osseous abnormality. Moderate to severe colonic fecal retention is seen. The bowel gas pattern is otherwise unremarkable. IMPRESSION: Right pelvic calcification versus phlebolith. Moderate to severe colonic fecal retention. Otherwise unremarkable examination. Electronically Reviewed and Signed By Servando Khalil MD , 08/04/19 16:55, KGG Transcribe Initials: DZ , Transcribe Date: 08/01/19 11:55, Dictation Date: Copy for: SHANITA AMOR via fax Copy for: LATRELL MEZA via fax Copy for: Greg [facility] REC Page 1 of 1 Name Value Range Interpretation Code Description Data Seema rce(s) Supporting Document(s) ID Date Data Source [id number] 08/07/2019 12:58:50 AM EDT Laboratory [facility] Name Value Range Interpretation Code Description Data [facility] rce(s) Supporting Document(s) COMPOSITION Laboratory [facility] See Note Calculi composed primarily of: 10% calcium oxalate (monohydrate and dihydrate), and 90% calcium phosphate (hydroxy- and carbonate- apatite). INTERPRETIVE INFORMATION: Calculi (Stone) analysis Calculi are the products of physiological processes that yield crystalline compounds in a matrix of biological compounds and blood. Matrix components are not reported. The clinically significant crystalline components identified in calculi specimens are reported. Gross description may not be consistent with composition determined by FTIR analysis. Performed by [employer], [address] [place] [id number] www.Expert TA, Herbert Morales MD, Lab. Director MASS 37 mg Laboratory [place] [facility] CALCULI NUMBER 6 Laboratory Ish guy of [facility] CALCULI SIZE Laboratory [facility] VariousUnit: mm CALCULI DESCRIPTION Laboratory [place] [facility] See Note Specimen consists of six, vario us sized (1 mm to 9 mm), lópez, irregular calculi fragments. ID Date Data Source [id number] 08/02/2019 07:59:00 PM EDT [facility] 1 OrderSheet [facility] Emergency Department [address] [place] [address] Phone #: ext- [phone] 08/02/2019 19:24 Patient: ELIF ROMANO Sex: F : 1995 Age: 24yWEIGHT:85.8 kg (M) HEIGHT:58 inches (S) BMI:39.5ALLERGIES: Demerol, Dilaudid, Ibuprofen, Lavendar, Mushrooms, Naproxen, Toradol, TramadolCHIEF COMPLAINT: Lt, kneeDIAGNOSIS: Acute painLAB ORDERSOrder Description Priority Entered Acknowledged InitialedCMP STAT 20:21 08/02/2019 20:47 Jerad MOLINA; Theresa FISHERCBC w Diff STAT 20:21 08/02/2019 20:47 Jerad MOLINA; Theresa FISHERBeta-HCG, Qual STAT 20:21 08/02/2019 20:47 Pura MOLINA; Theresa FISHERDIAGNOSTIC STUDY ORDERSOrder Description Priority Entered Acknowledged InitialedUS Lower Ext STAT 21:09 08/02/2019 Cancelled: Other 22:08 Taryn Arenas Left Nba MOLINA; R.N.(Oxygen?(No)) NOTES: left knee posterior Reason for Study: Pain, Limb, Swelling, LimbMEDICATION/IV/DRIP/FLUID ORDERSOrder Description Priority Entered Acknowledged InitialedPercocet PO 2 tab 20:18 08/02/2019 20:54 Jerad(HIGH ALERT Nba MOLINA; Theresa RNMEDICATION)Percocet PO 2 tab 20:21 08/02/2019 Cancelled: Duplicate Order 20:47 Jerad(HIGH ALERT Nba MOLINA; Theresa FISHERMEDICATION)GENERAL ORDERSOrder Description Priority Entered Acknowledged InitialedSaline Lock 20:21 08/02/2019 Cancelled: Physician Order 21:34 Nba Tafoya; Alma Gonsalez 21:09 08/02/2019 Ack'd: 22:09 Taryn MOLINA; Jose Juan Cardenas R.N. 2 OrderSheet [facility] Emergency Department [address] [place] [address] Phone #: ext- [phone] 08/02/2019 19:24 Patient: ELIF ROMANO Sex: F : 1995 Age: 24yImmobilizer - knee 21:09 08/02/2019 Ack'd: 22:09 Taryn(Left knee) Nba MOLINA; Jose Juan Cardenas R.N.[Electronically signed by Taryn Houser R.N. (03:12 08/03/2019)][Electronically signed by Nba Sepulveda (14:54 08/03/2019)][Electronically locked by Taryn Houser R.N. (03:12 08/03/2019)] Name Value Range Interpretation Code Description Data Seema rce(s) Supporting Document(s) ID Date Data Source [id number] 08/02/2019 07:59:00 PM EDT [facility] 1 Medication Reconciliation Report [facility] Emergency Department [address] [place] [address] Phone #: ext- [phone] 08/02/2019 19:24 Patient: ELIF ROMANO Sex: F : 1995 Age: 24yWeight: 85.8 kgHeight/Length: 58 in.BMI: 39.5ALLERGIES: Demerol, Dilaudid, Ibuprofen, Lavendar, Mushrooms, Naproxen, Toradol, TramadolThe patient's Home Medications are listed below:THE FOLLOWING MEDICATIONS NEED TO BE RECONCILED: Antibiotic busPIRone HCl Oral Oxycodone PROzac Oral traZODone HCl OralThe source(s) of the original Home Medication information:Not obtained.The following Medications were given to the patient in the Emergency Department:Percocet [PO] PO 2 tab, administered: 08/02/2019 8:54:00 PMThe following Medications were prescribed to the patient:None. Name Value Range Interpretation Code Description Data Seema rce(s) Supporting Document(s) ID Date Data Source [id number] 08/02/2019 07:59:00 PM EDT [facility] 1 Medication Administration Record [facility] Emergency Department [address] [place] [address] Phone #: ext- [phone] 08/02/2019 19:24 Patient: ELIF ROMANO Sex: F : 1995 Age: 24yWeight: 85.8 kgHeight/Length: 58 inBMI: 39.5ALLERGIES: Lavendar, Mushrooms, Demerol, Naproxen, Ibuprofen, Dilaudid, Tramadol, Toradol Date/Time Medication Administered Medication OrderedGiven PERCOCET [PO] Percocet PO 2 tab (HIGH ALERT20:54 08/02/2019 (OXYCODONE- ACETAMINOPHEN) MEDICATION)Jerad Cardenas RN Dose: 2 tab Tablets PO Name Value Range Interpretation Code Description Data Seema rce(s) Supporting Document(s) ID Date Data Source [id number] 08/02/2019 07:59:00 PM EDT [facility] 1 General Instructions [facility] Emergency Department [address] [place] [address] Phone #: ext [phone] 08/02/2019 19:24 Patient: ELIF ROMANO Sex: F : 1995 Age: 24yAcute traumatic pain in the left lower extremity (knee).INSTRUCTIONS(Use crutches and immobilizer until cleared by medical provider).Follow-up:Return to the emergency department as needed. Follow up with your healthcare provider in three days.Call for an appointment. Reason for referral: evaluation. Summary of care provided to patient via paper.Understanding of the discharge instructions verbalized by patient.Follow- up with: Florentino Alvarez, Orthopaedics Sports Medicine, , , , , , Follow up. Call for an appointment. Reason for referral: evaluation. Summary of care provided to patientvia paper.(Electronically signed by JESSE Harris 08/03/2019 14:54) Name Value Range Interpretation Code Description Data Seema rce(s) Supporting Document(s) ID Date Data Source [id number] 08/02/2019 07:59:00 PM EDT [facility] 1 Clinical Report - Nurses [facility] Emergency Department [address] [place] [address] Phone #: ext- [phone] 08/02/2019 19:24 Patient: ELIF ROMANO Sex: F : 1995 Age: 24yTRIAGEHistorian: patient.Triage time: 19:25 08/02/2019. Acuity: LEVEL 3.Chief Complaint: (left knee pain and hematuria).Alert. 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 no head injury,denies loc. pt also states she had stents placed in kidney yesterday by Dr Staton, urinating blood since fall.took last oxycodone around 1500 today.).SEPSIS SCREEN: NEGATIVE. Negative (no infection suspected/documented). --19:30 08/02/19 Alma Tafoya R.N.19:25 08/02/19. BP: 112/92. MAP: 98. HR: 74. RR: 20. O2 saturation: 99%. Temp: 97.4 F. Pain level now:11/23. --19:30 08/02/19ss, July, R.N.Weight: 85.8 kg measured. Height/Length: 58 inches Per Patient. BMI: 39.5. --19:25 08/02/19, July,R.N.MedicationsPROzac Oral. --19:26 08/02/19July, R.N. busPIRone HCl Oral. --19:26 08/02/19July, R.N. traZODone HCl Oral. --19:26 08/02/19July, R.N. Antibiotic. --19:27 08/02/19July, R.N. Oxycodone. --19:27 08/02/19July, R.N.AllergiesToradol. --19:27 08/02/19July, R.N.Tramadol. --19:27 08/02/19July, R.N.Dilaudid. --19:27 08/02/19July, R.N.Ibuprofen. --19:27 08/02/19July, R.N.Naproxen. --19:27 08/02/19July, R.N.Demerol. --19:27 08/02/19July, R.N.Mushrooms. --19:27 08/02/19July, R.N.Lavendar. --19:27 08/02/19July, R.N.PROBLEMS:Kidney stones.Scoliosis. --19:28 08/02/19July, R.N.Anxiety Reaction. --20:33 08/02/19 JESSE Harris 2 Clinical Report - Nurses [facility] Emergency Department [address] [place] [address] Phone #: ext- [phone] 08/02/2019 19:24 [id number] Sex: F : 1995 Age: 24yThe following entry was modified by JESSE Harris, 20:33 08/02/19Anxiety Reaction. --19:27 08/02/19 Alma Tafoya RChristopher.ADDITIONAL SURGERIES:Carpal Tunnel Surgery (Right).Dental Surgery.Dilatation Curettage.Stent (Kidney).Tubal Ligation. --19:28 08/02/19 Michelet Alma RCoy.HistoryPAST MEDICAL HX: Last normal menstrual period- july 08.SOCIAL HX: Never smoker. No alcohol use or drug use. She was offered HIV testing but declined. Shehas not traveled outside the [place]Infectious disease exposure: No infectious disease exposure. Patient is not a known carrier of tuberculosis,hepatitis, HIV, MRSA or VRE. Patient is not a known carrier of CRE.SELF HARM ASSESSMENT: Self harm assessment was performed. The patient answered "no" to thequestion(s) "Have you recently felt down, depressed, or hopeless?", "Do you have thoughts of harming orkilling yourself?", "Do you have a plan for harming or killing yourself?", "Have you recently had thoughtsabout harming or killing others?", "Do you have any dangerous items in your possession?", "Have younoticed less interest or pleasure in doing things?", "Are you here because you tried to hurt yourself?" and"Have you ever tried to hurt yourself before today?".ABUSE ASSESSMENT: Abuse assessment. yes. The patient had positive responses to the question(s)"Do you feel safe in your home?". No report of abuse.NUTRITIONAL RISK ASSESSMENT: The nutritional risk assessment revealed no deficiencies.FUNCTIONAL ASSESSMENT: Functional assessment: no impairments noted.LEARNING NEEDS ASSESSMENT: The learning needs assessment revealed no barriers.FALL RISK ASSESSMENT: Fall risk assessment completed. No risk factors identified.SKIN INTEGRITY ASSESSMENT: Skin integrity risk assessment completed. No skin integrity riskidentified. --19:30 08/02/19 ZoAlma jenkins R.N.FAMILY HX:Negative. No significant family medical history. --20:37 08/02/19 JESSE Harris.InterventionsTo treatment room. --19:30 08/02/19 Alma Tafoya R.N. 3 Clinical Report - Nurses [facility] Emergency Department [address] [place] [address] Phone #: ext- [phone] 08/02/2019 19:24 Patient: ELIF ROMANO Sex: F : 1995 Age: 24yPHYSICAL ASSESSMENTTo room via wheelchair.GENERAL / NEURO / PSYCH: Alert. Oriented X 4. Appears in pain.HEENT: Pupils equal, round and reactive to light. No facial asymmetry noted. Mucous membranes arepink.RESPIRATORY: Respirations not labored. Chest nontender. Breath sounds within normal limits.CVS: Capillary refill less than 2 seconds. Pulses within normal limits.GI / : Abdomen soft and nontender and normal bowel sounds.SKIN: Skin intact. Skin is warm and dry. --19:32 08/02/19 Jerad Cardenas RN.NURSING PROGRESS NOTESReassurance given. Bed placed in lowest position. Brakes of bed on. Patient ready for evaluation- EDphysician and PA notified. --19:30 08/02/19 Alma Tafoya R.N. Head of bed elevated 15 degrees. Reassurance given to the patient. Call light placed in reach. ( left lower extremity elevated with ice applied to left knee). --19:34 08/02/19 Jerad Cardenas RN 20:54 08/02/2019 Percocet (oxyCODONE-Acetaminophen) PO Tablets 2 tab given. Allergies verified and confirmed 5 rights. Information reviewed with patient including reason for taking this medication, signs of allergic reaction, precautions and sedative warning. Verbalizes understanding. --20:54 08/02/19 Jerad Cardenas RN 21:10 08/02/19. ( US ordered, US called in to ER.). --21:35 08/02/19 Michelet, July, Corey ( 4151 new crutches and knee immobilizer fitted to pt. pt given instructions on proper technique. CSM intact. Pt reminded several times of the importance of safety. Agrees to follow up with ortho.). --22:38 08/02/19 Taryn Cardenas R.N.DISPOSITION / DISCHARGE Departure time: 22:25 08/02/2019. Condition at departure: improved and stable. No learning barriers present. Follow up contact number Dr Alvarez. Patient verbalized understanding. Written instructions provided in Senegalese. The patient was discharged by the physician legislative assistant. She was discharged home. She left ambulatory on crutches and via private vehicle. Family member driving. --22:34 08/02/19 Taryn Cardenas R.N. 22:33 08/02/19. BP: 107/80. MAP: 89. HR: 79. RR: 18. O2 saturation: 97%. Temp: 97.9 F. Pain level now: 510. --22:34 08/02/19 Taryn Cardenas R.N.Locked/Released at 08/03/2019 03:12 by Taryn Cardenas R.N. 4 Clinical Report - Nurses [facility] Emergency Department [address] [place] [address] Phone #: efz- [phone] 08/02/2019 19:24 Patient: ELIF ROMANO Sex: F : 1995 Age: 24y Name Value Range Interpretation Code Description Data Seema rce(s) Supporting Document(s) ID Date Data Source [id number] 08/02/2019 07:59:00 PM EDT [facility] 1 Clinical Report - Physicians/Mid Levels [facility] Emergency Department [address] [place] [address] Phone #: ext- [phone] 08/02/2019 19:24 [facility]: [id number] Sex: F : 1995 Age: 24y Time Seen: 19:36 08/02/2019. Arrived- By private vehicle. Historian- patient. Disposition decision: 22:02 08/02/2019.HISTORY OF PRESENT ILLNESS Chief Complaint: Injury to left knee and Chief Complaint- This is a 24 yo female who presents for evaluation of severe left knee pain. PT said about an hour ago she was at the top of stairs at her home, she slipped on some water. She said she could not bear weight afterward. She denies a previous hx of injury to the left knee. Additionally, PT had renal stents placed yesterday, she had some mild hematuria this morning now reports a lot of hematuria after the fall. She has some moderate lower abdominal pain, no flank pain. On presentation she appeared in pain, left dorsalis pedis intact per Doppler, distal neuro intact. The injury happened just prior to arrival. Occurred at home. Fell: She sustained a twis ting injury. Pain is not severe. No other injury.REVIEW OF SYSTEMSThe patient complains of severe pain on weight bearing. She cannot walk. She has had swelling. Deniescurrent . No suspected foreign body or skin laceration. All other systems reviewed and arenegative.PAST HISTORYSee nurses notes. Tetanus immunization status is up-to-date. Problems: Kidney stones. Scoliosis. Additional Surgeries: Carpal Tunnel Surgery. Dental Surgery. Dilatation Curettage. Stent. Tubal Ligation. Medications: Oxycodone. Antibiotic. traZODone HCl Oral. busPIRone HCl Oral. 2 Clinical Report - Physicians/Mid Levels [facility] Emergency Department [address] [place] [address] Phone #: ext- [phone] 08/02/2019 19:24 Patient: ELIF ROMANO [facility]#: [id number] Sex: F : 1995 Age: 24y PROzac Oral. Allergies: Demerol. Dilaudid. Ibuprofen. Lavendar. Mushrooms. Naproxen. Toradol. Tramadol.SOCIAL HISTORYNever smoker. No alcohol use or drug use. No recent travel. Is a local resident. Resides in a house.Has good social support.FAMILY HISTORYNegative. No significant family medical history.ADDITIONAL NOTESThe nursing notes have been reviewed with agreement regarding the chief complaint, HPI, PMH andpatient medications and allergies.PHYSICAL EXAMVital Signs: 08/02/2019 19:25 BP: 112/92. MAP: 98. HR: 74. RR: 20. O2 saturation: 99%. Temp: 97.4 F.Pain level now: 8/10. Have been reviewed and appear to be correct.Appearance: Alert. Oriented X3. No acute distress.CVS: Normal heart rate and rhythm. Heart sounds normal. Pulses normal.Respiratory: No respiratory distress. Painless inspiration. Breath sounds normal. Chest nontender.Skin: Skin intact. Skin warm and dry. Normal skin color. Normal skin turgor.Extremities: Left knee. (Left knee- there was mild swelling, no erythema, skin was intact. She had globalTTP. PT was able to fully extend the knee and was able to flex 10 degrees. Unable to confirm laxity due toacute pain. Distal neurovascular was intact.). Lower extremity exam otherwise negative. Extremitiesotherwise negative.Neuro, Vascular and Tendons: Vascular status intact. Sensation intact. Motor intact. Tendon functionintact.Gait: Gait not tested due to pain.Neuro: Oriented X 3.PROGRESS AND PROCEDURESCourse of Care: PT had intact distal circulation per Doppler. I was unable to conduct ligament stabilityexam. PT responded well to medication in the ED. I discussed need for follow up and further evaluation. PTwas given a leg immobilizer and crutches. I discussed the PT at length with DR Pitt prior to discharge.I discussed red flag s/s and reasons to return to the ED. Regarding her hematuria she will follow up withher urologist. PT agreed with tx plan. 3 Clinical Report - Physicians/Mid Levels [facility] Emergency Department [address] [place] [address] Phone #: ext- [phone] 08/02/2019 19:24 Patient: ELIF ROMANO Sex: F : 1995 Age: 24y Patient/family counseled. Disposition: Discharged home in good and improved condition. Condition: good. Vital Signs: have been reviewed and appear to be correct.CLINICAL IMPRESSION Acute traumatic pain in the left lower extremity (knee).INSTRUCTIONS (Use crutches and immobilizer until cleared by medical provider). Follow-up: Return to the emergency department as needed. Follow up with your healthcare provider in three days. Call for an appointment. Reason for referral: evaluation. Summary of care provided to patient via paper. Understanding of the discharge instructions verbalized by patient. Follow-up with: Florentino Alvarez, Orthopaedics Sports Medicine, , , , , , Follow up. Call for an appointment. Reason for referral: evaluation. Summary of care provided to patient via paper.(Electronically signed by JESSE Harris 08/03/2019 14:54) Name Value Range Interpretation Code Description Data [facility] Districte(s) Supporting Document(s) ID Date Data Source [id number] 08/02/2019 08:44:00 PM EDT [facility] Name Value Range Interpretation Code Description Data Seema e(s) Supporting Document(s) CBC W/Automated Diff Laboratory test result [facility] ([facility] COMPLETE BLOOD COUNT WBC 7.7 10^3/uL 4.2-11.0 [facility] Hemoglobin 10.7 g/dL 12.0-16.0 Below low normal [facility] ( [facility] RBC 4.50 10^6/uL 4.20-5.40 [facility] MCV 77.3 fL 81.0-101 Below low normal [facility] ( [facility] Hematocrit 34.8 % 37.0-47.0 Below low normal [facility] ( [facility] MCH 23.8 pg 27.0-34.0 Below low normal [facility] ( [facility] Platelets 147 10^3/uL 150-450 Below low normal [facility] ([facility] MCHC 30.7 g/dL 31.0-36.0 Below low normal [facility] ( [facility] RDW 18.5 % 11.5-14.5 Above high normal [facility] ([facility] MPV 10.7 fL 7.4-10.4 Above high normal [facility] ([facility] Neut 58.8 % 37.0-80.0 [facility] Lymph 33.2 % 25.0-40.0 [facility] ([facility] Eos 0.4 % 0.0-7.0 [facility] ([facility] Trinity 6.9 % 3.0-8.0 [facility] ([facility] %Ig 0.4 % 0.0-0.0 Above high normal [facility] ([facility] %NRBC 0.0 % 0.0-0.0 [facility] ([facility] Baso 0.3 % 0.0-2.5 [facility] ([facility] #Trinity 0.53 10^3/uL 0.00-0.90 [facility] ([facility] #Neut 4.50 10^3/uL 2.00-6.90 [facility] ([facility] #Lymph 2.54 10^3/uL 0.60-3.40 [facility] ([facility] #NRBC 0.00 10^3/uL 0.00-0.00 [facility] ([facility] #Eos 0.03 10^3/uL 0.00-0.70 [facility] ([facility] #Ig 0.03 10^3/uL 0.00-0.10 [facility] #Baso 0.02 10^3/uL 0.00-0.20 [facility] ([facility] RBC Morph Laboratory test result ME DENT ([facility] [place] [facility] Manual Diff Laboratory test result M EDNARDA ([facility] ID Date Data Source [id number] 08/02/2019 08:44:00 PM EDT [facility] ([facility] Name Value Range Interpretation Code Description Data Seema rce(s) Supporting Document(s) Sodium 138 meq/L 134-153 [facility] ([facility] Comprehensive Metabo Laboratory test result [facility] ([facility] [place] [facility] COMPREHENSIVE METABOLIC PANEL Co2 25 meq/L 22-30 [facility] ([facility] Chloride 102 meq/L 98-107 [facility] ([facility] Potassium 4.4 meq/L 3.6-5.0 [facility] ([facility] Glucose 94 mg/dL 65-110 [facility] ([facility] BUN 23 mg/dL 7-21 Above high normal [facility] ([facility] Creatinine 0.8 mg/dL 0.7-1.5 [facility] ([facility] Total Protein 6.8 g/dL 6.3-8.2 [facility] ([facility] BUN/Creat 29 8-27 Above high normal [facility] ([facility] [place] [facility] Albumin 4.1 g/dL 3.9-5.0 [facility] ([facility] A/G Ratio 1.5 0.8-2.0 [facility] ([facility] Calcium 8.7 mg/dL 8.4-10.2 [facility] ([facility] Globulin 2.7 GM/DL 2.4-3.2 [facility] ([facility] Sgot/Ast 12 U/L 5-40 [facility] ([facility] Total Bili Laboratory test result 0.2-1.3 ME DENT ([facility] [place] [facility] Alkaline Phos 56 U/L 38-126 [facility] ([facility] Anion Gap 11.0 mmol/L 8.0-16.0 [facility] ([facility] SGPT/Alt 15 U/L 7-56 [facility] ([facility] Afr Amer GFR Laboratory test result [facility] ([facility] Male GFR Interprentation 20-49 yrs >60 mL/min Normal 50-59 yrs >56 mL/min Normal 60-69 yrs >49 mL/min Normal 70-79yrs >42 mL/min Normal 80 and above >35 mL/min Normal Female GFR Interpretation 20-39 yrs >60 mL/min Normal 40-49 yrs >58 mL/min Normal 50-59 yrs >51 mL/min Normal 60-69 yrs >45 mL/min Normal 70-79 yrs >39 mL/min Normal 80 and above >32 mL/min Normal Age 24 yrs [facility] ([facility] Non-Aa GFR Laboratory test result ME DENT ([facility] ID Date Data Source [id number] 08/02/2019 08:44:00 PM EDT [facility] ([facility] Name Value Range Interpretation Code Description Data Seema rce(s) Supporting Document(s) HCG Serum Qual Laboratory test result [facility] ([facility] [place] [facility] HCG Serum QL Reenter Laboratory test result [facility] ([facility] { KIT LOT # [id number] ) { KIT EXP DATE 02-13-21 ) { PROCEDURAL CONTROL VALID ) ID Date Data Source [id number] 08/02/2019 09:11:00 PM EDT [facility] Name Value Range Interpretation Code Description Data Seema rce(s) Supporting Document(s) HCG SERUM QUAL NEGATIVE NORMAL: NEGATIVE [facility] HCG SERUM QL REENTER NEGATIVE NORMAL: NEGATIVE [facility] { KIT LOT # [id number] ){ KIT EXP DATE 02-13-21 ){ PROCEDURAL CONTROL VALID ) ID Date Data Source [id number] 08/02/2019 09:19:00 PM EDT [facility] Name Value Range Interpretation Code Description Data Seema rce(s) Supporting Document(s) COMPREHENSIVE METABOLIC PANEL [facility] COMPREHENSIVE METABOLIC PANEL Sodium [Moles/volume] in Serum or Plasma 138 mEq/L 134 - 153 [facility] Potassium [Moles/volume] in Serum or Plasma 4.4 mEq/L 3.6 - 5.0 [facility] Chloride [Moles/volume] in Serum or Plasma 102 mEq/L 98 - 107 [facility] Carbon dioxide, total [Moles/volume] in Serum or Plasma 25 MEQ/L 22 - 30 [facility] Glucose [Mass/volume] in Serum or Plasma 94 MG/DL 65 - 110 [facility] BUN 23 MG/DL 7 - 21 [facility] Creatinine [Mass/volume] in Serum or Plasma 0.8 MG/DL 0.7 - 1.5 [facility] BUN/CREAT 29 8 - 27 H [facility] Protein [Mass/volume] in Serum or Plasma 6.8 G/DL 6.3 - 8.2 [facility] Albumin [Mass/volume] in Serum or Plasma 4.1 G/DL 3.9 - 5.0 [facility] Globulin [Mass/volume] in Serum by calculation 2.7 GM/DL 2.4 - 3.2 [facility] A/G RATIO 1.5 0.8 - 2.0 [facility] Calcium [Mass/volume] in Serum or Plasma 8.7 MG/DL 8.4 - 10.2 [facility] Bilirubin.total [Mass/volume] in Serum or Plasma <0.7 MG/DL 0.2 - 1.3 [facility] Alkaline phosphatase [Enzymatic activity/volume] in Serum or Plasma 56 U/L 38 - 126 [facility] Aspartate aminotransferase [Enzymatic activity/volume] in Serum or Plasma 12 U/L 5 - 40 [facility] Alanine aminotransferase [Enzymatic activity/volume] in Seru m or Plasma 15 U/L 7 - 56 [facility] Anion gap 3 in Serum or Plasma 11.0 mmol/L 8.0 - 16.0 [facility] AGE 24 yrs [facility] NON-AA GFR >60 mL/min [facility] AFR AMER GFR >60 mL/min [facility] Male GFR In terprentation 20-49 yrs >60 mL/min Normal 50-59 yrs >56 mL/min Normal 60-69 yrs >49 mL/min Normal 70-79yrs >42 mL/min Normal 80 and above >35 mL/min Normal Female GFR Interpretation 20-39 yrs >60 mL/min Normal 40-49 yrs >58 mL/min Normal 50-59 yrs >51 mL/min Normal 60-69 yrs >45 mL/min Normal 70-79 yrs >39 mL/min Normal 80 and above >32 mL/min Normal ID Date Data Source [id number] 08/02/2019 09:22:00 PM EDT [facility] Name Value Range Interpretation Code Description Data Seema rce(s) Supporting Document(s) CBC W/AUTOMATED DIFF [facility] COMPLETE BLOOD COUNT Leukocytes [#/volume] in Blood by Automated count 7.7 10^3/uL 4.2 - 1 1.0 [facility] Erythrocytes [#/volume] in Blood by Automated count 4.50 10^6/uL 4. 20 - 5.40 [facility] Hemoglobin [Mass/volume] in Blood 10.7 g/dL 12.0 - 16.0 L [facility] Hematocrit [Volume Fraction] of Blood by Automated count 34.8 % 3 7.0 - 47.0 L [facility] Erythrocyte mean corpuscular volume [Entitic volume] by Auto mated count 77.3 fL 81.0 - 101 L [facility] Erythrocyte mean corpuscular hemoglobin [Entitic mass] by Automated count 23.8 pg 27.0 - 34.0 L [facility] Erythrocyte mean corpuscular hemoglobin concentration [Mass/volume] by Automated count 30.7 g/dL 31.0 - 36.0 L [facility] Erythrocyte distribution width [Ratio] by Automated count 18.5 % 11.5 - 14.5 H [facility] Platelets [#/volume] in Blood by Automated count 147 10^3/uL 150 - 45 0 L [facility] Platelet mean volume [Entitic volume] in Blood by Automated count 10.7 fL 7.4 - 10.4 H [facility] Neutrophils/100 leukocytes in Blood by Automated count 58.8 % 37. 0 - 80.0 [facility] Lymphocytes/100 leukocytes in Blood by Manual count 33.2 % 25.0 - 40.0 [facility] Monocytes/100 leukocytes in Blood by Automated count 6.9 % 3.0 - 8.0 [facility] Eosinophils/100 leukocytes in Blood by Automated count 0.4 % 0.0 - 7.0 [facility] Basophils/100 leukocytes in Blood by Automated count 0.3 % 0.0 - 2.5 [facility] %IG 0.4 % 0.0 - 0.0 H [facility] Hospit [facility] %NRBC 0.0 % 0.0 - 0.0 [facility] al Neutrophils [#/volume] in Blood by Automated count 4.50 10^3/uL 2.00 - 6.90 [facility] Lymphocytes [#/volume] in Blood by Automated count 2.54 10^3/uL 0.60 - 3.40 [facility] Monocytes [#/volume] in Blood by Automated count 0.53 10^3/uL 0.00 - 0.90 [facility] Eosinophils [#/volume] in Blood by Automated count 0.03 10^3/uL 0.00 - 0.70 [facility] Basophils [#/volume] in Blood by Automated count 0.02 10^3/uL 0.00 - 0.20 [facility] #IG 0.03 10^3/uL 0.00 - 0.10 [facility] ospital #NRBC 0.00 10^3/uL 0.00 - 0.00 [facility] ospital MANUAL DIFF NOT INDICATED [facility] RBC MORPH NOT INDICATED [facility] ID Date Data Source [id number] 08/01/2019 04:17:00 AM EDT B[place]LY ([facility] Name Value Range Interpretation Code Description Data Seema rce(s) Supporting Document(s) HCG Urine Qual Laboratory test result [facility] will send patient HCG Urine QL Reenter Laboratory test result [facility] ([facility] [place] [facility] will send patient ID Date Data Source [id number] 08/01/2019 07:22:00 AM EDT [facility] Name Value Range Interpretation Code Description Data [facility] Districte(s) Supporting Document(s) HCG URINE QUAL NEGATIVE NORMAL: NEGATIVE [facility] HCG URINE QL REENTER NEGATIVE NORMAL: NEGATIVE [facility] { KIT LOT # [id number] ){ KIT EXP DATE 02/13/21 ){ PROCEDURAL CONTROL VALID ) ID Date Data Source [id number] 07/30/2019 10:14:00 AM EDT [facility] [address] [place] [address] PHONE: [phone] FAX: [phone] Name .................. : ROSALINA Peck Acct Number.................. : [id number] ROOM. ................. : [address] Number ................... : [id number] Stay type ............. : E/R Discharge Date......... ... : 07/25/19 Admit Date ......... : 07/25/19 Admit Phys .................... : LESLIE JOHNSON Date of ....... : 1995 Family Phys ................... : LATRELL BENOIT Phone .................. : [phone] Age ................................ : 24 Film# .................. .:[id number] Sex ................................. : F Unsigned transcriptions are preliminary reports and do not represent a medical or legal document CT ABD & PELV W/O ORAL W/O IV [id number] COMPLETE:07/25/19 12:26 [facility] [id number] Reason(s): NO CONTRAST: 6mm renal stone w/ hydro CT ABDOMEN/PELVIS WITHOUT CONTRAST, 07/25/19: Prior examination 07/18/19. FINDINGS: Again seen is a 6 mm distal right ureteral calculus. The associated caliectasis, pelviectasis, and ureterectasis have improved. There is otherwise no significant change from last week. IMPRESSION: Persistent 6 mm distal right ureteral calculus with decreasing caliectasis, pelviectasis, and u reterectasis. While performing the above CT examination, radiation dose reduction was accomplished utilizing automated exposure control, adjusting of the mA and kV based on the patient's body size and/or the use of imperative reconstructive techniques. CT dose 902.7 mGycm. Electronically Reviewed and Signed By Lizette Marte MD , 07/30/19 10:14, AML Transcribe Initials: SSR, Transcribe Date: 07/26/19 05:46, Dictation Date: Copy for: HARPER SINGH via fax Copy for: LATRELL MEZA via fax Copy for: EMERGENCY DEPT via modem Copy for: 710 MED REC DISCHARGED Page 1 of 1 Name Value Range Interpretation Code Description Data Seema rce(s) Supporting Document(s) ID Date Data Source [id number] 07/29/2019 02:06:00 PM EDT [facility] ([facility]) Name Value Range Interpretation Code Description Data Seema rce(s) Supporting Document(s) Abdomen XR 1 View Laboratory test result [facility] ([facility]) ID Date Data Source [id number] 07/28/2019 01:34:00 PM EDT [facility] Name Value Range Interpretation Code Description Data Seema rce(s) Supporting Document(s) CBC W/AUTOMATED DIFF [facility] COMPLETE BLOOD COUNT Leukocytes [#/volume] in Blood by Automated count 4.8 10^3/uL 4.2 - 1 1.0 [facility] Erythrocytes [#/volume] in Blood by Automated count 4.74 10^6/uL 4. 20 - 5.40 [facility] Hemoglobin [Mass/volume] in Blood 11.3 g/dL 12.0 - 16.0 L [facility] Hematocrit [Volume Fraction] of Blood by Automated count 36.7 % 3 7.0 - 47.0 L [facility] Erythrocyte mean corpuscular volume [Entitic volume] by Auto mated count 77.4 fL 81.0 - 101 L [facility] Erythrocyte mean corpuscular hemoglobin [Entitic mass] by Automated count 23.8 pg 27.0 - 34.0 L [facility] Erythrocyte mean corpuscular hemoglobin concentration [Mass/volume] by Automated count 30.8 g/dL 31.0 - 36.0 L [facility] Erythrocyte distribution width [Ratio] by Automated count 17.6 % 11.5 - 14.5 H [facility] Platelets [#/volume] in Blood by Automated count 254 10^3/uL 150 - 45 0 [facility] Platelet mean volume [Entitic volume] in Blood by Automated count 10.6 fL 7.4 - 10.4 H [facility] Neutrophils/100 leukocytes in Blood by Automated count 58.0 % 37. 0 - 80.0 [facility] Lymphocytes/100 leukocytes in Blood by Manual count 33.1 % 25.0 - 40.0 [facility] Monocytes/100 leukocytes in Blood by Automated count 6.9 % 3.0 - 8.0 [facility] Eosinophils/100 leukocytes in Blood by Automated count 1.0 % 0.0 - 7.0 [facility] Basophils/100 leukocytes in Blood by Automated count 0.6 % 0.0 - 2.5 [facility] %IG 0.4 % 0.0 - 0.0 H [facility] Hospit [facility] %NRBC 0.0 % 0.0 - 0.0 [facility] Neutrophils [#/volume] in Blood by Automated count 2.77 10^3/uL 2.00 - 6.90 [facility] Lymphocytes [#/volume] in Blood by Automated count 1.58 10^3/uL 0.60 - 3.40 [facility] Monocytes [#/volume] in Blood by Automated count 0.33 10^3/uL 0.00 - 0.90 [facility] Eosinophils [#/volume] in Blood by Automated count 0.05 10^3/uL 0.00 - 0.70 [facility] Basophils [#/volume] in Blood by Automated count 0.03 10^3/uL 0.00 - 0.20 [facility] #IG 0.02 10^3/uL 0.00 - 0.10 [facility] ospital #NRBC 0.00 10^3/uL 0.00 - 0.00 [facility] MANUAL DIFF NOT INDICATED [facility] RBC MORPH NOT INDICATED [facility] spital ID Date Data Source [id number] 07/28/2019 10:29:00 AM EDT [facility] ([facility] Name Value Range Interpretation Code Description Data Seema rce(s) Supporting Document(s) CBC W/Automated Diff Laboratory test result [facility] ([facility] COMPLETE BLOOD COUNT RBC 4.74 10^6/uL 4.20-5.40 [facility] ([facility] WBC 4.8 10^3/uL 4.2-11.0 [facility] ([facility] Hemoglobin 11.3 g/dL 12.0-16.0 Below low normal [facility] ( [facility] MCV 77.4 fL 81.0-101 Below low normal [facility] ( [facility] Hematocrit 36.7 % 37.0-47.0 Below low normal [facility] ( [facility] MCHC 30.8 g/dL 31.0-36.0 Below low normal [facility] ( [facility] MCH 23.8 pg 27.0-34.0 Below low normal [facility] ( [facility] RDW 17.6 % 11.5-14.5 Above high normal [facility] ([facility] Platelets 254 10^3/uL 150-450 [facility] MPV 10.6 fL 7.4-10.4 Above high normal [facility] ([facility] Neut 58.0 % 37.0-80.0 [facility] ([facility] Lymph 33.1 % 25.0-40.0 [facility] ([facility] Eos 1.0 % 0.0-7.0 [facility] ([facility] Trinity 6.9 % 3.0-8.0 [facility] ([facility] %NRBC 0.0 % 0.0-0.0 [facility] ([facility] %Ig 0.4 % 0.0-0.0 Above high normal [facility] ([facility] Baso 0.6 % 0.0-2.5 [facility] ([facility] #Neut 2.77 10^3/uL 2.00-6.90 [facility] ([facility] #Lymph 1.58 10^3/uL 0.60-3.40 [facility] ([facility] #Eos 0.05 10^3/uL 0.00-0.70 [facility] ([facility] #Trinity 0.33 10^3/uL 0.00-0.90 [facility] ([facility] #Baso 0.03 10^3/uL 0.00-0.20 [facility] ([facility] #Ig 0.02 10^3/uL 0.00-0.10 [facility] ([facility] #NRBC 0.00 10^3/uL 0.00-0.00 [facility] ([facility] Manual Diff Laboratory test result M EDENT ([facility] RBC Morph Laboratory test result ME SARKAR ([facility] ID Date Data Source [id number] 07/28/2019 10:27:00 AM EDT [facility] [address] [place] [address] PHONE: [phone] FAX: [phone] Name .................. : ROSALINA Peck Acct Number.................. : [id number] ROOM. ................. : TR-05 Number ................... : [id number] Stay type ............. : E/R Discharge Date......... ... : Admit Date ......... : 07/18/19 Admit Phys .................... : TOÑO REARDON Date of ....... : 1995 Family Phys ................... : LATRELL BENOIT Phone .................. : [phone] Age ................................ : 23 Film# .................. .:[id number] Sex ................................. : F Unsigned transcriptions are preliminary reports and do not represent a medical or legal document CT ABD & PELV W/O ORAL W/O IV [id number] COMPLETE:07/18/19 07:14 [id number] Reason(s): right CVA pain, sudden CT ABDOMEN AND PELVIS WITHOUT CONTRAST, 07/18/19: INDICATION: Right CVA pain. FINDINGS: Non-contrast CT examination of the abdomen and pelvis acquired. Coronal and sagittal images are reformatted. Visualized lower lungs are clear. Non-enhanced images of the liver are unremarkable. Gallbladder, pancreas, and spleen within normal limits. Moderate to severe right hydronephrosis. Dilated r ight ureter. There is a 6 mm stone at the right ureterovesical junction. Bladder collapsed and not evaluated. Left kidney unremarkable. Left ureter unremarkable. No aneurysmal dilatation today. No retroperitoneal adenopathy. Uterus and ovaries unremarkable. No adnexal mass. Phlebolith lower pelvis. No free air or free fluid. Bowel unremarkable. Appendix not visualized. No inflammation in the right lower quadrant. IMPRESSION: Moderate to severe right hydronephrosis. A 6 mm stone at the right ureterovesical junction. While performing the above CT examination, radiation dose reduction was accomplished utilizing automated exposure control, adjusting of the mA and kV based on the patient's body size and/or the use of imperative reconstructive techniques. Page 1 of 2 [place] [address] PHONE: [phone] FAX: [phone] Name .................. : ROSALINA Peck Acct Number.................. : [id number] ROOM. ................. : TR-05 Number ................... : [id number] Stay type ............. : E/R Discharge Date......... ... : Admit Date ......... : 07/18/19 Admit Phys .................... : TOÑO REARDON Date of ....... : 1995 Family Phys ................... : LATRELL BENOIT Phone .................. : [phone] Age ................................ : 23 Film# .................. .:[id number] Sex ................................. : F Unsigned transcriptions are preliminary reports and do not represent a medical or legal document CT ABD & PELV W/O ORAL W/O IV [id number] COMPLETE:07/18/19 07:14 [id number] Reason(s): right CVA pain, sudden CT dose 908.7 mGycm. Electronically Reviewed and Signed By Yuriy Carlos MD , 07/28/19 10:28, MAYI Transcribe Initials: DEV, Transcribe Date: 07/18/19 07:51, Dictation Date: Copy for: LATRELL MEZA via fax Copy for: 710 MED REC DISCHARGED Page 2 of 2 Name Value Range Interpretation Code Description Data Seema rce(s) Supporting Document(s) ID Date Data Source [id number] 2019 10:15:00 AM EDT [facility] 1 OrderSheet [facility] Emergency Department [address] [place] [address] Phone #: ext- [phone] 10:14 Patient: ELIF ROMANO Sex: F : 1995 Age: 23yWEIGHT:79.3 kg (S) HEIGHT:58 inches (S) BMI:36.5ALLERGIES: Demerol, Dilaudid, Ibuprofen, Toradol, TramadolCHIEF COMPLAINT: back painDIAGNOSIS: Kidney stoneLAB ORDERSOrder Description Priority Entered Acknowledged InitialedCBC w Diff STAT 10:45 2019 10:52 Marnie Sabillon R.N. P.A.-C;CMP STAT 10:45 2019 10:52 Marnie Sabillon R.N. P.A.-C;Lipase STAT 10:45 2019 10:52 Marnie Sabillon R.N. P.A.-C;Urinalysis (Clean STAT 10:45 2019 10:47 Marnie SabillonCatch) Chepe Arevalo R.N. P.A.-C;Culture, Urine STAT 10:45 2019 10:47 Marnie Sabillon(Urine, Clean Chepe Hensley.ElizaCatch) P.A.-C;Beta-HCG, Qual STAT 10:45 2019 10:52 Chayito Sabillon R.N. P.A.-C;DIAGNOSTIC STUDY ORDERSOrder Description Priority Entered Acknowledged InitialedCT ABD PEL W/O STAT 11:27 2019 11:37 TerryOral W/O IV Chepe Foreman RNContrast P.A.-C;(Oxygen?(No))(IV?(Yes)) Reason for Study: NO CONTRAST: 6mm renal stone w/ hydroMEDICATION/IV/DRIP/FLUID ORDERSOrder Description Priority Entered Acknowledged InitialedZofran IVP 4 mg 10:45 2019 11:13 Marnie Sabillon 2 OrderSheet [facility] Emergency Department [address] [place] [address] Phone #: ext- [phone] 10:14 Patient: ELIF ROMANO Sex: F : 1995 Age: 23y Chepe Arevalo R.N. P.A.-C;Morphine IVP 4 mg 10:45 2019 11:14 Marnie Sabillon(HIGH ALERT Chepe Arevalo R.N.MEDICATION) P.A.-C;IV NS : Bolus 500 10:45 2019 11:15 Poncho Sabillon, then 100 mL/hr Chepe Arevalo R.N. P.A.-C;Morphine IVP 2 mg 12:29 2019 12:45 Stephan(HIGH ALERT Chepe Foreman RNMEDICATION) P.A.-C;Flagyl PO 2000 mg 13:18 2019 13:45 Stephan Foreman RN P.A.-C;GENERAL ORDERSOrder Description Priority Entered Acknowledged InitialedNPO 10:45 2019 10:52 Marnie Sabillon R.N.ASasha- Asuncion;Saline Lock 10:45 2019 10:53 Marnie Sabillon R.N.-Asuncion;[Electronically signed by Stephan Foreman RN (19:2019)][Electronically signed by Chepe Arevalo P.A.-C (21:01 2019)][Electronically locked by Stephan Foreman RN (:2019)] Name Value Range Interpretation Code Description Data Seema rce(s) Supporting Document(s) ID Date Data Source [id number] 2019 10:15:00 AM EDT [facility] 1 Medication Reconciliation Report [facility] Emergency Department [address] [place] [address] Phone #: ext- [phone] 10:14 Patient: ELIF ROMANO Sex: F : 1995 Age: 23yWeight: 79.3 kgHeight/Length: 58 in.BMI: 36.5ALLERGIES: Demerol, Dilaudid, Ibuprofen, Toradol, TramadolThe patient's Home Medications are listed below:CONTINUE TAKING THE FOLLOWING MEDICATIONS: busPIRone HCl Oral [facility] OralThe source(s) of the original Home Medication information:Not obtained.The following Medications were given to the patient in the Emergency Department:Zofran [IVP] IVP 4 mg, administered: 2019 11:08:00 AMMorphine [IVP] IVP 4 mg, administered: 2019 11:14:00 AMIV NS IV Fluids bolus 500 mL over 1 hour(s), then 100 mL/hr, administered: 2019 11:14:00 AMMorphine [IVP] IVP 2 mg, administered: 2019 12:45:00 PMFlagyl [PO] PO 2000 mg, administered: 2019 1:35:00 PMThe following Medications were prescribed to the patient:Percocet 5 mg-325 mg tablet Take 1 tablet four times a day for 4 days -- Dispense 16 tablet. Refills: 0.Substitution permitted. Note to Pharmacy - Has had in shaun past with no issues or adverse SEs.Pharmacy - [facility] - [address], [place] [id number]. .Bactrim DS 800 mg-160 mg tablet Take 1 tablet twice a day for 7 days -- Dispense 14 tablet. Refills: 0. 2 Medication Reconciliation Report [facility] Emergency Department [address] [place] [address] Phone #: ext- [phone] 10:14 Patient: ELIF ROMANO Sex: F : 1995 Age: 23ySubstitution permitted.[facility] - [facility] [id number]. . -- Chepe Arevalo P.A.-C Name Value Range Interpretation Code Description Data Seema rce(s) Supporting Document(s) ID Date Data Source [id number] 2019 10:15:00 AM EDT [facility] 1 Medication Administration Record [facility] Emergency Department [address] [place] [address] Phone #: ext- [phone] 10:14 Patient: ELIF ROMANO Sex: F : 1995 Age: 23yWeight: 79.3 kgHeight/Length: 58 inBMI: 36.5ALLERGIES: Demerol, Dilaudid, Ibuprofen, Toradol, Tramadol Date/Time Medication Administered Medication OrderedGiven ZOFRAN [IVP] (ONDANSETRON HCL) Zofran IVP 4 mg11:08 2019 Dose: 4 mg IVPRoMarnie cody R.N. Site: #1 left A[facility]iven MORPHINE [IVP] Morphine IVP 4 mg (HIGH ALERT11:14 2019 Dose: 4 mg IVP MEDICATION)Marnie Sabillon R.N. Site: #1 left ACStart IV NS IV NS : Bolus 500 mL, then 71202:14 2019 Dose: IV Fluids mL/hrMarnie Sabillon R.N. Rate: 100 mL/hr over 5 hour(s)---- Bolus: 500 mL over 1 hour(s)Stop Dispensed: 1000 mL bag13:35 2019 Site: #1 left Navdeep Foreman RNGiven MORPHINE [IVP] Morphine IVP 2 mg (HIGH ALERT12:45 2019 Dose: 2 mg IVP MEDICATION)Stephan Foreman RN Site: #1 left A[facility]iven FLAGYL [PO] (METRONIDAZOLE) Flagyl PO 2000 mg13:35 2019 Dose: 2000 mg Tablets Libby Foreman RN Name Value Range Interpretation Code Description Data Seema rce(s) Supporting Document(s) ID Date Data Source [id number] 2019 10:15:00 AM EDT [facility] 1 General Instructions [facility] Emergency Department [address] [place] [address] Phone #: ext- [phone] 10:14 Patient: ELIF ROMANO Sex: F : 1995 Age: 23yRight nephrolithiasis with renal colic and urinary tract infection.I NSTRUCTIONSDo not work for five days until better.No dietary restrictions.(Recommend to utilize OTC M Tylenol to control inflammation and pain management. Recommend tofollow the instructions on the bottle and not to exceed.).Warnings: SEDATIVE MEDICATION: You were given sedative medication during your visit. Do not driveor operate dangerous machinery.CONTROLLED SUBSTANCE WARNINGS.GENERAL WARNINGS: Return or contact your physician immediately if your condition worsens orchanges unexpectedly, if not improving as expected, or if other problems arise.Your Current Medications: Your current home medications have been reviewed.CONTINUE TAKING THE FOLLOWING MEDICATIONS:busPIRone HCl Oral.[facility]PROzac Oral.Prescription monitor program consulted by me. Prescription does not exceed state maximum supply ofmedicationsPrescription Medications:Percocet 5 mg-325 mg tablet Take 1 tablet four times a day for 4 days -- Dispense 16 tablet. Refills: 0.Substitution permitted. Note to Pharmacy - Has had in shaun past with no issues or adverse SEs.Pharmacy - [facility] - [address] [facility] ; [place], [place] [phone]. .Bactrim DS 800 mg- 160 mg tablet Take 1 tablet twice a day for 7 days -- Dispense 14 tablet. Refills: 0.Substitution permitted.Pharmacy - [facility] - [address] [place], [place] [id number]. .Follow-up:Return to the emergency department if not better. Follow up with your healthcare provider Sunday as 2 General Instructions [facility] Emergency Department [address] [place] [address] Phone #: ext- [phone] 10:14 Patient: ELIF ROMANO Sex: F : 1995 Age: 23yscheduled. Reason for referral: evaluation, treatment and Able to facilitate a appt with your PCP (Dr. Packer)on Sunday at 1000.Understanding of the discharge instructions verbalized by patient.Follow-up with: Dave Staton M.D., Urology, , [address] [place] [address], [id number] Follow up Sunday. Reason for referral: evaluation, treatment and Call for eval and tx. ADDITIONAL INFORMATIONKidney Stone with PainThe sharp cramping pain on either side of your lower back and nausea/vomiting that you have arebecause of a small stone that has formed in the kidney. It is now passing down a narrow tube (ureter)on its way to your bladder. Once the stone reaches your bladder, the pain will often stop. But it maycome back as the stone continues to pass out of the bladder and through the urethra. The stone maypass in your urine stream in one piece. The size may be 1/16 inch to 1/4 inch (1 mm to 6 mm). Or, thestone may break up into mague fragments that you may not even notice.Once you have had a kidney stone, you are at risk of getting another one in the future. There are 4types of kidney stones. Eighty percent are calcium stones--mostly calcium oxalate but also somewith calcium phosphate. The other 3 types include uric acid stones, struvite stones (from a preceding 3 General Instructions [facility] Emergency Department [address] [place] [address] Phone #: ext- [phone] 10:14 Patient: ELIF ROMANO Sex: F : 1995 Age: 23yinfection), and rarely, cystine stones.Most stones will pass on their own, but may take from a few hours to a few days. Sometimes thestone is too large to pass by itself. In that case, the healthcare provider will need to use other ways toremove the stone. These techniques include: Lithotripsy. This uses ultrasound waves to break up the stone. Ureteroscopy. This pushes a basket- like instrument through the urethra and bladder and into the ureter to pull out the stone. Various types of direct surgery through the skinHome careThe following are general care guidelines: Drink plenty of fluids. This means at least 12, 8-ounce glasses of fluid--mostly water--a day. Each time you urinate, do so in a jar. Pour the urine from the jar through the strainer and into the toilet. Continue doing this until 24 hours after your pain stops. By then, if there was a kidney stone, it should pass from your bladder. Some stones dissolve into sand-like particles and pass right through the strainer. In that case, you won't ever see a stone. Save any stone that you find in the strainer and bring it to your healthcare provider to look at. It may be possible to stop certain types of stones from forming. For this reason, it is important to know what kind of stone you have. Try to stay as active as possible. This will help the stone pass. Don't stay in bed unless your pain keeps you from getting up. You may notice a red, pink, or brown color to your urine. This is normal while passing a kidney stone. If you develop pain, you may take ibuprofen or naproxen for pain, unless another medicine was prescribed. If you have chronic liver or kidney disease, talk with your healthcare provider before taking these medicines. Also talk with your provider if you've had a stomach ulcer or GI bleeding.Preventing stonesEach year for the next 5 to 7 years, you are at risk that a new stone will form. Your risk is a 50%chance over this time period. The risk is higher if you have a family history of kidney stones or havecertain chronic illnesses like hypertension, obesity, or diabetes. But you can make changes to yourlifestyle and diet that can lower your risk for another stone.Most kidney stones are made of calcium. The following is advice for preventing another calciumstone. If you don't know the type of stone you have, follow this advice until the cause of your stone is 4 General Instructions [facility] Emergency Department [address] [place] [address] Phone #: ext- [phone] 10:14 Patient: ELIF ROMANO Sex: F : 1995 Age: 23yfound.Things that help: The most important thing you can do is to drink plenty of fluids each day. See home care above. Eat foods that contain phytates. These include wheat, rice, rye, barley, and beans. Phytates are substances that may lower your risk for any type of stone to form. Eat more fruits and vegetables. Choose those that are high in potassium. Eat foods high in natural citrate like fruit and low-sugar fruit juices. Having too little calcium in your diet can put you at risk for calcium kidney stones. Eat a normal amount of calcium in your diet and talk with your healthcare provider if you are taking calcium supplements. Cutting back on your calcium intake may raise your risk. New research shows that eating calcium-rich and oxalate-rich foods together lowers your risk for stones by binding the minerals in the stomach and intestines before they can reach the kidneys. Limit salt intake to 2 grams (1 teaspoon) per day. Use limited amounts when cooking, and don't add salt at the table. Processed and canned foods are usually high in salt. Spinach, rhubarb, peanuts, cashews, almonds, grapefruit, and grapefruit juice are all high oxalate foods. You should limit how much of these you eat. Or eat them with calcium-rich foods. These include dairy products, dark leafy greens, soy products, and calcium-enriched foods. Reducing the amount of animal meat and high protein foods in your diet may lower your risk for uric acid stones. Avoid excess sugar (sucrose) and fructose (sweetener in many soft drinks) in your diet. If you take vitamin C as a supplement, don't take more than 1,000 mg a day. A dietitian or your healthcare provider can give you information about changes in your diet that will help prevent more kidney stones from forming.Follow-up careFollow up with your healthcare provider, or as advised, if the pain lasts more than 48 hours. Talk withyour provider about urine and blood tests to find out the cause of your stone. If you had an X-ray, CTscan, or other diagnostic test, you will be told of any new findings that may affect your care.Call [phone] if you have any of these: 5 General Instructions [facility] Emergency Department [address] [place] [address] Phone #: ext- [phone] 10:14 ---- Patient: ELIF ROMANO Sex: F : 1995 Age: 23y Weakness, dizziness, or faintingWhen to seek medical adviceCall your healthcare provider right away if any of these occur: Pain that is not controlled by the medicine given Repeated vomiting or unable to keep down fluids Fever of 100.4F (38C) or higher, or as directed by your healthcare provider Passage of solid red or brown urine (can't see through it) or urine with lots of blood clots Foul-smelling or cloudy urine Unable to pass urine for 8 hours and increasing bladder pressure [id number] [employer]!. [address] [place] [address], [place] [address]. All rights reserved. This information is not intended as asubstitute for professional medical care. Always follow your healthcare professional's instructions.Bladder Infection, Female (Adult)Urine is normally doesn't have any bacteria in it. But bacteria can get into the urinary tract from theskin around the rectum. Or they can travel in the blood from elsewhere in the body. Once they are inyour urinary tract, they can cause infection in the urethra (urethritis), the bladder (cystitis), or thekidneys (pyelonephritis). 6 General Instructions [facility] Emergency Department [address] [place] [address] Phone #: ext- [phone] 10:14 Patient: ELIF ROMANO Sex: F : 1995 Age: 23yThe most common place for an infection is in the bladder. This is called a bladder infection. This isone of the most common infections in women. Most bladder infections are easily treated. They arenot serious unless the infection spreads to the kidney.The phrases "bladder infection," "UTI," and "cystitis" are often used to describe the same thing. Butthey are not always the same. Cystitis is an inflammation of the bladder. The most common cause ofcystitis is an infection.SymptomsThe infection causes inflammation in the urethra and bladder. This causes many of the symptoms.The most common symptoms of a bladder infection are: Pain or burning when urinating Having to urinate more often than usual Urgent need to urinate Only a small amount of urine comes out Blood in urine Abdominal discomfort. This is usually in the lower abdomen above the pubic bone. Cloudy urine Strong- or bad-smelling urine Unable to urinate (urinary retention) Unable to hold urine in (urinary incontinence) Fever Loss of appetite Confusion (in older adults)CausesBladder infections are not contagious. You can't get one from someone else, from a toilet seat, orfrom sharing a bath.The most common cause of bladder infections is bacteria from the bowels. The bacteria get onto theskin around the opening of the urethra. From there, they can get into the urine and travel up to thebladder, causing inflammation and infection. This usually happens because of: Wiping improperly after urinating. Always wipe from front to back. 7 General Instructions [facility] Emergency Department [address] [place] [address] Phone #: ext- [phone] 10:14 Patient: ELIF ROMANO Sex: F : 1995 Age: 23y Bowel incontinence Procedures such as having a catheter inserted Older age Not emptying your bladder. This can allow bacteria a chance to grow in your urine. Dehydration Constipation Sex Use of a diaphragm for controlTreatmentBladder infections are diagnosed by a urine test. They are treated with antibiotics and usually clear upquickly without complications. Treatment helps prevent a more serious kidney infection.MedicinesMedicines can help in the treatment of a bladder infection: Take antibiotics until they are used up, even if you feel better. It is important to finish them to make sure the infection has cleared. You can use acetaminophen or ibuprofen for pain, fever, or discomfort, unless another medicine was prescribed. If you have chronic liver or kidney disease, talk with your healthcare provider before using these medicines. Also talk with your provider if you've ever had a stomach ulcer or gastrointestinal bleeding, or are taking blood-thinner medicines. If you are given phenazopydridine to reduce burning with urination, it will cause your urine to become a bright orange color. This can stain clothing.Care and preventionThese self-care steps can help prevent future infections: Drink plenty of fluids to prevent dehydration and flush out your bladder. Do this unless you must restrict fluids for other health reasons, or your doctor told you not to. Proper cleaning after going to the bathroom is important. Wipe from front to back after using the toilet to prevent the spread of bacteria. 8 General Instructions [facility] Emergency Department [address] [place] [address] Phone #: ext- [phone] 10:14 Patient: ELIF ROMANO Sex: F : 1995 Age: 23y Urinate more often. Don't try to hold urine in for a long time. Wear loose-fitting clothes and cotton underwear. Avoid tight-fitting pants. Improve your diet and prevent constipation. Eat more fresh fruit and vegetables, and fiber, and less junk and fatty foods. Avoid sex until your symptoms are gone. Avoid caffeine, alcohol, and spicy foods. These can irritate your bladder. Urinate right after intercourse to flush out your bladder. If you use control pills and have frequent bladder infections, discuss it with your doctor.Follow-up careCall your healthcare provider if all symptoms are not gone after 3 days of treatment. This is especiallyimportant if you have repeat infections.If a culture was done, you will be told if your treatment needs to be changed. If directed, you cancall to find out the results.If X-rays were done, you will be told if the results will affect your treatment.Call [phone] if any of the following occur: Trouble breathing Hard to wake up or confusion Fainting or loss of consciousness Rapid heart rateWhen to seek medical adviceCall your healthcare provider right away if any of these occur: Fever of 100.4F (38.0C) or higher, or as directed by your healthcare provider Symptoms are not better by the third day of treatment Back or belly (abdominal) pain that gets worse Repeated vomiting, or unable to keep medicine down Weakness or dizziness 9 General Instructions [facility] Emergency Department [address] [place] [address] Phone #: [phone] 10:14 Patient: ELIF ROMANO Sex: F : 1995 Age: 23y Vaginal discharge Pain, redness, or swelling in the outer vaginal area (labia) [id number] [employer]!. [address] [place] [address], [place] [address]. All rights reserved. This information is not intended as asubstitute for professional medical care. Always follow your healthcare professional's instructions. You have been given the following additional information: Kidney Stone w/ Colic Bladder Infection, Female (Adult) Do not work for five days until better.(Electronically signed by Chepe Arevalo P.A.-C 2019 21:01) Name Value Range Interpretation Code Description Data Seema rce(s) Supporting Document(s) ID Date Data Source [id number] 2019 10:15:00 AM EDT [facility] 1 Clinical Report - Nurses [facility] Emergency Department [address] [place] [address] Phone #: ext- [phone] 10:14 Patient: ELIF ROMANO Sex: F : 1995 Age: 23yTRIAGEArrived by private vehicle, and unaccompanied. ( here 1 week ago with kidney stones but woke up withextreme pain in right side, waiting on referral for urology called md packer and was told to come here).Acuity: LEVEL 3.Chief Complaint: ABDOMINAL PAIN.Alert.This started today.Treatment DECAL MAKER:None.SEPSIS SCREEN: Negative (no infection suspected/documented). --10:21 07/25/19 Marnie Sabillon R.N.10:16 07/25/19. BP: 112/57. MAP: 75. HR: 86. RR: 18. O2 saturation: 100%. Temp: 97.2 F (oral). Painlevel now: 12/24. --10:21 07/25/19 Marnie Sabillon R.N.Weight: 79.3 kg stated. Height/Length: 58 inches Per Patient. BMI: 36.5. --10:16 07/25/19 Marnie Sabillon R.N.MedicationsbusPIRone HCl Oral. PROzac Oral . --10:17 07/25/19 Marnie Sabillon R.N. [facility]. --10:43 07/25/19 Stephan Foreman RN.AllergiesDemerol.Dilaudid.Ibuprofen.Toradol.Tramadol. --10:17 07/25/19 Marnie Sabillon R.N.PROBLEMS:GI Disease.Gastroesophageal Reflux Disease.Nephrolithiasis.Gallstone(s).Anxiety Reaction.Anxiety related siezures.Depression.Urinary Calculi. 2 Clinical Report - Nurses [facility] Emergency Department [address] [place] [address] Phone #: ext- [phone] 10:14 Patient: ELIF ROMANO Sex: F : 1995 Age: 23y UTI - Urinary Tract Infection. Vaginal Bleeding. Tension-Type Headache. Other Disease. Renal Colic. Seizure. --10:18 07/25/19 Marnie Sabillon R.N. ADDITIONAL SURGERIES: Dilatation Curettage. Tubal Ligation. --10:18 07/25/19 Marnie Sabillon R.N. History PAST MEDICAL HX: Immunizations: up-to-date. Last normal menstrual period was 2 weeks ago- weeks ago. Has had a tubal ligation. SOCIAL HX: Never smoker. No alcohol use or drug use. She was offered HIV testing but declined and hepatitis C testing but declined. She has not traveled outside the [place] Infectious disease exposure: No infectious disease exposure. Patient is not a known carrier of tuberculosis, hepatitis, HIV, MRSA or VRE. Patient is not a known carrier of CRE. SELF HARM ASSESSMENT: Self harm assessment was performed. The patient answered "no" to the question(s) "Have you recently felt down, depressed, or hopeless?", "Do you have thoughts of harming or killing yourself?", "Do you have a plan for harming or killing yourself?", "Have you recently had thoughts about harming or killing others?", "Do you have any dangerous items in your possession?", "Have you noticed less interest or pleasure in doing things?", "Are you here because you tried to hurt yourself?" and "Have you ever tried to hurt yourself before today?". ABUSE ASSESSMENT: Abuse assessment. Abuse denied. No suspicion of abuse. No report of abuse. NUTRITIONAL RISK ASSESSMENT: The nutritional risk assessment revealed no deficiencies. FUNCTIONAL ASSESSMENT: Functional assessment: no impairments noted. LEARNING NEEDS ASSESSMENT: The learning needs assessment revealed no barriers. FALL RISK ASSESSMENT: Fall risk assessment completed. No risk factors identified. SKIN INTEGRITY ASSESSMENT: Skin integrity risk assessment completed. No skin integrity risk identified. --10:21 07/25/19 Marnie Sabillon R.N. Interventions Identification band on patient. To treatment room. --10:21 07/25/19 Marnie Sabillon R.N.PHYSICAL [id number] 07/25/19. Ambulatory to room. 3 Clinical Report - Nurses [facility] Emergency Department [address] [place] [address] Phone #: ext- [phone] 10:14 Patient: ELIF ROMANO Sex: F : 1995 Age: 23y GENERAL / NEURO / PSYCH: Alert. Oriented X 4. Appears in pain. RESPIRATORY: Respirations not labored. Breath sounds within normal limits. CVS: Capillary refill less than 2 seconds. GI / : Abdominal tenderness (right flank pain). Bowel sounds within normal limits. SKIN: Skin is warm and dry. --10:32 07/25/19 Stephan Formean RN.NURSING PROGRESS NOTESPatient gowned. Reassurance given. Two patient identifiers checked. Call light placed in reach. Siderails up x 2. Bed placed in lowest position. Brakes of bed on. Patient ready for evaluation- PA notified.--10:21 07/25/19 Marnie Sabillon R.N. 10:23 2019 Site #1 started via IV in the left antecubital space with an 20g angiocath; one attempt. --10:33 07/25/19 Stephan Foreman RN Checked patient name and birthdate: patient confirmed. Clean catch urine collected; sample sent to lab for urinalysis. Specimen labeled in the presence of the patient (1020). --10:33 07/25/19 Stephan Foreman RN Warming measures: blanket applied (1035). --10:37 07/25/19 Stephan Foreman RN Patient ID band checked for patient name and birthdate: patient confirmed. Instructions provided to collect clean catch urine and patient verbalized understanding. Clean catch urine collected; sample sent to lab for urinalysis and culture. Specimen labeled in the presence of the patient. --10:47 07/25/19 Marnie Sabillon R.N. Correction --10:47 07/25/19 Marnie Sabillon R.N. 11:08 2019 Zofran (Ondansetron HCl) IVP 4 mg given over 2 minute(s) via site #1. Allergies verified and confirmed 5 rights. IV patency established. IV site checked: no pain, redness, or swelling. IV flushed thoroughly pre- and post-medication administration. IVP given by RN. Information reviewed with patient including reason for taking this medication, signs of allergic reaction and precautions. Verbalizes understanding. --11:13 07/25/19 Marnie Sabillon R.N. 11:14 2019 Morphine IVP 4 mg given over 2 minute(s) via site #1. Allergies verified and confirmed 5 rights. IV patency established. IV site checked: no pain, redness, or swelling. IV flushed thoroughly pre- and post-medication administration. IVP given by RN. Information reviewed with patient including reason for taking this medication, signs of allergic reaction, precautions and sedative warning. Verbalizes understanding. --11:14 07/25/19 Marnie Sabillon R.N. 11:14 2019 Started bag #1 1000 mL IV Fluids IV NS; bolus of 500 mL over 1 hour(s) then at 100 mL/hr over 5 hour(s) via site #1 via IV pump. Allergies verified and confirmed 5 rights. IV patency established. IV site checked: no pain, redness, or swelling. IV flushed thoroughly pre- and post-medication administration. Information reviewed with patient including reason for taking this medication, signs of allergic reaction and precautions. Verbalizes understa nding. --11:15 07/25/19 Marnie Sabillon R.N. Patient transported to CT by wheelchair with microbiology lab technician. (1200). Patient returned from CT by wheelchair with microbiology lab technician. ([id number]). --12:22 07/25/19 Stephan Foreman RN 4 Clinical Report - Nurses [facility] Emergency Department [address] [place] [address] Phone #: ext- [phone] 10:14 Patient: ELIF ROMANO Sex: F : 1995 Age: 23y 12:00 2019 Zofran IVP Response: symptoms have improved the patient feels better. --13:46 07/25/19 Stephan Foreman RN 12:45 2019 Morphine IVP 2 mg given over 1 minute(s) via site #1. Allergies verified and confirmed 5 rights. IV patency established. IV site checked: no pain, redness, or swelling. IV flushed thoroughly pre- and post-medication administration. IVP given by RN. Information reviewed with patient including sedative warning (b/p 97/63). --12:45 07/25/19 Stephan Foreman RN 13:35 2019 Flagyl (metroNIDAZOLE) PO Tablets 2000 mg given. Allergies verified and confirmed 5 rights. Information reviewed with patient. --13:45 07/25/19 Stephan Foreman RN 13:35 2019 IV Fluids IV NS via IV site #1 Discontinued: bag #1 STOPPED upon discharge. Total amount infused: 800 mL. IV patency established. IV site checked: no pain, redness, or swelling. IV flushed thoroughly. --13:45 07/25/19 Stephan Foreman RN 13:40 2019 Site #1 removed upon discharge. Catheter intact. Bandaid applied. --13:46 07/25/19 Stephan Foreman RN 11:25 07/25/19. BP: 113/77. MAP: 89. HR: 88. O2 saturation: 100%. --13:57 07/25/19 Stephan Foreman RN 12:00 07/25/19. BP: 110/64. MAP: 79. HR: 77. O2 saturation: 100% on room air. --13:58 07/25/19 Stephan Foreman RN 12:30 07/25/19. BP: 97/63. MAP: 74. HR: 74. O2 saturation: 100% on room air. --13:59 07/25/19 Stephan Foreman RN 13:00 07/25/19. BP: 93/59. MAP: 70. HR: 81. O2 saturation: 99% on room air. --13:59 07/25/19 Stephan Foreman RN ( 1300 P Polly Arevalo in to see pt with findings). --14:00 07/25/19 Stephan Foreman RN.DISPOSITION / DISCHARGE 13:47 07/25/19. Departure time: 13:47 2019. Condition at departure: improved. No learning barriers present. Discharge instructions provided and reviewed with the patient. Reviewed medication(s) side effects, precautions, dosing and course information. Prescription(s) sent electronically to pharmacy. Reviewed rest instructions (increase fluids). Reviewed referral to a urologist. Patient verbalized understanding. Written instructions provided in Senegalese. The patient was discharged by the physician legislative assistant. She was discharged home and accompanied by family. She left ambulatory and via private vehicle. Family member driving. --13:47 07/25/19 Stephan Foreman RN 13:46 07/25/19. BP: 111/91. MAP: 97. HR: 78. RR: 18. O2 saturation: 99%. Temp: 97.6 F (oral). Pain level now: 09/23. --13:47 07/25/19 Stephan Foreman RN. 5 Clinical Report - Nurses [facility] Emergency Department [address] [place] [address] Phone #: [phone] 10:14 Patient: ELIF ROMANO Sex: F : 1995 Age: 23yLocked/Released at 2019 19:19 by Stephan Foreman RN Name Value Range Interpretation Code Description Data Seema rce(s) Supporting Document(s) ID Date Data Source [id number] 2019 10:15:00 AM EDT [facility] 1 Clinical Report - Physicians/Mid Levels [facility] Emergency Department [address] [place] [address] Phone #: ext- [phone] 10:14 Patient: ELIF ROMANO Sex: F : 1995 Age: 23y Time Seen: 10:31 2019; initial patient contact, initial documentation. Arrived- By private vehicle. Historian- patient.HISTORY OF PRESENT ILLNESS Chief Complaint: BACK PAIN. It is still present. It is described as being severe and in the area of the right flank. The quality is noted to be dull and aching. Modifying factors. Not worsened by anything. Not relieved by anything. No bladder dysfunction, bowel dysfunction, sensory loss or motor loss. Additional history - Pt was seen here a week ago and dx'ed with a 6mm blocked stone and mod/sev hydro. Pt contacted PCP and pending referral to urology for eval, but pain has increased over the last few days until significant increase today that prompted ER visit. Pt is very uncomfortable/pain. Review of documentation indicates contemplation of transfer due to findings, but final choice was to tx as outpt. Patient denies an injury. Similar symptoms previously. None. Recent medical care: The patient was seen recently at this facility in the emergency department.REVIEW OF SYSTEMS No fever, chills, eye discomfort, headache or depression. No sore throat, cough, difficulty breathing, chest pain or skin rash. No vomiting, diarrhea, difficulty with urination, urinary frequency or hematuria. No bloody stools. The patient has had abdominal pain and nausea. All other systems reviewed and are negative.PAST HISTORY See nurses notes. Problems: GI Disease. Gastroesophageal Reflux Disease. Nephrolithiasis. Gallstone(s). Anxiety Reaction. Anxiety related siezures. Depression. Urinary Calculi. UTI - Urinary Tract Infection. Vaginal Bleeding. Tension-Type Headache. Other Disease. Renal Colic. 2 Clinical Report - Physicians/Mid Levels [facility] Emergency Department [address] [place] [address] Phone #: ext- [phone] 10:14 Patient: ELIF ROMANO Sex: F : 1995 Age: 23y Seizure. Additional Surgeries: Dilatation Curettage. Tubal Ligation. Medications: busPIRone HCl Oral. PROzac Oral. Allergies: Demerol. Dilaudid. Ibuprofen. Toradol. Tramadol.SOCIAL HISTORY Never smoker. No alcohol use or drug use.ADDITIONAL NOTES The nursing notes have been reviewed.PHYSICAL EXAM Vital Signs: 2019 10:16 BP: 112/57. MAP: 75. HR: 86. RR: 18. O2 saturation: 100%. Temp: 97.2 F. Pain level now: 12/24. Have been reviewed. Oxygen saturation normal. Appearance: Alert. No acute distress. Appears to be in pain. ENT: Voice normal. Neck: Neck supple and nontender. Full ROM. CVS: Normal heart rate and rhythm. No JVD present. Pulses normal. Capillary refill normal. Strong peripheral pulses. Heart sounds normal. Pulses: right radial 2+; left radial 2+; right dorsalis pedis 2+; left dorsalis pedis 2+; rig ht posterior tibial 2+; left posterior tibial 2+. Respiratory: Chest normal on inspection. No respiratory distress. Unlabored respirations. Lungs clear. Good chest movement. Breath sounds normal and equal. Abdomen: Normal inspection. Soft. Moderate tenderness in the right side of the abdomen. Bowel sounds normal. Back: Severe CVA tenderness on the right. Skin: Skin warm and dry. Extremities: Extremities exhibit normal ROM. No lower extremity edema. Extremities nontender. No calf tenderness. Neuro: Awake. Alert. Mood/affect normal. Speech normal. No motor deficit. No sensory deficit. Psych: Cognition normal. Thought process and content normal. Insight and judgement normal.LABS, X-RAYS, AND EKG CT Abdomen - Pelvis: Estuardo purdy Andrew - 2019 12:52:10 PM 3 Clinical Report - Physicians/Mid Levels [facility] Emergency Department [address] [place] [address] Phone #: ext- [phone] 10:14 Patient: ELIF ROMANO Sex: F : 1995 Age: 23yPersistent 6 mm distal right ureteral calculus with decreasing caliectasis, pelviectasis and ureterectasis.The study was interpreted by the radiologist.Laboratory Tests:CBC w Diff: (CHRIS: 2019 10:58) ( MsgRcvd 2019 11:25) Final results Test Result Flag Units (Reference) CBC W/AUTOMATED DIFF COMPLETE BLOOD COUNT WBC 4.5 10/uL (4.2 - 11.0) RBC 4.62 10/uL (4.20 - 5.40) HEMOGLOBIN 10.8 L g/dL (12.0 - 16.0) HEMATOCRIT 35.8 L % (37.0 - 47.0) MCV 77.5 L fL (81.0 - 101) MCH 23.4 L pg (27.0 - 34.0) MCHC 30.2 L g/dL (31.0 - 36.0) RDW 17.4 H % (11.5 - 14.5) PLATELETS 221 10/uL (150 - 450) MPV 10.4 fL (7.4 - 10.4) NEUT 60.8 % (37.0 - 80.0) LYMPH 31.7 % (25.0 - 40.0) MONO 5.8 % (3.0 - 8.0) EOS 1.1 % (0.0 - 7.0) BASO 0.4 % (0.0 - 2.5) %IG 0.2 H % (0.0 - 0.0) %NRBC 0.0 % (0.0 - 0.0) #NEUT 2.70 10/uL (2.00 - 6.90) #LYMPH 1.41 10/uL (0.60 - 3.40) #MONO 0.26 10/uL (0.00 - 0.90) #EOS 0.05 10/uL (0.00 - 0.70) #BASO 0.02 10/uL (0.00 - 0.20) #IG 0.01 10/uL (0.00 - 0.10) #NRBC 0.00 10/uL (0.00 - 0.00) MANUAL DIFF NOT INDICATED RBC MORPH NOT INDICATEDCMP: (CHRIS: 2019 10:58) ( MsgRcvd 2019 11:29) Final results Test Result Flag Units (Reference) COMPREHENSIVE METABOLIC PANEL COMPREHENSIVE METABOLIC PANEL SODIUM 140 mEq/L (134 - 153) POTASSIUM 4.8 mEq/L (3.6 - 5.0) CHLORIDE 101 mEq/L (98 - 107) CO2 28 MEQ/L (22 - 30) GLUCOSE 79 MG/DL (65 - 110) BUN 19 MG/DL (7 - 21) CREATININE 0.9 MG/DL (0.7 - 1.5) BUN/CREAT 21 (8 - 27) TOTAL PROTEIN 7.1 G/DL (6.3 - 8.2) ALBUMIN 4.5 G/DL (3.9 - 5.0) GLOBULIN 2.6 GM/DL (2.4 - 3.2) A/G RATIO 1.7 (0.8 - 2.0) CALCIUM 8.8 MG/DL (8.4 - 10.2) TOTAL BILI <0.7 MG/DL (0.2 - 1.3) ALKALINE PHOS 67 U/L (38 - 126) SGOT/AST 17 U/L (5 - 40) SGPT/ALT 19 U/L (7 - 56) ANION GAP 11.0 mmol/L (8.0 - 16.0) AGE 23 yrs NON-AA GFR >60 mL/min AFR AMER GFR >60 mL/min Male GFR Interprentation 20-49 yrs >60 mL/min Qjaqgq63-40 yrs >56 mL/min Normal 60-69 yrs >49 mL/min Normal 70-79yrs>42 mL/min Normal 80 and above >35 mL/min Normal Female GFRInterpretation 20-39 yrs >60 mL/min Normal 40-49 yrs >58 mL/minNormal 50-59 yrs >51 mL/min Normal 60-69 yrs >45 mL/min Normal 4 Clinical Report - Physicians/Mid Levels [facility] Emergency Department [address] [place] [address] Phone #: ext- [phone] 10:14 Patient: ELIF ROMANO Sex: F : 1995 Age: 23y 70-79 yrs >39 mL/min Normal 80 and above >32 mL/min Normal Lipase: (CHRIS: 2019 10:58) ( MsgRcvd 2019 11:30) Final results Test Result Flag Units (Reference) LIPASE 28 U/L (13 - 60) Urinalysis: (CHRIS: 2019 10:22) ( MsgRcvd 2019 11:20) Final results Test Result Flag Units (Reference) URINALYSIS URINALYSIS SOURCE R COLOR Yellow (NORMAL: Yello CLARITY Hazy (NORMAL: Clear SPEC GRAVITY 1.015 (1.001 - 1.030 pH 6.5 (5 - 9) GLUCOSE NORM (NORMAL: Negat BILIRUBIN NEG (NORMAL: Negat KETONE NEG (NORMAL: Negat PROTEIN NEG (NORMAL: Negat NITRITE NEG (NORMAL: Negat BLOOD NEG (NORMAL: Negat LEUK EST 500 A (NORMAL: Negat UROBILINOGEN NOR (less than 1.0 MICROSCOPIC See Below WBC 3 - 5 (NORMAL: NONE RBC None Seen (NORMAL: NONE EPITHELIAL None Seen (NORMAL: NONE BACTERIA None Seen (NORMAL: NONE YEAST NOTE FEW TRICHAMONAS SPECIES SEEN. Beta-HCG, Qual Serum: (CHRIS: 2019 10:58) ( MsgRcvd 2019 11:24) Final results Test Result Flag Units (Reference) HCG SERUM QUAL NEGATIVE (NORMAL: NEGAT HCG SERUM QL REENTER NEGATIVE (NORMAL: NEGAT { KIT LOT # [id number] ){ KIT EXP DATE [id number] ){ PROCEDURAL CONTROL VALID ).PROGRESS AND PROCEDURES Course of Care: VSS, NAD, AOx3, interacting well and appropriately, no use of accessory muscle, able to speak full sentences, stable, non-toxic looking. Enter room and pt lying peacefully in bed in NAD. Patient stable. Denies any new issues, concerns, or complaints. PE demos NV intact b/l UE and LE. Noted R sided CVA tenderness. Known renal stone. Report below. Will obtian labs and imaging for further eval and comparrison. Disucssed with attending and agrees. Pending results. A review of previous imagin Clinical Report - Physicians/Mid Levels [facility] Emergency Department [address] [place] [address] Phone #: ext- [phone] 10:14 Patient: ELIF ROMANO Sex: F : 1995 Age: 23yCT ABDOMEN AND PELVIS WITHOUT CONTRAST, 07/18/19:INDICATION: Right CVA pain.FINDINGS:Non-contrast CT examination of the abdomen and pelvis acquired. Coronal and sagittal images arereformatted.Visualized lower lungs are clear.Non-enhanced images of the liver are unremarkable. Gallbladder, pancreas, and spleen within normallimitsModerate to severe right hydronephrosis. Dilated right ureter. There is a 6 mm stone at the rightureterovesical junction. Bladder collapsed and not evaluated.Left kidney unremarkable. Left ureter unremarkable.No aneurysmal dilatation today. No retroperitoneal adenopathy.Uterus and ovaries unremarkable. No adnexal mass. Phlebolith lower pelvis. No free air or free fluid.Bowel unremarkable. Appendix not visualized. No inflammation in the right lower quadrant.IMPRESSION:Moderate to severe right hydronephrosis. A 6 mm stone at the right ureterovesical junction.13:11 07/25/19. Reviewed results. No elevated WBC; LFT and kidney fuctions are WNL. Noted findingson urine; will treat. Noted CT findings and stone still present, but hydro decreased/improving. Contactedurology and discussed wiht Dr. Staton; discuss tx plan and agrees. Wants pt to contact office on Sunday.Contacted provider office to help with admin referral. Pending call back.Recieved call from PCP office; inquired about urology referral; sts that pt did not f/u after ER visit; able tofacilitate a appt on Sunday for eval and referral.Enter room and patient lying peacefully in bed in NAD. Patient stable. Denies any new issues, concerns,or complaints.Will tx trich noted on urine sample as single dose and tx cysitits 2/2 stone and pain meds (asrecommended by urology).Discussed results with pt. Discussed tx plan with pt. Discussed and counseled on stable condition.Discussed importance of a f/u with PCP. Discussed return to ER criteria. Answered their questions.Indicates and verbalizes that they understand, agree, and will comply with above. Denies any new 6 Clinical Report - Physicians/Mid Levels [facility] Emergency Department [address] [place] [address] Phone #: ext- [phone] 10:14 Patient: ELIF ROMANO Sex: F : 1995 Age: 23y questions or concerns. Patient has capacity to understand. Discharge decision based on the following: patient's condition is stable; patient's exam is stable; social support is adequate; transportation is available; follow-up is available. Discussed of OTC Motrin and Tylenol to control inflammation and pain management. Informed to follow directions on bottle that are appropriate for age and/or weight. Discussed case with health care provider (Leslie). Urology called for consult. Disposition: Discharged home in good and improved condition. Condition: good and stable.CLINICAL IMPRESSION Right nephrolithiasis with renal colic and urinary tract infection.INSTRUCTIONS Do not work for five days until better. No dietary restrictions. (Recommend to utilize OTC M Tylenol to control inflammation and pain management. Recommend to follow the instructions on the bottle and not to exceed.). Warnings: SEDATIVE MEDICATION: You were given sedative medication during your visit. Do not drive or operate dangerous machinery. CONTROLLED SUBSTANCE WARNINGS. GENERAL WARNINGS: Return or contact your physician immediately if your condition worsens or changes unexpectedly, if not improving as expected, or if other problems arise. Your Current Medications: Your current home medications have been reviewed. CONTINUE TAKING THE FOLLOWING MEDICATIONS: busPIRone HCl Oral. [facility] PROzac Oral. Prescription monitor program consulted by me. Prescription does not exceed state maximum supply of medications Prescription Medications: 7 Clinical Report - Physicians/Mid Levels [facility] Emergency Department [address] [place] [address] Phone #: [phone] ext- [phone] 10:14 Patient: ELIF ROMANO Sex: F : 1995 Age: 23y Percocet 5 mg-325 mg tablet Take 1 tablet four times a day for 4 days -- Dispense 16 tablet. Refills: 0. Substitution permitted. Note to Pharmacy - Has had in shaun past with no issues or adverse SEs. Pharmacy - [id number] [address] [place], [place] [id number]. Phone: . Bactrim DS 800 mg-160 mg tablet Take 1 tablet twice a day for 7 days -- Dispense 14 tablet. Refills: 0. Substitution permitted. [id number] [address] [place], [place] [id number]. . Follow-up: Return to the emergency department if not better. Follow up with your healthcare provider Sunday as scheduled. Reason for referral: evaluation, treatment and Able to facilitate a appt with your PCP (Dr. Packer) on Sunday at 1000. Understanding of the discharge instructions verbalized by patient. Follow-up with: Dave Staton M.D., Urology, , [address] [place], [address] Follow up Sunday. Reason for referral: evaluation, treatment and Call for eval and tx.(Electronically signed by Chepe Arevalo P.A.-C 2019 21:01) Name Value Range Interpretation Code Description Data Seema rce(s) Supporting Document(s) ID Date Data Source [id number] 2019 11:24:00 AM EDT [facility] Name Value Range Interpretation Code Description Data Seema rce(s) Supporting Document(s) HCG SERUM QUAL NEGATIVE NORMAL: NEGATIVE [facility] HCG SERUM QL REENTER NEGATIVE NORMAL: NEGATIVE [facility] { KIT LOT # [id number] ){ KIT EXP DATE [id number] ){ PROCEDURAL CONTROL VALID ) ID Date Data Source [id number] 2019 11:25:00 AM EDT [facility] Name Value Range Interpretation Code Description Data Seema rce(s) Supporting Document(s) CBC W/AUTOMATED DIFF [facility] COMPLETE BLOOD COUNT Leukocytes [#/volume] in Blood by Automated count 4.5 10^3/uL 4.2 - 1 1.0 [facility] Erythrocytes [#/volume] in Blood by Automated count 4.62 10^6/uL 4. 20 - 5.40 [facility] Hemoglobin [Mass/volume] in Blood 10.8 g/dL 12.0 - 16.0 L [facility] Hematocrit [Volume Fraction] of Blood by Automated count 35.8 % 3 7.0 - 47.0 L [facility] Erythrocyte mean corpuscular volume [Entitic volume] by Auto mated count 77.5 fL 81.0 - 101 L [facility] Erythrocyte mean corpuscular hemoglobin [Entitic mass] by Automated count 23.4 pg 27.0 - 34.0 L [facility] Erythrocyte mean corpuscular hemoglobin concentration [Mass/volume] by Automated count 30.2 g/dL 31.0 - 36.0 L [facility] Erythrocyte distribution width [Ratio] by Automated count 17.4 % 11.5 - 14.5 H [facility] Platelets [#/volume] in Blood by Automated count 221 10^3/uL 150 - 45 0 [facility] Platelet mean volume [Entitic volume] in Blood by Automated count 10.4 fL 7.4 - 10.4 [facility] Neutrophils/100 leukocytes in Blood by Automated count 60.8 % 37. 0 - 80.0 [facility] Lymphocytes/100 leukocytes in Blood by Manual count 31.7 % 25.0 - 40.0 [facility] Monocytes/100 leukocytes in Blood by Automated count 5.8 % 3.0 - 8.0 [facility] Eosinophils/100 leukocytes in Blood by Automated count 1.1 % 0.0 - 7.0 [facility] Basophils/100 leukocytes in Blood by Automated count 0.4 % 0.0 - 2.5 [facility] %IG 0.2 % 0.0 - 0.0 [facility] %[facility] 0.0 % 0.0 - 0.0 [facility] al Neutrophils [#/volume] in Blood by Automated count 2.70 10^3/uL 2.00 - 6.90 [facility] Lymphocytes [#/volume] in Blood by Automated count 1.41 10^3/uL 0.60 - 3.40 [facility] Monocytes [#/volume] in Blood by Automated count 0.26 10^3/uL 0.00 - 0.90 [facility] Eosinophils [#/volume] in Blood by Automated count 0.05 10^3/uL 0.00 - 0.70 [facility] Basophils [#/volume] in Blood by Automated count 0.02 10^3/uL 0.00 - 0.20 [facility] #IG 0.01 10^3/uL 0.00 - 0.10 [facility] #NRBC 0.00 10^3/uL 0.00 - 0.00 [facility] MANUAL DIFF NOT INDICATED [facility] RBC MORPH NOT INDICATED [facility] ID Date Data Source [id number] 2019 11:29:00 AM EDT [facility] Name Value Range Interpretation Code Description Data Seema rce(s) Supporting Document(s) COMPREHENSIVE METABOLIC PANEL [facility] COMPREHENSIVE METABOLIC PANEL Sodium [Moles/volume] in Serum or Plasma 140 mEq/L 134 - 153 [facility] Potassium [Moles/volume] in Serum or Plasma 4.8 mEq/L 3.6 - 5.0 [facility] Chloride [Moles/volume] in Serum or Plasma 101 mEq/L 98 - 107 [facility] Carbon dioxide, total [Moles/volume] in Serum or Plasma 28 MEQ/L 22 - 30 [facility] Glucose [Mass/volume] in Serum or Plasma 79 MG/DL 65 - 110 [facility] BUN 19 MG/DL 7 - 21 [facility] al Creatinine [Mass/volume] in Serum or Plasma 0.9 MG/DL 0.7 - 1.5 [facility] BUN/CREAT 21 8 - 27 [facility] Protein [Mass/volume] in Serum or Plasma 7.1 G/DL 6.3 - 8.2 [facility] Albumin [Mass/volume] in Serum or Plasma 4.5 G/DL 3.9 - 5.0 [facility] Globulin [Mass/volume] in Serum by calculation 2.6 GM/DL 2.4 - 3.2 [facility] A/G RATIO 1.7 0.8 - 2.0 [facility] Calcium [Mass/volume] in Serum or Plasma 8.8 MG/DL 8.4 - 10.2 [facility] Bilirubin.total [Mass/volume] in Serum or Plasma <0.7 MG/DL 0.2 - 1.3 [facility] Alkaline phosphatase [Enzymatic activity/volume] in Serum or Plasma 67 U/L 38 - 126 [facility] Aspartate aminotransferase [Enzymatic activity/volume] in Serum or Plasma 17 U/L 5 - 40 [facility] Alanine aminotransferase [Enzymatic activity/volume] in Seru m or Plasma 19 U/L 7 - 56 [facility] Anion gap 3 in Serum or Plasma 11.0 mmol/L 8.0 - 16.0 [facility] AGE 23 yrs [facility] al NON-AA GFR >60 mL/min [facility] ital AFR AMER GFR >60 mL/min [facility] Male GFR In terprentation 20-49 yrs >60 mL/min Normal 50-59 yrs >56 mL/min Normal 60-69 yrs >49 mL/min Normal 70-79yrs >42 mL/min Normal 80 and above >35 mL/min Normal Female GFR Interpretation 20-39 yrs >60 mL/min Normal 40-49 yrs >58 mL/min Normal 50-59 yrs >51 mL/min Normal 60-69 yrs >45 mL/min Normal 70-79 yrs >39 mL/min Normal 80 and above >32 mL/min Normal ID Date Data Source [id number] 2019 11:29:00 AM EDT [facility] Name Value Range Interpretation Code Description Data Seema rce(s) Supporting Document(s) Lipase [Enzymatic activity/volume] in Serum or Plasma 28 U/L 13 - 60 [facility] ID Date Data Source [id number] 2019 10:58:00 AM EDT [facility] Name Value Range Interpretation Code Description Data Seema rce(s) Supporting Document(s) HCG Serum QL [facility] test result [facility] { KIT LOT # [id number] ) { KIT EXP DATE [id number] ) { PROCEDURAL CONTROL VALID ) HCG Serum Qual Laboratory test result [facility] ID Date Data Source [id number] 2019 10:58:00 AM EDT [facility] ([facility] Name Value Range Interpretation Code Description Data Seema rce(s) Supporting Document(s) CBC W/Automated Diff Laboratory test result [facility] COMPLETE BLOOD COUNT RBC 4.62 10^6/uL 4.20-5.40 [facility] WBC 4.5 10^3/uL 4.2-11.0 [facility] Hemoglobin 10.8 g/dL 12.0-16.0 Below low normal [facility] ( [facility] Hematocrit 35.8 % 37.0-47.0 Below low normal [facility] ( [facility] MCV 77.5 fL 81.0-101 Below low normal [facility] ( [facility] MCHC 30.2 g/dL 31.0-36.0 Below low normal [facility] ( [facility] RDW 17.4 % 11.5-14.5 Above high normal [facility] ([facility] MCH 23.4 pg 27.0-34.0 Below low normal [facility] ( [facility] Neut 60.8 % 37.0-80.0 [facility] Platelets 221 10^3/uL 150-450 [facility] MPV 10.4 fL 7.4-10.4 [facility] Lymph 31.7 % 25.0-40.0 [facility] Trinity 5.8 % 3.0-8.0 [facility] %Ig 0.2 % 0.0-0.0 Above high normal [facility] Baso 0.4 % 0.0-2.5 [facility] Eos 1.1 % 0.0-7.0 [facility] %NRBC 0.0 % 0.0-0.0 [facility] #Neut 2.70 10^3/uL 2.00-6.90 [facility] #Lymph 1.41 10^3/uL 0.60-3.40 [facility] #Baso 0.02 10^3/uL 0.00-0.20 [facility] #Trinity 0.26 10^3/uL 0.00-0.90 [facility] #Eos 0.05 10^3/uL 0.00-0.70 [facility] #NRBC 0.00 10^3/uL 0.00-0.00 [facility] ([facility] #Ig 0.01 10^3/uL 0.00-0.10 [facility] ([facility] RBC Morph Laboratory test result ME DENT [facility] [place] [facility] Manual Diff Laboratory test result M EDENT ([facility] [place] [facility] ID Date Data Source [id number] 2019 10:58:00 AM EDT [facility] ([facility] Name Value Range Interpretation Code Description Data Seema rce(s) Supporting Document(s) Comprehensive Metabo Laboratory test result [facility] ([facility] COMPREHENSIVE METABOLIC PANEL Sodium 140 meq/L 134-153 [facility] ([facility] Chloride 101 meq/L 98-107 [facility] ([facility] Co2 28 meq/L 22-30 [facility] Potassium 4.8 meq/L 3.6-5.0 [facility] ([facility] Glucose 79 mg/dL 65-110 [facility] BUN 19 mg/dL 7-21 [facility] ([facility] BUN/Creat 21 8-27 [facility] ([facility] Total Protein 7.1 g/dL 6.3-8.2 [facility] ([facility] Creatinine 0.9 mg/dL 0.7-1.5 [facility] ([facility] Globulin 2.6 GM/DL 2.4-3.2 [facility] ([facility] Albumin 4.5 g/dL 3.9-5.0 [facility] A/G Ratio 1.7 0.8-2.0 [facility] Calcium 8.8 mg/dL 8.4-10.2 [facility] ([facility] Total Bili Laboratory test result 0.2-1.3 ME DENT ([facility] Sgot/Ast 17 U/L 5-40 [facility] Alkaline Phos 67 U/L 38-126 [facility] SGPT/Alt 19 U/L 7-56 [facility] ([facility] Anion Gap 11.0 mmol/L 8.0-16.0 [facility] Age 23 yrs [facility] ([facility] Afr Amer GFR Laboratory test result MED[facility] ([facility] Male GFR Interprentation 20-49 yrs >60 mL/min Normal 50-59 yrs >56 mL/min Normal 60-69 yrs >49 mL/min Normal 70-79yrs >42 mL/min Normal 80 and above >35 mL/min Normal Female GFR Interpretation 20-39 yrs >60 mL/min Normal 40-49 yrs >58 mL/min Normal 50-59 yrs >51 mL/min Normal 60-69 yrs >45 mL/min Normal 70-79 yrs >39 mL/min Normal 80 and above >32 mL/min Normal Non-Aa GFR Laboratory test result ME SARKAR ([facility] ID Date Data Source [id number] 2019 10:58:00 AM EDT MED[facility] ([facility] Name Value Range Interpretation Code Description Data Seema rce(s) Supporting Document(s) Lipoprotein lipase [Enzymatic activity/volume] in Serum or Plasm a 28 U/L 13-60 [facility] ([facility] ) ID Date Data Source [id number] 2019 10:58:00 AM EDT [facility] ([facility]) Name Value Range Interpretation Code Description Data Seema rce(s) Supporting Document(s) RBC 4.62 10^6/uL 4.20-5.40 [facility] ([facility]) CBC W/Automated Diff Laboratory test result MED[facility] ([facility]) COMPLETE BLOOD COUNT WBC 4.5 10^3/uL 4.2-11.0 [facility] ([facility]) Hemoglobin 10.8 g/dL 12.0-16.0 Below low normal [facility] ( [facility]) Hematocrit 35.8 % 37.0-47.0 Below low normal [facility] ( [facility]) MCH 23.4 pg 27.0-34.0 Below low normal [facility] ( [facility]) MCV 77.5 fL 81.0-101 Below low normal [facility] ([facility]) MCHC 30.2 g/dL 31.0-36.0 Below low normal [facility] ( [facility]) Platelets 221 10^3/uL 150-450 [facility] ([facility]) MPV 10.4 fL 7.4-10.4 [facility] ([facility]) RDW 17.4 % 11.5-14.5 Above high normal [facility] ([facility]) Neut 60.8 % 37.0-80.0 [facility] ([facility]) Lymph 31.7 % 25.0-40.0 [facility] ([facility]) Trinity 5.8 % 3.0-8.0 [facility] ([facility]) Baso 0.4 % 0.0-2.5 [facility] ([facility]) %Ig 0.2 % 0.0-0.0 Above high normal [facility] ([facility]) Eos 1.1 % 0.0-7.0 [facility] ([facility]) %NRBC 0.0 % 0.0-0.0 [facility] ([facility]) #Lymph 1.41 10^3/uL 0.60-3.40 [facility] ([facility]) #Neut 2.70 10^3/uL 2.00-6.90 [facility] ([facility]) #Baso 0.02 10^3/uL 0.00-0.20 [facility] ([facility]) #Trinity 0.26 10^3/uL 0.00-0.90 [facility] ([facility]) #Eos 0.05 10^3/uL 0.00-0.70 [facility] ([facility]) #Ig 0.01 10^3/uL 0.00-0.10 [facility] ([facility]) #NRBC 0.00 10^3/uL 0.00-0.00 [facility] ([facility]) RBC Morph Laboratory test result [facility] ([facility]) Manual Diff Laboratory test result M EDENT ([facility]) ID Date Data Source [id number] 2019 10:58:00 AM EDT [facility] ([facility]) Name Value Range Interpretation Code Description Data Seema rce(s) Supporting Document(s) Comprehensive Metabo Laboratory test result [facility] ([facility]) COMPREHENSIVE METABOLIC PANEL Chloride 101 meq/L 98-107 [facility] ([facility]) Potassium 4.8 meq/L 3.6-5.0 [facility] ([facility]) Sodium 140 meq/L 134-153 [facility] ([facility]) Glucose 79 mg/dL 65-110 [facility] ([facility]) BUN 19 mg/dL 7-21 [facility] ([facility]) Co2 28 meq/L 22-30 [facility] ([facility]) Creatinine 0.9 mg/dL 0.7-1.5 [facility] ([facility]) BUN/Creat 21 8-27 [facility] ([facility]) Total Protein 7.1 g/dL 6.3-8.2 [facility] ([facility]) A/G Ratio 1.7 0.8-2.0 [facility] ([facility]) Globulin 2.6 GM/DL 2.4-3.2 [facility] ([facility]) Albumin 4.5 g/dL 3.9-5.0 [facility] ([facility]) Calcium 8.8 mg/dL 8.4-10.2 [facility] ([facility]) Alkaline Phos 67 U/L 38-126 [facility] ([facility]) Total Bili Laboratory test result 0.2-1.3 ME DENT ([facility]) Sgot/Ast 17 U/L 5-40 [facility] ([facility]) Anion Gap 11.0 mmol/L 8.0-16.0 [facility] ([facility]) SGPT/Alt 19 U/L 7-56 [facility] ([facility]) Non-Aa GFR Laboratory test result [facility] ([facility]) Age 23 yrs [facility] ([facility]) Afr Amer GFR Laboratory test result [facility] ([facility]) Male GFR Interprentation 20-49 yrs >60 mL/min Normal 50-59 yrs >56 mL/min Normal 60-69 yrs >49 mL/min Normal 70-79yrs >42 mL/min Normal 80 and above >35 mL/min Normal Female GFR Interpretation 20-39 yrs >60 mL/min Normal 40-49 yrs >58 mL/min Normal 50-59 yrs >51 mL/min Normal 60-69 yrs >45 mL/min Normal 70-79 yrs >39 mL/min Normal 80 and above >32 mL/min Normal ID Date Data Source [id number] 2019 10:58:00 AM EDT [facility] Name Value Range Interpretation Code Description Data Seema rce(s) Supporting Document(s) Lipase [Enzymatic activity/volume] in Serum or Plasma 28 U/L 13-6 0 [facility] ([facility]) ID Date Data Source [id number] 2019 10:58:00 AM EDT [facility] Name Value Range Interpretation Code Description Data Seema rce(s) Supporting Document(s) HCG Serum Qual Laboratory test result [facility] ([facility]) HCG Serum QL [facility] Laboratory test result [facility] ([facility]) { KIT LOT # [id number] ) { KIT EXP DATE [id number] ) { PROCEDURAL CONTROL VALID ) ID Date Data Source [id number] 2019 11:18:00 AM EDT [facility] Name Value Range Interpretation Code Description Data Seema rce(s) Supporting Document(s) URINALYSIS [facility] k[facility] Yellow NORMAL: Yellow [facility] CLARITY Hazy NORMAL: Clear [facility] Specific gravity of Urine by Test strip 1.015 1.001 - 1.030 [facility] pH 6.5 5 - 9 [facility] Glucose [Mass/volume] in Urine by Test strip NORM NORMAL: Negat [facility] Bilirubin.total [Presence] in Urine by Test strip NEG NORMAL: Negative [facility] Ketones [Presence] in Urine by Test strip NEG NORMAL: Negative [facility] Protein [Mass/volume] in Urine by Test strip NEG NORMAL: Negat [facility] Nitrite [Presence] in Urine by Test strip NEG NORMAL: Negative [facility] BLOOD NEG NORMAL: Negative [facility] Leukocyte esterase [Presence] in Urine by Test strip 500 JUDITH L: Negative A [facility] Urobilinogen [Mass/volume] in Urine by Test strip NOR less diane n 1.0 mg/dL [facility] MICROSCOPIC See Below [facility] ital WBC 3 - 5 NORMAL: NONE SEEN [facility] Erythrocytes [#/volume] in Urine by Test strip None Seen NORMAL: NON E SEEN [facility] EPITHELIAL None Seen NORMAL: NONE SEEN [facility] Bacteria [Presence] in Urine sediment by Light microscopy No ne Seen NORMAL: NONE SEEN [facility] YEAST NOTE [facility] al FEW TRICHAMONAS SPECIES SEEN. ID Date Data Source [id number] 07/29/2019 02:15:00 PM EDT [facility] Name Value Range Interpretation Code Description Data Seema rce(s) Supporting Document(s) CULTURE URINE [facility] sp[facility] _CULTURE URINE_$$[id number]$$[id number]$$135284$$964401$$035431$$893966$$731190$$528027$$378256$$ 141871$$782622$$618860$$223475$$587676$$413983$$352064$$899427$$777242$$440735$$ 084102$$311362$$792473$$555347$$404322$$177944$$404555$$267758 -- Continued on next page --Patient: ROSALINA Peck Order: [id number] Page 2Culture: CULTURE URINE Status: Final ==== -- Continued on next page --Patient: ROSALINA Peck Order: [id number] Page 2Culture: CULTURE URINE Status: Prelim =====$$[id number]$$[id number] DATE/TIME: 07/29/2019 14:05Culture: CULTURE URINE Status: FinalUrine Culture,Comprehensive: P1No growth in 36 - 48 hours. Previous result entered on 07/27/2019 07:09 ET No growth after 18-24 hours.P1 Test performed by: [facility] #: [id number] [address] [place] [address] [id number] [facility] [address]Medical Director : Carlitos Velazquez MD NPI #:Lab Di marycruz : 07/27/19.0830.XMT.SENT REF 07/29/19.1415.XMT.SENT REF ID Date Data Source [id number] 2019 10:22:00 AM EDT [facility] Name Value Range Interpretation Code Description Data Seema rce(s) Supporting Document(s) Urinalysis Laboratory test result ME DENT ([facility] SOURCE: Clean Catch Source Laboratory test result [facility] ([facility] SOURCE: Clean Catch Color Laboratory test result [facility] ([facility] SOURCE: Clean Catch Clarity Laboratory test result [facility] ([facility] SOURCE: Clean Catch Spec [place] 1.015 1.001-1.030 [facility] ([facility] SOURCE: Clean Catch pH 6.5 5-9 [facility] ([facility] SOURCE: Clean Catch Bilirubin Laboratory test result ME DENT ([facility] SOURCE: Clean Catch Glucose Laboratory test result [facility] ([facility] SOURCE: Clean Catch Protein Laboratory test result [facility] ([facility] SOURCE: Clean Catch Ketone Laboratory test result [facility] ([facility] SOURCE: Clean Catch Nitrite Laboratory test result [facility] ([facility] SOURCE: Clean Catch Blood Laboratory test result [facility] ([facility] SOURCE: Clean Catch Urobilinogen Laboratory test result [facility] ([facility] SOURCE: Clean Catch Leuk Est 500 Abnormal (applies to non-numeric res ults) [facility] ([facility] SOURCE: Clean Catch Microscopic Laboratory test result M EDENT ([facility] SOURCE: Clean Catch WBC Laboratory test result [facility] ([facility] SOURCE: Clean Catch RBC Laboratory test result [facility] ([facility] SOURCE: Clean Catch Epithelial Laboratory test result ME DENT ([facility] SOURCE: Clean Catch Bacteria Laboratory test result [facility] ([facility] SOURCE: Clean Catch Yeast Laboratory test result [facility] ([facility] SOURCE: Clean Catch ID Date Data Source [id number] 2019 10:22:00 AM EDT MED[facility] ([facility] Name Value Range Interpretation Code Description Data Seema rce(s) Supporting Document(s) Culture Urine Laboratory test result [facility] ([facility] SOURCE: Clean Catch ID Date Data Source [id number] 2019 10:22:00 AM EDT [facility] ([facility]) Name Value Range Interpretation Code Description Data Seema rce(s) Supporting Document(s) Urinalysis Laboratory test result [facility] ([facility]) URINALYSIS Source Laboratory test result [facility] ([facility]) SOURCE: Clean Catch Color Laboratory test result [facility] ([facility]) SOURCE: Clean Catch Clarity Laboratory test result [facility] ([facility]) SOURCE: Clean Catch Spec [place] 1.015 1.001-1.030 [facility] ([facility]) SOURCE: Clean Catch pH 6.5 5-9 [facility] ([facility]) SOURCE: Clean Catch Glucose Laboratory test result [facility] ([facility]) SOURCE: Clean Catch Ketone Laboratory test result [facility] ([facility]) SOURCE: Clean Catch Bilirubin Laboratory test result [facility] ([facility]) SOURCE: Clean Catch Nitrite Laboratory test result [facility] ([facility]) SOURCE: Clean Catch Protein Laboratory test result [facility] ([facility]) SOURCE: Clean Catch Blood Laboratory test result [facility] ([facility]) SOURCE: Clean Catch Urobilinogen Laboratory test result [facility] ([facility]) SOURCE: Clean Catch Leuk Est 500 Abnormal (applies to non-numeric res ults) [facility] ([facility]) SOURCE: Clean Catch Microscopic Laboratory test result M EDENT ([facility]) SOURCE: Clean Catch WBC Laboratory test result [facility] ([facility]) SOURCE: Clean Catch RBC Laboratory test result [facility] ([facility]) SOURCE: Clean Catch Epithelial Laboratory test result [facility] ([facility]) SOURCE: Clean Catch Bacteria Laboratory test result [facility] ([facility]) SOURCE: Clean Catch Yeast Laboratory test result [facility] ([facility]) FEW TRICHAMONAS SPECIES SEEN. ID Date Data Source [id number] 2019 10:22:00 AM EDT [facility] ([facility]) Name Value Range Interpretation Code Description Data Seema rce(s) Supporting Document(s) Culture Urine Laboratory test result [facility] ([facility]) _CULTURE URINE_ ^$[id number] ^^[id number] $$055919 ^^043431 $$487645 $$219460 $$560657 $$566703 $$124863 $$415437 $$918481 $$111258 $$429631 $$922938 $$394378 $$649530 $$402292 $$589998 $$949490 $$323629 $$766212 $$593061 $$082864 $$767243 $$281953 $$701710 $$300638 ^^304658 $$164169 $$285982 $$013232 -- Continued on next page -- Patient: ROSALINA Peck Order: [id number] Page 2 Culture: CULTURE URINE Status: Final -- Continued on next page -- Patient: ROSALINA Peck Order: [id number] Page 2 Culture: CULTURE URINE Status: Prelim $$[id number] $$[id number] REPORTED DATE/TIME: 07/29/2019 14:05 Culture: CULTURE URINE Status: Final Urine Culture,Comprehensive: P1 No growth in 36 - 48 hours. Previous result entered on 07/27/2019 07:09 ET No growth after 18-24 hours. P1 [facility] [id number] [address] [place] [address] [id number] [facility] [address] Trust Administrative Assistant : Carlitos Velazquez MD NPI #: Skull Grinder : 07/27/19.0830.XMT.SENT REF 07/29/19.1415.XMT.SENT REF ID Date Data Source [id number] 07/18/2019 04:56:00 AM EDT [facility] 1 OrderSheet [facility] Emergency Department [address] [place] [address] Phone #: ext- [phone] 07/18/2019 04:56 Patient: ELIF ROMANO Sex: F : 1995 Age: 23yWEIGHT:79.3 kg (S) HEIGHT:58 inches (S) BMI:36.5ALLERGIES: Demerol, Dilaudid, Ibuprofen, Toradol, TramadolCHIEF COMPLAINT: flank pain, flank painDIAGNOSIS: Renal colicLAB ORDERSOrder Description Priority Entered Acknowledged InitialedCBC w Diff STAT 05:37 07/18/2019 05:40 Ruby Clinton RN, M.D.;CMP STAT 05:37 07/18/2019 05:40 Ruby Clinton RN, M.D.;Lipase STAT 05:37 07/18/2019 05:40 Crystal Ruby Lundberg RN, M.D.;Urinalysis (Clean STAT 05:37 07/18/2019 05:40 CrystalCatch) Ruby Lundberg RN, M.D.;Beta-HCG, Qual STAT 05:37 07/18/2019 05:40 CrystalSerum Ruby Lundberg RN, M.D.;Culture, Urine STAT 06:43 07/18/2019 Ack'd: 06:46 07:13 Crystal(Urine, Clean Ruby Lundberg) Gina; RNDIAGNOSTIC STUDY ORDERSOrder Description Priority Entered Acknowledged InitialedCT ABD PEL W/O STAT 05:38 07/18/2019 Ack'd: 05:40 07:13 CrystalOral W/O IV Ruby Lundberg M.D.; RN(Oxygen?(No))(IV?(Yes)) Reason for Study: right CVA pain, suddenMEDICATION/IV/DRIP/FLUID ORDERSOrder Description Priority Entered Acknowledged Initialed 2 OrderSheet [facility] Emergency Department [address] [place] [address] Phone #: ext- [phone] 07/18/2019 04:56 Patient: ELIF ROMANO Sex: F : 1995 Age: 23yPhenergan 25 mg 05:37 07/18/2019 Ack'd: 05:40 06:17 Crystalin 50 mL NS, give Toño, Rubydo Monica Lindo RNwide open: 25 mg M.D.; RN(NOW x1, HIGHALERTMEDICATION)Morphine IVP 4 mg 05:37 07/18/2019 Ack'd: 05:40 06:16 Crystal(HIGH ALERT TurRuby amaro RNMEDICATION) MSashaDSasha; RNNS IV : Bolus 250 05:37 07/18/2019 Ack'd: 05:40 06:18 CrystalmL, then 150 mL/hr Turrin, Ruby Monica Lindo RN M.Tien; RNcefTRIAXone 06:43 07/18/2019 Ack'd: 06:46 Monica Lindo RN(1gm/50ml) IVPB Juarez Lundbergcardo Cancelled: Physician Order 07:36 Ridge1000 mg with M.DSasha; Marnie NicoleDextrose 50 mlspike bag (D5W)Rocephin IM 1000 07:36 07/18/2019 07:37 Carolina Sabillon (NOW) Marnie Sabillon R.N.; R.N. Verbal order per; Devin Delacruz M.D.Flomax PO 0.4 mg 08:00 07/18/2019 08:10 Marnie Sabillon(NOW x1, Do not Devin Delacruz R.N.crush or chew) Gina;Zofran ODT PO 4 08:06 07/18/2019 08:10 Carolina Sabillon (NOW x1) Devin Delacruz R.N., M.D.;Morphine IM 4 mg 09:15 07/18/2019 09:30 Jesus,(NOW x1, HIGH Dania eLe R.N.ALERT R.N.; Verbal orderMEDICATION) per; Devin Delacruz M.D.Morphine IM 4 mg 12:19 07/18/2019 Cancelled: Physician Order 12:30(NOW x1, HIGH Devin Delacruz Jennifer R.N.ALERT M.D.;MEDICATION)Morphine IVP 4 mg 12:24 07/18/2019 12:30 [place],(NOW x1, HIGH Devin Delacruz RSashaNSashaALERT M.D.;MEDICATION) 3 OrderSheet [facility] Emergency Department [address] [place] [address] Phone #: ext- [phone] 07/18/2019 04:56 Patient: ELIF ROMANO Sex: F : 1995 Age: 23yGENERAL ORDERSOrder Description Priority Entered Acknowledged InitialedNPO 05:37 07/18/2019 05:40 Ruby Clinton RN, M.D.;Saline Lock 05:37 07/18/2019 Ack'd: 05:40 05:40 Ruby Clinton RN, M.D.; Marisabel Kim 08:00 07/18/2019 08:10 Marnie Sabillon Lingappa R.N. M.D.;[Electronically signed by Magdaleno Ronquillo RN (14:31 07/18/2019)][Electro nically signed by Devin Delacruz M.D. (23:38 07/18/2019)][Electronically signed by Ruby Lundberg M.D. (07:23 07/19/2019)][Electronically locked by Magdaleno Ronquillo RN (14:31 07/18/2019)] Name Value Range Interpretation Code Description Data Seema rce(s) Supporting Document(s) ID Date Data Source [id number] 07/18/2019 04:56:00 AM EDT [facility] 1 Medication Reconciliation Report [facility] Emergency Department [address] [place] [address] Phone #: ext- [phone] 07/18/2019 04:56 Patient: ELIF ROMANO Sex: F : 1995 Age: 23yWeight: 79.3 kgHeight/Length: 58 in.BMI: 36.5ALLERGIES: Demerol, Dilaudid, Ibuprofen, Toradol, TramadolThe patient's Home Medications are listed below:THE FOLLOWING MEDICATIONS NEED TO BE RECONCILED: busPIRone HCl Oral Iron Oral Plus Iron Oral PROzac OralThe source(s) of the original Home Medication information:Not obtained.The following Medications were given to the patient in the Emergency Department:Morphine [IVP] IVP 4 mg, administered: 07/18/2019 6:01:00 AMPhenergan [IVPB] IVPB bolus 0, then 25 mg 200 mL/hr, administered: 07/18/2019 6:07:00 AMNS [IV] IV Fluids bolus 250 mL over 10 minute(s), then 150 mL/hr, administered: 07/18/2019 6:18:00 AMRocephin [IM] IM 1 gm, administered: 07/18/2019 7:37:00 AMFlomax [PO] PO 0.4 mg, administered: 07/18/2019 8:10:00 AMZofran ODT [PO] PO 4 mg, administered: 07/18/2019 8:10:00 AMMorphine [IM] IM 4 mg, administered: 07/18/2019 9:30:00 AMMorphine [IVP] IVP 4 mg diluted in NS 10 mL, administered: 07/18/2019 12:30:00 PM 2 Medication Reconciliation Report [facility] Emergency Department [address] [place] [address] Phone #: ext- [phone] 07/18/2019 04:56 [id number] Sex: F : 1995 Age: 23yThe f ollowing Medications were prescribed to the patient:Percocet 5 mg-325 mg tablet Take 1 tablet four times a day as needed for pain for 3 days -- Hpnwulto94 tablet. Refills: 0. Substitution permitted.[facility] [place] [address]. .Flomax 0.4 mg capsule Take 1 capsule once a day as directed for 10 days -- Dispense 10 capsule.Refills: 0. Substitution permitted.[place] [place] [address]. .Keflex 500 mg capsule Take 1 capsule three times a day as directed for 7 days -- Dispense 21 capsule.Refills: 0. Substitution permitted.[facility] [place] [address]. . -- Devin Delacruz M.D. Name Value Range Interpretation Code Description Data Seema rce(s) Supporting Document(s) ID Date Data Source [id number] 07/18/2019 04:56:00 AM EDT [facility] 1 Medication Administration Record [facility] Emergency Department [address] [place] [address] Phone #: ext- [phone] 07/18/2019 04:56 Patient: ELIF ROMANO [facility]#: [id number] Sex: F : 1995 Age: 23yWeight: 79.3 kgHeight/Length: 58 inBMI: 36.5ALLERGIES: Demerol, Dilaudid, Ibuprofen, Toradol, Tramadol Date/Time Medication Administered Medication OrderedStart PHENERGAN [IVPB] Phenergan 25 mg in 50 mL NS,06:07 07/18/2019 Dose: 25 mg IVPB give wide open: 25 mg (NOW x1,Monica Lindo RN Rate: 200 mL/hr over 15 min avelina(s) HIGH ALERT MEDICATION)---- Dispensed: 50 mL bagStop Site: #1 left AC06:27 07/18/2019Crmirlande Lindo RNGiven MORPHINE [IVP] Morphine IVP 4 mg (HIGH ALERT06:01 07/18/2019 Dose: 4 mg IVP MEDICATION)Monica Lindo RN Site: #1 left ACStart NS [IV] NS IV : Bolus 250 mL, then 43220:18 07/18/2019 Dose: IV Fluids mL/hrCrmirlande Lindo RN Rate: 150 mL/hr over 4 hour(s)---- Bolus: 250 mL over 10 minute(s)Stop Dispensed: 1000 mL bag14:15 07/18/2019 Site: #1 left Jose Ronquillo RNGiven ROCEPHIN [IM] (CEFTRIAXONE Rocephin IM 1000 mg (NOW)07:37 07/18/2019 SODIUM)Marnie Sabillon R.NSasha Dose: 1 gm IMGiven FLOMAX [PO] (TAMSULOSIN HCL) Flomax PO 0.4 mg (NOW x1, Do08:10 07/18/2019 Dose: 0.4 mg Capsules PO not crush or chew)Marnie Sabillon R.N.Given ZOFRAN ODT [PO] (ONDANSETRON Zofran ODT PO 4 mg (NOW x1)08:10 07/18/2019 HCL)Marnie Sabillon R.N. Dose: 4 mg Oral Disintegrating Tablets POGiven MORPHINE [IM] Morphine IM 4 mg (NOW x1, HIGH09:30 07/18/2019 Dose: 4 mg IM ALERT MEDICATION)Dania Lee R.N.Given MORPHINE [IVP] Morphine IVP 4 mg (NOW x1, HIGH12:30 07/18/2019 Dose: 4 mg IVP ALERT MEDICATION)Dania Lee R.N. In: NS 10 mL Site: #2 right upper arm Name Value Range Interpretation Code Description Data Seema rce(s) Supporting Document(s) ID Date Data Source [id number] 07/18/2019 04:56:00 AM EDT [facility] 1 General Instructions [facility] Emergency Department [address] [place] [address] Phone #: ext- [phone] 07/18/2019 04:56 Patient: ELIF ROMANO Sex: F : 1995 Age: 23y(Electronically signed by Ruby Lundberg M.D. 07/19/2019 07:23) Right renal colic in the right ureter with a single calculus. hydronephrosis.INSTRUCTIONS Do not work for three days until better. Drink plenty of fluids. (Return if worsens or recurs or any concerns or symptoms). Warnings: Further evaluation is necessary. SEDATIVE MEDICATION: You were given sedative medication during your visit. Do not drive or operate dangerous machinery. CONTROLLED SUBSTANCE WARNINGS. GENERAL WARNINGS: Return or contact your physician immediately if your condition worsens or changes unexpectedly, if not improving as expected, or if other problems arise. Prescription Med ications: Percocet 5 mg-325 mg tablet Take 1 tablet four times a day as needed for pain for 3 days -- Dispense 12 tablet. Refills: 0. Substitution permitted. Pharmacy - [facility] - [address] [facility] ; [place], [place] [phone]. . Flomax 0.4 mg capsule Take 1 capsule once a day as directed for 10 days -- Dispense 10 capsule. Refills: 0. Substitution permitted. 2 General Instructions [facility] Emergency Department [address] [place] [address] Phone #: ext- [phone] 07/18/2019 04:56 Patient: ELIF ROMANO Sex: F : 1995 Age: 23yPharmacy - [facility] [place] [phone]. .Keflex 500 mg capsule Take 1 capsule three times a day as directed for 7 days -- Dispense 21 capsule.Refills: 0. Substitution permitted.Pharmacy - [facility] [address] [place] [phone]. .Follow-up:Follow up with your healthcare provider if not better. Call for an appointment. Reason for referral:evaluation and treatment. Summary of care provided to patient and follow-up provider via paper. Followup with a urologist f/u Sunday if not well. Call for an appointment. Reason for referral: evaluation.Summary of care provided to patient and follow-up provider via paper.Understanding of the discharge instructions verbalized by patient.Follow-up with: Dave Staton M.D., Urology, , [address] [place] [address], [id number] Follow up Sunday. Call for an appointment. Reason for referral: evaluation and treatment. Summary ofcare provided to patient and follow-up provider via paper. ADDITIONAL INFORMATIONKidney Stone with Pain 3 General Instructions [facility] Emergency Department [address] [place] [address] Phone #: ext- [phone] 07/18/2019 04:56 Patient: ELIF ROMANO Sex: Chepe : 1995 Age: 23yThe sharp cramping pain on either side of your lower back and nausea/vomiting that you have arebecause of a small stone that has formed in the kidney. It is now passing down a narrow tube (ureter)on its way to your bladder. Once the stone reaches your bladder, the pain will often stop. But it maycome back as the stone continues to pass out of the bladder and through the urethra. The stone maypass in your urine stream in one piece. The size may be 1/16 inch to 1/4 inch (1 mm to 6 mm). Or, thestone may break up into mague fragments that you may not even notice.Once you have had a kidney stone, you are at risk of getting another one in the future. There are 4types of kidney stones. Eighty percent are calcium stones--mostly calcium oxalate but also somewith calcium phosphate. The other 3 types include uric acid stones, struvite stones (from a precedinginfection), and rarely, cystine stones.Most stones will pass on their own, but may take from a few hours to a few days. Sometimes thestone is too large to pass by itself. In that case, the healthcare provider will need to use other ways toremove the stone. These techniques include: Lithotripsy. This uses ultrasound waves to break up the stone. Ureteroscopy. This pushes a basket-like instrument through the urethra and bladder and into the ureter to pull out the stone. Various types of direct surgery through the [facility] 4 General Instructions [facility] Emergency Department [address] [place] [address] Phone #: ext- [phone] 07/18/2019 04:56 Patient: ELIF ROMANO [facility]#: [id number] Sex: F : 1995 Age: 23yThe following are general care guidelines: Drink plenty of fluids. This means at least 12, 8-ounce glasses of fluid--mostly water--a day. Each time you urinate, do so in a jar. Pour the urine from the jar through the strainer and into the toilet. Continue doing this until 24 hours after your pain stops. By then, if there was a kidney stone, it should pass from your bladder. Some stones dissolve into sand-like particles and pass right through the strainer. In that case, you won't ever see a stone. Save any stone that you find in the strainer and bring it to your healthcare provider to look at. It may be possible to stop certain types of stones from forming. For this reason, it is important to know what kind of stone you have. Try to stay as active as possible. This will help the stone pass. Don't stay in bed unless your pain keeps you from getting up. You may notice a red, pink, or brown color to your urine. This is normal while passing a kidney stone. If you develop pain, you may take ibuprofen or naproxen for pain, unless another medicine was prescribed. If you have chronic liver or kidney disease, talk with your healthcare provider before taking these medicines. Also talk with your provider if you've had a stomach ulcer or GI bleeding.Preventing stonesEach year for the next 5 to 7 years, you are at risk that a new stone will form. Your risk is a 50%chance over this time period. The risk is higher if you have a family history of kidney stones or havecertain chronic illnesses like hypertension, obesity, or diabetes. But you can make changes to yourlifestyle and diet that can lower your risk for another stone.Most kidney stones are made of calcium. The following is advice for preventing another calciumstone. If you don't know the type of stone you have, follow this advice until the cause of your stone isfound.Things that help: The most important thing you can do is to drink plenty of fluids each day. See home care above. Eat foods that contain phytates. These include wheat, rice, rye, barley, and beans. Phytates are substances that may lower your risk for any type of stone to form. Eat more fruits and vegetables. Choose those that are high in potassium. Eat foods high in natural citrate like fruit and low-sugar fruit juices. Having too little calcium in your diet can put you at risk for calcium kidney stones. Eat a 5 General Instructions [facility] Emergency Department [address] [place] [address] Phone #: ext- [phone] 07/18/2019 04:56 Patient: ELIF ROMANO Sex: F : 1995 Age: 23y normal amount of calcium in your diet and talk with your healthcare provider if you are taking calcium supplements. Cutting back on your calcium intake may raise your risk. New research shows that eating calcium-rich and oxalate- rich foods together lowers your risk for stones by binding the minerals in the stomach and intestines before they can reach the kidneys. Limit salt intake to 2 grams (1 teaspoon) per day. Use limited amounts when cooking, and don't add salt at the table. Processed and canned foods are usually high in salt. Spinach, rhubarb, peanuts, cashews, almonds, grapefruit, and grapefruit juice are all high oxalate foods. You should limit how much of these you eat. Or eat them with calcium-rich foods. These include dairy products, dark leafy greens, soy products, and calcium-enriched foods. Reducing the amount of animal meat and high protein foods in your diet may lower your risk for uric acid stones. Avoid excess sugar (sucrose) and fructose (sweetener in many soft drinks) in your diet. If you take vitamin C as a supplement, don't take more than 1,000 mg a day. A dietitian or your healthcare provider can give you information about changes in your diet that will help prevent more kidney stones from forming.Follow-up careFollow up with your healthcare provider, or as advised, if the pain lasts more than 48 hours. Talk withyour provider about urine and blood tests to find out the cause of your stone. If you had an X-ray, CTscan, or other diagnostic test, you will be told of any new findings that may affect your care.Call [phone] if you have any of these: Weakness, dizziness, or faintingWhen to seek medical adviceCall your healthcare provider right away if any of these occur: Pain that is not controlled by the medicine given Repeated vomiting or unable to keep down fluids Fever of 100.4F (38C) or higher, or as directed by your healthcare provider Passage of solid red or brown urine (can't see through it) or urine with lots of blood clots 6 General Instructions [facility] Emergency Department [address] [place] [address] Phone #: ext- [phone] 07/18/2019 04:56 Patient: ELIF ROMANO Sex: F : 1995 Age: 23y Foul-smelling or cloudy urine Unable to pass urine for 8 hours and increasing bladder pressure [phone] [employer] [address] [place] [address]. All rights reserved. This information is not intended as asubstitute for professional medical care. Always follow your healthcare professional's instructions. You have been given the following additional information: Kidney Stone w/ Colic Do not work for three days until better.(Electronically signed by Devin Delacruz M.D. 07/18/2019 23:38) Name Value Range Interpretation Code Description Data Seema rce(s) Supporting Document(s) ID Date Data Source [id number] 07/18/2019 04:56:00 AM EDT [facility] 1 Clinical Report - Nurses [facility] Emergency Department [address] [place] [address] Phone #: ext- [phone] 07/18/2019 04:56 [id number] Sex[facility] F : 1995 Age: 23yTRIAGEArrived by private vehicle. Historian: patient.Triage time: 04:59 07/18/2019. Acuity: LEVEL 3.Chief Complaint: ABDOMINAL PAIN, NAUSEA and VOMITING.This started just prior to arrival.SEPSIS SCREEN: Negative (no infection suspected/documented). --05:02 07/18/19 Gabriella Monte R.N.04:59 07/18/19. BP: 131/83. MAP: 99. HR: 55. RR: 18. O2 saturation: 99%. Temp: 97.5 F. Pain level now:11/23. --05:02 07/18/19 Gabriella Monte R.N.Weight: 79.3 kg stated. Height/Length: 58 inches Per Patient. BMI: 36.5. --04:59 07/18/19 Gabriella Monte R.N.MedicationsbusPIRone HCl Oral. Iron Oral. Plus Iron Oral. PROzac Oral. --04:59 07/18/19 Gabriella Monte R.N.AllergiesDemerol.Dilaudid.Ibuprofen.Toradol.Tramadol. --04:59 07/18/19 Gabriella Monte R.N.HistoryPAST MEDICAL HX: Immunizations: up-to-date. Last normal menstrual period- 1 weeks ago.SOCIAL HX: Never smoker. No alcohol use or drug use. No recent travel. No known contact with a sickindividual. She was offered HIV testing but declined. Patient education was provided. She was offeredhepatitis C testing but declined. Patient education was provided. She has not traveled outside the [place]Infectious disease exposure: No infectious disease exposure.SELF HARM ASSESSMENT: Self harm assessment was performed. The patient answered "no" to thequestion(s) "Have you recently felt down, depressed, or hopeless?", "Do you have thoughts of harming orkilling yourself?", "Do you have a plan for harming or killing yourself?", "Have you recently had thoughtsabout harming or killing others?", "Do you have any dangerous items in your possession?", "Have younoticed less interest or pleasure in doing things?", "Are you here because you tried to hurt yourself?" and 2 Clinical Report - Nurses [facility] Emergency Department [address] [place] [address] Phone #: ext- [phone] 07/18/2019 04:56 Patient: ELIF ROMANO Sex: F : 02/1996 Age: 23y "Have you ever tried to hurt yourself before today?". ABUSE ASSESSMENT: Abuse assessment. Abuse denied. No report of abuse. NUTRITIONAL RISK ASSESSMENT: The nutritional risk assessment revealed no deficiencies. FUNCTIONAL ASSESSMENT: Functional assessment: no impairments noted. LEARNING NEEDS ASSESSMENT: The learning needs assessment revealed no barriers. FALL RISK ASSESSMENT: Fall risk assessment completed. No risk factors identified. SKIN INTEGRITY ASSESSMENT: Skin integrity risk assessment completed. No skin integrity risk identified. --05:07/18/19 Gabriella Monte R.N. Interventions Identification band on patient. To treatment room. Advanced care plan discussed with patient. Patient does not have advanced directive. --05:07/18/19 Gabriella Monte R.N.PHYSICAL ASSESSMENTGENERAL / NEURO / PSYCH: Alert. Oriented X 4.HEENT: Mucous membranes are pink.RESPIRATORY: Respirations not labored. Breath sounds within normal limits.GI / : Abdomen soft and nontender. Bowel sounds w ithin normal limits.SKIN: Skin is warm and dry. --05:07/18/19 Gabriella Monte R.N.NURSING PROGRESS NOTESPatient identifiers checked. Call light placed in reach. Bed placed in lowest position. Brakes of bed on.--05:07/18/19 Gabriella Monte R.N. 05:12 07/18/2019 Site #1 started via IV in the left antecubital space with an 20g angiocath, with good blood return; one attempt. Blood drawn: rainbow set. Labeled in the presence of the patient and sent to the lab. Saline lock flushed with 10 mL saline. --05:12 07/18/19 Gabriella Monte R.N. 06:01 07/18/2019 Morphine IVP 4 mg given over 2 minute(s) via site #1. Allergies verified and confirmed 5 rights. IV patency established. IV site checked: no pain, redness, or swelling. IV flushed thoroughly pre- and post-medication administration. IVP given by RN. Information reviewed with patient including reason for taking this medication, signs of allergic reaction, precautions and sedative warning. Verbalizes understanding. --06:16 07/18/19 Monica Lindo RN 06:07 07/18/2019 Started 25 mg of Phenergan IVPB in bag #1 50 mL; at 200 mL/hr over 15 minute(s) via site #1. via IV pump. Allergies verified and confirmed 5 rights. IV patency established. IV site checked: no pain, redness, or swelling. IV flushed thoroughly pre- and post-medication administration. Information reviewed with patient including reason for taking this medication, signs of allergic reaction and precautions. 3 Clinical Report - Nurses [facility] Emergency Department [address] [place] [address] Phone #: ext- [phone] 07/18/2019 04:56 Patient: ELIF ROMANO Sex: F : 1995 Age: 23yVerbalizes understanding. --06:17 07/18/19 Monica Lindo RN06:16 07/18/2019 Morphine IVP Response: no adverse reaction pain is improving. Symptoms haveimproved the patient feels better. --07:07 07/18/19 Monica Lindo RN06:18 07/18/2019 Started bag #1 1000 mL IV Fluids NS; bolus of 250 mL over 10 minute(s) then at 150mL/hr over 4 hour(s) via site #1 via IV pump. Allergies verified and confirmed 5 rights. IV patencyestablished. IV site checked: no pain, redness, or swelling. IV flushed thoroughly pre- and post- medicationadministration. Information reviewed with patient including reason for taking this medication, signs ofallergic reaction and precautions. Verbalizes understanding. --06:18 07/18/19 Monica Lindo RN06:27 07/18/2019 Phenergan IVPB via IV site #1 Discontinued. Total amount infused: 50 mL. IV patencyestablished. IV site checked: no pain, redness, or swelling. IV flushed thoroughly. --06:46 07/18/19 PHILLIP Caal06:43 07/18/2019 Site #1 two (2) unsuccessful relocation attempts including the right antecubital space andforearm. --07:08 07/18/19 Monica Lindo RN06:53 07/18/2019 Site #1 removed. Catheter intact. Manual pressure and bandage applied. --07:08 07/18/19Monica Lindo RN07:04 07/18/19. Patient transported to [place] by wheelchair with microbiology lab technician. --07:09 07/18/19 PHILLIP CaalCare transferred and report given (iLv Lee RN). ( included in change of shift report that patient hadreceived her ordered phenergan and morphine IV but shortly afterward IV site had infiltrated and this writerwas unsuccessful x 2 to relocate IV access.). --07:12 07/18/19 Monica Lindo RN07:37 07/18/2019 Rocephin (cefTRIAXone Sodium) IM 1 gm given. Given in the right deltoid. Allergiesverified and confirmed 5 rights. Information reviewed with patient including reason for taking thismedication, signs of allergic reaction and precautions. Verbalizes understanding. --07:37 07/18/19 Marnie Sabillon RSashaN.08:10 07/18/2019 Flomax (Tamsulosin HCl) PO Capsules 0.4 mg given. Allergies verified and confirmed 5rights. Information reviewed with patient including reason for taking this medication, signs of allergicreaction and precautions. Verbalizes understanding. --08:10 07/18/19 Marnie Sabillon R.N.08:10 07/18/2019 Zofran ODT (Ondansetron HCl) PO Oral Disintegrating Tablets 4 mg given. Allergiesverified and confirmed 5 rights. Information reviewed with patient including reason for taking thismedication, signs of allergic reaction and precautions. Verbalizes understanding. --08:10 07/18/19 Marnie Sabillon R.N.( Pt given urine strainer and verbalized understanding of use). --08:10 07/18/19 Marnie Sabillon R.N. 4 Clinical Report - Nurses [facility] Emergency Department [address] [place] [address] Phone #: ext- [phone] 07/18/2019 04:56 Patient: ELIF ROMANO Sex: F : 1995 Age: 23y09:07/18/19. BP: 137/75. MAP: 95. HR: 65. RR: 17. O2 saturation: 99%. Temp: 98.5 F. --09: [facility] manager pharmaceutical, Sonya, CHANDRAKANT Tech1( Attempted multiple times by 3 different RN/DIRECTOR TRANSLATIONAL who were unsuccessful for IV placement. aware.).--09:13 07/18/19 Dania Lee R.N.09:30 07/18/2019 Morphine IM 4 mg given. Given in the left deltoid. Allergies verified and confirmed 5rights. Information reviewed with patient including reason for taking this medication, signs of allergicreaction, precautions and sedative warning. Verbalizes understanding. --09:30 07/18/19 Dania Lee R.N.09:30 07/18/19. Pain level now 7/10. --09:30 07/18/19 Dania Lee R.N.The patient is calm and resting quietly.GI / : The patient reports nausea is still present (MD aware). --09:30 07/18/19 Dania Lee R.N Sasha( assumed pt care, pt waiting on final test results, continues to state pain). --10:33 07/18/19 Magdaleno Ronquillo RN10:31 07/18/19. BP: 141/87. MAP: 105. HR: 64. RR: 16. O2 saturation: 97% on room air. Temp: 99.4 F(oral). Pain level now: 10/23. --10:33 07/18/19 Magdaleno Ronquillo RN( IV attempt unsuccessful x 2). --10:50 07/18/19 Magdaleno Ronquillo RN10:54 07/18/19. BP: 140/84. MAP: 102. HR: 71. RR: 17. O2 saturation: 100%. --10:55 07/18/19 [place] Sonya Pena ER Kofm161:28 07/18/2019 Site #2 started via IV in the right upper arm with an 20g angiocath, with aseptictechnique and good blood return; one attempt. Saline lock flushed with 10 mL saline. --12:28 07/18/19Corazon Cochran R.N.12:30 07/18/2019 Morphine IVP 4 mg given diluted in NS 10mL over 4 minute(s) via site #2. Allergiesverified and confirmed 5 rights. IV patency established. IV site checked: no pain, redness, or swelling. IVflushed thoroughly pre- and post- medication administration. IVP given by RN. Information reviewed withpatient including reason for taking this medication, signs of allergic reaction, precautions and sedativewarning. Verbalizes understanding. --12:30 07/18/19 Dania Lee R.N.12:46 07/18/19. BP: 122/80. MAP: 94. HR: 68. RR: 16. O2 saturation: 97%. Pain level now: 09/23.--12:47 07/18/19 Magdaleno Ronquillo RN( pt now has fluids running and was medicated for pain which she voices has decreased some, is restingnow). --12:47 07/18/19 Magdaleno Ronquillo RN13:33 07/18/19. BP: 108/69. MAP: 82. HR: 91. RR: 17. O2 saturation: 98%. --13:33 07/18/19 [facility] ED 5 Clinical Report - Nurses [facility] Emergency Department [address] [place] [address] Phone #: ext- [phone] 07/18/2019 04:56 Patient: ELIF ROMANO Sex: F : 1995 Age: 23y TechSonya, ER Tech1 14:15 07/18/2019 Site #2 removed upon discharge. Catheter intact. Manual pressure and bandage applied. --14:30 07/18/19 Magdaleno Ronquillo RN 14:15 07/18/2019 IV Fluids NS via IV site #1 Discontinued: STOPPED upon discharge. Total amount infused: 500 mL. IV patency established. IV site checked: no pain, redness, or swelling. IV flushed thorough ly. --14:30 07/18/19 Magdaleno Ronquillo RN.DISPOSITION / DISCHARGE Condition at departure: improved and stable. Discharge instructions provided and reviewed with the patient. Reviewed medication(s). Prescription(s) sent electronically to pharmacy. Reviewed referral to a urologist. Patient verbalized understanding. Written instructions provided in Senegalese. The patient was discharged by the physician. She was discharged home and accompanied by spouse. She left ambulatory and via private vehicle. Spouse driving. --14:18 07/18/19 Magdaleno Ronquillo RN 14:17 07/18/19. BP: 108/65. MAP: 79. HR: 84. RR: 16. O2 saturation: 97%. Temp: 99 F. Pain level now: 05/26. --14:18 07/18/19 Magdaleno Ronquillo RN.Locked/Released at 07/18/2019 14:31 by Magdaleno Ronquillo RN Name Value Range Interpretation Code Description Data Seema rce(s) Supporting Document(s) ID Date Data Source [id number] 07/18/2019 04:56:00 AM EDT [facility] 1 Clinical Report - Physicians/Mid Levels [facility] Emergency Department [address] [place] [address] Phone #: ext- [phone] 07/18/2019 04:56 Patient: ELIF ROMANO Sex: F : 1995 Age: 23y Time Seen: 05:23 07/18/2019; initial patient contact. Arrived- By ambulance. Historian- patient.HISTORY OF PRESENT ILLNESS Chief Complaint: FLANK PAIN and right side. This started just prior to arrival 3 am and is still present. It was abrupt in onset and has been constant. It is described as "pain" and sharp and it is described as located in the right flank. At its maximum, severity described as severe. When seen in the E.D., severity described as severe. Modifying factors. Not worsened by anything. Not relieved by anything. The patient has had moderate nausea and vomiting. No loss of appetite or diarrhea. Similar symptoms previously. ( has had kidney stones in the past). Recent medical care: Not recently seen/assessed.REVIEW OF SYSTEMSLast normal menstrual period- 2 weeks ago. No constipation, black stools, hematemesis, diffi culty withurination or pain with urination. No urinary frequency, bloody stools, fever, headache or sore throat. Noblurred vision, chest pain, difficulty breathing, cough or joint pain. No skin rash or chills. Denies currentpregnancy. The patient has had severe back pain but not had weight loss. All other systems reviewedand are negative.PAST HISTORYSee nurses notes. Problems: Nephrolithiasis. Depression. Anxiety Reaction. Gastroesophageal Reflux Disease. Additional Surgeries: Dilatation Curettage. Tubal Ligation. Medications: busPIRone HCl Oral. Iron Oral. Plus Iron Oral. PROzac Oral. A llergies: Demerol. 2 Clinical Report - Physicians/Mid Levels [facility] Emergency Department [address] [place] [address] Phone #: ext- [phone] 07/18/2019 04:56 Patient: ELIF ROMANO Sex: F : 1995 Age: 23y Dilaudid. Ibuprofen. Toradol. Tramadol.SOCIAL HISTORYNever smoker. No alcohol use or drug use.ADDITIONAL NOTESThe nursing notes have been reviewed with agreement regarding the chief complaint, HPI, ROS, PMH andpatient medicatio ns and allergies.PHYSICAL EXAMVital Signs: 07/18/2019 04:59 BP: 131/83. MAP: 99. HR: 55. RR: 18. O2 saturation: 99%. Temp: 97.5 F.Pain level now: 8/10. Have been reviewed. Oxygen saturation normal.Appearance: Alert. Oriented X3. Anxious. Patient in moderate distress. Distress appears due to painand anxiety.Eyes: Pupils equal, round and reactive to light. Eyes normal inspection.ENT: Ears normal. Nose normal. Pharynx normal.Neck: Normal inspection. Neck supple.CVS: Normal heart rate and rhythm. Heart sounds normal. Pulses normal.Respiratory: No respiratory distress. Painless inspiration. Breath sounds normal. Chest nontender.Abdomen: Soft. Moderate tenderness in the right side of the abdomen. No guarding or reboundtenderness. Bowel sounds normal. No organomegaly. No mass. Femoral pulses equal.Back: Moderate CVA tenderness on the right.Skin: Skin warm and dry. Normal skin color. No rash. Normal skin turgor.Extremities: Extremities exhibit normal ROM. No lower extremity edema.Neuro: Oriented X 3. No motor deficit. No sensory deficit. Reflexes normal.LABS, X-RAYS, AND EKGLaboratory Tests: Laboratory tests have been ordered, with results reviewed and considered in themedical decision making process. CBC w Diff: (CHRIS: 07/18/2019 05:13) ( MsgRcvd 07/18/2019 06:03) Final results Test Result Flag Units (Reference) CBC W/AUTOMATED DIFF COMPLETE BLOOD COUNT WBC 4.9 10/uL (4.2 - 11.0) RBC 4.84 10/uL (4.20 - 5.40) HEMOGLOBIN 11.4 L g/dL (12.0 - 16.0) HEMATOCRIT 37.7 % (37.0 - 47.0) MCV 77.9 L fL (81.0 - 101) MCH 23.6 L pg (27.0 - 34.0) MCHC 30.2 L g/dL (31.0 - 36.0) RDW 17.6 H % (11.5 - 14.5) PLATELETS 260 10/uL (150 - 450) MPV 10.5 H fL (7.4 - 10.4) NEUT 52.7 % (37.0 - 80.0) LYMPH 39.8 % (25.0 - 40.0) MONO 5.7 % (3.0 - 8.0) 3 Clinical Report - Physicians/Mid Levels [facility] Emergency Department [address] [place] [address] Phone #: ext- [phone] 07/18/2019 04:56 Patient: ELIF ROMANO Sex: F : 1995 Age: 23y EOS 1.0 % (0.0 - 7.0) BASO 0.6 % (0.0 - 2.5) %IG 0.2 H % (0.0 - 0.0) %NRBC 0.0 % (0.0 - 0.0) #NEUT 2.60 10/uL (2.00 - 6.90) #LYMPH 1.96 10/uL (0.60 - 3.40) #MONO 0.28 10/uL (0.00 - 0.90) #EOS 0.05 10/uL (0.00 - 0.70) #BASO 0.03 10/uL (0.00 - 0.20) #IG 0.01 10/uL (0.00 - 0.10) #NRBC 0.00 10/uL (0.00 - 0.00) MANUAL DIFF NOT INDICATED RBC MORPH NOT INDICATEDCMP: (CHRIS: 07/18/2019 05:13) ( MsgRcvd 07/18/2019 06:39) Final results Test Result Flag Units (Reference) COMPREHENSIVE METABOLIC PANEL COMPREHENSIVE METABOLIC PANEL SODIUM 142 mEq/L (134 - 153) POTASSIUM 3.8 mEq/L (3.6 - 5.0) CHLORIDE 104 mEq/L (98 - 107) CO2 27 MEQ/L (22 - 30) GLUCOSE 130 H MG/DL (65 - 110) BUN 29 H MG/DL (7 - 21) CREATININE 0.9 MG/DL (0.7 - 1.5) BUN/CREAT 32 H (8 - 27) TOTAL PROTEIN 7.5 G/DL (6.3 - 8.2) ALBUMIN 4.5 G/DL (3.9 - 5.0) GLOBULIN 3.0 GM/DL (2.4 - 3.2) A/G RATIO 1.5 (0.8 - 2.0) CALCIUM 9.2 MG/DL (8.4 - 10.2) TOTAL BILI <0.7 MG/DL (0.2 - 1.3) ALKALINE PHOS 73 U/L (38 - 126) SGOT/AST 18 U/L (5 - 40) SGPT/ALT 23 U/L (7 - 56) ANION GAP 11.0 mmol/L (8.0 - 16.0) AGE 23 yrs NON- AA GFR >60 mL/min AFR AMER GFR >60 mL/min Male GFR Interprentation 20-49 yrs >60 mL/min Tormpg47-83 yrs >56 mL/min Normal 60- 69 yrs >49 mL/min Normal 70-79yrs>42 mL/min Normal 80 and above >35 mL/min Normal Female GFRInterpretation 20-39 yrs >60 mL/min Normal 40-49 yrs >58 mL/minNormal 50-59 yrs >51 mL/min Normal 60-69 yrs >45 mL/min Zgkbux82-71 yrs >39 mL/min Normal 80 and above >32 mL/min NormalLipase: (CHRIS: 07/18/2019 05:13) ( MsgRcvd 07/18/2019 06:40) Final results Test Result Flag Units (Reference) LIPASE 23 U/L (13 - 60)Urinalysis: (CHRIS: 07/18/2019 05:08) ( MsgRcvd 07/18/2019 06:30) Final results Test Result Flag Units (Reference) URINALYSIS URINALYSIS SOURCE Clean Catch COLOR yellow (NORMAL: Yello CLARITY clear (NORMAL: Clear SPEC GRAVITY 1.025 (1.001 - 1.030 pH 6 (5 - 9) GLUCOSE NORM (NORMAL: Negat BILI SANCHEZ NEG (NORMAL: Negat KETONE NEG (NORMAL: Negat PROTEIN 30 (NORMAL: Negat NITRITE NEG (NORMAL: Negat 4 Clinical Report - Physicians/Mid Levels [facility] Emergency Department [address] [place] [address] Phone #: ext- [phone] 07/18/2019 04:56 Patient: ELIF ROMANO Sex: F : 1995 Age: 23y BLOOD 250 A (NORMAL: Negat LEUK EST 100 A (NORMAL: Negat UROBILINOGEN NOR (less than 1.0 MICROSCOPIC See Below WBC 30 - 40 A (NORMAL: NONE RBC 20 - 30 A (NORMAL: NONE EPITHELIAL FEW (NORMAL: NONE.PROGRESS AND PROCEDURESCourse of Care: ED care transferred. Case discussed with Dr. Delacruz. Brief hx: as per H. Pendingitems: CT / MRI results. Tentative impression: pyelonephritis vs renal colic. Expected disposition: dischargefrom ED.(Electronically signed by Ruby Lundberg M.D. 07/19/2019 07:23) Time Seen: 05:23 07/18/2019; initial patient contact. ED care transferred. Assumed care. Brief hx: Right flank pain. Pending items: CT / MRI results. Tentative impression: Renal colic. Arrived- By ambulance. Historian- patient. Disposition decision: 14:20 07/18/2019.HISTORY OF PRESENT ILLNESS Chief Complaint: FLANK PAIN and right side. This started just prior to arrival 3 am and is still present. It was abrupt in onset and has been constant. It is described as "pain" and sharp and it is described as located in the right flank and radiating to the low back. At its maximum, severity described as severe. When seen in the E.D., severity described as severe. Modifying factors. Not worsened by anything. Not relieved by anything. The patient has had moderate nausea and vomiting. No loss of appetite or diarrhea. No recent travel. Similar symptoms previously. ( has had kidney stones in the past). Recent medical care: Not recently seen/assessed.REVIEW OF SYSTEMSLast normal menstrual period- 2 weeks ago. No constipation, black stools, hematemesis, difficulty withurination or pain with urination. No urinary frequency, bloody stools, fever, headache or sore throat. Noblurred vision, chest pain, difficulty breathing, cough or joint pain. No skin rash or chills. Denies current 5 Clinical Report - Physicians/Mid Levels [facility] Emergency Department [address] [place] [address] Phone #: ext- [phone] 07/18/2019 04:56 Patient: ELIF ROMANO Sex: F : 1995 Age: 23y . The patient has had severe back pain but not had weight loss. All other systems reviewed and are negative.PAST HISTORYSee nurses notes. Has had urinary calculi. Renal colic, seizures Delivered in March,. Problems: Anxiety related siezures. Tension-Type Headache. UTI - Urinary Tract Infection. Vaginal Bleeding. Seizure. Nephrolithiasis. Depression. Gastroesophageal Reflux Disease. Additional Surgeries: Dilatation Curettage. Tubal Ligation. Medications: busPIRone HCl Oral. Iron Oral. Plus Iron Oral. PROzac Oral. Allergies: Demerol. Dilaudid. Ibuprofen. Toradol. Tramadol.SOCIAL HISTORYNever smoker. No alcohol use or drug use. No recent travel. Is a local resident. Resides in a house.works in [employer] in [employer].ADDITIONAL NOTESThe nursing notes have been reviewed with agreement regarding the chief complaint, H PI, ROS, PMH andpatient medications and allergies.PHYSICAL EXAMVital Signs: 07/18/2019 04:59 BP: 131/83. MAP: 99. HR: 55. RR: 18. O2 saturation: 99%. Temp: 97.5 F.Pain level now: 11/23. Have been reviewed. Oxygen saturation normal. 6 Clinical Report - Physicians/Mid Levels [facility] Emergency Department [address] [place] [address] Phone #: ext- [phone] 07/18/2019 04:56 Patient: ELIF ROMANO Sex: F : 1995 Age: 23y Appearance: Alert. Oriented X3. Anxious. Patient in moderate distress. Distress appears due to pain and anxiety. Eyes: Pupils equal, round and reactive to light. Eyes normal inspection. ENT: Ears normal. Nose normal. Pharynx normal. Neck: Normal inspection. Neck supple. CVS: Normal heart rate and rhythm. Heart sounds normal. Pulses normal. Respiratory: No respiratory distress. Painless inspiration. Breath sounds normal. Chest nontender. Abdomen: Soft. Moderate tenderness in the right side of the abdomen. No guarding or rebound tenderness. Bowel sounds normal. No organomegaly. No mass. Femoral pulses equal. Back: Moderate CVA tenderness on the right. Skin: Skin warm and dry. Normal skin color. No rash. Normal skin turgor. Extremities: Extremities exhibit normal ROM. No lower extremity edema. Neuro: Oriented X 3. No motor deficit. No sensory deficit. Reflexes normal.LABS, X-RAYS, AND EKGAbdominal CT: A urinary calculus is present in the right distal ureter (6 mm). There is moderateobstruction. Severe hydronephrosis of the right kidney.Laboratory Tests: Laboratory tests have been ordered, with results reviewed and considered in themedical decision making process. Culture, Urine: (CHRIS: 07/18/2019 06:43) ( NegRcvd 07/18/2019 06:43) Canceled SOURCE: Urine, Clean Catch CT ABD PEL W/O Oral W/O IV Contrast: (CHRIS: 07/18/2019 05:38) ( NegRcvd 07/18/2019 08:08) In Progress CT ABD Reason(s): right CVA pain, sudden TRANSPORTATION: IV? IV?(Yes) O2? Oxygen?(No) Ro : HCG Negative Exam CT ABD //T// PELV W/O ORAL W/O IV PAN [facility] [address] [place] [address] PHONE: [phone] FAX: [phone] Name .................. : ROSALINA Peck Acct Number.................. : [id number] ROOM. ................. : TR-05 Number ................... : [id number] Stay type ............. : E/R Discharge Date......... ... : Admit Date ......... : 07/18/19 Admit Phys .................... : TOÑO REARDON Date of ....... : 1995 Family Phys ................... : LATRELL BENOIT Phone .................. : [phone] Age ................................ : 23 Film# .................. .:[id number] Sex ............ ..................... : F Unsigned transcriptions are preliminary reports and do not represent a medical or legal document CT ABD Reason(s): right CVA pain, sudden CT ABDOMEN AND PELVIS WITHOUT CONTRAST, 07/18/19: INDICATION: Right CVA pain. FINDINGS: 7 Clinical Report - Physicians/Mid Levels [facility] Emergency Department [address] [place] [address] Phone #: ext- [phone] 07/18/2019 04:56 Patient: ELIF ROMANO Sex: F : 1995 Age: 23y Non-contrast CT examination of the abdomen and pelvis acquired. Coronal and sagittal images are reformatted. Visualized lower lungs are clear. Non-enhanced images of the liver are unremarkable. Gallbladder, pancreas, and spleen within normal limits. Moderate to severe right hydronephrosis. Dilated right ureter. There is a 6 mm stone at the right ureterovesical junction. Bladder collapsed and not evaluated. Left kidney unremarkable. Left ureter unremarkable. No aneurysmal dilatation today. No retroperitoneal adenopathy. Uterus and ovaries unremarkable. No adnexal mass. Phlebolith lower pelvis. No free air or free fluid. Bowel unremarkable. Appendix not visualized. No inflammation in the right lower quadrant. IMPRESSION: Moderate to severe right hydronephrosis. A 6 mm stone at the right ureterovesical junction. While performing the above CT examination, radiation dose reduction was accomplished utilizing automated exposure control, adjusting of the mA and kV based on the patient's body size and/or the use of imperative reconstructive techniques. Page 1of [address] [place] [address] PHONE: [phone] FAX: [phone] Name .................. : ROSALINA Peck Acct Number.................. : [id number] ROOM. ................. : [facility] MR Number ................... : [id number] Stay type ............. : E/R Discharge Date......... ... : Admit Date ......... : 07/18/19 Admit Phys .................... : TOÑO REARDON Date of ....... : 1995 Family Phys ................... : [employer] Phone .................. : [phone] Age ................................ : 23 Film# .................. .:[id number] Sex ................................. : F Unsigned transcriptions are preliminary reports and do not represent a medical or legal document CT ABD Reason(s): right CVA pain, sudden CT dose _ mGycm. Electronically Reviewed and Signed By BAYRON WASHINGTON BRE Transcribe Initials: DEV, Transcribe Date: 07/18/19 07:51, Dictation Date: <<REPDIST>> Page 2of 2CBC w Diff: (CHRIS: 07/18/2019 05:13) ( MsgRcvd 07/18/2019 06:03) Final results 8 Clinical Report - Physicians/Mid Levels [facility] Emergency Department [address] [place] [address] Phone #: ext- [phone] 07/18/2019 04:56 -- Patient: ELIF ROMANO Sex: F : 1995 Age: 23y Test Result Flag Units (Reference) CBC W/AUTOMATED DIFF COMPLETE BLOOD COUNT WBC 4.9 10/uL (4.2 - 11.0) RBC 4.84 10/uL (4.20 - 5.40) HEMOGLOBIN 11.4 L g/dL (12.0 - 16.0) HEMATOCRIT 37.7 % (37.0 - 47.0) MCV 77.9 L fL (81.0 - 101) MCH 23.6 L pg (27.0 - 34.0) MCHC 30.2 L g/dL (31.0 - 36.0) RDW 17.6 H % (11.5 - 14.5) PLATELETS 260 10/uL (150 - 450) MPV 10.5 H fL (7.4 - 10.4) NEUT 52.7 % (37.0 - 80.0) LYMPH 39.8 % (25.0 - 40.0) MONO 5.7 % (3.0 - 8.0) EOS 1.0 % (0.0 - 7.0) BASO 0.6 % (0.0 - 2.5) %IG 0.2 H % (0.0 - 0.0) %NRBC 0.0 % (0.0 - 0.0) #NEUT 2.60 10/uL (2.00 - 6.90) #LYMPH 1.96 10/uL (0.60 - 3.40) #MONO 0.28 10/uL (0.00 - 0.90) #EOS 0.05 10/uL (0.00 - 0.70) #BASO 0.03 10/uL (0.00 - 0.20) #IG 0.01 10/uL (0.00 - 0.10) #NRBC 0.00 10/uL (0.00 - 0.00) MANUAL DIFF NOT INDICATED RBC MORPH NOT INDICATEDCMP: (CHRIS: 07/18/2019 05:13) ( MsgRcvd 07/18/2019 06:39) Final results Test Result Flag Units (Reference) COMPREHENSIVE METABOLIC PANEL COMPREHENSIVE METABOLIC PANEL SODIUM 142 mEq/L (134 - 153) POTASSIUM 3.8 mEq/L (3.6 - 5.0) CHLORIDE 104 mEq/L (98 - 107) CO2 27 MEQ/L (22 - 30) GLUCOSE 130 H MG/DL (65 - 110) BUN 29 H MG/DL (7 - 21) CREATININE 0.9 MG/DL (0.7 - 1.5) BUN/CREAT 32 H (8 - 27) TOTAL PROTEIN 7.5 G/DL (6.3 - 8.2) ALBUMIN 4.5 G/DL (3.9 - 5.0) GLOBULIN 3.0 GM/DL (2.4 - 3.2) A/G RATIO 1.5 (0.8 - 2.0) CALCIUM 9.2 MG/DL (8.4 - 10.2) TOTAL BILI <0.7 MG/DL (0.2 - 1.3) ALKALINE PHOS 73 U/L (38 - 126) SGOT/AST 18 U/L (5 - 40) SGPT/ALT 23 U/L (7 - 56) ANION GAP 11.0 mmol/L (8.0 - 16.0) AGE 23 yrs NON-AA GFR > 60 mL/min AFR AMER GFR >60 mL/min Male GFR Interprentation 20-49 yrs >60 mL/min Byokkb66-76 yrs >56 mL/min Normal 60-69 yrs >49 mL/min Normal 70-79yrs>42 mL/min Normal 80 and above >35 mL/min Normal Female GFRInterpretation 20-39 yrs >60 mL/min Normal 40-49 yrs >58 mL/minNormal 50-59 yrs >51 mL/min Normal 60-69 yrs >45 mL/min Crixhd31-40 yrs >39 mL/min Normal 80 and above >32 mL/min NormalLipase: (CHRIS: 07/18/2019 05:13) ( [facility] 07/18/2019 06:40) Final results Test Result Flag Units (Reference) LIPASE 23 U/L (13 - 60) 9 Clinical Report - Physicians/Mid Levels [facility] Emergency Department [address] [place] [address] Phone #: ext- [phone] 07/18/2019 04:56 Patient: ELIF ROMANO Sex: F : 1995 Age: 23y Urinalysis: (CHRIS: 07/18/2019 05:08) ( [facility] 07/18/2019 06:30) Final results Test Result Flag Units (Reference) URINALYSIS URINALYSIS SOURCE Clean Catch COLOR yellow (NORMAL: Yello CLARITY clear (NORMAL: Clear SPEC GRAVITY 1.025 (1.001 - 1.030 pH 6 (5 - 9) GLUCOSE NORM (NORMAL: Negat BILIRUBIN NEG (NORMAL: Negat KETONE NEG (NORMAL: Negat PROTEIN 30 (NORMAL: Negat NITRITE NEG (NORMAL: Negat BLOOD 250 A (NORMAL: Negat LEUK EST 100 A (NORMAL: Negat UROBILINOGEN NOR (less than 1.0 MICROSCOPIC See Below WBC 30 - 40 A (NORMAL: NONE RBC 20 - 30 A (NORMAL: NONE EPITHELIAL FEW (NORMAL: NONE Beta-HCG, Qual Serum: (CHRIS: 07/18/2019 05:13) ( [facility] 07/18/2019 06:44) Final results Test Result Flag Units (Reference) HCG SERUM QUAL NEGATIVE (NORMAL: NEGAT HCG SERUM QL REENTER NEGATIVE (NORMAL: NEGAT { KIT LOT # [id number] ){ KIT EXP DATE 01/26/21 ){ PROCEDURAL CONTROL VALID ).PROGRESS AND PROCEDURESCourse of Care: 07:15. Patient is stable. Physical exam findings are improved. Symptoms better. EDcare transferred. Case discussed with Dr. Delacruz. Brief hx: as per H. Pending items: CT / MRI results.Tentative impression: pyelonephritis vs renal colic. Expected disposition: discharge from ED. 07:30. Evaluation after repeat exam. Discussed with patient and reviewed. has 6 mm stone at right UVJ with moderate to severe Hydronephrosis. hence iv fluid was started also. initially had morphine IM. patient sasy she is allergic to NSAID , toradol, dilaudid, only morphine she can have. hence flomax, iv fluids, morp[jules , urine strainer. will d/w if available 08:08 07/18/19. updated patient, NPO, urine strainer. advised about elevated BUn and 6 mm calculi. given dose of zofran 4 mg ODT also with flomax pending IV access due to difficult IV access. if needed might need stent due to hydro. advised nPO. no urolgy environmental health nurse at [facility]. 10:35 07/18/19. Discussed with patient. poor venous access. advised about plan. if pain is not controlled , then we might need to send gher where urology services are available. 12:12 07/18/19. Discussed with patient , reviewed. still has pain. urinated but has not passed stone yet. will discuss with , not environmental health nurse . D/w and reviewed. only emergent surgeries. this would not require surgical interevention at this 10 Clinical Report - Physicians/Mid Levels [facility] Emergency Department [address] [place] [address] Phone #: ext- [phone] 07/18/2019 04:56 Patient: ELIF ROMANO Sex: F : 1995 Age: 23y time. pain control, anagesics and he can f/u on sunday at office, if mcgraw is not controlled transfer her out to other hospital for intervention and pain control 12:23 07/18/19. discussed with patient, updated . morphine ordered. percocet PRN, strainer, . continue observation 13:45 07/18/19. patient feeling better. advised about follow up , keflex 500 mg tid for 7 days, percocet q 6 prn, flomax daily, OP f/u with Dr. Staton on sunday. advised to return if worsens or any symptoms if worsens . 14:20 07/18/19. patient comfortable. no pain now. discharged with instructions for further care, f/u and return if any symptoms. no pain at this time. Discussed case with health care provider (12:Jul 18 2019 ). Reviewed test results and need for additional work-up. Agreed upon treatment plan and need for patient follow-up. Health care provider will see patient in office. Refers case to other health care provider. Patient/family counseled. Old medical records ordered. Disposition: Discharged home in good and improved condition (14:20 Jul 18 2019). Condition: good.CLINICAL IMPRESSION Right renal colic in the right ureter with a single calculus. hydronephrosis.INSTRUCTIONS Do not work for three days until better. Drink plenty of fluids. (Return if worsens or recurs or any concerns or symptoms). Warnings: Further evaluation is necessary. SEDATIVE MEDICATION: You were given sedative medication during your visit. Do not drive or operate dangerous machinery. CONTROLLED SUBSTANCE WARNINGS. GENERAL WARNINGS: Return or contact your physician immediately if your condition worsens or changes unexpectedly, if not improving as expected, or if other problems arise. Prescription Medications: Percocet 5 mg-325 mg tablet Take 1 tablet four times a day as needed for pain for 3 days -- Dispense 12 tablet. Refills: 0. Substitution permitted. Pharmacy - [id number] - [address] ; [place], [place] [id number]. Phone: [phone] Clinical Report - Physicians/Mid Levels [facility] Emergency Department [address] [place], [place] [address] Phone #: ext- [phone] 07/18/2019 04:56 Patient: ELIF ROMANO Sex: F : 1995 Age: 23y [phone] . Flomax 0.4 mg capsule Take 1 capsule once a day as directed for 10 days -- Dispense 10 capsule. Refills: 0. Substitution permitted. [facility] [place] [address] [phone]. . Keflex 500 mg capsule Take 1 capsule three times a day as directed for 7 days -- Dispense 21 capsule. Refills: 0. Substitution permitted. [facility] [address] [place] [address] [phone]. . Follow-up: Follow up with your healthcare provider if not better. Call for an appointment. Reason for referral: evaluation and treatment. Summary of care provided to patient and follow-up provider via paper. Follow up with a urologist f/u Sunday if not well. Call for an appointment. Reason for referral: evaluation. Summary of care provided to patient and follow-up provider via paper. Understanding of the discharge instructions verbalized by patient. Follow-up with: Dave Staton M.D., Urology, , [address] [place] [address], [id number] Follow up Sunday. Call for an appointment. Reason for referral: evaluation and treatment. Summary of care provided to patient and follow-up provider via paper.(Electronically signed by Devin Delacruz M.D. 07/18/2019 23:38) Name Value Range Interpretation Code Description Data Seema rce(s) Supporting Document(s) ID Date Data Source [id number] 07/18/2019 04:56:00 AM EDT [facility] for ELIF ROMANO VisitID: [id number] Date: 9:41Pt CoVid negative, called and left voicemail for parent of patient at 0835, [facility] called back at 0940 andstated [facility] health already told them yesterday. Public health made aware by Tien Ruiz RN.(Electronically signed by Dania Lee R.N. - 07/22/2019 9:41)07/22/2019 9:45Previous addenda placed on wrong patient, please disregard.(Electronically signed by Dania Lee R.N. - 07/22/2019 9:45) Name Value Range Interpretation Code Description Data Seema rce(s) Supporting Document(s) ID Date Data Source [id number] 07/18/2019 06:43:00 AM EDT [facility] Name Value Range Interpretation Code Description Data Seema rce(s) Supporting Document(s) HCG SERUM QUAL NEGATIVE NORMAL: NEGATIVE [facility] HCG SERUM QL REENTER NEGATIVE NORMAL: NEGATIVE [facility] { KIT LOT # [id number] ){ KIT EXP DATE 01/26/21 ){ PROCEDURAL CONTROL VALID ) ID Date Data Source [id number] 07/18/2019 05:13:00 AM EDT [facility] Name Value Range Interpretation Code Description Data Seema rce(s) Supporting Document(s) HCG Serum Qual Laboratory test result [facility] ([facility] HCG Serum QL [facility] Laboratory test result [facility] ([facility] { KIT LOT # [id number] ) { KIT EXP DATE 01/26/21 ) { PROCEDURAL CONTROL VALID ) ID Date Data Source [id number] 07/18/2019 05:13:00 AM EDT [facility] ([facility] Name Value Range Interpretation Code Description Data Seema rce(s) Supporting Document(s) Lipoprotein lipase [Enzymatic activity/volume] in Serum or Plasm a 23 U/L 13-60 [facility] ([facility] ) ID Date Data Source [id number] 07/18/2019 05:13:00 AM EDT [facility] ([facility] Name Value Range Interpretation Code Description Data Seema rce(s) Supporting Document(s) Comprehensive [facility] Laboratory test result [facility] [place] [facility] COMPREHENSIVE METABOLIC PANEL Sodium 142 meq/L 134-153 [facility] Chloride 104 meq/L 98-107 [facility] ([facility] Potassium 3.8 meq/L 3.6-5.0 [facility] Co2 27 meq/L 22-30 [facility] BUN 29 mg/dL 7-21 Above high normal [facility] ([facility] Glucose 130 mg/dL 65-110 Above high normal [facility] ([facility] Creatinine 0.9 mg/dL 0.7-1.5 [facility] ([facility] Total Protein 7.5 g/dL 6.3-8.2 [facility] BUN/Creat 32 8-27 Above high normal [facility] Albumin 4.5 g/dL 3.9-5.0 [facility] A/G Ratio 1.5 0.8-2.0 [facility] Globulin 3.0 GM/DL 2.4-3.2 [facility] Calcium 9.2 mg/dL 8.4-10.2 [facility] ([facility] Total Bili Laboratory test result 0.2-1.3 [place] [facility] ([facility] [place] [facility] Alkaline Phos 73 U/L 38-126 [facility] Sgot/Ast 18 U/L 5-40 [facility] SGPT/Alt 23 U/L 7-56 [facility] Anion Gap 11.0 mmol/L 8.0-16.0 [facility] Age 23 yrs [facility] ([facility] Non-Aa GFR Laboratory test result [facility] ([facility] [place] [facility] Afr Amer GFR Laboratory test result [facility] ([facility] [place] [facility] Male GFR Interprentation 20-49 yrs >60 mL/min Normal 50-59 yrs >56 mL/min Normal 60-69 yrs >49 mL/min Normal 70-79yrs >42 mL/min Normal 80 and above >35 mL/min Normal Female GFR Interpretation 20-39 yrs >60 mL/min Normal 40-49 yrs >58 mL/min Normal 50-59 yrs >51 mL/min Normal 60-69 yrs >45 mL/min Normal 70-79 yrs >39 mL/min Normal 80 and above >32 mL/min Normal ID Date Data Source [id number] 07/18/2019 05:13:00 AM EDT [facility] ([facility] Name Value Range Interpretation Code Description Data Seema rce(s) Supporting Document(s) CBC W/Automated Diff Laboratory test result [facility] ([facility] COMPLETE BLOOD COUNT WBC 4.9 10^3/uL 4.2-11.0 [facility] ([facility] Hematocrit 37.7 % 37.0-47.0 [facility] ([facility] Hemoglobin 11.4 g/dL 12.0-16.0 Below low normal [facility] ( [facility] RBC 4.84 10^6/uL 4.20-5.40 [facility] ([facility] MCH 23.6 pg 27.0-34.0 Below low normal [facility] ( [facility] MCV 77.9 fL 81.0-101 Below low normal [facility] ( [facility] MCHC 30.2 g/dL 31.0-36.0 Below low normal [facility] ( [facility] RDW 17.6 % 11.5-14.5 Above high normal [facility] ([facility] MPV 10.5 fL 7.4-10.4 Above high normal [facility] ([facility] Platelets 260 10^3/uL 150-450 [facility] Lymph 39.8 % 25.0-40.0 [facility] Neut 52.7 % 37.0-80.0 [facility] Trinity 5.7 % 3.0-8.0 [facility] Eos 1.0 % 0.0-7.0 [facility] Baso 0.6 % 0.0-2.5 [facility] ([facility] %Ig 0.2 % 0.0-0.0 Above high normal [facility] #Neut 2.60 10^3/uL 2.00-6.90 [facility] ([facility] #Lymph 1.96 10^3/uL 0.60-3.40 [facility] ([facility] %NRBC 0.0 % 0.0-0.0 [facility] ([facility] #Trinity 0.28 10^3/uL 0.00-0.90 [facility] ([facility] #Baso 0.03 10^3/uL 0.00-0.20 [facility] ([facility] #Ig 0.01 10^3/uL 0.00-0.10 [facility] ([facility] #Eos 0.05 10^3/uL 0.00-0.70 [facility] ([facility] #NRBC 0.00 10^3/uL 0.00-0.00 [facility] ([facility] Manual Diff Laboratory test result M LUISA ([facility] RBC Morph Laboratory test result ME SARKAR ([facility] ID Date Data Source [id number] 07/18/2019 06:03:00 AM EDT [facility] Name Value Range Interpretation Code Description Data Seema rce(s) Supporting Document(s) CBC W/AUTOMATED DIFF [facility] COMPLETE BLOOD COUNT Leukocytes [#/volume] in Blood by Automated count 4.9 10^3/uL 4.2 - 1 1.0 [facility] Erythrocytes [#/volume] in Blood by Automated count 4.84 10^6/uL 4. 20 - 5.40 [facility] Hemoglobin [Mass/volume] in Blood 11.4 g/dL 12.0 - 16.0 L [facility] Hematocrit [Volume Fraction] of Blood by Automated count 37.7 % 3 7.0 - 47.0 [facility] Erythrocyte mean corpuscular volume [Entitic volume] by Auto mated count 77.9 fL 81.0 - 101 L [facility] Erythrocyte mean corpuscular hemoglobin [Entitic mass] by Automated count 23.6 pg 27.0 - 34.0 L [facility] Erythrocyte mean corpuscular hemoglobin concentration [Mass/volume] by Automated count 30.2 g/dL 31.0 - 36.0 L [facility] Erythrocyte distribution width [Ratio] by Automated count 17.6 % 11.5 - 14.5 H [facility] Platelets [#/volume] in Blood by Automated count 260 10^3/uL 150 - 45 0 [facility] Platelet mean volume [Entitic volume] in Blood by Automated count 10.5 fL 7.4 - 10.4 H [facility] Neutrophils/100 leukocytes in Blood by Automated count 52.7 % 37. 0 - 80.0 [facility] Lymphocytes/100 leukocytes in Blood by Manual count 39.8 % 25.0 - 40.0 [facility] Monocytes/100 leukocytes in Blood by Automated count 5.7 % 3.0 - 8.0 [facility] Eosinophils/100 leukocytes in Blood by Automated count 1.0 % 0.0 - 7.0 [facility] Basophils/100 leukocytes in Blood by Automated count 0.6 % 0.0 - 2.5 [facility] %IG 0.2 % 0.0 - 0.0 [facility] 0.0 % 0.0 - 0.0 [facility] Neutrophils [#/volume] in Blood by Automated count 2.60 10^3/uL 2.00 - 6.90 [facility] Lymphocytes [#/volume] in Blood by Automated count 1.96 10^3/uL 0.60 - 3.40 [facility] Monocytes [#/volume] in Blood by Automated count 0.28 10^3/uL 0.00 - 0.90 [facility] Eosinophils [#/volume] in Blood by Automated count 0.05 10^3/uL 0.00 - 0.70 [facility] Basophils [#/volume] in Blood by Automated count 0.03 10^3/uL 0.00 - 0.20 [facility] #IG 0.01 10^3/uL 0.00 - 0.10 [facility] #NRBC 0.00 10^3/uL 0.00 - 0.00 [facility] ospital MANUAL DIFF NOT INDICATED [facility] RBC MORPH NOT INDICATED [facility] spital ID Date Data Source [id number] 07/18/2019 06:39:00 AM EDT [facility] Name Value Range Interpretation Code Description Data Seema rce(s) Supporting Document(s) COMPREHENSIVE METABOLIC PANEL [facility] COMPREHENSIVE METABOLIC PANEL Sodium [Moles/volume] in Serum or Plasma 142 mEq/L 134 - 153 [facility] Potassium [Moles/volume] in Serum or Plasma 3.8 mEq/L 3.6 - 5.0 [facility] Chloride [Moles/volume] in Serum or Plasma 104 mEq/L 98 - 107 [facility] Carbon dioxide, total [Moles/volume] in Serum or Plasma 27 MEQ/L 22 - 30 [facility] Glucose [Mass/volume] in Serum or Plasma 130 MG/DL 65 - 110 H [facility] BUN 29 MG/DL 7 - 21 H [facility] Creatinine [Mass/volume] in Serum or Plasma 0.9 MG/DL 0.7 - 1.5 [facility] BUN/CREAT 32 8 - 27 [facility] Protein [Mass/volume] in Serum or Plasma 7.5 G/DL 6.3 - 8.2 [facility] Albumin [Mass/volume] in Serum or Plasma 4.5 G/DL 3.9 - 5.0 [facility] Globulin [Mass/volume] in Serum by calculation 3.0 GM/DL 2.4 - 3.2 [facility] A/G RATIO 1.5 0.8 - 2.0 [facility] Calcium [Mass/volume] in Serum or Plasma 9.2 MG/DL 8.4 - 10.2 [facility] Bilirubin.total [Mass/volume] in Serum or Plasma <0.7 MG/DL 0.2 - 1.3 [facility] Alkaline phosphatase [Enzymatic activity/volume] in Serum or Plasma 73 U/L 38 - 126 [facility] Aspartate aminotransferase [Enzymatic activity/volume] in Serum or Plasma 18 U/L 5 - 40 [facility] Alanine aminotransferase [Enzymatic activity/volume] in Seru m or Plasma 23 U/L 7 - 56 [facility] Anion gap 3 in Serum or Plasma 11.0 mmol/L 8.0 - 16.0 [facility] AGE 23 yrs [facility] al NON-AA GFR >60 mL/min [facility] ital AFR AMER GFR >60 mL/min [facility] sp[facility] Male GFR In terprentation 20-49 yrs >60 mL/min Normal 50-59 yrs >56 mL/min Normal 60-69 yrs >49 mL/min Normal 70-79yrs >42 mL/min Normal 80 and above >35 mL/min Normal Female GFR Interpretation 20-39 yrs >60 mL/min Normal 40-49 yrs >58 mL/min Normal 50-59 yrs >51 mL/min Normal 60-69 yrs >45 mL/min Normal 70-79 yrs >39 mL/min Normal 80 and above >32 mL/min Normal ID Date Data Source [id number] 07/18/2019 06:39:00 AM EDT [facility] Name Value Range Interpretation Code Description Data Seema rce(s) Supporting Document(s) Lipase [Enzymatic activity/volume] in Serum or Plasma 23 U/L 13 - 60 [facility] ID Date Data Source [id number] 07/19/2019 10:00:00 AM EDT [facility] Greater than 100,000 CFU/MLStaph spp, St rep spp, Corynebacterium sppProbable contaminants no senst done Name Value Range Interpretation Code Description Data Seema rce(s) Supporting Document(s) ID Date Data Source [id number] 07/24/2019 06:28:00 AM EDT [facility] Name Value Range Interpretation Code Description Data Seema rce(s) Supporting Document(s) CULTURE URINE [facility] _CULTURE URINE_ TEST PERFORMED AT [address] [address] CLIA# [id number] SEE SCANNED REPORT ID Date Data Source [id number] 07/18/2019 05:08:00 AM EDT [facility] ([facility] Name Value Range Interpretation Code Description Data Seema rce(s) Supporting Document(s) Culture Urine Laboratory test result [facility] ([facility] _CULTURE URINE_ TEST PERFORMED AT [address] [address] CLIA# [id number] SEE SCANNED REPORT ID Date Data Source [id number] 07/18/2019 06:29:00 AM EDT [facility] Name Value Range Interpretation Code Description Data Seema rce(s) Supporting Document(s) URINALYSIS [facility] kisha URINALYSIS SOURCE Clean Catch [facility] COLOR yellow NORMAL: Yellow [facility] CLARITY clear NORMAL: Clear [facility] Specific gravity of Urine by Test strip 1.025 1.001 - 1.030 [facility] pH 6 5 - 9 [facility] Glucose [Mass/volume] in Urine by Test strip NORM NORMAL: Negat [facility] Bilirubin.total [Presence] in Urine by Test strip NEG NORMAL: Negative [facility] Ketones [Presence] in Urine by Test strip NEG NORMAL: Negative [facility] Protein [Mass/volume] in Urine by Test strip 30 NORMAL: Negat [facility] Nitrite [Presence] in Urine by Test strip NEG NORMAL: Negative [facility] BLOOD 250 NORMAL: Negative [facility] Leukocyte esterase [Presence] in Urine by Test strip 100 JUDITH L: Negative [facility] Urobilinogen [Mass/volume] in Urine by Test strip NOR less diane n 1.0 mg/dL [facility] MICROSCOPIC See Below [facility] WBC 30 - 40 NORMAL: NONE SEEN A [facility] Erythrocytes [#/volume] in Urine by Test strip 20 - 30 NORMAL: NON E SEEN A [facility] EPITHELIAL FEW NORMAL: NONE SEEN [facility] ID Date Data Source [id number] 07/18/2019 05:08:00 AM EDT [facility] ([facility] Name Value Range Interpretation Code Description Data Seema rce(s) Supporting Document(s) Urinalysis Laboratory test result ME DENT ([facility] URINALYSIS Source Laboratory test result [facility] ([facility] Color Laboratory test result [facility] ([facility] Clarity Laboratory test result [facility] ([facility] Spec [place] 1.025 1.001-1.030 [facility] ([facility] pH 6 5-9 [facility] Glucose Laboratory test result [facility] ([facility] Bilirubin Laboratory test result ME DENT ([facility] Ketone Laboratory test result [facility] ([facility] Protein 30 [facility] Nitrite Laboratory test result [facility] ([facility] Blood 250 Abnormal (applies to non-numeric res ults) [facility] ([facility] Leuk Est 100 Abnormal (applies to non-numeric res ults) [facility] ([facility] Urobilinogen Laboratory test result [facility] ([facility] Microscopic Laboratory test result M EDENT ([facility] WBC Laboratory test result Abnormal (applies to non -numeric results) [facility] ([facility] RBC Laboratory test result Abnormal (applies to non -numeric results) [facility] ([facility] Epithelial Laboratory test result ME DENT ([facility] ID Date Data Source [id number] 06/03/2019 12:07:00 PM EST [facility] [place] [address] OPERATIVE SUMMARYNAME: ROSALINA Peck DATE OF : 1995ATTENDING PHYS: MONAE Garibay MD DATE: 06/02/19 MR#: [id number] OF PROCEDURE: 06/02/2019PRE-OPERATIVE DIAGNOSIS: 1. Multiparity. 2. Desires permanent sterilization.POST-OPERATIVE DIAGNOSIS: 1. Multiparity. 2. Desires permanent sterilization.FINDINGS:Normal pelvic anatomy.PROCEDURE: 1. Examination under anesthesia. 2. Sounding of the uterus. 3. HUMI insertion. 4. Laparoscopic bilateral salpingectomy.SURGEON: Dr. Garibay.ANESTHESIA CARE PROVIDER: Triston Murillo CRNA.ANESTHESIA: General.ESTIMATED BLOOD LOSS: Minimal.IV FLUID USED: 1 liter LR.URINE OUTPUT: 130 cc.DRAINS: None.IMPLANTS: None.PIN INSERTER REGULATOR: JESSE Mirza student.SPECIMENS: Right and left fallopian tubes. [address] [place] [address] OPERATIVE SUMMARYNAME: ROSALINA Peck DATE OF : 1995ATTENDING PHYS: MONAE Garibya MD DATE: 06/02/19 MR#: [id number] ADMINISTERED: NoneCOMPLICATIONS: None.DESCRIPTION OF PROCEDURE:After consent was reviewed with the patient and IV started, she was taken to the operating roomwhere general anesthesia was administered without any difficulty. Patient was placed in the dorsallithotomy position, Valera catheter inserted, and pneumatic stockings applied, and she was preppedand draped in a normal sterile fashion. Patient was examined under anesthesia. The uterus wasnoted to be of normal size, and no adnexal mass was appreciated. A weighted speculum was thenplaced in the vagina. The anterior vaginal wall was retracted and the anterior aspect of the cervixwas grasped with a toothed tenaculum. The HUMI catheter was then inserted into the uterus via thecervix, and this was used as a means of manipulating the uterus. Attention was then turned to thepatient's abdomen, where a 10 mm infraumbilical incision was made. The abdomen was theninflated with approximately 2 liters of CO2 gas using the Veress needle. The 10 mm trocar andsleeve was then advanced into the patient's abdomen without any difficulty. Intraperitonealplacement was then confirmed with the laparoscope. A second incision was then made on the rightlateral aspect of the patient's abdomen, and the 5 mm trocar and sleeve was advanced into thepatient's abdomen under direct visualization. A third incision was then made on the left lateralaspect of the patient's abdomen, and the 8 mm trocar and sleeve was advanced into the patient'sabdomen under direct visualization. The endoscopic grasper was placed in the right port, andharmonic scalpel was placed in the left port. Using the endoscopic grasper, the left tube wasgrasped at the fimbria, and using the harmonic, the tube was severed from the mesosalpinx. Thesame procedure was then performed on the contralateral side. Both tubes were taken out of the 8mm port. Adequate hemostasis was visualized. All instruments were then removed under directvisualization, and all incisional sites were closed using 3-0 Vicryl suture, and approximately 3 cc ofa mixture of 0.5% Marcaine with 2% Lidocaine with epi was injected at each site. Dermabond wasthen applied to all incisional sites. The HUMI catheter was then removed. The drape was alsoremoved, and the patient was awakened from anesthesia and transferred to the recovery room instable condition. Lap and instrument counts were correct x2. [address] [place] [address] OPERATIVE SUMMARYNAME: ROSALINA Peck DATE OF : 1995ATTENDING PHYS: MONAE Garibay MD DATE: 06/02/19 MR#: [id number]: MONAE Garibay MD 06/02/19 16:09DT: SSR 06/03/19 11:57DS: MONAE Garibay MD 06/04/19 08:53 3 Name Value Range Interpretation Code Description Data Seema rce(s) Supporting Document(s) ID Date Data Source [id number] 05/28/2019 08:29:00 AM EST [facility] Name Value Range Interpretation Code Description Data Seema rce(s) Supporting Document(s) CBC NO DIFF [facility] COMPLETE BLOOD COUNT Leukocytes [#/volume] in Blood by Automated count 3.3 10^3/uL 4.2 - 1 1.0 L [facility] Erythrocytes [#/volume] in Blood by Automated count 4.15 10^6/uL 4. 20 - 5.40 L [facility] Hemoglobin [Mass/volume] in Blood 10.1 g/dL 12.0 - 16.0 L [facility] Hematocrit [Volume Fraction] of Blood by Automated count 33.0 % 3 7.0 - 47.0 L [facility] Erythrocyte mean corpuscular volume [Entitic volume] by Auto mated count 79.5 fL 81.0 - 101 L [facility] Erythrocyte mean corpuscular hemoglobin [Entitic mass] by Automated count 24.3 pg 27.0 - 34.0 L [facility] Erythrocyte mean corpuscular hemoglobin concentration [Mass/volume] by Automated count 30.6 g/dL 31.0 - 36.0 L [facility] Erythrocyte distribution width [Ratio] by Automated count 15.9 % 11.5 - 14.5 H [facility] Platelets [#/volume] in Blood by Automated count 197 10^3/uL 150 - 45 0 [facility] Platelet mean volume [Entitic volume] in Blood by Automated count 10.1 fL 7.4 - 10.4 [facility] ID Date Data Source [id number] 05/28/2019 08:54:00 AM EST [facility] Name Value Range Interpretation Code Description Data Seema rce(s) Supporting Document(s) [facility] SOURCE R [facility] al COLOR Yellow NORMAL: Yellow [facility] CLARITY Clear NORMAL: Clear [facility] Specific gravity of Urine by Test strip 1.020 1.001 - 1.030 [facility] pH 6.5 5 - 9 [facility] al Glucose [Mass/volume] in Urine by Test strip NORM NORMAL: Negat [facility] Bilirubin.total [Presence] in Urine by Test strip NEG NORMAL: Negative [facility] Ketones [Presence] in Urine by Test strip NEG NORMAL: Negative [facility] Protein [Mass/volume] in Urine by Test strip NEG NORMAL: Negat alma [facility] Nitrite [Presence] in Urine by Test strip NEG NORMAL: Negative [facility] BLOOD NEG NORMAL: Negative [facility] Leukocyte esterase [Presence] in Urine by Test strip NEG JUDITH L: Negative [facility] Urobilinogen [Mass/volume] in Urine by Test strip NOR less diane n 1.0 mg/dL [facility] MICROSCOPIC Not Indicate [facility] ID Date Data Source [id number] 05/28/2019 09:01:00 AM EST [facility] Name Value Range Interpretation Code Description Data Seema rce(s) Supporting Document(s) HCG SERUM QUAL NEGATIVE NORMAL: NEGATIVE [facility] HCG SERUM QL REENTER NEGATIVE NORMAL: NEGATIVE [facility] { KIT LOT # [id number] ){ KIT EXP DATE [id number] ){ PROCEDURAL CONTROL VALID ) ID Date Data Source [id number] 05/28/2019 08:13:00 AM EST [facility] ([facility] Name Value Range Interpretation Code Description Data Seema rce(s) Supporting Document(s) CBC No Diff Laboratory test result M EDENT ([facility] COMPLETE BLOOD COUNT RBC 4.15 10^6/uL 4.20-5.40 Below low normal [facility] ([facility] WBC 3.3 10^3/uL 4.2-11.0 Below low normal [facility] ([facility] Hemoglobin 10.1 g/dL 12.0-16.0 Below low normal [facility] ( [facility] Hematocrit 33.0 % 37.0-47.0 Below low normal [facility] ( [facility] MCV 79.5 fL 81.0-101 Below low normal [facility] ( [facility] MCH 24.3 pg 27.0-34.0 Below low normal [facility] ( [facility] MCHC 30.6 g/dL 31.0-36.0 Below low normal [facility] ( [facility] RDW 15.9 % 11.5-14.5 Above high normal [facility] ([facility] Platelets 197 10^3/uL 150-450 [facility] ([facility] MPV 10.1 fL 7.4-10.4 [facility] ([facility] ID Date Data Source [id number] 05/28/2019 08:13:00 AM EST [facility] Name Value Range Interpretation Code Description Data Seema rce(s) Supporting Document(s) Urinalysis Laboratory test result ME DENT [facility] URINALYSIS Source Laboratory test result [facility] ([facility] Color Laboratory test result [facility] ([facility] Spec [place] 1.020 1.001-1.030 [facility] ([facility] Clarity Laboratory test result [facility] ([facility] pH 6.5 5-9 [facility] ([facility] Glucose Laboratory test result [facility] ([facility] Ketone Laboratory test result [facility] ([facility] Bilirubin Laboratory test result ME DENT ([facility] Protein Laboratory test result [facility] ([facility] Nitrite Laboratory test result [facility] ([facility] Blood Laboratory test result [facility] ([facility] Leuk Est Laboratory test result [facility] ([facility] Urobilinogen Laboratory test result [facility] ([facility] Microscopic Laboratory test result M EDENT ([facility] ID Date Data Source [id number] 05/28/2019 08:13:00 AM EST [facility] Name Value Range Interpretation Code Description Data Seema rce(s) Supporting Document(s) HCG Serum Qual Laboratory test result [facility] ([facility] HCG Serum QL [place] Laboratory test result [facility] ([facility] { KIT LOT # [id number] ) { KIT EXP DATE [id number] ) { PROCEDURAL CONTROL VALID ) ID Date Data Source [id number] 05/28/2019 08:13:00 AM EST [facility] ([facility]) Name Value Range Interpretation Code Description Data Seema rce(s) Supporting Document(s) Source Laboratory test result MED[facility] ([facility]) Urinalysis Laboratory test result MED[facility] ([facility]) URINALYSIS Color Laboratory test result MED[facility] ([facility]) Clarity Laboratory test result [facility] ([facility]) Spec [place] 1.020 1.001-1.030 [facility] ([facility]) pH 6.5 5-9 [facility] ([facility]) Bilirubin Laboratory test result MED[facility] ([facility]) Glucose Laboratory test result [facility] ([facility]) Protein Laboratory test result [facility] ([facility]) Ketone Laboratory test result [facility] ([facility]) Leuk Est Laboratory test result [facility] ([facility]) Blood Laboratory test result [facility] ([facility]) Nitrite Laboratory test result [facility] ([facility]) Urobilinogen Laboratory test result [facility] ([facility]) Microscopic Laboratory test result M EDENT ([facility]) ID Date Data Source [id number] 05/28/2019 08:13:00 AM EST [facility] ([facility]) Name Value Range Interpretation Code Description Data Seema rce(s) Supporting Document(s) HCG Serum QL [place]enter Laboratory test result [facility] ([facility]) { KIT LOT # [id number] ) { KIT EXP DATE [id number] ) { PROCEDURAL CONTROL VALID ) HCG Serum Qual Laboratory test result [facility] ([facility]) ID Date Data Source [id number] 05/28/2019 08:13:00 AM EST [facility] ([facility]) Name Value Range Interpretation Code Description Data Seema rce(s) Supporting Document(s) CBC No Diff Laboratory test result M EDENT ([facility]) COMPLETE BLOOD COUNT WBC 3.3 10^3/uL 4.2-11.0 Below low normal [facility] ([facility]) Hemoglobin 10.1 g/dL 12.0-16.0 Below low normal [facility] ( [facility]) Hematocrit 33.0 % 37.0-47.0 Below low normal [facility] ( [facility]) RBC 4.15 10^6/uL 4.20-5.40 Below low normal [facility] ([facility]) MCH 24.3 pg 27.0-34.0 Below low normal [facility] ( [facility]) MCV 79.5 fL 81.0-101 Below low normal [facility] ([facility]) Platelets 197 10^3/uL 150-450 [facility] ([facility]) MCHC 30.6 g/dL 31.0-36.0 Below low normal [facility] ( [facility]) RDW 15.9 % 11.5-14.5 Above high normal [facility] ([facility]) MPV 10.1 fL 7.4-10.4 [facility] ([facility]) ID Date Data Source [id number] 05/08/2019 09:45:00 PM EST [facility] Name Value Range Interpretation Code Description Data Seema rce(s) Supporting Document(s) [facility] trachomatis rRNA [Presence] in Unspecified specimen by Probe and target amplification method Negative Negative [facility] Neisseria gonorrhoeae rRNA [Presence] in Unspecified specimen by Probe and target amplification method Negative Negative [facility] ID Date Data Source [id number] 05/06/2019 01:37:00 PM EST [facility] ([facility] Name Value Range Interpretation Code Description Data Seema rce(s) Supporting Document(s) Source: Laboratory test result [facility] ([facility] {SOURCE: R~.~.~Z39.2 Chlamydia trachomatis,Janette Laboratory test result [facility] ([facility] {SOURCE: R~.~.~Z39.2 Neisseria gonorrhoeae,Janette Laboratory test result [facility] ([facility] {SOURCE: R~.~.~Z39.2 ID Date Data Source [id number] 05/06/2019 01:37:00 PM EST [facility] ([facility]) Name Value Range Interpretation Code Description Data Seema rce(s) Supporting Document(s) Neisseria gonorrhoeae,Janette Laboratory test result [facility] ([facility]) {SOURCE: R~.~.~Z39.2 Source: Laboratory test result [facility] ([facility]) {SOURCE: R~.~.~Z39.2 Chlamydia trachomatis,Janette Laboratory test result [facility] ([facility]) {SOURCE: R~.~.~Z39.2 Procedure Social History Code Duration Value Status Description Data Source(s ) Smoking 05/03/2020 12:00:00 AM EST Patient is a former smoker completed Patient is a former smoker [facility] Vital Signs ID Date Data Source UNK Name Value Range Interpretation Code Description Data Source(s) Oxygen saturation in Arterial blood by Pulse oximetry 97 % 97 % [facility] ([facility] Body mass index (BMI) [Ratio] 41.6 kg/m2 41.6 k g/m2 [facility] ([facility] [place] body weight 100 [lb_av] 100 [lb_av] MEDEN T ([facility] Body weight 199.00 [lb_av] 199.00 [lb_av] MED[facility] T ([facility] Body height 58 [in_i] 58 [in_i] MEDNARDA ([facility] 4'10" Respiratory rate 16 /min 16 /min [facility] ( [facility] Heart rate 86 /min 86 /min [facility]DA ([facility] Body temperature 98.0 [degF] 98.0 [degF] [facility] ([facility] Diastolic blood pressure 82 mm[Hg] 82 mm[Hg] [facility] ([facility] Systolic blood pressure 128 mm[Hg] 128 mm[Hg] M EDENT ([facility] Oxygen saturation in Arterial blood by Pulse oximetry 95 % 95 % [facility] ([facility] Body mass index (BMI) [Ratio] 42.0 kg/m2 42.0 k g/m2 [facility] ([facility] [place] body weight 100 [lb_av] 100 [lb_av] MEDEN T ([facility] Body weight 201.00 [lb_av] 201.00 [lb_av] MEDEN T ([facility] Body height 58 [in_i] 58 [in_i] [facility] ([facility] 4'10" Respiratory rate 16 /min 16 /min [facility] ( [facility] Heart rate 90 /min 90 /min [facility] ([facility] Body temperature 98.5 [degF] 98.5 [degF] [facility] ([facility] Diastolic blood pressure 84 mm[Hg] 84 mm[Hg] [facility] ([facility] Systolic blood pressure 136 mm[Hg] 136 mm[Hg] M EDENT ([facility] Oxygen saturation in Arterial blood by Pulse oximetry 97 % 97 % [facility] ([facility] ([place]), ([place]) Body mass index (BMI) [Ratio] 42.0 kg/m2 42.0 k g/m2 [facility] ([facility] [place] body weight 100 [lb_av] 100 [lb_av] MEDEN T ([facility] Body weight 201.00 [lb_av] 201.00 [lb_av] MED[facility] T ([facility] Body height 58 [in_i] 58 [in_i] [facility] ([facility] 4'10" Heart rate 66 /min 66 /min [facility] ([facility] Body temperature 98.6 [degF] 98.6 [degF] [facility] ([facility] Diastolic blood pressure 62 mm[Hg] 62 mm[Hg] [facility] ([facility] Systolic blood pressure 94 mm[Hg] 94 mm[Hg] M EDENT ([facility] Systolic blood pressure 101 mm[Hg] 101 mm[Hg] M EDENT ([facility]) Diastolic blood pressure 71 mm[Hg] 71 mm[Hg] [facility] ([facility]) Heart rate 77 /min 77 /min [facility] ([facility]) Oxygen saturation in Arterial blood by Pulse oximetry 99 % 99 % [facility] ([facility]) Body weight 189.00 [lb_av] 189.00 [lb_av] MEDEN T ([facility]) Body weight 85.730 kg 85.730 kg [facility] ([facility]) Systolic blood pressure 102 mm[Hg] 102 mm[Hg] M EDENT ([facility] Diastolic blood pressure 78 mm[Hg] 78 mm[Hg] [facility] ([facility] Body temperature 98.2 [degF] 98.2 [degF] [facility] ([facility] Heart rate 100 /min 100 /min [facility] ([facility] Respiratory rate 16 /min 16 /min [facility] ( [facility] Body height 58 [in_i] 58 [in_i] [facility] 4'10" Body weight 185.00 [lb_av] 185.00 [lb_av] MEDEN T ([facility] Body mass index (BMI) [Ratio] 38.7 kg/m2 38.7 k g/m2 [facility] ([facility] Oxygen saturation in Arterial blood by Pulse oximetry 99 % 99 % [facility] ([facility] Systolic blood pressure 100 mm[Hg] 100 mm[Hg] M EDENT ([facility] Diastolic blood pressure 90 mm[Hg] 90 mm[Hg] [facility] ([facility] Body temperature 96.7 [degF] 96.7 [degF] [facility] ([facility] Heart rate 98 /min 98 /min [facility] ([facility] Respiratory rate 18 /min 18 /min [facility] ( [facility] Body height 58 [in_i] 58 [in_i] [facility] 4'10" Body weight 185.00 [lb_av] 185.00 [lb_av] MEDEN T ([facility] Body mass index (BMI) [Ratio] 38.7 kg/m2 38.7 k g/m2 [facility] ([facility] Oxygen saturation in Arterial blood by Pulse oximetry 93 % 93 % [facility] ([facility] ([place]), ([place]) Systolic blood pressure 115 mm[Hg] 115 mm[Hg] M EDENT ([facility]) Diastolic blood pressure 79 mm[Hg] 79 mm[Hg] [facility] ([facility]) Heart rate 88 /min 88 /min [facility] ([facility]) Body temperature 97.6 [degF] 97.6 [degF] [facility] ([facility]) Respiratory rate 20 /min 20 /min [facility] ( [facility]) Oxygen saturation in Arterial blood by Pulse oximetry 94 % 94 % [facility] ([facility]) Body height 58 [in_i] 58 [in_i] [facility] ([facility]) 4'10" Body temperature 98.0 [degF] 98.0 [degF] [facility] ([facility]) Body height 58 [in_i] 58 [in_i] [facility] ([facility]) 4'10" Body weight 183.00 [lb_av] 183.00 [lb_av] MEDEN T ([facility]) Body mass index (BMI) [Ratio] 38.2 kg/m2 38.2 k g/m2 [facility] ([facility]) Systolic blood pressure 138 mm[Hg] 138 mm[Hg] M EDENT ([facility] Diastolic blood pressure 78 mm[Hg] 78 mm[Hg] [facility] ([facility] Body temperature 97.8 [degF] 97.8 [degF] [facility] ([facility] Heart rate 90 /min 90 /min [facility] ([facility] Respiratory rate 16 /min 16 /min [facility] ( [facility] Body height 58 [in_i] 58 [in_i] [facility] ([facility] 4'10" Body weight 183.00 [lb_av] 183.00 [lb_av] MED[facility] T ([facility] Body mass index (BMI) [Ratio] 38.2 kg/m2 38.2 k g/m2 [facility] Oxygen saturation in Arterial blood by Pulse oximetry 99 % 99 % [facility] ([facility] ([place]), ([place]) Systolic blood pressure 110 mm[Hg] 110 mm[Hg] M EDENT ([facility]) Diastolic blood pressure 92 mm[Hg] 92 mm[Hg] [facility] ([facility]) Heart rate 72 /min 72 /[facility] Body weight 173.00 [lb_av] 173.00 [lb_av] MEDEN T ([facility]) Body weight 78.473 kg 78.473 kg [facility] ([facility]) Body height 58 [in_i] 58 [in_i] [facility] ([facility]) 4'10" Body mass index (BMI) [Ratio] 36.2 kg/m2 36.2 k g/m2 [facility] ([facility]) Body surface area 1.71 m2 1.71 m2 [facility] ([facility]) Systolic blood pressure 118 mm[Hg] 118 mm[Hg] M EDENT ([facility]) Diastolic blood pressure 72 mm[Hg] 72 mm[Hg] [facility] ([facility]) Body weight 172.00 [lb_av] 172.00 [lb_av] MEDEN T ([facility]) Body weight 78.019 kg 78.019 kg [facility] ([facility]) Body height 58 [in_i] 58 [in_i] [facility] 4'10" Body mass index (BMI) [Ratio] 35.9 kg/m2 35.9 k g/m2 [facility] ([facility]) Body surface area 1.71 m2 1.71 m2 [facility] ([facility]) ID Date Data Source [id number] 08/08/2019 04:15:26 PM EDT [facility] Name Value Range Interpretation Code Description Data Source(s) WEIGHT RECORDED 183.00 pounds 183.00 pounds [facility] Height 58 Inches 058 Inches [facility] ID Date Data Source [id number] 07/17/2019 08:32:11 AM EDT [facility] Name Value Range Interpretation Code Description Data Source(s) WEIGHT RECORDED 172.00 pounds 172.00 pounds [facility] Height 58 Inches 058 Inches [facility] ID Date Data Source [id number] 05/06/2019 01:40:05 PM EST [facility] Name Value Range Interpretation Code Description Data Source(s) WEIGHT RECORDED 194.00 pounds 194.00 pounds [facility] Height 58 Inches 058 Inches [facility]
[2020-06-07] MEDS ORDERED: ACETAMINOPHEN 325 MG TAB PO ONE (11:15)
[2020-06-07 11:18] LABS: BLOOD UREA NITROGEN 20 MG/DL (7-18); CREATININE FOR GFR 0.79 MG/DL (0.55-1.30); GLUCOSE, FASTING 106 MG/DL (70-100)
[2020-06-07 11:19] LABS: CALCIUM LEVEL 8.4 MG/DL (8.5-10.1); CARBON DIOXIDE LEVEL 26 MEQ/L (21-32); CHLORIDE LEVEL 106 MEQ/L (98-107); GLOMERULAR FILTRATION RATE > 60.0 (>60); SODIUM LEVEL 141 MEQ/L (136-145)
[2020-06-07 14:02] VITALS: BP 137/84
--- NOTE | 2020-06-07 15:48 | ECGEPIP ---
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
== END 2020-06-07 14:03 | disposition home or self-care (01) ==
LOC: M ED 09:24
DX: F43.0 Acute stress reaction (principal); R56.9 Unspecified convulsions; M25.562 Pain in left knee; S09.90XA Unspecified injury of head, initial encounter; W01.10XA Fall on same level from slipping, tripping and stumbling with subsequent striking against unspecified object, initial encounter; Y92.9 Unspecified place or not applicable; Y93.9 Activity, unspecified; Y99.9 Unspecified external cause status; F41.9 Anxiety disorder, unspecified; F31.9 Bipolar disorder, unspecified; F43.10 Post-traumatic stress disorder, unspecified; G47.00 Insomnia, unspecified; Z88.8 Allergy status to other drugs, medicaments and biological substances; Z79.899 Other long term (current) drug therapy

== ENCOUNTER 2023-09-15 14:08 | Emergency (ER) | payer OTHER ==
[~2023-09-15] VITALS: Ht 147.3 cm; Wt 44.6 kg
[~2023-09-15 14:08] MED LIST: BUSP30TA PO; PROZ10CA7 PO; TRAZ1TAB14 PO
[2023-09-15] MEDS ORDERED: DULO1CAP6 (14:20)
[2023-09-15] MEDS ORDERED: GABA-284 PO (14:22)
[2023-09-15] MEDS ORDERED: PREG25CA3 (14:22)
[2023-09-15] MEDS: NS 1,000 ML IV ONE (14:49)
[2023-09-15 14:50] LABS: VENOUS BASE EXCESS -4.3 (-2.0-2.0); VENOUS HCO3 21.7 MMOL/L (23.0-27.0); VENOUS O2 SATURATION 65.8 % (60.0-80.0); VENOUS PARTIAL PRESSURE CO2 42.9 mmHg (38.0-50.0); VENOUS PARTIAL PRESSURE O2 37.2 mmHg (30.0-50.0); VENOUS PH 7.321 UNITS (7.330-7.430); VENOUS STANDARD HCO3 20.3 MMOL/L
[2023-09-15 15:01] LABS: BASO % 0.4 % (0.0-1.0); EOS % 0.2 % (0.0-3.0); HEMOGLOBIN 12.1 g/dl (12.0-15.5); LYMPH # 1.1 10^3/uL (1.5-5.0); LYMPH % 21.8 % (24.0-44.0); MEAN CORPUSCULAR HEMOGLOBIN 30.9 pg (27.0-33.0); MEAN CORPUSCULAR HGB CONC 33.6 g/dl (32.0-36.5); MEAN CORPUSCULAR VOLUME 91.8 fl (80.0-96.0); MONO # 0.4 10^3/uL (0.0-0.8); MONO % 6.9 % (2.0-8.0); NEUTROPHILS # 3.6 10^3/uL (1.5-8.5); NEUTROPHILS % 70.5 % (36.0-66.0); PLATELET COUNT, AUTOMATED 185 10^3/uL (150-450); RED BLOOD COUNT 3.92 10^6/uL (4.00-5.40); WHITE BLOOD COUNT 5.1 10^3/uL (4.0-10.0)
[2023-09-15 15:22] LABS: HCG, SERUM QUALITATIVE NEGATIVE (NEGATIVE)
[2023-09-15 15:23] LABS: ETHYL ALCOHOL (ETHANOL) < 0.003 % (0.000-0.010)
[2023-09-15 15:25] LABS: ALBUMIN 3.7 G/DL (3.2-5.2); ALKALINE PHOSPHATASE 69 U/L (46-116); ALT/SGPT 27 U/L (7.0-40); AST/SGOT 20 U/L (<34); BILIRUBIN,DIRECT 0.2 MG/DL (<0.4); BILIRUBIN,TOTAL 0.5 MG/DL (0.3-1.2); BLOOD UREA NITROGEN 18 MG/DL (9-23); CALCIUM LEVEL 9.1 MG/DL (8.5-10.1); CARBON DIOXIDE LEVEL 24 MMOL/L (20-31); CHLORIDE LEVEL 109 MMOL/L (98-107); CREATININE FOR GFR 1.11 MG/DL (0.55-1.30); GLOMERULAR FILTRATION RATE > 60.0 (>60); GLUCOSE, FASTING 66 MG/DL (60-100); POTASSIUM SERUM 4.1 MMOL/L (3.5-5.1); SALICYLATE LEVEL < 3.0 MG/DL (<30); SODIUM LEVEL 143 MMOL/L (136-145); TOTAL PROTEIN 6.3 G/DL (5.7-8.2)
[2023-09-15 15:27] LABS: THYROID STIMULATING HORMONE 0.481 uIU/ML (0.55-4.78)
[2023-09-15 15:28] LABS: CPK CREATINE PHOSPHOKINASE 225 U/L (34-145)
[2023-09-15 17:45] VITALS: BP 110/76; TEMP 97.3; O2SAT 99
== END 2023-09-15 17:55 | disposition home or self-care (01) ==
LOC: M ED 14:08
DX: R56.9 Unspecified convulsions (principal); F31.9 Bipolar disorder, unspecified; F43.10 Post-traumatic stress disorder, unspecified; F32.A Depression, unspecified; G10 Huntington's disease; F17.200 Nicotine dependence, unspecified, uncomplicated; F12.10 Cannabis abuse, uncomplicated; F10.10 Alcohol abuse, uncomplicated; Z79.899 Other long term (current) drug therapy

== ENCOUNTER 2023-10-25 18:45 | Emergency (ER) | payer OTHER ==
[~2023-10-25] VITALS: Ht 149.9 cm; Wt 44.5 kg
[~2023-10-25 18:45] MED LIST changes: +DULO1CAP6 PO; +GABA-284 PO; +PREG25CA3
[2023-10-25 19:23] LABS: HEMATOCRIT 39.3 % (36.0-47.0); HEMOGLOBIN 13.2 g/dl (12.0-15.5); MEAN CORPUSCULAR HEMOGLOBIN 31.3 pg (27.0-33.0); MEAN CORPUSCULAR HGB CONC 33.6 g/dl (32.0-36.5); MEAN CORPUSCULAR VOLUME 93.1 fl (80.0-96.0); PLATELET COUNT, AUTOMATED 146 10^3/uL (150-450); RED BLOOD COUNT 4.22 10^6/uL (4.00-5.40)
[2023-10-25 19:49] LABS: ETHYL ALCOHOL (ETHANOL) 0.003 % (0.000-0.010)
[2023-10-25 19:51] LABS: ALBUMIN 3.9 G/DL (3.2-5.2); ALKALINE PHOSPHATASE 72 U/L (46-116); ALT/SGPT 36 U/L (7.0-40); AST/SGOT 29 U/L (<34); BILIRUBIN,DIRECT 0.3 MG/DL (<0.4); BILIRUBIN,TOTAL 0.7 MG/DL (0.3-1.2); BLOOD UREA NITROGEN 17 MG/DL (9-23); CALCIUM LEVEL 8.5 MG/DL (8.5-10.1); CARBON DIOXIDE LEVEL 26 MMOL/L (20-31); CHLORIDE LEVEL 107 MMOL/L (98-107); CREATININE FOR GFR 0.61 MG/DL (0.55-1.30); GLOMERULAR FILTRATION RATE > 60.0 (>60); GLUCOSE, FASTING 85 MG/DL (60-100); POTASSIUM SERUM 3.6 MMOL/L (3.5-5.1); SODIUM LEVEL 140 MMOL/L (136-145)
[2023-10-25 19:55] LABS: SALICYLATE LEVEL < 3.0 MG/DL (<30)
[2023-10-25 20:37] LABS: HCG, SERUM QUALITATIVE NEGATIVE (NEGATIVE)
[2023-10-25 22:27] LABS: BARBITURATES URINE NEGATIVE (NEGATIVE); BENZODIAZEPINES URINE NEGATIVE (NEGATIVE); COCAINE METABOLITE URINE NEGATIVE (NEGATIVE); METHADONE URINE NEGATIVE (NEGATIVE); OPIATES URINE NEGATIVE (NEGATIVE); PHENCYCLIDINE URINE NEGATIVE (NEGATIVE)
[2023-10-25 22:28] LABS: AMPHETAMINES LEVEL URINE POSITIVE (NEGATIVE); CANNABINOIDS URINE POSITIVE (NEGATIVE)
[2023-10-26] MEDS: ACETAMINOPHEN TAB 650MG DOSE (2X325MG) PO ONE (04:46)
[2023-10-26] MEDS ORDERED: TRAZ-252 PO (08:53)
[2023-10-26] MEDS ORDERED: OMEP40CA5 PO (08:53)
[2023-10-26] MEDS ORDERED: BUSP1TAB PO (08:53)
[2023-10-26] MEDS ORDERED: DULO1CAP5 PO (08:53)
[2023-10-26] MEDS ORDERED: VENTAER INH (08:53)
[2023-10-26] MEDS ORDERED: HOME MED LIST COMPLETE! XX SCH (08:55)
[2023-10-26] MEDS ORDERED: GABA-282 PO (09:31)
[2023-10-26 14:29] VITALS: BP 103/59; TEMP 97.7; O2SAT 100
== END 2023-10-26 16:19 | disposition home or self-care (01) ==
LOC: M ED 18:45
DX: F43.23 Adjustment disorder with mixed anxiety and depressed mood (principal); F32.A Depression, unspecified; R45.851 Suicidal ideations; F31.9 Bipolar disorder, unspecified; F12.10 Cannabis abuse, uncomplicated; F17.200 Nicotine dependence, unspecified, uncomplicated; F10.10 Alcohol abuse, uncomplicated; Z87.442 Personal history of urinary calculi; Z88.5 Allergy status to narcotic agent; Z88.6 Allergy status to analgesic agent; Z88.8 Allergy status to other drugs, medicaments and biological substances; Z79.52 Long term (current) use of systemic steroids; Z79.899 Other long term (current) drug therapy

== ENCOUNTER 2023-11-15 02:16 | Inpatient (IN) | payer MEDICAID, OTHER ==
[~2023-11-15] VITALS: Ht 147.3 cm; Wt 40.1 kg
[~2023-11-15 02:16] MED LIST changes: +BUSP1TAB PO; +DULO1CAP5 PO; +GABA-282 PO; +OMEP40CA5 PO; +TRAZ-252 PO; +VENTAER INH
[2023-11-15] MEDS: DULoxetine 30MG CAPSULE (CYMBALTA) PO SCH (09:00)
[2023-11-15] MEDS ORDERED: IBUPROFEN 400MG TAB PO PRN (12:00)
[2023-11-15] MEDS ORDERED: traZODone 50 MG TAB PO PRN (12:00)
[2023-11-15] MEDS ORDERED: HOME MED LIST COMPLETE! XX SCH (12:40)
[2023-11-15] MEDS: OMEPRAZOLE 20MG CAP PO SCH (12:40)
[2023-11-15 14:35] VITALS: BP 101/72; TEMP 97.8; O2SAT 100
[2023-11-15] MEDS ORDERED: DULoxetine 30MG CAPSULE (CYMBALTA) PO SCH (15:00)
[2023-11-16] MEDS: UNRESOLVED CLARIFICATION ENTRY XX SCH (00:01)
[2023-11-16 06:04] VITALS: BP 115/59; TEMP 97.8; O2SAT 98
[2023-11-16] MEDS ORDERED: ALBUTEROL 90 MCG/ACT 8GM HFA INHALER INH PRN (09:35)
[2023-11-16] MEDS: VENLAFAXINE **XR** 37.5 MG CAPSULE PO SCH (09:55)
[2023-11-16 15:28] VITALS: BP 106/64; TEMP 98.3; O2SAT 99
[2023-11-17 06:23] VITALS: BP 101/68; TEMP 97.7; O2SAT 100
[2023-11-17] MEDS: OMEPRAZOLE 20MG CAP PO SCH (08:54)
[2023-11-17 09:51] LABS: BASO % 0.6 % (0.0-1.0); EOS % 0.6 % (0.0-3.0); HEMATOCRIT 36.9 % (36.0-47.0); HEMOGLOBIN 12.6 g/dl (12.0-15.5); LYMPH # 1.1 10^3/uL (1.5-5.0); LYMPH % 32.5 % (24.0-44.0); MEAN CORPUSCULAR HEMOGLOBIN 31.3 pg (27.0-33.0); MEAN CORPUSCULAR HGB CONC 34.1 g/dl (32.0-36.5); MEAN CORPUSCULAR VOLUME 91.8 fl (80.0-96.0); MONO # 0.2 10^3/uL (0.0-0.8); MONO % 5.8 % (2.0-8.0); NEUTROPHILS # 2.1 10^3/uL (1.5-8.5); NEUTROPHILS % 60.5 % (36.0-66.0); PLATELET COUNT, AUTOMATED 166 10^3/uL (150-450); RED BLOOD COUNT 4.02 10^6/uL (4.00-5.40); WHITE BLOOD COUNT 3.4 10^3/uL (4.0-10.0)
[2023-11-17] MEDS: ACETAMINOPHEN TAB 650MG DOSE (2X325MG) PO PRN (10:02)
[2023-11-17 10:04] LABS: BLOOD UREA NITROGEN 17 MG/DL (9-23); CALCIUM LEVEL 8.4 MG/DL (8.5-10.1); CARBON DIOXIDE LEVEL 31 MMOL/L (20-31); CHLORIDE LEVEL 107 MMOL/L (98-107); CREATININE FOR GFR 0.67 MG/DL (0.55-1.30); GLOMERULAR FILTRATION RATE > 60.0 (>60); GLUCOSE, FASTING 89 MG/DL (60-100); MAGNESIUM LEVEL 1.7 MG/DL (1.8-2.4); POTASSIUM SERUM 4.2 MMOL/L (3.5-5.1); SODIUM LEVEL 143 MMOL/L (136-145)
[2023-11-17 16:07] VITALS: BP 134/79; TEMP 98.9; O2SAT 100
[2023-11-17] MEDS: traZODone 50 MG TAB PO PRN (20:23)
[2023-11-17] MEDS: GABAPENTIN 300 MG CAP PO PRN (20:23)
[2023-11-18 06:23] VITALS: BP 107/66; TEMP 98.1; O2SAT 95
[2023-11-18] MEDS: MOM 30ML SUSPENSION UDC PO PRN (10:02)
[2023-11-18] MEDS: busPIRone 5 MG TAB PO PRN (12:38)
[2023-11-18 16:06] VITALS: BP 108/64; TEMP 98.6; O2SAT 98
[2023-11-18] MEDS: MAALOX 30 ML SUSP *UDC PO PRN (18:27)
[2023-11-18] MEDS: diphenhydrAMINE 25MG CAP PO PRN (22:00)
[2023-11-19] MEDS: VENLAFAXINE **XR** 75MG CAPSULE PO SCH (08:08)
[2023-11-19 18:36] VITALS: BP 139/68; TEMP 99.1; O2SAT 99
[2023-11-19] MEDS: ONDANSETRON 4MG ORAL DISINTEGRATING TAB PO PRN (18:45)
[2023-11-20 06:08] VITALS: BP 90/53; TEMP 97.1; O2SAT 99
[2023-11-20] MEDS ORDERED: VENL75CA47 PO (11:01)
== END 2023-11-20 13:00 | disposition home or self-care (01) | DRG 754 ==
LOC: M ED 02:16 → M ED INP 12:00 → M PSY 14:46
PROVIDERS: ADMIT Psychiatry & Neurology Child & Adolescent Psychiatry; ATTEND Psychiatry & Neurology Child & Adolescent Psychiatry
DX: F32.A Depression, unspecified (principal); F32.9 Major depressive disorder, single episode, unspecified; F12.90 Cannabis use, unspecified, uncomplicated; F15.90 Other stimulant use, unspecified, uncomplicated; R45.851 Suicidal ideations; J45.909 Unspecified asthma, uncomplicated; F41.9 Anxiety disorder, unspecified; G40.909 Epilepsy, unspecified, not intractable, without status epilepticus; Z79.899 Other long term (current) drug therapy; Z88.8 Allergy status to other drugs, medicaments and biological substances; Z88.6 Allergy status to analgesic agent

== ENCOUNTER 2024-02-05 14:14 | Emergency (ER) | payer MEDICAID, OTHER ==
[~2024-02-05 14:14] MED LIST changes: +GABA-1172 PO; -GABA-282 PO; +VENL75CA47 PO
[2024-02-05 14:33] VITALS: BP 131/93; TEMP 98.2; O2SAT 99
[2024-02-05 14:51] LABS: HEMATOCRIT 43.8 % (36.0-47.0); HEMOGLOBIN 14.6 g/dl (12.0-15.5); MEAN CORPUSCULAR HEMOGLOBIN 31.9 pg (27.0-33.0); MEAN CORPUSCULAR HGB CONC 33.3 g/dl (32.0-36.5); MEAN CORPUSCULAR VOLUME 95.8 fl (80.0-96.0); PLATELET COUNT, AUTOMATED 225 10^3/uL (150-450); RED BLOOD COUNT 4.57 10^6/uL (4.00-5.40)
[2024-02-05] MEDS ORDERED: VENL75CA47 PO (14:56)
[2024-02-05] MEDS ORDERED: PANT40TA29 PO (14:57)
[2024-02-05] MEDS ORDERED: HOME MED LIST COMPLETE! XX SCH (15:00)
[2024-02-05 15:46] LABS: BARBITURATES URINE NEGATIVE (NEGATIVE)
[2024-02-05 15:47] LABS: BENZODIAZEPINES URINE NEGATIVE (NEGATIVE); COCAINE METABOLITE URINE NEGATIVE (NEGATIVE); METHADONE URINE NEGATIVE (NEGATIVE); OPIATES URINE NEGATIVE (NEGATIVE); PHENCYCLIDINE URINE NEGATIVE (NEGATIVE)
[2024-02-05 15:49] LABS: HCG, SERUM QUALITATIVE NEGATIVE (NEGATIVE)
[2024-02-05 15:50] LABS: AMPHETAMINES LEVEL URINE POSITIVE (NEGATIVE); CANNABINOIDS URINE POSITIVE (NEGATIVE)
[2024-02-05 15:56] LABS: ETHYL ALCOHOL (ETHANOL) < 0.003 % (0.000-0.010)
[2024-02-05 15:57] LABS: SALICYLATE LEVEL < 3.0 MG/DL (<30)
[2024-02-05 15:58] LABS: ALBUMIN 3.7 G/DL (3.2-5.2); ALKALINE PHOSPHATASE 74 U/L (46-116); ALT/SGPT 59 U/L (7.0-40); AST/SGOT 16 U/L (<34); BILIRUBIN,DIRECT 0.2 MG/DL (<0.4); BILIRUBIN,TOTAL 0.5 MG/DL (0.3-1.2); BLOOD UREA NITROGEN 16 MG/DL (9-23); CALCIUM LEVEL 9.3 MG/DL (8.5-10.1); CARBON DIOXIDE LEVEL 26 MMOL/L (20-31); CHLORIDE LEVEL 109 MMOL/L (98-107); CREATININE FOR GFR 0.64 MG/DL (0.55-1.30); GLOMERULAR FILTRATION RATE > 60.0 (>60); GLUCOSE, FASTING 92 MG/DL (60-100); POTASSIUM SERUM 3.9 MMOL/L (3.5-5.1); SODIUM LEVEL 139 MMOL/L (136-145); TOTAL PROTEIN 6.7 G/DL (5.7-8.2)
[2024-02-05 15:59] LABS: THYROID STIMULATING HORMONE 1.629 uIU/ML (0.55-4.78)
== END 2024-02-05 18:16 | disposition home or self-care (01) ==
LOC: M ED 14:14
DX: Z04.6 Encounter for general psychiatric examination, requested by authority (principal); F32.A Depression, unspecified; F41.9 Anxiety disorder, unspecified; J45.909 Unspecified asthma, uncomplicated; G40.909 Epilepsy, unspecified, not intractable, without status epilepticus; Z88.5 Allergy status to narcotic agent; Z88.6 Allergy status to analgesic agent; Z88.8 Allergy status to other drugs, medicaments and biological substances; Z79.52 Long term (current) use of systemic steroids; Z79.899 Other long term (current) drug therapy

== ENCOUNTER → 2024-08-13 | Outpatient (REF) | payer OTHER ==
[~2024-08-13] MED LIST changes: +PANT40TA29 PO
[2024-08-13 15:35] LABS: HEMOGLOBIN A1c 4.7 % (4.0-6.0)
[2024-08-13 15:41] LABS: ALBUMIN 3.4 G/DL (3.2-5.2); ALKALINE PHOSPHATASE 69 U/L (35-104); ALT/SGPT 35 U/L (7.0-40); AST/SGOT 34 U/L (<34); BILIRUBIN,TOTAL 0.2 MG/DL (0.3-1.2); BLOOD UREA NITROGEN 12 MG/DL (9-23); CALCIUM LEVEL 7.6 MG/DL (8.5-10.1); CARBON DIOXIDE LEVEL 27 MMOL/L (20-31); CHLORIDE LEVEL 103 MMOL/L (98-107); CHOLESTEROL LEVEL 146 MG/DL (<200); CHOLESTEROL RISK RATIO 2.71 (<5); CREATININE FOR GFR 0.56 MG/DL (0.55-1.30); GLOMERULAR FILTRATION RATE > 90.0 (>60); GLUCOSE, FASTING 113 MG/DL (60-100); HDL CHOLESTEROL 53.8 MG/DL (>40); NON-HDL-C 92.2 MG/DL; POTASSIUM SERUM 3.5 MMOL/L (3.5-5.1); SODIUM LEVEL 146 MMOL/L (136-145); THYROID STIMULATING HORMONE 1.174 uIU/ML (0.55-4.78); TOTAL 25(OH) VITAMIN D 16.2 NG/ML (20.0-100.0); TOTAL PROTEIN 6.1 G/DL (5.7-8.2); TRIGLYCERIDES LEVEL 56 MG/DL (<150)
[2024-08-13 16:12] LABS: HIV 1&2 SCREEN NEGATIVE (NEGATIVE)
[2024-08-13 16:20] LABS: HEPATITIS C VIRUS ABY INDEX 0.02 INDEX (<0.8)
== END ==
LOC: M LAB REF 14:18
PROVIDERS: ATTEND Physician Assistant
DX: G10 Huntington's disease (principal); Z11.9 Encounter for screening for infectious and parasitic diseases, unspecified; E55.9 Vitamin D deficiency, unspecified; G89.29 Other chronic pain; F19.11 Other psychoactive substance abuse, in remission

== ENCOUNTER → 2024-10-14 | Outpatient (REF) | payer OTHER ==
[~2024-10-14] MED LIST changes: +CYCL5TAB4 PO; +PRED20TA PO
[2024-10-14 19:04] LABS: BASO # 0.1 10^3/uL (0.0-0.2); BASO % 0.5 % (0.0-1.0); EOS # 0.1 10^3/uL (0.0-0.5); EOS % 1.1 % (0.0-3.0); LYMPH # 2.9 10^3/uL (1.5-5.0); LYMPH % 29.0 % (24.0-44.0); MONO # 0.5 10^3/uL (0.0-0.8); MONO % 5.4 % (2.0-8.0); NEUTROPHILS # 6.2 10^3/uL (1.5-8.5); NEUTROPHILS % 63.6 % (36.0-66.0); PLATELET COUNT, AUTOMATED 277 10^3/uL (150-450)
[2024-10-14 19:09] LABS: CALCIUM LEVEL 8.4 MG/DL (8.5-10.1); CARBON DIOXIDE LEVEL 30 MMOL/L (20-31); CHLORIDE LEVEL 102 MMOL/L (98-107); CREATININE FOR GFR 0.71 MG/DL (0.55-1.30); GLOMERULAR FILTRATION RATE > 90.0 (>60); POTASSIUM SERUM 4.6 MMOL/L (3.5-5.1); SODIUM LEVEL 142 MMOL/L (136-145)
== END ==
LOC: M LAB REF 17:19
PROVIDERS: ATTEND Physician Assistant
DX: R30.0 Dysuria (principal)

== ENCOUNTER 2024-11-19 05:58 | Emergency (ER) | payer OTHER ==
[~2024-11-19] VITALS: Ht 147.3 cm; Wt 53.6 kg
[~2024-11-19 05:58] MED LIST changes: +PROZ10CA11 PO; -PROZ10CA7 PO
[2024-11-19 06:06] VITALS: TEMP 97.7
[2024-11-19 06:29] LABS: BASO # 0.0 10^3/uL (0.0-0.2); BASO % 0.5 % (0.0-1.0); EOS # 0.1 10^3/uL (0.0-0.5); EOS % 2.4 % (0.0-3.0); LYMPH # 1.4 10^3/uL (1.5-5.0); LYMPH % 35.7 % (24.0-44.0); MONO # 0.4 10^3/uL (0.0-0.8); MONO % 11.4 % (2.0-8.0); NEUTROPHILS # 1.9 10^3/uL (1.5-8.5); NEUTROPHILS % 49.7 % (36.0-66.0); PLATELET COUNT, AUTOMATED 199 10^3/uL (150-450)
[2024-11-19 06:52] LABS: ALT/SGPT 28 U/L (7.0-40); AST/SGOT 34 U/L (<34); CALCIUM LEVEL 8.9 MG/DL (8.5-10.1); CARBON DIOXIDE LEVEL 29 MMOL/L (20-31); CHLORIDE LEVEL 106 MMOL/L (98-107); CREATININE FOR GFR 0.70 MG/DL (0.55-1.30); GLOMERULAR FILTRATION RATE > 90.0 (>60); POTASSIUM SERUM 3.8 MMOL/L (3.5-5.1); SODIUM LEVEL 146 MMOL/L (136-145)
[2024-11-19 07:46] VITALS: BP 111/70; O2SAT 99
== END 2024-11-19 08:24 | disposition home or self-care (01) ==
LOC: M ED 05:58
DX: F44.5 Conversion disorder with seizures or convulsions (principal); G89.4 Chronic pain syndrome; F19.10 Other psychoactive substance abuse, uncomplicated; F41.9 Anxiety disorder, unspecified; Z98.84 Bariatric surgery status; Z79.52 Long term (current) use of systemic steroids; Z79.899 Other long term (current) drug therapy; Z88.6 Allergy status to analgesic agent; Z88.8 Allergy status to other drugs, medicaments and biological substances; Z88.5 Allergy status to narcotic agent

== ENCOUNTER → 2024-11-26 | Outpatient (REF) | payer OTHER ==
[2024-11-26 12:18] LABS: APPEARANCE, URINE CLEAR (CLEAR); BACTERIA, URINE AUTO NEGATIVE (NEGATIVE); BILIRUBIN, URINE AUTO NEGATIVE (NEGATIVE); BLOOD, URINE BLOOD 1+ (NEGATIVE); GLUCOSE, URINE (UA) AUTO NEGATIVE (NEGATIVE); KETONE, URINE AUTO NEGATIVE (NEGATIVE); LEUKOCYTE ESTERASE, URINE AUTO NEGATIVE (NEGATIVE); MUCUS, URINE SMALL (NEGATIVE); NITRITE, URINE AUTO NEGATIVE (NEGATIVE); PROTEIN, URINE AUTO NEGATIVE (NEGATIVE); RBC, URINE AUTO 1 /HPF (0-3); SPECIFIC GRAVITY URINE AUTO 1.009 (1.002-1.035); SQUAMOUS EPITHELIAL CELL UR AU 0 /HPF (0-6); UROBILINOGEN, URINE AUTO 0.2 mg/dL (0.0-2.0); WBC, URINE AUTO 0 /HPF (0-3)
[2024-11-26 12:24] LABS: ALT/SGPT 53 U/L (7.0-40); AST/SGOT 46 U/L (<34); CALCIUM LEVEL 8.7 MG/DL (8.5-10.1); CARBON DIOXIDE LEVEL 30 MMOL/L (20-31); CHLORIDE LEVEL 105 MMOL/L (98-107); CREATININE FOR GFR 0.78 MG/DL (0.55-1.30); GLOMERULAR FILTRATION RATE > 90.0 (>60); HCG, SERUM QUALITATIVE NEGATIVE (NEGATIVE); POTASSIUM SERUM 4.2 MMOL/L (3.5-5.1); SODIUM LEVEL 145 MMOL/L (136-145)
[2024-11-26 12:27] LABS: BASO # 0.0 10^3/uL (0.0-0.2); BASO % 0.4 % (0.0-1.0); EOS # 0.0 10^3/uL (0.0-0.5); EOS % 0.7 % (0.0-3.0); LYMPH # 1.6 10^3/uL (1.5-5.0); LYMPH % 28.2 % (24.0-44.0); MONO # 0.3 10^3/uL (0.0-0.8); MONO % 5.2 % (2.0-8.0); NEUTROPHILS # 3.6 10^3/uL (1.5-8.5); NEUTROPHILS % 65.3 % (36.0-66.0); PLATELET COUNT, AUTOMATED 231 10^3/uL (150-450)
== END ==
LOC: M LAB REF 11:45
PROVIDERS: ATTEND Physician Assistant
DX: R10.9 Unspecified abdominal pain (principal)

== ENCOUNTER → 2024-12-30 | Outpatient (CLI) | payer OTHER | LOC: M RAD 07:39 | PROVIDERS: ATTEND Physician Assistant | DX: R10.9 Unspecified abdominal pain (principal) ==

== ENCOUNTER → 2025-02-10 | Outpatient (REF) | LOC: M PLAIMG 10:59 | PROVIDERS: ATTEND Internal Medicine | DX: R52 Pain, unspecified (principal) ==

== ENCOUNTER → 2025-04-07 | Outpatient (CLI) | payer OTHER, MEDICAID | LOC: M RAD 14:50 | PROVIDERS: ATTEND Physical Medicine & Rehabilitation | DX: M47.897 Other spondylosis, lumbosacral region (principal); M41.9 Scoliosis, unspecified; M54.50 Low back pain, unspecified ==